=== PATIENT | female | born 1970 | race Caucasian/White ===

== ENCOUNTER 2021-09-27 15:48 | Emergency (ER) | payer OTHER, SELFPAY ==
--- NOTE | ~2021-09-27 | XR_ITS ---
XR chest 2V DATE: 09/27/2021 16:53 INDICATION: Cough for 6 months. History of Covid infection x3. TECHNIQUE: PA and lateral views COMPARISON: None FINDINGS: Normal heart size. No hilar or mediastinal enlargement. No pulmonary infiltrate or consolid ation, pleural effusion or pulmonary vascular congestion or pneumothorax. Status post cholecystectomy. IMPRESSION: No active cardiac pulmonary disease Status post cholecystectomy Reviewed, dictated and finalized at location A. 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
--- NOTE | 2021-09-27 16:15 | ED.URI ---
HPI - URI/Sore Throat General Chief Complaint: Upper Respiratory Infection Stated Complaint: sore throat, ear pain,chest pain Time Seen by Provider: 09/27/21 16:20 Source: patient, RN notes reviewed and old records reviewed Mode of arrival: ambulatory Limitations: no limitations History of Present Illness HPI Narrative: 51 year old female presents to express care with complaints of continued shortness of breath, headache, left earache, congestion, cough with yellow drainage which has increased in the past 2 days. Patient reports that she had COVID diagnosed on August 01 and she has been to the doctor 3 times and has been on antibiotics and steroids and she does not feel she is getting any better. Patient reports that she is using her nebulizer every 4-6 hours. MD elicited complaint: cough, nasal congestion and other (congestion, shortness of breath) Pertinent past history: asthma Onset (ago): week(s) (felt bad for 3 weeks with increase symptoms last 2 days) Description of mucous: yellow Able to tolerate fluids by mouth: Yes Exacerbating factors: exertion Treatments prior to arrival: cold medicine and other (inhalers, nebs and mucinex) Related Data Home Medications Medication Instructions Recorded Confirmed albuterol sulfate 2 puff INHALATION Q4H PRN 09/27/21 09/27/21 amlodipine 10 mg PO DAILY 09/27/21 09/27/21 atorvastatin 20 mg PO DAILY 09/27/21 09/27/21 buspirone 10 mg PO DAILY 09/27/21 09/27/21 chlorthalidone 25 mg PO DAILY 09/27/21 09/27/21 clonazepam 2 mg PO HS PRN 09/27/21 09/27/21 diclofenac sodium 75 mg PO BID PRN 09/27/21 09/27/21 fluticasone propion-salmeterol 1 inh INHALATION BID 09/27/21 09/27/21 [Brandonela Inhub] fluticasone propionate 2 spray INTRANASAL DAILY 09/27/21 09/27/21 lisinopril 2.5 mg PO DAILY 09/27/21 09/27/21 metformin 500 mg PO BID 09/27/21 09/27/21 montelukast 10 mg PO HS 09/27/21 09/27/21 omeprazole 40 mg PO DAILY 09/27/21 09/27/21 potassium chloride 20 meq PO DAILY 09/27/21 09/27/21 tizanidine 2 mg PO TID 09/27/21 09/27/21 Allergies Allergy/AdvReac Type Severity Reaction Status Date / Time Sulfa (Sulfonamide Allergy Unknown rash Verified 09/27/21 16:46 Antibiotics) Review of Systems Review of Systems: CONSTITUTIONAL: Low grade fever, chills, or sweats. EYES: Denies visual changes, redness, or discharge. ENT: rhinorrhea, congestion,no sore throat, positive left ear otalgia. CARDIOVASCULAR: Denies chest pain, palpitations, or edema. RESPIRATORY: Positive for cough or dyspnea. GASTROINTESTINAL: Denies abdominal pain, nausea, vomiting, or diarrhea. GENITOURINARY: Denies dysuria or hematuria. SKIN: Denies rash or itching. MUSCULOSKELETAL: Denies back pain, joint pain, positive for myalgia. NEUROLOGIC: Positive for headache, numbness, or weakness. PSYCHIATRIC: Positive for anxiety or depression. All systems reviewed & are unremarkable except as noted in HPI and below PMFSH Past Medical History Medical History (Updated 09/27/21 @ 19:11 by Felicia Florian NP) Anxiety Asthma Diabetes GERD (gastroesophageal reflux disease) Hypertension Seasonal allergies Surgical History Surgical History (Updated 09/27/21 @ 19:11 by Felicia Florian NP) H/O arthroscopy of right knee H/O: hysterectomy History of repair of right rotator cuff Hx of arthroscopy of left knee Hx of cholecystectomy S/P bilateral foot surgery Social History Social History (Updated 09/27/21 @ 17:02 by Felicia Florian NP) Smoking status: Never smoker Living arrangements: with family Gender identity (if verbalized by the patient): Female Comments At time of signature, agree with nursing past medical, surgical, social and family history. There is no relevant family history pertinent to the presenting complaint Exam Narrative: GENERAL: Well-appearing, well-nourished, and in no acute distress.anxious HEAD: Normocephalic, atraumatic. EYES: PERRLA and EOMI. ENT: Nares clear, clear to light yellow rhinorr
[2021-09-27 16:17] VITALS: BP 140/84; PULSE 87; RESP 20; TEMP 37; O2SAT 96
== END 2021-09-27 17:23 | disposition home or self-care (01) ==
PROVIDERS: Emergency Provider Registered Nurse
DX: J45.41 Moderate persistent asthma with (acute) exacerbation (principal); E11.9 Type 2 diabetes mellitus without complications; K21.9 Gastro-esophageal reflux disease without esophagitis; I10 Essential (primary) hypertension; F41.9 Anxiety disorder, unspecified
CPT/HCPCS: 71046; 99213; G0463

== ENCOUNTER 2024-06-09 10:33 | Emergency (ER) | payer OTHER, MEDICAID, SELFPAY ==
[2024-06-09 10:49] VITALS: BP 165/95; PULSE 95; RESP 18; TEMP 36.6; O2SAT 98
[2024-06-09] MEDS: SODIUM CHLORIDE 0.9% IV 1,000 ML 999 ML IV CONT (12:41)
--- NOTE | 2024-06-09 12:41 | ED_ITS ---
HPI - General Adult General Chief complaint: Unspecified Stated complaint: muscle spasms to whole body Time Seen by Provider: 06/09/24 12:28 History of Present Illness HPI narrative: 54-year-old female presents to the emergency department for evaluation for abdominal cramping. Patient suspects that she is having electrolyte abnormalities. Patient does have prior history of low potassium low magnesium and patient does take p.o. supplements. Patient states she has been donating plasma with increased frequency over the last month. She states she has been donating weekly. Patient states that she was fine for his 1st 3 donations but after 4th admission she began having some cramping. Related Data Home Medications Medication Instructions Recorded Confirmed albuterol sulfate 90 mcg/actuation 2 puff inhalation Q4H PRN 09/27/21 03/17/24 aerosol inhaler Shortness Of Breath Or Wheezing amlodipine 10 mg tablet 10 mg PO DAILY 09/27/21 03/17/24 atorvastatin 20 mg tablet 20 mg PO DAILY 09/27/21 03/17/24 chlorthalidone 25 mg tablet 25 mg PO DAILY 09/27/21 03/17/24 clonazepam 2 mg tablet 2 mg PO HS PRN Sleep 09/27/21 03/17/24 fluticasone 250 mcg-salmeterol 50 1 inh inhalation BID 09/27/21 03/17/24 mcg/dose blistr powdr for inhalation (Wixela Inhub) fluticasone propionate 50 2 spray intranasal DAILY 09/27/21 03/17/24 mcg/actuation nasal spray,suspension lisinopril 2.5 mg tablet 2.5 mg PO DAILY 09/27/21 03/17/24 montelukast 10 mg tablet 10 mg PO HS 09/27/21 03/17/24 potassium chloride 20 mEq 20 meq PO DAILY 09/27/21 03/17/24 tablet,extended release(part/cryst) sertraline 25 mg tablet 25 mg PO DAILY 03/06/23 03/17/24 celecoxib 100 mg capsule mg PO 03/17/24 03/17/24 cetirizine 10 mg tablet mg PO 03/17/24 03/17/24 cyclobenzaprine 10 mg tablet mg PO 03/17/24 03/17/24 gabapentin 300 mg capsule mg PO 03/17/24 03/17/24 hydroxyzine HCl 25 mg tablet mg PO 03/17/24 03/17/24 losartan 100 mg tablet mg PO 03/17/24 03/17/24 metoclopramide HCl 10 mg tablet mg PO 03/17/24 03/17/24 ondansetron 4 mg disintegrating mg PO 03/17/24 03/17/24 tablet pantoprazole 40 mg tablet,delayed mg PO 03/17/24 03/17/24 release tramadol 50 mg tablet mg PO 03/17/24 03/17/24 Allergies Allergy/AdvReac Type Severity Reaction Status Date / Time Sulfa (Sulfonamide Allergy Unknown rash Verified 06/09/24 13:59 Antibiotics) Review of Systems Review of Systems: All systems reviewed & are unremarkable except as noted in HPI and below PMFSH Past Medical History Medical History Anxiety Asthma COVID long-term covid seeing specialist Diabetes Encounter for screening examination for sexually transmitted disease GERD (gastroesophageal reflux disease) 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) Hypertension Migraines Screening mammogram, encounter for Seasonal allergies Surgical History Surgical History H/O arthroscopy of right knee (~1987) H/O tubal ligation (~1999) H/O: hysterectomy (08/05/15) Robotic assisted Hysterectomy, BSO - uterine fibroids, failed endometrial ablation, ovarian cyst - benign History of hysteroscopy (06/18/14) NOVASURE ABLATION, HSCOPE, D&C - benign History of orthopedic surgery (04/26/15) Torn meniscus repair, right knee History of orthopedic surgery (02/14/18) tumor removed from right foot History of repair of right rotator cuff (~2007) Hx of arthroscopy of left knee Hx of cholecystectomy (~2001) Hx of ovarian cystectomy (~2001) S/P bilateral foot surgery (11/27/99) Family History Family History Mother Diabetes mellitus Acute myocardial infarction Hypertension Grandparent Diabetes mellitus maternal grandfather Acute myocardial infarction maternal grandfather Hypertension maternal grandfather Social History Social History Smoking status: Never smoker Alcohol intake: never Substance use: never Substance use type: does not use Lack of Transportation: No Lack of Food: Sometimes True Current Housing: Decline to Answer Concerned About Future Housing: Decline to Answer Difficulty Paying Gas/Electric Bills: No Difficulty Paying for Meds: YES Currently Unemployed: No Education: Associate Degree Difficulty w/ Childcare or Family Care: YES Living arrangements: with family Additional living arrangements comments: / lives with father 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 EYES: PERRLA/EOMI, conjunctivae clear. NOSE: Normal no drainage EARS:TMS clear with good light reflex. THROAT: Pharynx clear, no exudate. NECK: Supple. No adenopathy, no masses. RESPIRATORY: Airway patent, respirations nonlabored. Clear to auscultation bilaterally, no rales, rhonchi, wheezing. CARDIOVASCULAR: Regular rate and rhythm without murmurs rubs or gallops. ABDOMINAL: Soft, nontender, nondistended, normal bowel sounds MUSCULOSKELETAL: Moves all extremities. Strength/ROM intact, No edema, No calf tenderness. NEURO: Alert. Cranial nerves II through XII intact. Good gait. Good coordination SKIN: Warm, dry. Normal Color Course Vital Signs Vital signs: Vital Signs Temperature 97.8 F 06/09/24 10:49 Pulse Rate 95 06/09/24 10:49 Respiratory Rate 18 06/09/24 10:49 Blood Pressure 165/95 H 06/09/24 10:49 Pulse Oximetry 98 06/09/24 10:49 Oxygen Delivery Room Air 06/09/24 10:49 Temperature 97.8 F 06/09/24 10:49 Pulse Rate 87 06/09/24 14:01 Respiratory Rate 20 06/09/24 14:01 Blood Pressure 155/76 H 06/09/24 14:01 Pulse Oximetry 99 06/09/24 14:01 Oxygen Delivery Room Air 06/09/24 10:49 Medical Decision Making [facility] Narrative Medical decision making narrative: 54-year-old female presents to the emergency department for evaluation for abdominal cramping. Patient is afebrile with no leukocytosis and a stable hemoglobin of 15.1. Patient has a normal INR no acute abnormalities on her CMP including normal sodium potassium chloride a calcium and magnesium. Differential Diagnosis Differential Diagnosis: Hyponatremia, hypokalemia, hypomagnesemia Vital Signs Vital Signs: Vital Signs Temperature 97.8 F 06/09/24 10:49 Pulse Rate 95 06/09/24 10:49 Respiratory Rate 18 06/09/24 10:49 Blood Pressure 165/95 H 06/09/24 10:49 Pulse Oximetry 98 06/09/24 10:49 Oxygen Delivery Room Air 06/09/24 10:49 Temperature 97.8 F 06/09/24 10:49 Pulse Rate 87 06/09/24 14:01 Respiratory Rate 20 06/09/24 14:01 Blood Pressure 155/76 H 06/09/24 14:01 Pulse Oximetry 99 06/09/24 14:01 Oxygen Delivery Room Air 06/09/24 10:49 Lab Data Lab results reviewed: Yes I reviewed the patient's lab results. 06/09/24 12:47 06/09/24 12:47 Labs: Lab Results 06/09/24 Range/Units 12:47 WBC 7.1 (4.5-10.0) K/mm3 RBC 5.01 (4.2-5.4) M/mm3 Hgb 15.1 H (12.0-15.0) g/dL Hct 46.0 (37.0-47.0) % MCV 91.8 (80-100) fl MCH 30.1 (26-34) pg MCHC 32.8 (32-36) g/dl RDW 14.3 (11.5-14.5) % Plt Count 325 (150-375) k/mm3 MPV 9.4 (7.4-10.4) fl Immature Gran % (Auto) 0.3 (0-0.5) % Neut % (Auto) 57.8 (45.5-73.1) % Lymph % (Auto) 30.3 (18.3-44.2) % [place] % (Auto) 7.6 (2.6-8.5) % Eos % (Auto) 3.2 (0-4.4) % Baso % (Auto) 0.8 (0.2-1.2) % Lymph # (Auto) 2.16 (0.9-3.2) K/mm3 [place] # (Auto) 0.5 (0.1-0.6) K/mm3 Eos # (Auto) 0.2 (0-0.3) K/mm3 Baso # (Auto) 0.1 (0.0-0.1) K/mm3 Abs Immat Gran (auto) 0.02 (0.00-0.031) K/mm3 Absolute Neuts (auto) 4.1 (1.3-6.7) K/mm3 Absolute Nucleated RBC 0.000 (0.0-0.012) K/mm3 Nucleated RBC % 0.0 (0.0-0.2) % PT 11.8 (11.1-14.7) Seconds INR 0.8 APTT 25.4 (22.3-36.8) Seconds Sodium 139 (137-145) mmol/L Potassium 3.9 (3.4-5.0) mmol/L Chloride 103 (98-107) mmol/L Carbon Dioxide 30 (22-30) mmol/L Anion Gap 6 (4-12) mmol/L BUN 11 (7-17) mg/dL Creatinine 0.90 (0.7-1.0) mg/dL Estim Creat Clear Calc 73 ml/min Estimated GFR > 60 (59 - ) Glucose 104 (65-110) mg/dL Lactic Acid 0.8 (0.7-2.0) mmol/L Calcium 9.5 (8.4-10.2) mg/dL Magnesium 2.3 (1.6-2.3) mg/dL Total Bilirubin 0.7 (0.2-1.3) mg/dL AST 26 (14-36) U/L ALT 35 (6-35) U/L Alkaline Phosphatase 99 (38-126) U/L Total Protein 8.0 (6.3-8.2) g/dL Albumin 4.4 (3.5-5.1) g/dL Lipase 83 (23-300) U/L TSH (Reflex) 2.880 (0.465-4.68) uIU/mL Discharge Plan Discharge Clinical Impression: Abdominal cramping Patient Disposition: Home, Self-Care Condition: Stable Instructions: Antibiotic Form, Abdominal Pain (ED) Additional Instructions: Have close follow-up with your primary care physician. If you have any worsening symptoms then please call or return to the emergency department. Prescriptions: No Action atorvastatin 20 mg tablet 20 mg PO DAILY amlodipine 10 mg tablet 10 mg PO DAILY fluticasone propion-salmeterol [Wixela Inhub] 250-50 mcg/dose blister with device 1 inh INHALATION BID fluticasone propionate 50 mcg/actuation spray,suspension 2 spray INTRANASAL DAILY montelukast 10 mg tablet 10 mg PO HS lisinopril 2.5 mg tablet 2.5 mg PO DAILY albuterol sulfate 90 mcg/actuation HFA aerosol inhaler 2 puff INHALATION Q4H PRN (Reason: Shortness Of Breath Or Wheezing) potassium chloride 20 mEq tablet,ER particles/crystals 20 meq PO DAILY chlorthalidone 25 mg tablet 25 mg PO DAILY clonazepam 2 mg tablet 2 mg PO HS PRN (Reason: Sleep) ondansetron 4 mg tablet,disintegrating PO losartan 100 mg tablet PO hydroxyzine HCl 25 mg tablet PO metoclopramide HCl 10 mg tablet PO pantoprazole 40 mg tablet,delayed release (DR/EC) PO cyclobenzaprine 10 mg tablet PO cetirizine 10 mg tablet PO gabapentin 300 mg capsule PO tramadol 50 mg tablet PO celecoxib 100 mg capsule PO sertraline 25 mg tablet 25 mg PO DAILY fluconazole 150 mg tablet 150 mg PO Q72H Qty: 2 0RF Follow-up/Referrals: PHYSICIAN NOT ON STAFF,NONSTAFF [Non-Staff] - Stand Alone Forms: Work/School Release IP
[2024-06-09] MEDS: HYDROmorphone HCL INJ (*CRX) 1 MG/ML SYR 0.5 MG IV PUSH (12:51)
[2024-06-09 12:52] LABS: Basophils Absolute Auto 0.1 K/mm3 (0.0-0.1); Basophils Percent Auto 0.8 % (0.2-1.2); Eosinophils Absolute Auto 0.2 K/mm3 (0-0.3); Eosinophils Percent Auto 3.2 % (0-4.4); Hemoglobin 15.1 g/dL (12.0-15.0); Immature Granulocyte Absolute 0.02 K/mm3 (0.00-0.031); Immature Granulocyte Percent A 0.3 % (0-0.5); Lymphocytes Absolute Auto 2.16 K/mm3 (0.9-3.2); Lymphocytes Percent Auto 30.3 % (18.3-44.2); Mean Corpuscular HGB Conc 32.8 g/dl (32-36); Mean Corpuscular Hemoglobin 30.1 pg (26-34); Mean Corpuscular Volume 91.8 fl (80-100); Mean Platelet Volume 9.4 fl (7.4-10.4); Monocytes Absolute Auto 0.5 K/mm3 (0.1-0.6); Monocytes Percent Auto 7.6 % (2.6-8.5); Neutrophils Absolute Auto 4.1 K/mm3 (1.3-6.7); Neutrophils Percent Auto 57.8 % (45.5-73.1); Platelet Count Result 325 k/mm3 (150-375); Red Blood Count 5.01 M/mm3 (4.2-5.4); Red Cell Distribution Width 14.3 % (11.5-14.5); White Blood Count 7.1 K/mm3 (4.5-10.0)
[2024-06-09 13:00] VITALS: BP 150/76; PULSE 83; O2SAT 99
[2024-06-09 13:05] LABS: Lactic Acid Reflex 0.8 mmol/L (0.7-2.0)
[2024-06-09 13:06] LABS: Alanine Aminotransferase 35 U/L (6-35); Albumin Level 4.4 g/dL (3.5-5.1); Alkaline Phosphatase 99 U/L (38-126); Anion Gap 6 mmol/L (4-12); Aspartate Amino Transferase 26 U/L (14-36); Bilirubin,Total 0.7 mg/dL (0.2-1.3); Blood Urea Nitrogen 11 mg/dL (7-17); Calcium 9.5 mg/dL (8.4-10.2); Carbon Dioxide 30 mmol/L (22-30); Chloride 103 mmol/L (98-107); Estimated CRCL calculation 73 ml/min; Estimated Glomerular Filt Rate > 60; Glucose 104 mg/dL (65-110); Lipase 83 U/L (23-300); Magnesium 2.3 mg/dL (1.6-2.3); Potassium 3.9 mmol/L (3.4-5.0); Sodium 139 mmol/L (137-145)
[2024-06-09 13:12] LABS: INR 0.8; Prothrombin Time 11.8 Seconds (11.1-14.7)
[2024-06-09 13:14] LABS: Partial Thromboplastin Time 25.4 Seconds (22.3-36.8)
[2024-06-09 14:01] VITALS: BP 155/76; PULSE 87; RESP 20; O2SAT 99
== END 2024-06-09 14:03 | disposition home or self-care (01) ==
PROVIDERS: Emergency Provider Emergency Medicine
DX: R10.9 Unspecified abdominal pain (principal); F41.9 Anxiety disorder, unspecified; J45.909 Unspecified asthma, uncomplicated; I10 Essential (primary) hypertension; E11.9 Type 2 diabetes mellitus without complications
CPT/HCPCS: 36415; 80053; 83605; 83690; 83735; 84443; 85025; 85610; 85730; 96361; 96374; 99284; J1171; J7030

== ENCOUNTER 2024-11-14 23:58 | Emergency (ER) | payer OTHER, MEDICAID, SELFPAY ==
--- NOTE | ~2024-11-14 | XR_ITS ---
EXAMINATION: XR knee LT 3V DATE: 11/15/2024 00:57 INDICATION: Left knee injury post fall TECHNIQUE: AP, oblique and lateral views of the left knee were obtained COMPARISON: None. FINDINGS: Left total knee arthroplasty without patellar resurfacing which appears well seated in near-anatomic alignment. No periprosthetic lucency to suggest loosening or infection. No fracture. Small round luce nt screw versus drill tracts in the distal femur and proximal tibia. Soft tissues are unremarkable wi th no joint effusion. IMPRESSION: 1. Expected appearance of a left total knee arthroplasty. No acute osseous abnormality. Reviewed, dictated and finalized at location A. IMPRESSION: 1. Expected appearance of a left total knee arthroplasty. No acute osseous abno rmality.
--- OUTSIDE RECORDS SUMMARY | 2024-11-15 | XMS_ITS | Encounter Summary ---
Author Organization [facility] Healthcare Address [address] [place] [id number] Care Team Providers Care Twisting Frame Operator Name Role Phone Ar Talbot MD Unavailable [phone] Tavo Juan MD Unavailable [phone] Sherrie Martell CASE MAKING MACHINE OPERATOR Primary Care Provider Josseline Pitts CASE MAKING MACHINE OPERATOR Unavailable [phone] Shaquille Campos MD Unavailable Nakul Gutierrez Unavailable [phone] Don Sinha CASE MAKING MACHINE OPERATOR Unavailable [phone] Saurav Varma MD Unavailable [phone] Encounter Details Date Type Department Care Team (Late st Contact Info) Description 10/15/2024 Results Follow-Up [facility] Medical Group Gastroenterology at [address] [place] [address] Billy Nolan MD [address] [place] [address] [address] [place] [address] Social History Tobacco Use Types Packs/Day Years Used Date Smoking Tobacco: Never Smokeless Tobacco: Never Alcohol Use Standard Drinks/Week Comments No 0 (1 standard drink = 0.6 oz pur e alcohol) AUDIT-C Answer Date Recorded Q1: How often do you have a drink containing alcohol? Never 10/15/2024 Q2: How many drinks containi ng alcohol do you have on a typical day when you are drinking? Patient does not drink Q3: How often do you have si x or more drinks on one occasion? Never 10/15/2024 Overall Financial Resource Strain (CARDIA) Answe r Date Recorded How hard is it for you to pa y for the very basics like food, housing, medical care, and heating? Somewhat hard 10/20/2021 PHQ-2 Answer Date Recorded PHQ-2 Total Score (If total score is 3 or more points, staff should administer the PHQ-9) 1 10/08/2024 Hunger Vital Sign Answer Date Recorded Within the past 12 months, y ou worried that your food would run out before you got the money to buy more. Sometimes true Within the past 12 months, t he food you bought just didn't last and you didn't have money to get more. Sometimes true PRAPARE - Transportation Answer Date Re corded In the past 12 months, has l ack of transportation kept you from medical appointments or from getting medications? No 09/28 In the past 12 months, has l ack of transportation kept you from meetings, work, or from getting things needed for daily living? No 10/20/2021 Housing Stability Vital Sign Answer Zane e Recorded In the last 12 months, was t here a time when you were not able to pay the mortgage or rent on time? No 10/20/2021 Number of Places Lived in the Last Year Not on f ile 10/20/2021 In the last 12 months, was t here a time when you did not have a steady place to sleep or slept in a fpc (including now)? No 10/20/2021 Personal Safety Answer Date Recorded Have you ever been in or are you currently in a harmful physical or emotional relationship or is someone making you feel afraid or unsafe? 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 Gender Identity Not on file Sexual Orientation Not on file documented as of this encounter Functional Status documented as of this encounter Plan of Treatment Not on file documented as of this encounter Visit Diagnoses Not on filedocumented in this encounter Care Teams Twisting Frame Operator Relationship Specialty Start Date End Date Sherrie Martell NP [address] [place] [address] PCP - General Family Medicine 12/08/22 [place] [id number] [facility] [address] [place] [id number] Consulting Physician Pulmonary Disease 10/25/21 [place] [id number] [facility] [address] [place] [address] Consulting Physician Psychiatry 10/25/21 Josseline Pitts, DILIP [address] [place] [address] Nurse Practitioner Endocrinology Diabetes & Metabolism 03/20/24 Shaquille Campos MD [address] [place] [address] Consulting Physician Pulmonary Disease 03/20/24 Nakul Gutierrez PA [address] [place] [address] Physician Space Physicist Orthopedic Surgery 06/18/24 Don Sinha NP [address] [place] [address] Nurse Practitioner Gastroenterology 06/18/24 Saurav Varma MD [address] [facility] [address] [place] [address] Referring Physician Neurology 06/18/24 documented as of this encounter
--- OUTSIDE RECORDS SUMMARY | 2024-11-15 | XMS_ITS | Encounter Summary ---
Author Organization [facility] Healthcare Address [address] [place] [address] Care Team Providers Care Creative Recruiter Name Role Phone Ar Talbot MD Unavailable [phone] Tavo Juan MD Unavailable [phone] Sherrie Martell PARKING CONTROL OFFICER Primary Care Provider [phone] Josseline Pitts PARKING CONTROL OFFICER Unavailable [phone] Shaquille Campos MD Unavailable Nakul Gutierrez Unavailable [phone] Don Sinha PARKING CONTROL OFFICER Unavailable [phone] Saurav Varma MD Unavailable [phone] Janeth Valdovinos MA Unavailable Encounter Details Date Type Department Care Team (Late st Contact Info) Description 08/25/[address] [facility] Primary Care at [address] [place] [address] Татьяна Larkin, TAM Social History Tobacco Use Types Packs/Day Years Used Date Smoking Tobacco: Never Smokeless Tobacco: Never Alcohol Use Standard Drinks/Week Comments No 0 (1 standard drink = 0.6 oz pur e alcohol) AUDIT-C Answer Date Recorded Q1: How often do you have a drink containing alcohol? Never 08/27/2024 Q2: How many drinks containi ng alcohol do you have on a typical day when you are drinking? Patient does not drink Q3: How often do you have si x or more drinks on one occasion? Never 08/27/2024 Overall Financial Resource Strain (CARDIA) Answe r Date Recorded How hard is it for you to pa y for the very basics like food, housing, medical care, and heating? Somewhat hard 10/20/2021 PHQ-2 Answer Date Recorded PHQ-2 Total Score (If total score is 3 or more points, staff should administer the PHQ-9) 1 08/06/2024 Hunger Vital Sign Answer Date Recorded Within [...] place to sleep or slept in a [place] [facility] [place] (including now)? No 10/20/2021 Personal Safety Answer Date Recorded Have you ever been in or are you currently in a harmful physical or emotional relationship or is someone making you feel afraid or unsafe? Denies 07/07/2024 Comments No Sex and Gender Information Value Date Recorded Sex Assigned at Not on file Legal Sex Female 12:37 AM WAREHOUSE HELPER Gender Identity Not on file Sexual Orientation Not on file documented as of this encounter Functional Status * Audit-C Score Answer Date of Assessment Author 0 08/27/2024 8:55 AM Nancy Santiago MA * Question Answer Date of Assessment Author Q1: How often do you have a drink containing alcohol? Never 08/27/2024 8:55 AM Carmen Santiago MA Q2: How many drinks containing alcohol do you have on a typical day when you are drinking? Patient does not drink 08/27/2024 8:55 AM Nancy Santiago MA Q3: How often do you have six or more drinks on one occasion? Never 08/27/2024 8:55 AM Carmen Santiago MA documented as of this encounter Miscellaneous Notes * Telephone Encounter - Chas Rodrigues MA - 08/25/2024 3:43 PM CST Pt is aware. 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 Phone number verified. Protocols used: No Contact or Duplicate Contact [id number] 2 attempts made by vacuum cleaner operator to reach pt, No contact, Left msg to call back with any needs. Routed to office to notify vacuum cleaner operator unable to reach pt . Please see notes from CS: Stated that it was nothing alarming. Patient was requesting a CT Scan or something in addition to the two x-rays that had been previously ordered. But the symptom of the pain has changed to the symptoms that are liste HOUSE HELPER * Telephone Encounter - Parul Martin RN - 08/25/2024 9:28 AM CST Regarding: Numbing, tingling, pain shooting on the right side fingers and elbow ----- Message from Abimbola Loredo sent at 08/25/2024 9:27 AM WAREHOUSE HELPER ----- Symptom Based Call Chief Complaint(s): Numbing, tingling, pain shooting on the right side fingers and elbow Duration: Off and on for two weeks What type of symptom(s) is the patient experiencing? Red Flag. Is the patient concerned they are experiencing a medical emergency requiring an ambulance? No Additional Comments: Patient stated that she will be in court within the 05-13 and unable to answer. Stated that it was nothing alarming. Patient was requesting a CT Scan or something in addition to the two x-rays that had been previously ordered. But the symptom of the pain has changed to the symptoms that are listed above. Does message need to be routed? Yes-Action Needed HOUSE HELPER documented in this encounter Plan of Treatment Not on file documented as of this encounter Visit Diagnoses Not on filedocumented in this encounter Care Teams Creative Recruiter Relationship Specialty Start Date End Date Sherrie Martell NP [address] [facility] [address] [place] [address] PCP - General Family Medicine 12/08/22 [place] [id number] [address] Consulting Physician Pulmonary Disease 10/25/21 [place] [id number] [facility] [address] [place] [address] Consulting Physician Psychiatry 10/25/21 Josseline Pitts NP [address] [place] [address] [address] [place] [address] Nurse Practitioner Endocrinology Diabetes & Metabolism 03/20/24 Shaquille Campos MD [address] [place] [address] [address] [place] [address] Consulting Physician Pulmonary Disease 03/20/24 Nakul Gutierrez PA [address] [place] [address] [address] [place] [address] Physician Photographic Laboratory Supervisor Orthopedic Surgery 06/18/24 Don Sinha NP [address] [place] [address] [address] [place] [address] Nurse Practitioner Gastroenterology 06/18/24 Saurav Varma MD [address] [facility] [address] [place] [address] Referring Physician Neurology 06/18/24 Janeth Valdovinos MA [address] [facility] [address] [place] [address] [employer] 09/08/24 09/08/24 documented as of this encounter
--- OUTSIDE RECORDS SUMMARY | 2024-11-15 | XMS_ITS | Referral Summary ---
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 Name Role Phone Ar Talbot MD Unavailable [phone] Tavo Juan MD Unavailable [phone] Sherrie Martell NP Primary Care Provider [phone] Josseline Pitts NP Unavailable [phone] Shaquille Campos MD Unavailable Nakul Gutierrez Unavailable [phone] Don Sinha CUSTOMER COUNTER ASSOCIATE Unavailable [phone] Saurav Varma MD Unavailable [phone] Encounters Date Type Department Care Team Description 11/13/19 25 2:45 PM CDT Office Visit [facility] Orthopedic and Sports Medicine [facility] [place] [address] Nakul Gutierrez PA Aftercare following left knee joint replacement surgery (Primary Dx) 11/11/19 25 Nurse Triage [facility] Primary Care at [place] [address] [facility] [address] [place] [address] Sherrie Martell NP 11/08/19 25 Orders Only [facility] Orthopedics and Sports Medicine [address] [facility] [address] [place] [address] Nakul Gutierrez PA 11/04/19 25 Telephone [facility] Primary Care at [address] [place] [address] Sherrie Martell NP Paperwork 10/30/19 25 Telephone [facility] Orthopedic and Sports Medicine [address] [place] [address] Nakul Gutierrez PA 10/30/19 25 Telephone [facility] Orthopedics and Sports Medicine [address] [place] [address] [address] [place] [address] Frantz Alejandra MD 10/30/19 25 Telephone [facility] Orthopedic and Sports Medicine [address] [place] [phone] Frantz Alejandra MD 10/28/19 25 Telephone [facility] Primary Care at [address] [place] [address] Sherrie Martell NP Medical Question/Miscellaneous 10/28/19 25 Orders Only [facility] Orthopedics and Sports Medicine [address] [place] [address] [address] [place] [address] Shilpa Madera PA 10/28/19 25 Telephone [facility] Orthopedics and Sports Medicine [address] [place] [address] [address] [place] [address] Frantz Alejandra MD 10/26/19 25 Orders Only [facility] Orthopedics and Sports Medicine [address] [place] [address] [address] [place] [address] Shilpa Madera PA 10/24/19 25 10:08 AM CDT - 10/26/19 25 10:23 AM CDT Hospital Encounter [facility] Surgery Care 1 [place] [address] Frantz Alejandra MD S/P total knee arthroplasty, left (Primary Dx); Post-traumatic osteoarthritis of left knee Discharge Disposition: Discharge to home, home health skilled care 10/24/19 1:00 PM CDT - 10/24/19 3:30 PM CDT Surgery [facility] Operating Room 1 [place] [address] Frantz Alejandra MD Left robotic total knee arthroplasty 10/24/19 12:37 PM CDT Anesthesia Event [facility] Operating Room 1 [place] [address] Candie Reddy MD Reynolds, Mayur Jiménez MD 10/22/19 Telephone [facility] Primary Care at [address] [place] [address] Sherrie Martell NP 10/18/19 3:40 PM CDT Lab [address] [address] Pre-op testing 10/18/19 3:39 PM CDT - 10/18/19 11:59 PM CDT Hospital Encounter [facility] Imaging Center 1 [place] [address] Pre-op testing Discharge Disposition: Discharge to home or self care 10/18/19 3:39 PM CDT - 10/18/19 11:59 PM CDT Hospital Encounter [facility] Cardiology 1 [place] [address] Pre-op testing Discharge Disposition: Discharge to home or self care 10/18/19 Telephone [facility] Primary Care at [address] [place] [address] Sherrie Martell NP 10/16/19 Results Follow-Up [facility] Gastroenterology at [address] [place] [address] Billy Nolan MD 10/16/19 Orders Only [facility] Orthopedic and Sports Medicine [address] [place] [phone] Nakul Gutierrez PA 10/15/19 Orders Only [facility] Orthopedics and Sports Medicine [address] [place] [address] [address] [place] [address] Frantz Alejandra MD S/P total knee arthroplasty, left (Primary Dx) 10/14/19 25 Orders Only [facility] Orthopedics and Sports Medicine [address] [place] [address] [address] [place] [address] Frantz Alejandra MD S/P total knee arthroplasty, left (Primary Dx) 10/11/19 25 Orders Only [facility] Orthopedics and Sports Medicine [address] [place] [address] [address] [place] [address] Frantz Alejandra MD Post-traumatic osteoarthritis of left knee (Primary Dx) 10/10/19 2:28 PM CDT Anesthesia Event [address] [address] Lito Gold MD 10/10/19 2:00 PM CDT - 10/10/19 2:30 PM CDT Surgery [address] [address] Billy Nolan MD ESOPHAGOGASTRODUODENOSCOPY BIOPSY 10/10/19 12:00 PM CDT - 10/10/19 3:37 PM CDT Hospital Encounter [address] [address] Billy Nolan MD Dysphagia, unspecified type; Gastroesophageal reflux disease without esophagitis Discharge Disposition: Discharge to home or self care 10/09/19 Telephone [facility] Primary Care at [address] [address] Sherrie Martell NP 10/09/19 8:30 AM CDT Office Visit [facility] Primary Care at [address] [place] [address] Sherrie Martell NP Preoperative clearance (Primary Dx); Hypertension associated with type 2 diabetes mellitus (HCC); Hyperlipidemia due to type 2 diabetes mellitus (HCC); Type 2 diabetes mellitus without complication, without long-term current use of insulin (HCC); Vitamin D deficiency; Generalized anxiety disorder; Post-traumatic osteoarthritis of left knee; Open nondisplaced fracture of distal phalanx of right great toe with routine healing, subsequent encounter; Class 3 severe obesity due to excess calories with serious comorbidity and body mass index (BMI) of 40.0 to 44.9 in adult ([facility]) 10/07/19 Results Follow-Up [facility] Primary Care at [address] [address] Sherrie Martell NP 10/03/19 9:15 AM [facility] Lab [address] Annual physical exam; Hypertension associated with type 2 diabetes mellitus (HCC); Type 2 diabetes mellitus without complication, without long-term current use of insulin (HCC); Hyperlipidemia due to type 2 diabetes mellitus ([facility]); Class 3 severe obesity due to excess calories with serious comorbidity and body mass index (BMI) of 40.0 to 44.9 in adult ([facility]); Screening for thyroid disorder 10/02/19 Orders Only [facility] Primary Care at [address] [place] [address] Sherrie Martell NP Gastroesophageal reflux disease without esophagitis 10/01/19 Telephone [facility] Primary Care at [address] [address] Sherrie Martell NP 09/30/19 Telephone [facility] Gastroenterology at [address] [place] [address] Jodi Gomez EGD Reschedule 09/30/19 Orders Only [facility] Primary Care at [address] [address] Sherrie Martell NP Gastroesophageal reflux disease without esophagitis 09/30/19 Telephone [facility] Primary Care at [address] [address] Sherrie Martell NP Medications Prior Authorization (Multiple medication PA's ); Medical Question/Miscellaneous 09/30/19 Telephone [facility] Primary Care at [address] [address] Sherrie Martell NP Prior Auth (Pantoprazole 40 mg) 09/23/19 25 Telephone [facility] Orthopedics and Sports Medicine [address] [facility] [address] [place] [address] Frantz Alejandra MD 09/09/19 25 [facility] [address] [address] Janeth Valdovinos [place] 09/08/19 25 [facility] [address] [address] Janeth Valdovinos [place] 09/08/19 25 2:30 PM CAR RUNNER Office Visit [facility] Primary Care at [address] [address] Sherrie Martell NP Annual physical exam (Primary Dx); Open nondisplaced fracture of distal phalanx of right great toe with routine healing, subsequent encounter; Fall, subsequent encounter; Hypertension associated with type 2 diabetes mellitus ([facility]); Type 2 diabetes mellitus without complication, without long-term current use of insulin ([facility]); Hyperlipidemia due to type 2 diabetes mellitus ([facility]); Screening for thyroid disorder; Class 3 severe obesity due to excess calories with serious comorbidity and body mass index (BMI) of 40.0 to 44.9 in adult ([facility]) 09/05/19 25 1:05 PM CAR RUNNER - 09/05/19 25 4:42 PM CAR [facility]NER Emergency [facility] Emergency Department 1 [place] [address] Fall, initial encounter (Primary Dx); Open nondisplaced fracture of distal phalanx of right great toe, initial encounter Discharge Disposition: Discharge to home or self care 09/05/19 25 Nurse Triage [facility] Primary Care at [address] [place] [address] Sherrie Martell NP 09/01/19 25 Telephone [facility] Primary Care at [address] [place] [address] Sherrie Martell NP 08/29/19 25 Orders Only [facility] Primary Care at [address] [place] [address] Sherrie Martell NP Type 2 diabetes mellitus without complication, without long-term current use of insulin (HCC) (Primary Dx); Class 3 severe obesity due to excess calories with serious comorbidity and body mass index (BMI) of 40.0 to 44.9 in adult (HCC); Yeast infection 08/29/19 12:30 PM CAR RUNNER - 08/29/19 11:59 PM CAR RUNNER Hospital Encounter [facility] Imaging and Radiology [id number] [place], [place] [id number] Screening mammogram for breast cancer Discharge Disposition: Discharge to home or self care 08/28/19 Telephone [facility] Primary Care at [address] [place] [address] Sherrie Martell NP Med Refill 08/28/19 Telephone [facility] Primary Care at [address] [place] [address] Sherrie Martell NP Symptom Based Call 08/27/19 Telephone [facility] Orthopedics and Sports Medicine [address] [facility] [address] [place] [address] Dalila Traylor [place] 08/27/19 9:00 AM CAR RUNNER Office Visit [facility] Orthopedic and Sports Medicine [address] [place] [phone] Nakul Gutierrez PA Post-traumatic osteoarthritis of left knee (Primary Dx); Instability of left knee joint; Right elbow pain 08/25/19 Nurse Triage [facility] Primary Care at [address] [place] [address] Татьяна Larkin, TAM 08/25/19 Orders Only [facility] Primary Care at [address] [place] [address] Sherrie Martlel NP Dysuria (Primary Dx) 08/22/19 Telephone [facility] Primary Care at [address] [place] [address] Sherrie Martell NP Test Results 01/23/20 25 12:05 PM CAR RUNNER Lab [facility] 1 [place] [address] Dysuria 08/21/19 25 12:03 PM CAR RUNNER - 08/21/19 25 11:59 PM CAR RUNNER Hospital Encounter [facility] Imaging Center 1 [place] [address] Fall, initial encounter; Right elbow pain Discharge Disposition: Discharge to home or self care 08/19/19 25 Orders Only [facility] Orthopedics and Sports Medicine [address] [facility] [address] [place] [address] Nakul Guteirrez PA from Last 3 Months Allergies Active Allergy Reactions Criticality Noted Date Comments Adhesive Tape-Silicones Rash Medium 03/06/2018 Bleach (Sodium Hypochlorite) Rash,Shortness of breath High Reaction: sob, rash, Metformin Diarrhea Low 11/17/2021 Has irritable bowel syndrome Semaglutide Diarrhea Low 08/21/2023 Povidone-Iodine Other (See comments) Low Irritated wound and swelling with last surgeries Metoclopramide Other (See comments) Low 07/07/2024 Made my face and neck jerk Soap Rash Medium Sulfa (Sulfonamide Antibiotics) Rash Medium 11/18/2013 Sulfanilamide Rash Medium Medications polyethylene glycol (MIRALAX) 17 gram packet Take 1 packet (17 g total) by mouth daily as needed (Constipation). 03/07/20 18 Active ipratropium-albut Jasiel (DUO-NEB) 0.5-2.5 mg/3 mL nebulizer solution Take 3 mL by nebulization every 6 (six) hours As needed for wheezing 90 mL 1 05/22/20 22 Active Advair Diskus 250-50 mcg/dose diskus inhaler INHALE 1 DOSE BY MOUTH TWICE DAILY RINSE MOUTH WITH WATER AFTER USING. DO NOT SWALLOW 60 each 3 02/10/20 23 Active fluticasone propionate (FLONASE) 50 mcg/actuation nasal spray Administer 2 sprays into each nostril daily 1 each 11 05/04/20 23 Active cetirizine (ZyrTEC) 10 mg tabletIndications :Seasonal Allergic Rhinitis Take 1 tablet (10 mg total) by mouth daily 90 tablet 3 05/04/20 23 Active montelukast (SINGULAIR) 10 mg tablet Take 1 tablet by mouth nightly 90 tablet 3 11/09/19 24 Active losartan (COZAAR) 100 mg tablet Take 1 tablet by mouth once daily 90 tablet 3 11/09/19 24 Active celecoxib (CeleBREX) 100 mg capsule Take 1 capsule (100 mg total) by mouth 2 (two) times a day 12/28/19 24 Active atorvastatin (LIPITOR) 40 mg tablet Take 0.5 tablets (20 mg total) by mouth daily 90 tablet 3 12/31/19 24 Active gabapentin (NEURONTIN) 300 mg capsule Take 1 capsule (300 mg total) by mouth 2 (two) times a day 02/26/20 24 Active sertraline (ZOLOFT) 100 mg tabletIndications :Generalized anxiety disorder,Moderate episode of recurrent major depressive disorder (HCC) Take 1 tablet (100 mg total) by mouth daily 90 tablet 3 03/14/20 24 Active amLODIPine (NORVASC) 10 mg tablet Take 1 tablet (10 mg total) by mouth daily 90 tablet 3 05/21/20 24 Active hydrOXYzine (ATARAX) 25 mg tabletIndications :Generalized anxiety disorder Take 1 tablet by mouth twice daily as needed for anxiety 180 tablet 3 07/09/20 24 Active albuterol HFA (PROVENTIL HFA,VENTOLIN HFA,PROAIR HFA) 90 mcg/actuation inhalerIndication s:Acute cough Inhale 2 puffs every 6 (six) hours as needed for wheezing for up to 7 days 1 each 08/01/19 25 Active famotidine (PEPCID) 40 mg tablet Take 1 tablet (40 mg total) by mouth nightly 07/15/20 24 Active tiZANidine (ZANAFLEX) 2 mg tablet Take 1 tablet (2 mg total) by mouth every 6 (six) hours as needed for muscle spasms 60 tablet 1 08/19/19 25 Active tirzepatide (Mounjaro) 5 mg/0.5 mL pen injector injectionIndicati ons:Type 2 diabetes mellitus without complication, without long-term current use of insulin ([facility]),Class 3 severe obesity due to excess calories with serious comorbidity and body mass index (BMI) of 40.0 to 44.9 in adult ([facility]) Inject 0.5 mL (5 mg total) under the skin every 7 days 6 mL 1 08/29/19 25 Active al & mag hydroxide with simethicone-diphe nhydramine-lidoca ine (MAGIC MOUTHWASH) suspension 1-1-1 Swish and swallow 20 mL every 4 (four) hours as needed (for nausea/vomiting) 100 mL 10/02/19 25 Active clonazePAM (KlonoPIN) 2 mg tabletIndications :Generalized anxiety disorder TAKE 1/2 TAB BY MOUTH ONCE DAILY IN THE MORNING AND 1 TAB ONCE DAILY AT BEDTIME NEEDED 45 tablet 10/09/[address] (PROTONIX) 40 mg EC tabletIndications :Gastroesophageal reflux disease without esophagitis Take 1 tablet (40 mg total) by mouth daily 90 tablet 3 10/10/19 25 026 Active ascorbic acid (vitamin C) 1,000 mg tablet Take 1 tablet (1,000 mg total) by mouth daily Active zinc gluconate 50 mg tablet Take 1 tablet (50 mg total) by mouth daily Active potassium chloride ER 20 mEq CR tablet Take 1 tablet (20 mEq total) by mouth every other day Active lidocaine (LIDODERM) 5 % Place 1 patch on the skin daily Remove & discard patch within 12 hours or as directed by MD. Active hydroCHLOROthiazi de (HYDRODIURIL) 25 mg tablet Take 1 tablet (25 mg total) by mouth 2 (two) times a day Active aspirin 81 mg enteric coated tabletIndications :prevention of thrombosis Take 1 tablet (81 mg total) by mouth 2 (two) times a day for 28 days 56 tablet 10/26/19 25 025 Active cholecalciferol (VITAMIN D-3) 2000 unit capsule Take 1 capsule (2,000 Units total) by mouth daily 30 capsule 10/26/19 25 025 Active ferrous sulfate 325 mg (65 mg of elemental iron) tabletIndications :Iron Deficiency Anemia Take 1 tablet (325 mg total) by mouth daily with breakfast 30 tablet 10/26/19 25 025 Active ondansetron (ZOFRAN) 4 mg tabletIndications :Prevention of Post-Operative Nausea and Vomiting Take 1 tablet (4 mg total) by mouth every 6 (six) hours as needed for nausea or vomiting 30 tablet 1 10/26/19 25 Active senna-docusate (PERICOLACE) 8.6-50 mg 1-2 times daily as needed for constipation 60 tablet 1 10/26/19 25 Active naloxone (NARCAN) 4 mg/actuation spray,non-aerosol Administer 1 spray into affected nostril(s) as needed for opioid reversal or respiratory depression Call 911. Administer a single spray in one nostril. Repeat every 3 minutes as needed if no or minimal response. 1 each 10/26/19 25 Active oxyCODONE-acetami nophen (PERCOCET) 5-325 mg per tabletIndications :Pain Take 1-2 tablets by mouth every 6 (six) hours as needed for pain 40 tablet 11/08/19 25 Active ergocalciferol (VITAMIN D) 50,000 unit capsuleIndication s:Vitamin D deficiency Take 1 capsule (50,000 Units total) by mouth once a week For 12 weeks, afterwards switch to OTC daily 5000 international units D3 daily 12 capsule 05/05/20 24 025 Discontin ued(Thera py completed ) acetaminophen ER (TYLENOL) 650 mg 8 hr tabletIndications :Degeneration of intervertebral disc of lumbar region with discogenic back pain and lower extremity pain,Right elbow pain Take 1 tablet (650 mg total) by mouth every 8 (eight) hours as needed for pain 30 tablet 1 06/25/20 24 025 Discontin ued(Stop Taking at Discharge ) HYDROcodone-aceta minophen (NORCO) 5-325 mg per tabletIndications :Pain Take 1 tablet by mouth every 6 (six) hours as needed for pain 10 tablet 09/05/19 25 025 Discontin ued(Stop Taking at Discharge ) ondansetron ODT (ZOFRAN-ODT) 4 mg disintegrating tabletIndications :Gastroesophageal reflux disease without esophagitis Take 1-2 tablets by mouth every 8 hours as needed for nausea/vomiting 60 tablet 2 10/02/19 25 025 Discontin ued(Stop Taking at Discharge ) mupirocin (BACTROBAN) 2 % ointment Apply to each nostril 2 (two) times a day Apply to both nostrils in the morning the day before surgery as well as the evening before surgery and apply again the morning of surgery. Three applications 22 g 10/16/19 25 025 Discontin ued(Stop Taking at Discharge ) oxyCODONE-acetami nophen (PERCOCET) 5-325 mg per tabletIndications :Pain Take 1-2 tablets by mouth every 4 (four) hours as needed for pain 60 tablet 10/26/19 25 025 Discontin ued(Reord er) oxyCODONE-acetami nophen (PERCOCET) 5-325 mg per tabletIndications :Pain Take 1-2 tablets by mouth every 4 (four) hours as needed for pain 60 tablet 10/26/19 25 025 Discontin ued(Reord er) cephalexin (KEFLEX) 500 mg capsuleIndication s:Skin/Soft Tissue Infection Take 1 capsule (500 mg total) by mouth 2 (two) times a day for 7 days 14 capsule 10/28/19 25 025 Active Problems Problem Noted Date Diagnosed Date S/P total knee replacement, left 10/24/2024 S/P total knee arthroplasty, left 10/23/2024 Preoperative clearance 10/15/2024 Assessment & Plan (10/15/2024 12:05 PM CDT): Left total knee arthroplasty tentatively scheduled with Dr. Alejandra on 10/23/2024. Patient's BMI needs to be below 40 in order for the surgery to proceed per ortho. Patient reports previous surgeries with anesthesia and reports one time she had vomiting and a harder time waking up and did have to be admitted. Pt has never been told she has a small or difficult airway to intubate. Surgical clearance pending lab work, chest x-ray, and EKG. Revised cardiac risk index for preoperative risk score: 3.9% Serum creatinine: 1.02 mg/dL 10/02/24 0915 Estimated creatinine clearance: 51.7 mL/min -Advised patient to let us know if she would like her weight rechecked in our office -Recommend stopping the Celebrex 1 week prior to surgery Vitamin D deficiency 10/15/2024 Assessment & Plan (10/15/2024 12:08 PM CDT): -chronic, unknown, no data to review at this time to make an evaluation -Discussed/ordered labs -continue on vitamin-D 63266 units weekly Post-traumatic osteoarthritis of left knee 10/10 Assessment & Plan (10/15/2024 12:06 PM CDT): -Chronic, not at goal Left total knee arthroplasty tentatively scheduled with Dr. Alejandra on 10/23/2024. Patient's BMI needs to be below 40 in order for the surgery to proceed per ortho. Patient reports previous surgeries with anesthesia and reports one time she had vomiting and a harder time waking up and did have to be admitted. Pt has never been told she has a small or difficult airway to intubate. Surgical clearance pending lab work, chest x-ray, and EKG. Revised cardiac risk index for preoperative risk score: 3.9% Serum creatinine: 1.02 mg/dL 10/02/24 0915 Estimated creatinine clearance: 51.7 mL/min -Advised patient to let us know if she would like her weight rechecked in our office -Recommend stopping the Celebrex 1 week prior to surgery Open nondisplaced fracture o f distal phalanx of right great toe 09/15/2024 Assessment & Plan (10/15/2024 12:06 PM CDT): -acute, improving -Related to fall -Patient reports 7 falls while waiting to have a left knee replacement -Patient's BMI needs to be at or below 40 in ordered to have left knee surgery -Start back on Mounjaro 2.5 mg weekly for 4 weeks, then increase to Mounjaro 5 mg weekly for maintenance dose -continue follow up with ortho and Podiatry Assessment & Plan (09/15/2024 12:23 PM CAR RUNNER): -acute, not at goal- recent fall -Patient reports 7 falls while waiting to have a left knee replacement -Patient's BMI needs to be at or below 40 in ordered to have right knee surgery -Patient did not tolerate Mounjaro 7.5 mg weekly. Patient has been off his medication for at least 4 weeks -Start back on Mounjaro 2.5 mg weekly for 4 weeks, then increase to Mounjaro 5 mg weekly for maintenance dose -recommend using a walker rather than a cane -continue follow up with ortho and Podiatry -Follow up in 1 month or sooner as needed Right elbow pain 07/02/2024 Assessment & Plan (07/02/2024 8:49 AM CAR RUNNER): -Acute, not at goal -Start on acetaminophen ER 650 mg every 8 hours as needed for pain -Continue celecoxib 100 mg twice daily -Right elbow x-ray ordered today -Follow up in 1 month or sooner as needed Fall 07/02/2024 Assessment & Plan (09/15/2024 12:23 PM CAR RUNNER): -not at goal- recent fall with right great toe fracture -Patient reports 7 falls while waiting to have a left knee replacement -Patient's BMI needs to be at or below 40 in ordered to have right knee surgery -Patient did not tolerate Mounjaro 7.5 mg weekly. Patient has been off his medication for at least 4 weeks -Start back on Mounjaro 2.5 mg weekly for 4 weeks, then increase to Mounjaro 5 mg weekly for maintenance dose -recommend using a walker rather than a cane -continue follow up with ortho -Follow up in 1 month or sooner as needed Assessment & Plan (07/02/2024 8:50 AM CAR RUNNER): -Patient reports 4 falls in the last month related to her right knee osteoarthritis -Patient's BMI needs to be at or below 40 in ordered to have right knee surgery -Increase to Mounjaro 7.5 mg weekly to assist in weight loss -Follow up in 1 month or sooner as needed Primary osteoarthritis of right knee 07/02/2024 Assessment & Plan (07/02/2024 8:50 AM CAR RUNNER): -chronic, not at/near goal -Patient reports 4 falls in the last month related to her right knee osteoarthritis -Patient's BMI needs to be at or below 40 in ordered to have right knee surgery -Increase to Mounjaro 7.5 mg weekly to assist in weight loss -Follow up in 1 month or sooner as needed Hip sprain, right, initial encounter 05/15/2024 Dysphagia 04/23/2024 NSAID long-term use 04/22/2024 Lumbar degenerative disc disease 01/02/2024 Assessment & Plan (01/02/2024 9:59 AM CDT): -chronic, not at/near goal -patient unable to complete MRI since physical therapy was not attempted -physical therapy has been ordered. Advised patient to call and schedule an appointment -continue on gabapentin 100 mg 2 capsules twice daily, Celebrex 100 mg twice daily, cyclobenzaprine 10 mg twice daily as needed -start on lidocaine 5% patches daily as needed -continue follow up with Dr. Tom pain management DDD (degenerative disc disease), thoracic 2023 Assessment & Plan (01/02/2024 9:59 AM CDT): -chronic, not at/near goal -patient unable to complete MRI since physical therapy was not attempted -physical therapy has been ordered. Advised patient to call and schedule an appointment -continue on gabapentin 100 mg 2 capsules twice daily, Celebrex 100 mg twice daily, cyclobenzaprine 10 mg twice daily as needed -start on lidocaine 5% patches daily as needed -continue follow up with Dr. Tom pain management Pain in both feet 01/02/2024 Assessment & Plan (01/02/2024 9:58 AM CDT): -chronic, not at/near goal -Discussed/ordered labs -continue on gabapentin 100 mg 2 tablets twice daily -continue seeing Dr. 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 KUB 05/2023 stool burden EGD 07/2022 with reflux changes without intestinal metaplasia Colonoscopy 07/2022 normal with small hemorrhoids Plan Suspect functional dyspepsia, sphincter of oddi syndrome, gastroparesis, or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 Three teaspoons equals 1 tablespoon. Palm = 3 oz. of meat Choose lean poultry, fish, shellfish and beef. One palm size portion equals 3 oz. for an adult and 1 -2 oz. for a child under 5. 1 tennis ball or a fist= 1/2 cup of fruit and vegetables Healthy diets include a variety of colorful fruits and vegetables every day. The secret to serving size is in your hand. Snacking can add up. Because hand sizes vary, compare your fist size to an actual measuring cup. Assessment & Plan (08/21/2023 5:14 PM CAR RUNNER): This is a chronic condition which continues 14 lb weight gain since last office visit She wasOn Ozempic but did not tolerate it due to diarrhea Encouraged healthy eating and exercise We will have a 3 month trial on lifestyle modification prior to starting any new medications Assessment & Plan (03/06/2023 7:18 AM CDT): HPI: Condition is not at/near goal goal BMI <30 A&P: Healthy, high-protein, lower carbohydrate, lower fat lifestyle and exercise for 150min/week recommended Recommend tracking everything you put in your mouth on an delfin like [employer]Minor Hand Measurements: A fist or cupped hand = 1 cup 1 cup = 1 -2 servings of fruit juice 1 oz. of cold cereal 2 oz. of cooked cereal, rice or pasta 8 oz. of milk or yogurt A thumb = 1 oz. of cheese Consuming low-fat cheese helps you meet the required servings from the milk, yogurt and cheese group. 1 oz. of low-fat cheese counts as 8 oz. of milk or yogurt. Handful = 1-2 oz. of snack food Thumb tip = 1 teaspoon Keep high-fat foods, such as peanut butter and mayonnaise, at a minimum. One teaspoon is equal to the end of your thumb, from the knuckle up. Three teaspoons equals 1 tablespoon. Palm = 3 oz. of meat Choose lean poultry, fish, shellfish and beef. One palm size portion equals 3 oz. for an adult and 1 -2 oz. for a child under 5. 1 tennis ball or a fist= 1/2 cup of fruit and vegetables Healthy diets include a variety of colorful fruits and vegetables every day. The secret to serving size is in your hand. Snacking can add up. Because hand sizes vary, compare your fist size to an actual measuring cup. Assessment & Plan (01/19/2023 9:52 AM CDT): HPI: Condition is not at/near goal goal BMI <30 A&P: Healthy, high-protein, lower carbohydrate, lower fat lifestyle and exercise for 150min/week recommended Recommend tracking everything you put in your mouth on an delfin like [employer] Hand Measurements: A fist or cupped hand = 1 cup 1 cup = 1 -2 servings of fruit juice 1 oz. of cold cereal 2 oz. of cooked cereal, rice or pasta 8 oz. of milk or yogurt A thumb = 1 oz. of cheese Consuming low-fat cheese helps you meet the required servings from the milk, yogurt and cheese group. 1 oz. of low-fat cheese counts as 8 oz. of milk or yogurt. Handful = 1-2 oz. of snack food Thumb tip = 1 teaspoon Keep high-fat foods, such as peanut butter and mayonnaise, at a minimum. One teaspoon is equal to the end of your thumb, from the knuckle up. Three teaspoons equals 1 tablespoon. Palm = 3 oz. of meat Choose lean poultry, fish, shellfish and beef. One palm size portion equals 3 oz. for an adult and 1 -2 oz. for a child under 5. 1 tennis ball or a fist= 1/2 cup of fruit and vegetables Healthy diets include a variety of colorful fruits and vegetables every day. The secret to serving size is in your hand. Snacking can add up. Because hand sizes vary, compare your fist size to an actual measuring cup. Assessment & Plan (12/08/2022 7:21 AM CDT): HPI: Condition is not at/near goal goal BMI <30 A&P: Healthy, high-protein, lower carbohydrate, lower fat lifestyle and exercise for 150min/week recommended Assessment & Plan (11/16/2022 5:22 PM CDT): BMI Follow-up includes: education provided. Assessment & Plan (07/09/2022 6:22 PM CAR RUNNER): BMI Follow-up includes: exercise counseling. Assessment & Plan (05/22/2022 1:36 PM CDT): BMI Follow-up includes: exercise counseling. Assessment & Plan (03/02/2022 4:45 PM CDT): HPI: Condition is not at/near goal goal BMI <30 A&P: Healthy, high-protein, lower carbohydrate, lower fat lifestyle and exercise for 150min/week recommended Recommend tracking everything you put in your mouth on an delfin like [employer] Lower carb substitutions: [employer] carries a zero net carb bread If you are looking for whole potatoes, like to use in soup or new potato shape/flavor, radishes are a great replacement If you are looking for mashed potatoes, riced cauliflower in the frozen bag section are a great replacement For pasta, try using zucchini noodles, lay them out on a cookie sheet and pat dry with a tea towel to try to remove as much moisture as possible. Heat your pasta sauce on the stove and put the noodles in for 30-45 seconds. If you leave them in much longer they will become mushy [place] and/or coconut flour instead of regular flour For pizza dough, try fathead pizza dough recipe online. To get a crispy crust, bake on one side for 8-12 min, then flip over and bake on the other side for 8-12 min, then put toppings on and bake until the cheese on top of pizza melts chaffles recipe online For ice cream, try the brand Enlightened To replace coffee creamer and make it low carb, use heavy creamer with sugar free [place] sweetener For chips, try Whisps or pork rinds For yogurt, try Two Good burkinan yogurt Use Pinterest for recipe ideas. Type in low carb... Hand Measurements: A fist or cupped hand = 1 cup 1 cup = 1 -2 servings of fruit juice 1 oz. of cold cereal 2 oz. of cooked cereal, rice or pasta 8 oz. of milk or yogurt A thumb = 1 oz. of cheese Consuming low-fat cheese helps you meet the required servings from the milk, yogurt and cheese group. 1 oz. of low-fat cheese counts as 8 oz. of milk or yogurt. Handful = 1-2 oz. of snack food Thumb tip = 1 teaspoon Keep high-fat foods, such as peanut butter and mayonnaise, at a minimum. One teaspoon is equal to the end of your thumb, from the knuckle up. Three teaspoons equals 1 tablespoon. Palm = 3 oz. of meat Choose lean poultry, fish, shellfish and beef. One palm size portion equals 3 oz. for an adult and 1 -2 oz. for a child under 5. 1 tennis ball or a fist= 1/2 cup of fruit and vegetables Healthy diets include a variety of colorful fruits and vegetables every day. The secret to serving size is in your hand. Snacking can add up. Remember, 1 handful equals 1 oz. of nuts and small candies. For chips and pretzels, 2 handfuls equals 1 oz. Because hand sizes vary, compare your fist size to an actual measuring cup. Assessment & Plan (11/30/2021 1:29 PM CDT): HPI: Condition is not at/near goal goal BMI <30 A&P: Healthy, high-protein, lower carbohydrate, lower fat lifestyle and exercise for 150min/week recommended Substitutions: Recommend tracking everything you put in your mouth on an delfin like [employer]or or [employer] carries a zero net carb bread If you are looking for whole potatoes, like to use in soup or new potato shape/flavor, radishes are a great replacement If you are looking for mashed potatoes, riced cauliflower in the frozen bag section are a great replacement For pasta, try using zucchini noodles, lay them out on a cookie sheet and pat dry with a tea towel to try to remove as much moisture as possible. Heat your pasta sauce on the stove and put the noodles in for 30-45 seconds. If you leave them in much longer they will become mushy [place] and/or coconut flour instead of regular flour For pizza dough, try fathead pizza dough recipe online. To get a crispy crust, bake on one side for 8-12 min, then flip over and bake on the other side for 8-12 min, then put toppings on and bake until the cheese on top of pizza melts chaffles recipe online For ice cream, try the brand Enlightened To replace coffee creamer and make it low carb, use heavy creamer with sugar free Torani sweetener For chips, try Whisps or pork rinds For yogurt, try Two Good burkinan yogurt Use Pinterest for recipe ideas. Type in low carb... Assessment & Plan (10/31/2021 12:34 PM CDT): HPI: Condition is not at/near goal goal BMI <30 On steroids A&P: Healthy, high-protein, lower carbohydrate, lower fat lifestyle and exercise for 150min/week recommended Substitutions: Recommend tracking everything you put in your mouth on an delfin like [employer] or [employer] carries a zero net carb bread If you are looking for whole potatoes, like to use in soup or new potato shape/flavor, radishes are a great replacement If you are looking for mashed potatoes, riced cauliflower in the frozen bag section are a great replacement For pasta, try using zucchini noodles, lay them out on a cookie sheet and pat dry with a tea towel to try to remove as much moisture as possible. Heat your pasta sauce on the stove and put the noodles in for 30-45 seconds. If you leave them in much longer they will become mushy [place] and/or coconut flour instead of regular flour For pizza dough, try fathead pizza dough recipe online. To get a crispy crust, bake on one side for 8-12 min, then flip over and bake on the other side for 8-12 min, then put toppings on and bake until the cheese on top of pizza melts chaffles recipe online For ice cream, try the brand Enlightened To replace coffee creamer and make it low carb, use heavy creamer with sugar free Torani sweetener For chips, try Whisps or pork rinds For yogurt, try Two Good burkinan yogurt Use Pinterest for recipe ideas. Type in low carb... Assessment & Plan (05/27/2021 12:57 PM CDT): HPI: Condition is not at/near goal goal BMI <30 A&P: Healthy, high-protein, lower carbohydrate, lower fat lifestyle and exercise for 150min/week recommended Substitutions: Recommend tracking everything you put in your mouth on an delfin like [employer]Minor or [employer] carries a zero net carb bread If you are looking for whole potatoes, like to use in soup or new potato shape/flavor, radishes are a great replacement If you are looking for mashed potatoes, riced cauliflower in the frozen bag section are a great replacement For pasta, try using zucchini noodles, lay them out on a cookie sheet and pat dry with a tea towel to try to remove as much moisture as possible. Heat your pasta sauce on the stove and put the noodles in for 30-45 seconds. If you leave them in much longer they will become mushy [place] and/or coconut flour instead of regular flour For pizza dough, try fathead pizza dough recipe online. To get a crispy crust, bake on one side for 8-12 min, then flip over and bake on the other side for 8-12 min, then put toppings on and bake until the cheese on top of pizza melts chaffles recipe online For ice cream, try the brand Enlightened To replace coffee creamer and make it low carb, use heavy creamer with sugar free Torani sweetener For chips, try Whisps or pork rinds For yogurt, try Two Good burkinan yogurt Use [employer] for recipe ideas. Type in low carb... Assessment & Plan (12/08/2020 3:39 PM CDT): BMI Follow-up includes: exercise counseling. Primary insomnia 05/05/2019 Assessment & Plan (05/27/2021 2:40 PM CDT): HPI: Condition is stable A&P: Discussed/ordered labs, encouraged healthy, low carbohydrate lifestyle and at least 150min/week of exercise, continue on trazodone 50mg 1-2 tablets-uses these twice monthly and flexeril 10mg-uses nightly due to back and leg pain Upper respiratory tract infection 01/01/2019 Assessment & Plan (08/08/2024 11:11 AM CAR RUNNER): -Acute, not at goal -Rapid strep negative in office today. Swab sent for culture. -Start on guaifenesin-codeine 100-10 mg/5 mL 5-10 mL 3 times daily as needed for cough. [place] Advised to avoid taking her clonazepam while taking this cough syrup. Patient acknowledges understanding. -Follow up if not improving Hyperlipidemia due to type 2 diabetes mellitus 1 09/03/2017 Assessment & Plan (10/15/2024 12:06 PM CDT): -chronic, stable -Discussed/ordered labs -continue on atorvastatin 40 mg nightly Assessment & Plan (09/15/2024 12:22 PM CAR RUNNER): -chronic, stable -Discussed/ordered labs -continue on atorvastatin 40 mg nightly Assessment & Plan (08/12/2024 2:09 PM CAR RUNNER): This is a chronic condition which is elevated, not at goal . Goal is LDL less than 70 Continue atorvastatin Encouraged to eat healthy, include fresh fruits and vegetables daily and avoid eating fried foods more than once per week. Assessment & Plan (03/14/2024 2:40 PM CDT): -chronic, stable -Discussed/ordered labs -continue on atorvastatin 40 mg nightly Assessment & Plan (02/29/2024 12:44 PM CDT): This is a chronic condition which is close to goal . Goal is LDL less than 70 Continue atorvastatin Encouraged to eat healthy, include fresh fruits and vegetables daily and avoid eating fried foods more than once per week. Encouraged to take medications as prescribed. Assessment & Plan (01/02/2024 9:55 AM CDT): -chronic, stable -Discussed/ordered labs -continue on atorvastatin 40 mg nightly Assessment & Plan (11/21/2023 5:04 PM CDT): This is a chronic condition which is close to goal . Goal is LDL less than 70 Continue atorvastatin Encouraged to eat healthy, include fresh fruits and vegetables daily and avoid eating fried foods more than once per week. Encouraged to take medications as prescribed. Assessment & Plan (09/12/2023 8:57 AM CAR RUNNER): -chronic, stable -Discussed/ordered labs -continue on atorvastatin 40 mg nightly Assessment & Plan (08/21/2023 5:13 PM CAR RUNNER): This is a chronic condition which is not at goal of LDL less than 70 Continue atorvastatin Encouraged to eat healthy, include fresh fruits and vegetables daily and avoid eating fried foods more than once per week. Encouraged to take medications as prescribed. Assessment & Plan (01/25/2023 3:03 PM CDT): This is a chronic condition which is not at goal of LDL less than 70 Continue atorvastatin Encouraged to eat healthy, include fresh fruits and vegetables daily and avoid eating fried foods more than once per week. Encouraged to take medications as prescribed. Assessment & Plan (11/17/2022 2:54 PM CDT): This is a chronic condition which is not at goal of LDL less than 70 Continue atorvastatin Encouraged to eat healthy, include fresh fruits and vegetables daily and avoid eating fried foods more than once per week. Encouraged to take medications as prescribed. Assessment & Plan (11/10/2022 10:45 AM CDT): Lipid abnormalities are stable, reviewed previous lipid levels in [facility]. Pharmacotherapy as ordered. Order for lipid panel was given today to be obtained. Pt voiced understanding of lab drawn and continuation of current medication regimen. Assessment & Plan (07/09/2022 6:20 PM CAR RUNNER): Lipid abnormalities are stable, reviewed previous lipid levels in [facility]. Pharmacotherapy as ordered. Order for lipid panel was given today to be obtained. Pt voiced understanding of lab drawn and continuation of current medication regimen. Assessment & Plan (02/28/2022 7:25 PM CDT): This is a chronic condition which is not at goal. Goal is less than 70. Personally reviewed lipid panel. ldl- 134. On atorvastatin. Encouraged to eat healthy, include fresh fruits and vegetables daily and avoid eating fried foods more than once per week. Encouraged to take medications as prescribed. Assessment & Plan (11/17/2021 3:59 PM CDT): This is a chronic condition which is not at goal. Goal is less than 70. Personally reviewed lipid panel. ldl- 134. On atorvastatin. Encouraged to eat healthy, include fresh fruits and vegetables daily and avoid eating fried foods more than once per week. Encouraged to take medications as prescribed. Assessment & Plan (10/27/2021 4:25 PM CDT): This is a chronic condition which is not at goal. Goal is less than 70. Personally reviewed lipid panel. ldl- 134. On atorvastatin. Encouraged to eat healthy, include fresh fruits and vegetables daily and avoid eating fried foods more than once per week. Encouraged to take medications as prescribed. Assessment & Plan (05/27/2021 12:58 PM CDT): HPI: Condition is stable A&P: Discussed/ordered labs, encouraged healthy, low carbohydrate lifestyle and at least 150min/week of exercise, continue on Atorvastatin 10 mg daily Assessment & Plan (11/11/2020 2:36 PM CDT): Lipid abnormalities are stable, reviewed previous lipid levels in [facility]. Pharmacotherapy as ordered. Order for lipid panel was given today to be obtained. Pt voiced understanding of lab drawn and continuation of current medication regimen. Assessment & Plan (05/13/2020 2:09 PM CDT): Lipid abnormalities are stable, reviewed previous lipid levels in [facility]. Pharmacotherapy as ordered. Order for lipid panel was given today to be obtained. Pt voiced understanding of lab drawn and continuation of current medication regimen. Assessment & Plan (02/18/2019 7:41 PM CDT): Due for repeat labs. Continue atorvastatin 10 mg daily Assessment & Plan (07/03/2018 10:21 AM CAR RUNNER): Lipid abnormalities are improving with treatment. Pharmacotherapy as ordered. Lipids will be reassessed in 6 months. Hypokalemia 02/27/2018 Assessment & Plan (01/02/2024 9:55 AM CDT): -chronic, unknown, no data to review at this time to make an evaluation -Discussed/ordered labs -continue on potassium chloride ER 20 mEq daily Vertigo 10/01/2014 Overview (11/02/2016): Vertigo Assessment & Plan (01/02/2024 9:53 AM CDT): -chronic, stable -Discussed/ordered labs -continue on meclizine 12.5 mg three times daily as needed Assessment & Plan (12/14/2022 2:51 PM CDT): Chronic vertigo-worsening Encouraged to follow up with bologna maker for updated hearing screening and to discuss the [employer]ver exercises Plan to consult PT to evaluate and treat TMD (right) pain with shoulder tension Ordered meclizine 12.5 mg tic prn for vertigo-patient educated on medication and side effects-advised to not drive or operate heavy machinery until she knows how she will react to medication Migraine without aura and wi thout status migrainosus, not intractable 05/01/2014 Assessment & Plan (05/04/2023 11:41 AM CDT): Chronic problem-stable, not at goal-these could be likely related to stress or tension headaches versus migraine headaches due to patient having a lot of her plate-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 She is to have Imitrex to use. Plan: Will readd imitrex 50mg prn start of headache. May use with ibuprofen Assessment & Plan (05/27/2021 2:57 PM CDT): HPI: Condition is stable A&P: Discussed/ordered labs, encouraged healthy, low carbohydrate lifestyle and at least 150min/week of exercise, continue on no medications at this time Discussed avoiding all caffeine: no soda, tea, coffee, chocolate; no wine; no sharp cheeses; no processed meats like hot dogs or bologna; no MSG as found in hebrew food; no more than 1/2 banana a day; no artificial sweeteners; fresh bread (less than 24 hours old) Avoid using tylenol, ibuprofen or aleve more than twice a week or else you can cause medication overuse/rebound headaches. You may be causing the headaches with the medications you are taking to get rid of them. Be sure to push lots of water as dehydration is a big cause of headaches. 60-80 ounces of water daily Gastroesophageal reflux disease 05/01/2014 Assessment & Plan (03/14/2024 2:40 PM CDT): -chronic, stable -continue follow up with GI Continue on current meds pantoprazole DR 40 mg daily, encouraged healthy diet and exercise Avoid trigger foods including: carbonated beverages, caffeine, spicy, fried foods, tomatoes, cucumbers, mint, and acidic fruits/juices like orange/lemon/grapefruit. Avoid eating/drinking anything for at least 2 hours before bed. Sleep with bed propped. 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 with pt, would like to remain on medication at this time Assessment & Plan (09/14/2023 4:09 PM CAR RUNNER): Takes daily pantoprazole 40 mg with good control of reflux and heartburn EGD 07/2022 with reflux changes without intestinal metaplasia Plan Continue pantoprazole 40 mg daily, take 30 minutes before breakfast Continue antireflux lifestyle modifications Assessment & Plan (09/12/2023 8:55 AM CAR RUNNER): -chronic, stable -continue follow up with GI Continue on current meds pantoprazole DR 40 mg daily, encouraged healthy diet and exercise Avoid trigger foods including: carbonated beverages, caffeine, spicy, fried foods, tomatoes, cucumbers, mint, and acidic fruits/juices like orange/lemon/grapefruit. Avoid eating/drinking anything for at least 2 hours before bed. Sleep with bed propped. Discussed increased risk of cdif , bone loss and vit B12 deficiency with jail use of PPI with pt, would like to remain on medication at this time Assessment & Plan (03/06/2023 3:17 PM CDT): HPI: Condition is stable Continue on current meds pantoprazole DR 40 mg daily and Zofran 4 mg every 8 hours as needed encouraged healthy diet and exercise Avoid trigger foods including: carbonated beverages, caffeine, spicy, fried foods, tomatoes, cucumbers, mint, and acidic fruits/juices like orange/lemon/grapefruit. Avoid eating/drinking anything for at least 2 hours before bed. Sleep with bed propped. Discussed increased risk of cdif , bone loss and vit B12 deficiency with jail use of PPI with pt, would like to remain on medication at this time Assessment & Plan (01/22/2023 12:01 PM CDT): HPI: Condition is not at/near goal -Patient has prescriptions for both omeprazole and pantoprazole- patient states she has been taking the omeprazole. May trial changing to pantoprazole 40 mg daily for better coverage. Continue on Zofran 4 mg every 8 hours as needed -encouraged healthy diet and exercise Avoid trigger foods including: carbonated beverages, caffeine, spicy, fried foods, tomatoes, cucumbers, mint, and acidic fruits/juices like orange/lemon/grapefruit. Avoid eating/drinking anything for at least 2 hours before bed. Sleep with bed propped. 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 Avoid eating/drinking anything for at least 2 hours before bed. Sleep with bed propped. Discussed increased risk of cdif and vit B12 deficiency with jail use of PPI with pt, would like to remain on medication at this time Assessment & Plan (05/13/2020 1:52 PM CDT): Zantac was discontinued. Is buying pepto bismo otc. Will start pepcid 20mg daily. Discussed diet and discontinuing all soda/ caffeine Assessment & Plan (10/30/2018 6:02 PM CDT): GERD Recommend Weight loss for patients with GERD who are overweight. Elevate of the head of the bed in individuals with nocturnal symptoms like cough, hoarseness, throat clearing. This can be achieved either by putting six- to eight-inch blocks under the legs at the head of the bed or a Styrofoam wedge under the mattress. We also suggest a corollary to this recommendation: refraining from assuming a supine position after meals and avoidance of meals two to three hours before bedtime. Dietary modification. Suggest selective elimination of dietary triggers like fatty foods, caffeine, chocolate, spicy foods, food with high fat content, carbonated beverages, and peppermint. Avoid tight-fitting garments to prevent increasing intragastric pressure. Promotion of salivation through oral lozenges/chewing gum to neutralize refluxed acid and increases the rate of esophageal acid clearance. Avoidance of tobacco and alcohol as both reduce lower esophageal sphincter pressure and smoking also diminishes salivation. Try Abdominal breathing exercise to strengthen the ant-reflux barrier of the lower esophageal sphincter. Red flags symptoms include difficulty swallowing, bleeding, anemia, weight loss, and recurrent vomiting. If you have any of these, go to ER Generalized anxiety disorder 05/01/2014 Assessment & Plan (10/15/2024 12:06 PM CDT): -chronic, stable -continue on sertraline 100 mg daily -continue on clonazepam 2 mg 1/2 tablet in the morning and 1 tablet at bedtime as needed and hydroxyzine 25 mg twice daily as needed for anxiety Patient reiterated no suicidal thoughts at this time; take medication as directed; contact 911 and go to the ER if becomes suicidal; discussed side effects of medication with patient; encouraged healthy diet and exericise; encouraged patient to see a counselor Assessment & Plan (03/14/2024 2:40 PM CDT): -chronic, stable -continue on sertraline 100 mg daily -continue on clonazepam 2 mg 1/2 tablet in the morning and 1 tablet at bedtime as needed and hydroxyzine 25 mg twice daily as needed for anxiety Patient reiterated no suicidal thoughts at this time; take medication as directed; contact 911 and go to the ER if becomes suicidal; discussed side effects of medication with patient; encouraged healthy diet and exericise; encouraged patient to see a counselor Assessment & Plan (01/02/2024 9:55 AM CDT): -chronic, stable -continue on sertraline 100 mg daily -continue on clonazepam 2 mg 1/2 tablet in the morning and 1 tablet at bedtime as needed Patient reiterated no suicidal thoughts at this time; take medication as directed; contact 911 and go to the ER if becomes suicidal; discussed side effects of medication with patient; encouraged healthy diet and exericise; encouraged patient to see a counselor Assessment & Plan (09/12/2023 8:57 AM CAR RUNNER): -chronic, stable -continue on sertraline 100 mg daily -continue on clonazepam 2 mg 1/2 tablet in the morning and 1 tablet at bedtime as needed Patient reiterated no suicidal thoughts at this time; take medication as directed; contact 911 and go to the ER if becomes suicidal; discussed side effects of medication with patient; encouraged healthy diet and exericise; encouraged patient to see a counselor Assessment & Plan (05/04/2023 11:25 AM CDT): Chronic problem-improving Continue sertraline 100 mg daily, continue on clonazepam p.m. 2 mg-take half tablet (1 mg) in the a.m. and 1 tablet at bedtime as needed Refills sent for sertraline 100 mg this visit Patient reiterated no suicidal thoughts at this time; take medication as directed; contact 911 and go to the ER if becomes suicidal; discussed side effects of medication with patient; encouraged healthy diet and exericise; encouraged patient to see a counselor Assessment & Plan (03/06/2023 3:17 PM CDT): Patient reiterated no suicidal thoughts at this time; take medication as directed; contact 911 and go to the ER if becomes suicidal; discussed side effects of medication with patient; encouraged healthy diet and exericise; encouraged patient to see a counselor -chronic, not at/near goal -increase to sertraline 100 mg daily -continue on clonazepam 2 mg 1/2 tablet in the morning and 1 tablet at bedtime as needed -follow up in 6 weeks Assessment & Plan (01/22/2023 12:03 PM CDT): Patient reiterated no suicidal thoughts at this time; take medication as directed; contact 911 and go to the ER if becomes suicidal; discussed side effects of medication with patient; encouraged healthy diet and exericise; encouraged patient to see a counselor -chronic, not at/near goal -increase to sertraline 50 mg daily. -continue on clonazepam 2 mg 1/2 tablet in morning and 1 tablet at bedtime as needed for anxiety -Follow up in 6 weeks Assessment & Plan (12/08/2022 2:57 PM CDT): Patient reiterated no suicidal thoughts at this time; take medication as directed; contact 911 and go to the ER if becomes suicidal; discussed side effects of medication with patient; encouraged healthy diet and exericise; encouraged patient to see a counselor HPI: Condition is not at/near goal A&P: Discussed/ordered labs, encouraged healthy, low carbohydrate lifestyle and at least 150min/week of exercise, start on sertraline 25 mg daily. Follow up in 6 weeks. Assessment & Plan (11/30/2021 12:59 PM CDT): HPI: Condition is not at/near goal still working on getting into see psych A&P: She stopped the hydroxyzine three times a day-just using it if she has a rash and trazodone as it was causing her to have too much sleepiness. She is taking zanaflex once daily it also makes her very drowsy. She does not think she is taking propranolol She is taking lexapro 20mg daily, clonazepam 2mg 1/2 tablet am and 1 tablet pm as needed only-pt has used it 3 times in the last week-this is a rescue only med. Recommend using hydroxyzine 10mg twice daily every day if it does not cause drowsiness. This is decreasing from 25mg. I want your lexapro and hydroxyzine as your daily meds. Assessment & Plan (10/31/2021 1:15 PM CDT): HPI: Condition is not at/near goal A&P: Discussed/ordered labs, encouraged healthy, low carbohydrate lifestyle and at least 150min/week of exercise, currently on escitalopram 20 mg daily, trazodone 50 mg-1/2 tablet nightly as needed for sleep, she is still taking clonazepam 2 mg twice daily- we had given a weaning structure at last office visit. With more breathing problems she is having more anxiety. while in hospital she was discontinued from the buspirone as she did not feel like it was helpful at all. They also changed her hydroxyzine to 10 mg q.i.d. for anxiety as the 25 mg made her too tired and she needs to take care of her 2 grandchildren while her daughter is in residential. She has to schedule follow-up with jose for psychiatric care / counseling. . We will have pt increase the trazodone to 50mg nightly, add propranolol 10mg three times daily as needed for anxiety, use clonazepam 2mg at bedtime and decrease am dose to 1mg with plan of weaning back off of the clonazepam. Pt has only been taking the hydroxyzine 10mg three times daily since being home from hospital.-continue this dose. Continue on the escitalopram 20mg daily Call to set up appointment with psychiatry Assessment & Plan (05/27/2021 4:56 PM CDT): Patient reiterated no suicidal thoughts at this time; take medication as directed; contact 911 and go to the ER if becomes suicidal; discussed side effects of medication with patient; encouraged healthy diet and exericise; encouraged patient to see a counselor HPI: Condition is worsening pt cares for her grandkids-both parents are incarcerated. Pt has lost half of her income. Pt states she is under pressure all the time. Grandson is 11yo and has autism and is sometimes violent with her. A&P: Discussed/ordered labs, encouraged healthy, low carbohydrate lifestyle and at least 150min/week of exercise, continue on escitalopram 20 mg daily, Trazodone 50 mg nightly as needed-pt uses this twice a month pt has been on clonazepam 2 mg at bedtime x 10 years. Discussed with pt that this is not a medication that is safe for you to take every day. We will wean you safely off of the medication. To discontinue the medication: Week 1 and 2: Take, Take, Hold, Take, Take, Hold, Take Week 3 and 4: Take, Hold, Take, Hold, Take, Hold, Take Week 5 and 6: Hold, Hold, Take, Hold, Hold, Take, Hold Week 7: hold meds all together And then only use it as needed only for panic attacks. We will instead give you buspirone 10mg to take twice daily every day. This med and the escitalopram will be your controller medications. As a reminder, if you are needing to be rescued all the time, your controller meds are not working. Let me know. Let's get you feeling better and have you on safer medications. Need to see counselor. Assessment & Plan (11/11/2020 2:34 PM CDT): Stable at this time. Will continue her on Lexapro 20 mg once daily, clonazepam at bedtime. She is no longer taking the trazodone but keeps it on hand as needed. Assessment & Plan (05/13/2020 2:05 PM CDT): Stable on current medication. Continue Lexapro as ordered. Taking trazodone at bedtime as needed for sleep. May follow up in 6 months Assessment & Plan (11/12/2019 3:14 PM CDT): Stable. Will renew clonazepam. Assessment & Plan (05/08/2019 5:44 PM CDT): Add trazodone at bedtime to help with sleep/ depression. Assessment & Plan (05/21/2018 10:40 AM CDT): Doing well with current medication. Refilled medication Assessment & Plan (04/04/2018 8:34 PM CDT): Psychological condition is improving with treatment. Continue current treatment regimen. Psychological condition will be reassessed in 3 months. Assessment & Plan (12/31/2017 11:42 AM CDT): Psychological condition is worsening. Medication changes per orders. Psychological condition will be reassessed in 3 months I started her on lexapro 20mg. Discussed starting dose, titrating dose and time frame for expected improvement. I asked her to return in 4-6 weeks. I am not sure if she will be able to get in prior to foot surgery, so if not, we can extend it out to 3 months. I asked her to call me if she has problems with medication. Assessment & Plan (08/20/2017 9:53 AM CAR RUNNER): Discussed options including increasing prozac vs. trial another medication. Anxiety has been increasing on prozac and she's having more depression. Will decrease prozac over a week and then d/c and start paxil as ordered. F/u 1 month for recheck. Asthma 05/01/2014 Assessment & Plan (03/14/2024 2:43 PM CDT): -chronic, stable -Discussed/ordered labs -continue on Advair inhaler 1 puff twice daily and albuterol inhaler as needed Assessment & Plan (09/12/2023 8:54 AM CAR RUNNER): -chronic, stable -Discussed/ordered labs -continue on Advair inhaler 1 puff twice daily and albuterol inhaler as needed Assessment & Plan (05/04/2023 11:23 AM CDT): Chronic problem-currently well controlled with current regimen Continue Advair Diskus 250-50 mcg-1 puff inhaled twice daily, continue albuterol 90 mcg-2 puffs inhaled every 4 hours p.r.n., continue duo nebs 0.52.5 mg per 3 mL nebulizer solution-inhaled 3mL via nebulizer every 6 hours p.r.n., continue montelukast 10 mg tablet nightly-encouraged to rinse mouth and spit after each use of inhalers Follow-up with pulmonology as scheduled Continue to monitor Assessment & Plan (05/22/2022 1:31 PM CDT): Pt has advair discus. Advised she needs to take twice daily and continue albuterol prn. Renewed duoneb if needed. Lung sounds clear today. Has PFT scheduled. Encouraged to reschedule f/u with pulmonology Assessment & Plan (08/12/2021 3:27 PM CAR RUNNER): Continue breath treatments Prednisone 40 mg for 5 days Drink fluids rest Assessment & Plan (05/27/2021 4:50 PM CDT): HPI: Condition is not at/near goal A&P: Discussed/ordered labs, encouraged healthy, low carbohydrate lifestyle and at least 150min/week of exercise, continue on DuoNeb as needed, Advair 250/50 1 puff twice daily, Singulair 10 mg nightly- patient declines suicidal thoughts albuterol as needed Please consider the albuterol as a rescue only medication. If needing the albuterol more than 2xwk, please contact office. Discussed with pt that it appears her allergies are causing her asthma to flare. See allergic rhinitis treatment plan. If not improving, please contact office. Assessment & Plan (11/11/2020 2:35 PM CDT): She is taking Advair p.r.n.. Patient states that for while she was having to pick and choose which prescription she was picking up due to insurance. Now that is now longer a problem. I encouraged her to restart taking the Advair twice daily has I believe this will help her underlying asthma and allergies which are probably contributing to her chronic illnesses. Continue DuoNeb p.r.n.. Albuterol inhaler p.r.n.. Follow- up in 3-4 months if not sooner Assessment & Plan (05/13/2020 2:06 PM CDT): Stable. She is not take the Advair on a regular basis. She only takes it when she gets sick. Not having to use the albuterol on any kind of regular basis. Assessment & Plan (07/04/2018 4:12 PM CAR RUNNER): Asthma is improving with treatment. The patient is experiencing no daytime asthma symptoms. She is experiencing no nighttime asthma symptoms. Personalized, written asthma management plan given. Asthma information handout given. Discussed monitoring symptoms and use of quick-relief medications and contacting us early in the course of exacerbations. Does well with advair. Uses albuterol nebulizer prn. Has used old nebulizer for many years. Will order patient new nebulizer. Assessment & Plan (12/31/2017 11:46 AM CDT): Asthma is improving with treatment. The patient is experiencing monthly daytime asthma symptoms. She is experiencing no nighttime asthma symptoms. Discussed monitoring symptoms and use of quick-relief medications and contacting us early in the course of exacerbations. Hypertension associated with type 2 diabetes janice litus 12/13/2013 Assessment & Plan (10/15/2024 12:06 PM CDT): -chronic, stable -Discussed/ordered labs -continue on amlodipine 10 mg daily and losartan 100 mg daily -recommend healthy, low-salt diet Assessment & Plan (09/15/2024 12:22 PM CAR RUNNER): -chronic, stable -Discussed/ordered labs -continue on amlodipine 10 mg daily and losartan 100 mg daily -recommend healthy, low-salt diet Assessment & Plan (08/12/2024 2:08 PM CAR RUNNER): This is a chronic condition which is at goal. Goal is less than 140/90 Continue amlodipine, losartan Encouraged to monitor weight and B/P at home. Assessment & Plan (06/18/2024 3:17 PM CAR RUNNER): Blood Pressure Management BP Readings from Last 3 Encounters: 06/18/24 132/84 05/15/24 (!) 173/98 05/05/24 (!) 160/110 Chronic condition Status - is adequately controlled. Current medications are: Amlodipine 10 mg daily and Chlorthalidone 25 mg daily Patient is compliant with medications. Patient denies any side effects or adverse side effects from the medication/s. Follow a low salt diet Monitor blood pressure regularly at home Continue current management unless change made above The 10-year ASCVD risk score (Amalia MANN, et al., 2019) is: 4.5% Values used to calculate the score: Age: 54 years Sex: Female Is Non- : No Diabetic: Yes Tobacco smoker: No Systolic Blood Pressure: 132 mmHg Is BP treated: Yes HDL Cholesterol: 50 mg/dL Total Cholesterol: 154 mg/dL Lab Results Component Value Date LDLCALC 84 09/21/2023 Lab Results Component Value Date GLUCOSE 144 05/13/2024 CALCIUM 9.0 05/13/2024 SODIUM 138 05/13/2024 POTASSIUM 4.3 05/13/2024 CO2 26 05/13/2024 CHLORIDE 101 05/13/2024 BUNSER 16 05/13/2024 CREATININE 1.01 05/13/2024 Assessment & Plan (03/14/2024 2:40 PM CDT): -chronic, stable -Discussed/ordered labs -continue on amlodipine 10 mg daily and losartan 100 mg daily -recommend healthy, low-salt diet Assessment & Plan (02/29/2024 12:43 PM CDT): This is a chronic condition which is not at goal upon arrival. At goal after rest. Goal is less than 140/90 Personally reviewed labs. Continue amlodipine, chlorathalidone, losartan Encouraged to monitor weight and B/P at home. Encouraged to void caffeine and excessive alcohol consumption as this will elevate B/P Encouraged to take medications as prescribed. Assessment & Plan (01/02/2024 9:55 AM CDT): -chronic, stable -Discussed/ordered labs -continue on amlodipine 10 mg daily and losartan 100 mg daily -recommend healthy, low-salt diet Assessment & Plan (11/21/2023 5:04 PM CDT): This is a chronic condition which is at goal. Goal is less than 140/90 Personally reviewed labs. Continue amlodipine, losartan Encouraged to monitor weight and B/P at home Encouraged to take medications as prescribed. Assessment & Plan (09/12/2023 8:57 AM CAR RUNNER): -chronic, stable -Discussed/ordered labs -continue on amlodipine 10 mg daily and losartan 100 mg daily -recommend healthy, low-salt diet Assessment & Plan (05/04/2023 11:27 AM CDT): Chronic problem-at goal of less than 140/90-well controlled with current regimen Continue amlodipine 10 mg tablet daily, continue losartan 100 mg tablet daily, continue chlorthalidone 25 mg tablet daily BP this visit 122/82 Recommend DASH diet, heart-healthy lifestyle, exercise. Discussed the risks of hypertension. Assessment & Plan (01/25/2023 3:08 PM CDT): This is a chronic condition which is at goal of less than 140/90 Personally reviewed labs. Continue amlodipine, chlorthalidone, losartan Encouraged to monitor weight and B/P at home Encouraged to take medications as prescribed. Assessment & Plan (11/10/2022 10:38 AM CDT): Stable/ Improved. Blood pressure is adequately controlled on current medication. We will not make any medication changes today. Will have her follow-up in 6 months for continued monitoring and management Assessment & Plan (05/22/2022 1:35 PM CDT): Blood pressure well controlled today. Reviewed medication list with her. She may proceed with plasma donation. Form signed for patient. Assessment & Plan (04/05/2022 12:26 PM CDT): This is a chronic condition which is at goal Goal is <140/90 Personally reviewed labs. Continue on losartan, chlorthalidone. Avoid caffeine, caffeine will raise blood pressure and excessive alcohol consumption. Monitor your weight and B/P. Encouraged to take medications as prescribed. Assessment & Plan (03/02/2022 4:45 PM CDT): Pt has been off of bp meds for about a month HPI: Condition is not at/near goal A&P: Discussed/ordered labs, encouraged healthy, low carbohydrate lifestyle and at least 150min/week of exercise, start back on losartan 100mg daily, chlorthalidone 25mg daily Pt wants to try on less meds so we will trial staying off of amlodipine at this time and f/u in 1 mo for bp visit. Assessment & Plan (02/28/2022 7:26 PM CDT): This is a chronic condition which is not at goal Goal is <140/90 Personally reviewed labs. Continue on losartan Avoid caffeine, caffeine will raise blood pressure and excessive alcohol consumption. Monitor your weight and B/P. Encouraged to take medications as prescribed. Assessment & Plan (05/27/2021 12:59 PM CDT): HPI: Condition is stable A&P: Discussed/ordered labs, encouraged healthy, low carbohydrate lifestyle and at least 150min/week of exercise, continue on Aspirin 81 mg daily, amlodipine 10 mg daily, atorvastatin 10 mg daily, chlorthalidone 25 mg daily, potassium chloride 20 mEq daily Assessment & Plan (02/13/2021 6:51 PM CDT): Blood pressure well controlled today. Will recheck her potassium level in 1 week. She is going to restart her potassium. She will take a potassium twice a day for 1 week and then drop it back down to daily. I discussed if she continues the potassium number tasks him level is normal then we can continue the chlorthalidone but otherwise we need to rediscuss changing the chlorthalidone Assessment & Plan (11/11/2020 2:36 PM CDT): Stable/ Improved. Blood pressure is adequately controlled on current medication. We will not make any medication changes today. Will have her follow-up in 6 months for continued monitoring and management Assessment & Plan (05/13/2020 2:06 PM CDT): Blood pressure is adequately controlled on current medication. We will not make any medication changes today. Will have her follow-up in 6 months for continued monitoring and management Labs as ordered Assessment & Plan (02/18/2019 7:37 PM CDT): Blood pressure currently controlled. Will continue current medication, amlodipine Assessment & Plan (10/30/2018 6:03 PM CDT): Hypertension is unchanged. Continue current treatment regimen. Blood pressure will be reassessed in 3 months. Continue amlodipine 10 mg daily Start chlorthalidone 25 mg daily Assessment & Plan (12/31/2017 11:40 AM CDT): Hypertension is improving with treatment. Continue current medications. Blood pressure will be reassessed 6 months. Assessment & Plan (08/20/2017 8:13 AM CAR RUNNER): Not on any antihypertensives. Will continue to monitor blood pressure for changes. Type 2 diabetes mellitus wit hout complication, without long-term current use of insulin Assessment & Plan (10/15/2024 12:07 PM CDT): -chronic, stable - A1c is still, however weight is not at goal -Patient did not tolerate Mounjaro 7.5 mg weekly. -Start back on Mounjaro 2.5 mg weekly for 4 weeks, then increase to Mounjaro 5 mg weekly for maintenance dose Assessment & Plan (09/15/2024 12:22 PM CAR RUNNER): -chronic, stable - A1c is still, however weight is not at goal -Patient did not tolerate Mounjaro 7.5 mg weekly. Patient has been off his medication for at least 4 weeks -Start back on Mounjaro 2.5 mg weekly for 4 weeks, then increase to Mounjaro 5 mg weekly for maintenance dose -Follow up in 1 month or sooner as needed Assessment & Plan (08/12/2024 2:08 PM CAR RUNNER): This is a chronic condition which is at goal . Goal is less than 7%. Personally reviewed most recent A1c - Lab Results Component Value Date HGBA1C 6.2 08/12/2024 Personally reviewed POC blood sugar- at goal of 80-180 Lab Results Component Value Date POCGLU 104 08/12/2024 Medication- continue mounjaro 2.5 mg weekly. Does not tolerate mounjaro at higher doses than 5 mg Monitor blood sugar daily Encouraged annual eye exam. last dilated eye exam was [facility] Monofilament foot exam completed. Protective senses -intact Continue - Gabapentin eGFR- 56 Kidney function-abnormal Urine microalbumin/creatinine ratio - elevated. Goal is <30 Continue amlodipine, losartan Assessment & Plan (08/08/2024 11:07 AM CAR RUNNER): -chronic, stable - A1c is still, however weight is not at goal -Patient did not tolerate Mounjaro 7.5 mg weekly. Patient has been off his medication for at least 4 weeks -Start back on Mounjaro 2.5 mg weekly for 4 weeks, then increase to Mounjaro 5 mg weekly for maintenance dose -Follow up in 1 month or sooner as needed Assessment & Plan (07/02/2024 8:46 AM CAR RUNNER): -chronic, stable - A1c is still, however weight is not at goal -Care discussed with Josseline Pitts NP endocrinology. I will be taking over prescribing the Mounjaro for now to maximize weight loss -Increase to Mounjaro 7.5 mg weekly -Follow up in 1 month or sooner as needed Assessment & Plan (02/29/2024 12:42 PM CDT): This is a chronic condition which is at goal . Goal is less than 7%. Personally reviewed most recent A1c - Lab Results Component Value Date HGBA1C 6.9 02/28/2024 Personally reviewed POC blood sugar- at goal of 80-180 Lab Results Component Value Date POCGLU 177 02/28/2024 Medication- start mounjaro 2.5mg weekly Monitor blood sugar daily Encouraged annual eye exam. Monofilament foot exam completed. Protective senses intact. Treated with Gabapentin Personally reviewed CMP eGFR- 81 Kidney function-normal Urine microalbumin/creatinine ratio - at goal. Goal is <30. Continue amlodpine, chlorathalidone, losartan. Assessment & Plan (01/02/2024 9:56 AM CDT): -chronic, stable -Discussed/ordered labs -continue on aspirin 81 mg daily, atorvastatin 40 mg daily, losartan 100 mg daily -continue seeing Josseline Pitts endocrinology Lab Results Component Value Date HGBA1C 7.0 11/21/2023 Assessment & Plan (11/21/2023 5:03 PM CDT): This is a chronic condition which is at goal . Goal is less than 7%. Personally reviewed most recent A1c - Lab Results Component Value Date HGBA1C 7.0 11/21/2023 Personally reviewed POC blood sugar- at goal of 80-180 Lab Results Component Value Date POCGLU 147 11/21/2023 Medication- none. Discussed trying Januvia. She stated that she did not want to take anymore medications at this time. Discussed bariatric surgery as she thinks she would like to proceed with this option. I gave her a list of the bariatric surgery centers in the [facility] for her to call and review their plans. She also would like to check with her insurance 1st. Monitor blood sugar 3 times weekly. Encouraged annual eye exam. Monofilament foot exam completed. Protective senses intact Started Gabapentin 100 mg twice daily. Cautioned that this medication will cause drowsiness Personally reviewed CMP eGFR- 81 Kidney function-normal Urine microalbumin/creatinine ratio - normal. Goal is <30 Continue amlodipine, losartan Assessment & Plan (09/12/2023 8:58 AM CAR RUNNER): -chronic, stable -Discussed/ordered labs -continue on aspirin 81 mg daily, atorvastatin 40 mg daily, losartan 100 mg daily -continue seeing Josseline Pitts endocrinology Lab Results Component Value Date HGBA1C 6.9 08/21/2023 Assessment & Plan (08/21/2023 5:12 PM CAR RUNNER): This is a chronic condition which is at goal of less than 7%. Personally reviewed most recent A1c - Lab Results Component Value Date HGBA1C 6.9 08/21/2023 Personally reviewed POC blood sugar- at goal 80-180 Lab Results Component Value Date POCGLU 148 08/21/2023 Medication- stop ozempic 0.5mg weekly due to persistant diarrhea. No diabetes medications at this time. Will try lifestyle changes for the next 3 months. Monitor blood sugar daily Encouraged annual eye exam. Personally reviewed CMP eGFR- 76 Kidney function- abnormal Urine microalbumin/creatinine ratio - at goal <30 treated with amlodipine, losartan B/P today- at goal of <140/90. continue amlodipine, losartan Personally reviewed lipid panel. Not at Goal of less than 70. Continue atorvastatin Assessment & Plan (05/15/2023 2:56 PM CDT): Improved with in office A1c of 6.5%. she will f/u with endocrinology a scheduled. Assessment & Plan (01/25/2023 3:10 PM CDT): This is a chronic condition which is at goal of less than 7%. Personally reviewed most recent A1c - Lab Results Component Value Date HGBA1C 7.0 (H) 11/10/2022 Personally reviewed POC blood sugar- not at goal 80-180 Lab Results Component Value Date POCGLU 207 01/25/2023 Medication- Continue ozempic 0.5mg weekly Monitor blood sugar daily Encouraged annual eye exam. Monofilament foot exam completed. protective senses intact Sees Dr. Etienne for podiatry. Personally reviewed CMP eGFR- 85 Kidney function- normal Urine microalbumin/creatinine ratio - at goal <30 treated with amlodipine, chlorthalidone, losartan B/P today- at goal of <140/90. continue amlodipine, chlorthalidone, losartan Personally reviewed lipid panel. Not at Goal of less than 70. Continue atorvastatin Assessment & Plan (11/17/2022 2:54 PM CDT): This is a chronic condition which is worsening, at goal of less than 7%. Personally reviewed most recent A1c - Lab Results Component Value Date HGBA1C 7.0 (H) 11/10/2022 Personally reviewed POC blood sugar- not at goal 80-180 Lab Results Component Value Date POCGLU 125 11/17/2022 Medication- start Ozempic 0.25 mg weekly, on week 5 increase to 0.5 mg weekly. Call office for any nausea vomiting or abdominal pain Monitor blood sugar daily. Encouraged annual eye exam. last dilated eye exam was [facility] Monofilament foot exam completed. protective senses intact Urine microalbumin/creatinine ratio - at goal <30 treated with losartan, amlodipine and chlorthalidone Personally reviewed CMP eGFR- 85 Kidney function- normal B/P today- not at goal of <140/90. continue losartan, amlodipine and chlorthalidone Personally reviewed lipid panel. Not at Goal of less than 70. Continue atorvastatin Assessment & Plan (04/05/2022 12:27 PM CDT): This is a chronic condition which is at goal. Personally reviewed last A1c-5.9% At goal less than 7% Personally reviewed blood sugar 132, at goal 80-180 Medication- none stop Metformin.- diarrhea, stopped trulicity-nausea. New glucometer ordered to check blood sugar 2x daily and record. Call blood sugars in 1 week. Encouraged annual eye exam. Monofilament foot exam completed, protective senses intact. Urine microalbumin/creatinine ratio - 30-300mg abnormal currently on losartan. Not at goal <30 Personally reviewed labs: GFR- 79 Kidney function- normal B/P today- 122/80 Continue losartan. At goal blood pressure is <140/90 Personally reviewed LDL - 134, currently on atorvastatin. Goal of less than 70 No history of macrovascular disease - CVA, [place]. Assessment & Plan (02/28/2022 7:25 PM CDT): This is a chronic condition which is at goal. Personally reviewed A1c today-5.9% goal less than 7% Personally reviewed blood sugar 141, at goal 80-180 Medication- stop Metformin.- diarrhea, stopped trulicity-nausea. Check blood sugar daily and record. Encouraged annual eye exam. Monofilament foot exam completed, protective senses intact. Urine microalbumin/creatinine ratio - 30-300mg abnormal currently on losartan. Not at goal <30 Personally reviewed labs: BUN- 10, creatinine-0.88 GFR- 79 Kidney function- normal B/P today- 154/88 after 5 minutes of rest. Continue losartan. At goal blood pressure is <140/90 and as close to 120/80 as possible. Personally reviewed LDL - 134, currently on atorvastatin. Goal of less than 70 No history of macrovascular disease - CVA, [place]. Assessment & Plan (11/17/2021 3:58 PM CDT): This is a chronic condition which is stable, controlled, uncontrolled with hyperglycemia, improving, but not at goal. Steroid induced hyperglycemia.- will monitor. Personally reviewed A1c today-8.4% goal less than 7% Personally reviewed blood sugar 139 goal 80-180 Medication- stop Metformin. Start trulicity 0.75 mg weekly for 4 weeks. Call for condition report on week 3. Educated to watch for nausea, vomiting and abd pain. Check blood sugar daily and record. Monitor blood sugar 2-3 times a day. Returned demonstrated how to use glucometer Encouraged annual eye exam. Monofilament foot exam completed, protective senses intact. Urine microalbumin/creatinine ratio - 30-300mg abnormal currently on losartan. Not at goal <30 Personally reviewed labs: BUN- 10, creatinine-0.88 GFR- 79 Kidney function- normal B/P today- 102/78, currently on losartan. At goal blood pressure is <140/90 and as close to 120/80 as possible. Personally reviewed LDL - 134, currently on atorvastatin. Goal of less than 70 No history of macrovascular disease - CVA, [place]. Assessment & Plan (10/31/2021 9:52 AM CDT): HPI: Condition is not at/near goal A&P: Discussed/ordered labs, encouraged healthy, low carbohydrate lifestyle and at least 150min/week of exercise, continueSeeing Josseline Pitts NP Endocrinology Assessment & Plan (10/27/2021 4:27 PM CDT): This is a chronic condition which is stable, controlled, uncontrolled with hyperglycemia, improving, but not at goal. Steroid induced hyperglycemia.- will monitor. Personally reviewed A1c today-8.4% goal less than 7% Personally reviewed blood sugar 139 goal 80-180 Medication- Continue Metformin 500mg twice daily, Check blood sugar 2-3 times per day and record. Take lyumjev 2 units if blood sugars>200 3 units if blood sugar >250 4 units if blood sugar >300 5 units if blood sugar >350 While taking prednisone taper. Monitor blood sugar 2-3 times a day. Returned demonstrated how to use glucometer Encouraged annual eye exam. Monofilament foot exam completed, protective senses intact. Urine microalbumin/creatinine ratio - 30-300mg abnormal currently on losartan. Not at goal <30 Personally reviewed labs: BUN- 10, creatinine-0.88 GFR- 79 Kidney function- normal B/P today- 136/80, currently on losartan. At goal blood pressure is <140/90 and as close to 120/80 as possible. Personally reviewed LDL - 134, currently on atorvastatin. Goal of less than 70 No history of macrovascular disease - CVA, [place]. Assessment & Plan (05/27/2021 3:14 PM CDT): Condition is stable Discussed labs/ordered labs Personally reviewed A1c 6.5% was 7.0% goal A1c 6.9% or less, as close to <6.5% Encouraged annual diabetic eye exam, Due now, eye exam form given Urine for microalbumin done Today 05/27/2021, goal less than 30 BP today 115/79 , goal blood pressure is< 140/90 and is close to 120/80 is possible Personally reviewed lipid panel done 01/19/2021, patient on statin therapy- atorvastatin 10 mg daily Patient on ELENITA inhibitor or ARB - need to start on lisinopril 2.5mg daily Monofilament foot exam done Today 05/27/2021 Immunizations Recommended Tdap, influenza, Shingrix vaccination series- with your insurance you will have to obtain these at the local pharmacy start taking baby aspirin daily Smoking status: non smoker Continue on current medications- atorvastatin 10 mg daily, we will change to metformin XR 500mg 2 tablets once daily, Start on daily baby aspirin 81 mg, start on lisinopril 2.5 mg daily for kidney protection. 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 This will help maintain the good bacteria that is in your gut. Lab Results Component Value Date HGBA1C 7.0 (H) 01/19/2021 HGBA1C 6.4 (H) 05/13/2020 HGBA1C 6.2 (H) 02/19/2019 Lab Results Component Value Date MICROALBUR <12.0 07/03/2018 LDLCALC 85 01/19/2021 CREATININE 0.93 01/19/2021 Blood pressure management BP Readings from Last 3 Encounters: 05/17/21 136/80 02/07/21 119/76 11/11/20 139/87 Weight management Wt Readings from Last 3 Encounters: 05/17/21 106.1 kg (233 lb 12.8 oz) 02/18/21 104.3 kg (230 lb) 02/07/21 101.2 kg (223 lb) Discussed eating a healthy low carb diet, include fresh fruits and vegetables daily. Encouraged to try moving at least a total of 30 minutes/day. Just move more. Instructed to wash, dry, lotion and check feet daily. Instructed to notify office if blood sugars are less than 80 or greater than 250 for 3 days Assessment & Plan (02/13/2021 6:56 PM CDT): Patient admits that she has not been taking the metformin because she has not been feeling well. She is not taking it on a regular basis. She will start taking metformin twice daily. Work on diet and exercise. Will recheck hemoglobin A1c in 3 months. Assessment & Plan (11/11/2020 2:36 PM CDT): Diabetes has been stable. Due for repeat hemoglobin A1c. Orders given for lab work. Continue metformin 500 mg b.i.d.. Encouraged exercise. Courage weight loss. Assessment & Plan (05/13/2020 2:08 PM CDT): Last hemoglobin A1c was 6.2% over a year ago. Will recheck labs today. Currently on metformin 500 mg twice daily. Assessment & Plan (02/18/2019 7:40 PM CDT): She has not checked blood sugars. She is unsure how to use the needles. We did try to use samples to show her how to use a lancet. She may also bring her glucometer in for demonstration. Last A1c was in June and was 6.2%. Orders for repeat labs today. Assessment & Plan (04/04/2018 8:33 PM CDT): Diabetes is improving with treatment. Continue current treatment regimen. Dietary recommendations for ADA diet. Diabetes will be reassessed in 3 months. Resolved Problems Problem Noted Date Diagnosed Date Resolved Date Need for influenza vaccination 05/04/2023 09/07/2023 Assessment & Plan (05/04/2023 10:45 AM CDT): Ordered and administered this visit Acute right flank pain 05/04/202309/07 Assessment & Plan (05/04/2023 11:31 AM CDT): Acute problem-this is a new problem this visit-onset. patient states sometimes it is radiates to the right groin region Patient states she is already seen her OBGYN and ovarian cyst has been ruled out and she was told to bring it to the attention of the primary. Ordered x-ray of kidneys ureters and bladder Encourage- encouraged to stay hydrated- drink plenty of water OTC Tylenol as directed for discomfort Continue to monitor Laryngeal spasm 2023 09/12/2023 Assessment & Plan (2023 8:55 AM CDT): Start Pepcid 40 mg at bedtime Acute otitis externa of right ear 12/14/2022 01/22/2023 Assessment & Plan (12/14/2022 2:58 PM CDT): Acute right ear pain-worsening Ordered ciprofloxacin gtt's- 0.3%- instill 2 drops right ear bid x 10 days Consulted ENT- for chronic left otitis, snoring, and TMD Follow up 1 week with pcp Snoring 12/14/2022 09/12/2023 Assessment & Plan (12/14/2022 3:27 PM CDT): Acute, not controlled We discussed how her snoring could be related to shoulder tension, teeth grinding and TMD. Patient informed a sleep study could be obtained and evaluate if that could help alleviate some of her issues. Ordered home sleep study Sleep related teeth grinding 12/14/2022 09/12/2023 Assessment & Plan (12/14/2022 3:01 PM CDT): Encouraged to follow up with dentist for evaluation and treatment of grinding- may benefit from mouthpiece to help prevent damage to teeth Acute left otitis media 12/14/202212/29 Assessment & Plan (12/14/2022 3:05 PM CDT): Chronic, no improvement since last visit and current abx cefdinir Was seen in office 12/08/22 and states her ear is no better at this time, still has a lot of pain Continue current cefdinir 300 mg bid as directed Preventative health care 07/09/202203/2024 Assessment & Plan (07/09/2022 6:22 PM CAR RUNNER): -Recommended: Healthy diet. Avoiding junk food/fast food. -30 minutes of exercise most days of the week. Increase to 45 minutes for weight loss. Immunizations: Up-to-date increase physical activity, continue present plan, call if any problems Follow-up in 6 months. Belching 03/22/2022 11/10/2022 Overview (07/10/2022): Added automatically from request for surgery [id number] Flatulence 03/22/2022 11/10/2022 Overview (07/10/2022): Added automatically from request for surgery [id number] Periumbilical pain 03/22/2022 Overview (07/10/2022): Added automatically from request for surgery [id number] Nausea without vomiting 03/22/202210/28 Overview (07/10/2022): Added automatically from request for surgery [id number] Belching 03/21/2022 04/08/2022 Flatulence 03/21/2022 04/08/2022 Periumbilical pain 03/21/2022 Nausea without vomiting 03/21/202203/30 Chronic nausea 11/30/2021 05/22/2022 Assessment & Plan (11/30/2021 1:03 PM CDT): She has to take ondansetron twice daily. Unsure if meds are causing nausea or something else. Refer to GI Exacerbation of asthma, unsp ecified asthma severity, unspecified whether persistent 10/20/2021 09/07/2023 Assessment & Plan (03/02/2022 4:43 PM CDT): HPI: Condition is improving, but not at goal A&P: Discussed/ordered labs, encouraged healthy, low carbohydrate lifestyle and at least 150min/week of exercise, continue on Singulair 10 mg nightly, albuterol as needed, Advair/wyxela twice daily, duoneb as needed Keep appointment with pulmonology next week with Dr. Campos Assessment & Plan (11/30/2021 12:54 PM CDT): Condition is not at goal. fi she is not doing anything, she is ok, but if she gets up her oxygen drops. When she goes to the doctors oxygen drops to 90-93% Pt has not seen pulmonology yet She went to see Dr. Talbot at [facility] but in [place] they dont take her insurance. We will also reach out to pulmonology here on campus Dr. Beth horowitz can see pt 01/03/2022. Pt missed appointment with cardiology today as she thought appointment was at [facility] office, but it was at [facility]. Pt has reschedule appointment next with with cardiology. Pt completed steroids. She is still taking the singulair 10mg nightly-denies suicidal thoughts. She is currently on daily inhaler-she will call our office with the name. She has been using the duo-neb twice daily unless she is having a bad day then using it 4 times a day. She is having bad days at least 3 days a week. She is using albuterol as needed. She needs it when she is walking from one building to another at doctors offices. She is using it about once a week. She is still having nausea and dizziness. She has stopped taking mobic as it made her feel more nauseated and it was not helping pain in her back and abd from coughing. Assessment & Plan (10/31/2021 1:17 PM CDT): HPI: Condition is not at/near goal A&P: pt has 2 days of steroid taper left. She is taking singulair 10mg nightly-denies suicidal thoughts. She is using the daily inhaler 1 puff twice daily-rinse mouth after use to avoid thrush. She is currently using the duoneb every 4 hours Pt nebulizer machine broke and needs a new one. Pt having pain in chest and stomach and side from coughing-we will have pt stop using the diclofenac as anti-inflammatory. Instead we will give meloxicam 15mg once daily Pt has appointment with Dr. Talbot pulmonology in November 2021, she is calling every other day checking on cancellation. We will have pt see if she can get in sooner with Dr. Roy (pulmonology) in [place], [place] Exacerbation of asthma 10/19/202110/31 Long COVID 08/12/2021 09/12/2023 Assessment & Plan (04/08/2022 2:21 PM CDT): She is transferring care back to me as her PCP is leaving this practice. Note written to return to work on Sunday. 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 Assessment & Plan (11/30/2021 1:00 PM CDT): Condition is not at goal. fi she is not doing anything, she is ok, but if she gets up her oxygen drops. When she goes to the doctors oxygen drops to 90-93% Pt has not seen pulmonology yet She went to see Dr. Talbot at [facility] but in [place] they dont take her insurance. We will also reach out to pulmonology here on campus Dr. Beth horowitz can see pt 01/03/2022. Pt missed appointment with cardiology today as she thought appointment was at [facility] office, but it was at [facility]. Pt has reschedule appointment next with with cardiology. Pt completed steroids. She is still taking the singulair 10mg nightly-denies suicidal thoughts. She is currently on daily inhaler-she will call our office with the name. She has been using the duo-neb twice daily unless she is having a bad day then using it 4 times a day. She is having bad days at least 3 days a week. She is using albuterol as needed. She needs it when she is walking from one building to another at doctors offices. She is using it about once a week. She is still having nausea and dizziness. She has stopped taking mobic as it made her feel more nauseated and it was not helping pain in her back and abd from coughing. Assessment & Plan (10/31/2021 1:17 PM CDT): Pt has appointment with Dr. Talbot pulmonology in November 2021, she is calling every other day checking on cancellation. We will have pt see if she can get in sooner with Dr. Roy (pulmonology) in [place], [place] Assessment & Plan (08/12/2021 3:28 PM CAR RUNNER): Continue breath treatments Prednisone 40 mg for 5 days Drink fluids rest Promethazine DM for cough. If no improvement follow up with your provider for xray. Right wrist pain 05/27/2021 05/22/2022 Assessment & Plan (05/27/2021 3:08 PM CDT): HPI: Condition is not at/near goal A&P: Discussed/ordered labs, encouraged healthy, low carbohydrate lifestyle and at least 150min/week of exercise, wear brace except at bedtime. Use ice as much as possible to help with inflammation. May use the diclofenac as needed only. Wrist exercises given Right hip pain 11/11/2020 05/27/2021 Assessment & Plan (11/11/2020 2:37 PM CDT): Will refer to ortho for the right hip pain. However patient has multiple complaints of arthralgias including back pain and other joint pain. 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 I think this is a pustular psoriasis. I had given her steroid cream in the past that had helped. Will renew. Bronchitis 08/04/2019 04/06/2020 Assessment & Plan (11/18/2019 2:22 PM CDT): Patient has a history of bronchitis. Will treat her for presumed bronchitis although I did review symptoms of COVID -19 with her since she is also running a fever. His symptoms worsen or continue I asked her to call us back for further instructions. She is quarantined in her house with her children regardless. Will treat her with azithromycin and steroid burst. I asked her to call us with any further questions or concerns Assessment & Plan (08/04/2019 3:02 PM CAR RUNNER): Will treat with augmentin, cheritussin, prednisone. Continue nebulizer treatments. Call if no improvement/ worsening of symptoms. Other chest pain 02/18/2019 03/14/2024 Assessment & Plan (03/11/2024 9:38 AM CDT): Given her issues of reflux disease this may have simply been an episode that woke her up from sleep 2 weeks ago. However given her morbid obesity she clearly could also be having some kind of demand ischemia event. We have stressed that she calls her warranty clerk today so that they can work thisUp. She is in understanding Assessment & Plan (02/18/2019 7:43 PM CDT): EKG shows normal sinus rhythm. Patient has a history of early cardiac in their mid 50s in her family. I told her that a normal EKG cannot show the entire picture of chest pain. Or rule out cardiac origin. We would encourage her to go to the ER for full workup. Her vitals to seems stable at this time. However if she should wake up or have further symptoms like she did last night with vomiting or diaphoresis or increased chest pain then she should report to the emergency room for evaluation. Patient voiced understanding. Will also refer to Cardiology Laryngopharyngeal reflux (LPR) 12/12/2018 05/13/2020 Assessment & Plan (12/15/2018 10:30 AM CDT): Restart Nasal saline, continue Flonase daily Continue Singulair and Zyrtec Increase Zantac (ranitidine) to 300 mg daily at bedtime Continue to work with Nara for Benign Positional Vertigo Referred otalgia of left ear 12/12/2018 05/13/2020 Assessment & Plan (12/15/2018 10:30 AM CDT): TMJ discussed and Handout provided Chronic otitis media of left ear with effusion 11/21/2018 05/05/2019 Assessment & Plan (12/15/2018 10:30 AM CDT): Resolved today Restart Nasal saline, continue Flonase daily Continue Singulair and Zyrtec Increase Zantac (ranitidine) to 300 mg daily at bedtime Continue to work with Nara for Benign Positional Vertigo Assessment & Plan (11/22/2018 4:41 PM CDT): Continue zyrtec and Singulair Nasal saline followed Flonase 2 sprays into each nostril while looking down over the sink, do not sniff in or blow nose after use twice daily Follow up in 3-4 weeks Cefdinir daily with a meal Meclizine as needed Chronic tension-type headache, intractable 10/25/2018 05/13/2020 Assessment & Plan (10/30/2018 6:02 PM CDT): Headaches are unchanged. Continue current treatment regimen. Try flexeril Will treat for potential sinus infection NSAIDs are mainstays of acute tension type Headaches. These are medications like Motrin, Ibuprofen, Aleve, Naproxen.and even Acetaminophen (tylenol). Being in a cool dark room may help your headache. If you experience nausea with your headache, you can take nausea medication if prescribed Stick with clear liquid until nausea subsides If you have been prescribed any medications, take as directed PREVENTION is very important-Avoid triggers, reduce stress. Get plenty of sleep, exercise and eat healthy. You can also try Relaxation, deep breathing and Imagery. If you experience a headache that is out of your normal, or have vision loss, dizziness- go to ER Skin tag, acquired 10/25/2018 9 Obesity, morbid, BMI 40.0-49.9 10/25/2018 02/17/2019 Assessment & Plan (10/25/2018 3:29 PM CDT): Obesity is worsening. Discussed the patient's BMI. The BMI is above average; BMI management plan is completed. General weight loss/lifestyle modification strategies discussed (elicit support from others; identify saboteurs; non-food rewards, etc). Diet= low-carb Limit white bread, rice, pasta, potatoes, juice, energy drinks, coffee creamers with sugar, sugar sodas, candy, cake, cookies, ice cream. Be more careful with starchy vegetables like corn, carrots, and fruits. Stay away from processed foods, fast foods, fried foods. The cornerstone of this diet is lean grilled meats, green salads or cooked greens, fat-free milk, cottage cheese, nuts like ckwsywl-nteadmh-absuwex, protein bars with 10-15 g of protein and 20-30 g of carbohydrate. Choose whole grain breads and pastas, brown rice, sweet potatoes, read onions--these whole grains absorb more slowly thus blood sugar does not surge so high so quickly. Avoid drinking juice, eat a piece of fruit instead. Acute non-recurrent sinusitis 10/03/2018 01/14/2019 Assessment & Plan (01/01/2019 1:36 PM CDT): Rapid flu was negative. Order for cxr, cbc to r/o pneumonia. Treat for bacterial infection, adding azithromycin and continuing/ tapering off prednisone as ordered. Off work until Sunday. Call for worsening/ continuing symptoms. Assessment & Plan (10/30/2018 6:01 PM CDT): Complete antibiotics and other meds as prescribed Take OTC decongestants for congestion- Sudafed/Mucinex Motrin/Tylenol for pain/fever If you have high blood pressure or any kidney disease use Tylenol only. Take an Antihistamines like Zyrtec or Claritin or Katy daily at bedtime for the next 2-3 weeks. Can take Benadryl at bedtime for the next 3-4 days for immediate relief of runny nose and may help with sinus headache. Try saline nasal spray irrigations 2-4 times a day or try using Columba pot as directed daily then use your Flonase or other corticosteroid nasal spray every day to decrease the swelling and inflammation in your nasal cavities. Drink plenty of water & get plenty of rest A humidifier may also help with congestion Follow up with your PCP in 3-5 days if you are not getting better Assessment & Plan (10/03/2018 10:30 AM CAR RUNNER): Due to length of cough and hx of asthma, will start azithromycin. This may have started as viral. Recommended, rest, fluids, continue albuterol inhaler. Call for worsening symptoms or no improvement. Social discord 07/03/2018 05/15/2023 Assessment & Plan (05/27/2021 5:01 PM CDT): Pt currently unemployed, no income. Has someone that is paying her water bill this month. She has custody of 2 grandchildren. She is worried about how her bills will get paid in the next few months. She was given the number for hospital financial assistance. Assessment & Plan (07/03/2018 10:38 AM CAR RUNNER): Currently unemployed. No income. Has custody of grandson. Has social support from patient's father. Will refer to [facility] for resources. Has IDPA. Will need 4 prescription override as well. Has been picking and choosing which prescriptions to get each month. Contusion of right wrist 04/03/2018 Assessment & Plan (04/03/2018 10:25 AM CDT): Will obtain x-ray right wrist and forearm. Recommended wrist brace for support. Cellulitis and abscess of toe of right foot 02/27/2018 04/04/2018 Accelerated hypertension 02/27/201811/2017 SIRS (systemic inflammatory response syndrome) 02/27/2018 05/13/2020 Lipid screening 08/15/2017 02/17/2019 Assessment & Plan (08/15/2017 3:51 PM CAR RUNNER): Labs as ordered Pain of right thumb 06/29/2017 08/20/19 18 Assessment & Plan (06/29/2017 12:00 PM CAR RUNNER): I recommend we proceed with x-ray imaging. Patient is in agreement. Further direction pending these results. She was given tramadol p.r.n. pain as she notes she had a few left over from prior surgery and this has been effective. Viral URI with cough 06/29/2017 018 Assessment & Plan (06/29/2017 12:11 PM CAR RUNNER): Rapid influenza negative for influenza a and negative for influenza B. Humidification, fluids, and rest were recommended. Patient may take Tylenol or ibuprofen as needed for fever, chills, and body aches. We discussed symptoms of, duration of, and treatment of viral illness. Symptom should run their course within 5-7 days. Patient has been encouraged to contact the office for follow-up with any change in, worsening, or non improvement in her condition. Needs flu shot 06/29/2017 08/15/2017 Assessment & Plan (06/29/2017 12:16 PM CAR RUNNER): After obtaining patient's consent annual influenza vaccine was provided in office today. Hand dermatitis 06/12/2017 04/03/2018 Assessment & Plan (06/12/2017 2:54 PM CAR RUNNER): Refill provided on topical Lotrisone and Bactroban. She will continue as previously recommended by Dermatology. With any change in, worsening, or non improvement in condition patient was encouraged to return to slot technician for follow-up. Pain of hand 06/14/2016 04/03/2018 Chronic pain of left knee 03/01/2015 Assessment & Plan (05/15/2023 3:04 PM CDT): DC ibuprofen. Start meloxicam 15 mg once daily. I gave her a small amount of tramadol for acute pain. Refer to orthopedics. I would recommend physical therapy however patient has difficulty finding time for this due to childcare Assessment & Plan (01/22/2023 12:07 PM CDT): -start on prednisone 20 mg 2 tablets daily for 5 days. Advised patient to take in the morning as this can cause irritability, hunger, and insomnia. -increase to Flexeril 10 mg 2 times daily as needed -urine drug screen ordered today -advised patient that pain medicine is not needed at this time unless there is no improvement -may order x-rays if pain does not improve -follow up if not improving Assessment & Plan (11/10/2022 11:18 AM CDT): Will obtain x-ray of left knee. If continues having pain - will refer to orthopedics. Panic attack 05/01/2014 05/13/2020 Overview (11/02/2016): Panic attack Assessment & Plan (05/08/2019 5:42 PM CDT): Continue clonazepam 1mg bid prn Assessment & Plan (08/20/2017 9:51 AM CAR RUNNER): Continue clonazepam twice daily. Allergic rhinitis 05/01/2014 05/27/2021 Overview (11/02/2016): Allergic rhinitis Assessment & Plan (05/27/2021 12:59 PM CDT): HPI: Condition is stable A&P: Discussed environmental controls No smoking around patient, no animals in bedroom, keep windows closed, no hanging clothes on the line Take zyrtec/claritin/katy in the am Saline rinse in the am Saline rinse about 15 min before bed Flonase 2 sprays each nostril, aim away from cartilage, spray once-baby sniff, switch to the other nostril and repeat. Wait a min or two and then do the second spray in each nostril, followed by a baby sniff If working or playing outside, may need to do saline rinses when coming in and change clothes right away Recommend staying on the above treatment from the beginning of September to Come off of meds if possible during the summer Then restart on meds mid to late February until Thanksgi Come off of meds if possible during the winter Assessment & Plan (11/22/2018 4:41 PM CDT): Continue zyrtec and Singulair Nasal saline followed Flonase 2 sprays into each nostril while looking down over the sink, do not sniff in or blow nose after use twice daily Follow up in 3-4 weeks Cefdinir daily with a meal Meclizine as needed 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 Overview (11/02/2016): DISACCHARIDASE DEF/MALAB Sepsis due to methicillin rain sceptible Staphylococcus aureus 02/17/2019 Immunizations Immunization Administration Dates Next Due Influenza, Quadrivalent, Spl it, Intramuscular 08/06/2015,04/29/2015 Influenza, Quadrivalent, Spl it, Preservative Free, Intradermal 07/17/2016 Influenza, Quadrivalent, Spl it, Preservative Free, Intramuscular 05/04/2023,05/22/2022,11/04/2021,07/03,06/29/2017 Influenza, Trivalent, Preser vative Free, Intramuscular 06/18/2024 Influenza, Trivalent, Recomb inant, Egg Free, Preservative Free, Antibiotic Free, IM (FLUBLOK) 06/12/2014,06/12/2014 Influenza, Unspecified 05/05/2024(Deferr ed: Patient Refused),04/29/2020,04/29/2019 Pfizer SARS-CoV-2 Monovalent Vaccination (12+ Yrs) PURPLE 01/07/2021,01/07/2021,12/17/2020,12/17 Pneumococcal Conjugate Pcv20 11/04/2021 Pneumococcal Polysaccharide PPV23 08/06/2015,07/2010,07/30/2010 TD Preservative Free 05/19/2016,07/30/2010 Tdap 11/04/2021 ZOSTER Recombinant 01/09/2022,11/04/2021 Social History Tobacco Use Types Packs/Day Years Used Date Smoking Tobacco: Never Smokeless Tobacco: Never Tobacco Cessation:Counseling Given: Not Answered Alcohol Use Standard Drinks/Week Comments No 0 (1 standard drink = 0.6 oz pur e alcohol) AUDIT-C Answer Date Recorded Q1: How often do you have a drink containing alcohol? Never 10/23/2024 Q2: How many drinks containi ng alcohol do you have on a typical day when you are drinking? Patient does not drink Q3: How often do you have si x or more drinks on one occasion? Never 10/23/2024 Overall Financial Resource Strain (CARDIA) Answe r [...] place to sleep or slept in a assisted (including now)? No 10/20/2021 Personal Safety Answer Date Recorded Have you ever been in or are you currently in a harmful physical or emotional relationship or is someone making you feel afraid or unsafe? Denies 10/23/2024 Comments No Sex and Gender Information Value Date Recorded Sex Assigned at Not on file Legal Sex Female 12:37 AM CAR RUNNER Gender Identity Not on file Sexual Orientation Not on file Last Filed Vital Signs Vital Sign Reading Time Taken Comments Blood Pressure 132/83 11/12/2024 2:57 PM CDT Pulse 82 11/12/2024 2:57 PM CDT Temperature 37.3 C (99.1 F) 10/25/2024 8:23 AM CDT Respiratory Rate 20 10/25/2024 8:23 AM CDT Oxygen Saturation 92% 10/25/2024 9:14 AM CDT Inhaled Oxygen Concentration - - Weight 106.1 kg (234 lb) 11/12/2024 2:57 PM CDT Height 160 cm (5' 3 ) 11/12/2024 2:57 PM CDT Body Mass Index 41.45 11/12/2024 2:57 PM CDT Plan of Treatment Not on file Medical Devices Implanted Type Area Backup Engineer Device Identifier Shelf Expiration Date Model / Serial / Lot [employer] Attune Cruciate Retain Cementless Knee Left 5 Component Femoral [id number] - [id number] Implanted:Qty: 1 on 10/23/2024 by Frantz Alejandra MD at [facility] Left: Knee [employer] [id number] 04/28/2034 [id number] / / [id number] [employer] Insert Tibial Knee Fixed Lm Posterior Stabilized Attune 5mm Size 5 Polyethylene [id number] - [id number] Implanted:Qty: 1 on 10/23/2024 by Frantz Alejandra MD at [facility] Left: Knee [employer] [id number] 04/28/2032 [id number] / / [id number] [employer] Attune Fb Tib Base Sz 5 Por [id number] - [id number] Implanted:Qty: 1 on 10/23/2024 by Frantz Alejandra MD at [facility] Left: Knee [employer] [id number] 08/29/2032 [id number] / / [id number] Procedures Procedure Name Priority Date/Time Associated Diagnosis Comments POCT GLUCOSE DEVICE Routine 10/25/2024 8:28 AM CDT POCT GLUCOSE DEVICE Routine 10/25/2024 2:11 AM CDT POCT GLUCOSE DEVICE Routine 10/24/2024 7:58 PM CDT POCT GLUCOSE DEVICE Routine 10/24/2024 4:31 PM CDT POCT GLUCOSE DEVICE Routine 10/24/2024 11:01 AM CDT POCT GLUCOSE DEVICE Routine 10/24/2024 7:59 AM CDT POCT GLUCOSE DEVICE Routine 10/24/2024 2:35 AM CDT POCT GLUCOSE DEVICE Routine 10/23/2024 8:27 PM CDT POCT GLUCOSE DEVICE Routine 10/23/2024 4:28 PM CDT XR KNEE LEFT 1 OR 2 VIEWS IP Routine 2024 3:21 PM CDT POCT GLUCOSE DEVICE Routine 10/23/2024 3:15 PM CDT ANESTHESIA SPINAL BLOCK Routine 10/24/19 1:32 PM CDT ARTHROPLASTY TOTAL KNEE 10/24/19 12:13 PM CDT Post-traumatic osteoarthritis of left knee Special Needs Depuy Attune , Velys, NMES, CPM, cooling unit, 1 liter beta rinse and aquamantys (same day) SURGICAL PATHOLOGY Routine 10/23/2024 11:12 AM CDT Post-traumatic osteoarthritis of left knee APTT STAT 10/23/2024 11:05 AM CDT PROTIME-INR STAT 10/23/2024 11:05 AM CDT POTASSIUM, WHOLE BLOOD STAT 11:05 AM CDT POCT GLUCOSE DEVICE Routine 10/23/2024 10:58 AM CDT XR CHEST PA LATERAL 2 VIEWS Schedule TETO, Read TETO (Appt Today, Awaiting Results) 10/17/2024 4:13 PM CDT Pre-op testing ECG 12-LEAD Routine 10/17/2024 3:57 PM CDT Pre-op testing EGFR Routine 10/17/2024 3:47 PM CDT Pre-op testing URINALYSIS, MICROSCOPIC ONLY Routine 3:47 PM CDT Pre-op testing DIFFERENTIAL AUTO Routine 10/17/2024 3:47 PM CDT Pre-op testing CBC WITH AUTO DIFFERENTIAL Routine 10/17 3:47 PM CDT Pre-op testing COMPREHENSIVE METABOLIC PANEL Routine 3:47 PM CDT Pre-op testing HEMOGLOBIN A1C Routine 10/17/2024 3:47 PM CDT Pre-op testing URINALYSIS AND REFLEX TO MICROSCOPIC AND CULTURE Routine 10/17/2024 3:47 PM CDT Pre-op testing ESOPHAGOGASTRODUODENOSCOPY BIOPSY 10/09/2024 2:26 PM CDT Dysphagia, unspecified type POCT GLUCOSE DEVICE Routine 10/09/2024 2:04 PM CDT EGD 10/09/2024 1:19 PM CDT SURGICAL PATHOLOGY STAT 10/09/2024 10:28 AM CDT Dysphagia, unspecified type EGFR Routine 10/02/2024 9:15 AM CAR RUNNER Annual physical exam Hypertension associated with type 2 diabetes mellitus (HCC) Type 2 diabetes mellitus without complication, without long-term current use of insulin (HCC) Hyperlipidemia due to type 2 diabetes mellitus (HCC) Class 3 severe obesity due to excess calories with serious comorbidity and body mass index (BMI) of 40.0 to 44.9 in adult ([facility]) Screening for thyroid disorder DIFFERENTIAL AUTO Routine 10/02/2024 9:15 AM CAR RUNNER Annual physical exam Hypertension associated with type 2 diabetes mellitus (HCC) Type 2 diabetes mellitus without complication, without long-term current use of insulin (HCC) Hyperlipidemia due to type 2 diabetes mellitus (HCC) Class 3 severe obesity due to excess calories with serious comorbidity and body mass index (BMI) of 40.0 to 44.9 in adult ([facility]) Screening for thyroid disorder CBC WITH AUTO DIFFERENTIAL Routine 10/02 9:15 AM CAR RUNNER Annual physical exam Hypertension associated with type 2 diabetes mellitus (HCC) Type 2 diabetes mellitus without complication, without long-term current use of insulin (HCC) Hyperlipidemia due to type 2 diabetes mellitus (HCC) Class 3 severe obesity due to excess calories with serious comorbidity and body mass index (BMI) of 40.0 to 44.9 in adult ([facility]) Screening for thyroid disorder COMPREHENSIVE METABOLIC PANEL Routine 9:15 AM CAR RUNNER Annual physical exam Hypertension associated with type 2 diabetes mellitus (HCC) Type 2 diabetes mellitus without complication, without long-term current use of insulin (HCC) Hyperlipidemia due to type 2 diabetes mellitus (HCC) Class 3 severe obesity due to excess calories with serious comorbidity and body mass index (BMI) of 40.0 to 44.9 in adult ([facility]) Screening for thyroid disorder THYROID FUNCTION CASCADE Routine 9:15 AM CAR RUNNER Annual physical exam Hypertension associated with type 2 diabetes mellitus (HCC) Type 2 diabetes mellitus without complication, without long-term current use of insulin (HCC) Hyperlipidemia due to type 2 diabetes mellitus (HCC) Class 3 severe obesity due to excess calories with serious comorbidity and body mass index (BMI) of 40.0 to 44.9 in adult ([facility]) Screening for thyroid disorder LIPID PANEL Routine 10/02/2024 9:15 AM CAR RUNNER Annual physical exam Hypertension associated with type 2 diabetes mellitus (HCC) Type 2 diabetes mellitus without complication, without long-term current use of insulin (HCC) Hyperlipidemia due to type 2 diabetes mellitus (HCC) Class 3 severe obesity due to excess calories with serious comorbidity and body mass index (BMI) of 40.0 to 44.9 in adult ([facility]) Screening for thyroid disorder XR SPINE LUMBAR ROUTINE ED 09/05/19 2:37 PM CAR RUNNER XR HAND RIGHT 3 OR MORE VIEWS ED 2:37 PM CAR RUNNER XR ELBOW RIGHT 2 OR MORE VIEWS ED 0 09/05/2024 2:37 PM CAR RUNNER XR HIP RIGHT W PELVIS 2 OR 3 VIEWS ED 09/05/2024 2:37 PM CAR RUNNER XR TOE GREAT RIGHT ED 09/05/2024 10:50 AM CAR RUNNER SCREENING MAMMOGRAM BILATERA L W BIJAN Schedule Routine, Read Routine (OP Routine) 08/29/2024 1:04 PM CAR RUNNER Screening mammogram for breast cancer XR ELBOW RIGHT 3 OR MORE VIEWS Schedule Routine, Read Routine (OP Routine) 08/21/2024 12:26 PM CAR RUNNER Fall, initial encounter Right elbow pain URINALYSIS, MICROSCOPIC ONLY Routine 12:10 PM CAR RUNNER Dysuria URINALYSIS AND REFLEX TO MICROSCOPIC AND CULTURE Routine 08/21/2024 12:10 PM CAR RUNNER Dysuria ALBUMIN CREATININE RATIO, URINE Routine 09/21/2023 9:44 AM CAR RUNNER Type 2 diabetes mellitus without complication, without long-term current use of insulin (HCC) HEPATITIS PANEL, ACUTE Routine 9:05 AM CDT COLONOSCOPY 08/16/2022 10:26 AM CAR RUNNER DIABETIC EYE EXAM Routine 11/03/2021 from Last 3 Months or Most Recently Relevant to Health Maintenance Results * POCT glucose (10/25/2024 8:28 AM CDT) Glucose, POC 92 70 - 199 mg/dL Blood 10/25/2024 8:28 AM CDT 10/25/2024 8:28 AM CDT us Frantz Alejandra MD LAB POCT ORDERABLES - DEVICE Final Result [facility] 1 [facility] Department [place] [address] * POCT glucose (10/25/2024 2:11 AM CDT) Glucose, POC 111 70 - 199 mg/dL Blood 10/25/2024 2:11 AM CDT 10/25/2024 2:11 AM CDT Frantz Alejandra MD LAB POCT ORDERABLES - DEVICE Final Result Performing Organization Address City/[facility]/ZIP Co de Phone Number DAVID JOHNS ([place]) 1 [facility] [place] [address] * POCT glucose (10/24/2024 7:58 PM CDT) Glucose, POC 155 70 - 199 mg/dL Blood 10/24/2024 7:58 PM CDT 10/24/2024 7:58 PM CDT Frantz Alejandra MD LAB POCT ORDERABLES - DEVICE Final Result Performing Organization Address [facility] Co de Phone Number DAVID JOHNS ([place]) 1 [facility] [place] [address] * POCT glucose (10/24/2024 4:31 PM CDT) Glucose, POC 127 70 - 199 mg/dL Blood 10/24/2024 4:31 PM CDT 10/24/2024 4:31 PM CDT Frantz Alejandra MD LAB POCT ORDERABLES - DEVICE Final Result Performing Organization Address [facility] Co de Phone Number DAVID J[facility]NS ([place]) 1 [facility] [place] [address] * POCT glucose (10/24/2024 11:01 AM CDT) Glucose, POC 134 70 - 199 mg/dL Blood 10/24/2024 11:0 1 AM CDT 10/24/2024 11:01 AM CDT Frantz Alejandra MD LAB POCT ORDERABLES - DEVICE Final Result DAV[facility] ([place]) 1 [facility] [place] [address] * POCT glucose (10/24/2024 7:59 AM CDT) Glucose, POC 164 70 - 199 mg/dL Blood 10/24/2024 7:59 AM CDT 10/24/2024 7:59 AM CDT us Frantz Alejandra MD LAB POCT ORDERABLES - DEVICE Final Result Performing Organization Address [facility] Co de Phone Number DAVID J[facility]NS ([place]) 1 [facility] [place] [address] * POCT glucose (10/24/2024 2:35 AM CDT) Glucose, POC 122 70 - 199 mg/dL Blood 10/24/2024 2:35 AM CDT 10/24/2024 2:35 AM CDT us Frantz Alejandra MD LAB POCT ORDERABLES - DEVICE Final Result Performing Organization Address City/[facility]/ZIP Co de Phone Number DAVID J[facility]NS ([place]) 1 [facility] [place] [address] * POCT glucose (10/23/2024 8:27 PM CDT) Glucose, POC 188 70 - 199 mg/dL Blood 10/23/2024 8:27 PM CDT 10/23/2024 8:27 PM CDT Frantz Alejandra MD LAB POCT ORDERABLES - DEVICE Final Result Performing Organization Address City/[facility]/ZIP Co de Phone Number DAVID JOHNS ([place]) 1 [facility] [place] [address] * POCT glucose (10/23/2024 4:28 PM CDT) Glucose, POC 109 70 - 199 mg/dL Blood 10/23/2024 4:28 PM CDT 10/23/2024 4:28 PM CDT us Frantz Alejandra MD LAB POCT ORDERABLES - DEVICE Final Result DAV[facility]NS ([place]) 1 [facility] Department [place] [address] * XR Knee Left 1 or 2 View (10/23/2024 3:21 PM CDT) Anatomical Region Laterality Modality Lower Extremities, Knee Left Computed Radiography 10/23/2024 6:09 PM CDT Narrative 10/23/2024 6:11 PM CDT EXAM DESCRIPTION: XR KNEE LEFT 1 OR 2 VIEWS REASON FOR STUDY: post op Post op left knee TECHNIQUE: 2 radiographic view(s) of the left knee . COMPARISON: 02/20/2024 FINDINGS: Left knee replacement is evident. The prosthetic components appear to be in good position and alignment. In the joint space is consistent with recent surgery. IMPRESSION: Left knee replacement THIS IS AN ELECTRONICALLY VERIFIED FINAL REPORT 10/23/2024 6:11 PM - Electronically signed by Jaquan Kelley M.D. KH: [email or web address] Report ID: [id number] Reading Location: [place] [address] Procedure Note Jaquan Kelley MD - 10/23/2024 EXAM DESCRIPTION: XR KNEE LEFT 1 OR 2 VIEWS REASON FOR STUDY: post op Post op left knee TECHNIQUE: 2 radiographic view(s) of the left knee . COMPARISON: 02/20/2024 FINDINGS: Left knee replacement is evident. The prosthetic components appear to bein good position and alignment. In the joint space is consistent with recent surgery. IMPRESSION: Left knee replacement THIS IS AN ELECTRONICALLY VERIFIED FINAL REPORT 10/23/2024 6:11 PM - Electronically signed by Jaquan Kelley M.D. KH: [email or web address] Report ID: [id number] Reading Location: [place] [address] Igor Mueller CUSTOMER COUNTER ASSOCIATE IMG XR PROCEDURES Final Result * POCT glucose (10/23/2024 3:15 PM CDT) Glucose, POC 100 70 - 199 mg/dL Blood 10/23/2024 3:15 PM CDT 10/23/2024 3:15 PM CDT Frantz Alejandra MD LAB POCT ORDERABLES - DEVICE Final Result Performing Organization Address City/State/[facility] Co de Phone Number DAVID [facility] [address] Department [place] [address] * Spinal Block (10/23/2024 1:32 PM CDT) Narrative Igor Lynn CRNA - 10/23/2024 1:32 PM CDT Igor Lynn CRNA 10/23/2024 1:36 PM Spinal Block Patient location: OR End time: 10/23/2024 12:53 PM Reason for block: primary anesthetic Staff: Placed by: Anesthesiologist: Candie Reddy MD OYSTER FLOATER:Igor Lynn CRNA Procedure prep: Preprocedure checklist: patient identified, procedure contraindications assessed, site marked, procedure consent, surgical consent, IV checked, risks, benefits and alternatives discussed, monitors and equipment checked and timeout performed Patient position: sitting Procedure performed while patient: sedate with meaningful contact Monitoring: oximetry and blood pressure Prep solution: chlorhexadine/alcohol PPE: provider hat/mask, sterile gloves and sterile drape Skin infiltrated with lidocaine 1%: yes Spinal: Approach: midline Location: L4-5 Spinal injection: CSF demonstrated, no aspiration of heme and no paresthesias noted Number of attempts: 3 Other sites attempted: L3-4 midline/L3-4 paramedian Spinal Needle: Needle type: Quincke Needle gauge: 22 G Needle length: 9 cm Assessment: Sensory deficit - left: full eval pending Sensory deficit - right: full eval pending Events: patient tolerated procedure well with no complications us Candie Reddy MD ANESTHESIA ORDERABLES Fi nal Result * Surgical pathology (10/23/2024 11:12 AM CDT) Tissue specimen (specimen) (Bone Fragment(s),) 10/23/2024 1:40 PM CDT Comment:Fixed in Formalin Narrative PATHOLOGY [facility] ([facility]) - 10/29/2024 11:48 AM CDT EPIC results best viewed via link to PDF [facility] Department of Pathology [address] [place] [address] Note to Patients: This report may contain a detailed description of human tissue sent by a health care provider to the laboratory for pathologic evaluation. The content of this report is essential for diagnosis and may provide important critical findings. This information may be unfamiliar to patients to review without a medical professional present. It is advised that the patient review this report in the presence of a health care provider who can answer questions and explain the details. Final Report Patient Name: MARLEE PICKARD Address: [address] [place] [address]- Gender: F : 1970 (Age: 54) Service: Surgery Location: [facility] Hospital #: [id number] Patient Type: [facility] Taken: 10/23/2024 Received: 10/24/2024 Accessioned: 10/24/2024 Reported: 10/29/2024 Physician(s):Dr. Frantz Alejandra M.D. Diagnosis: Bone and soft tissue, robotic left total knee arthroplasty: - Histologic changes consistent with degenerative joint disease. Shree Shea MD Report Electronically Reviewed and Signed Out By Shree Shea MD 10/29/2024 11:48:20 Specimen(s) Received: A: Bone and tissue left knee Microscopic Description: A decalcified section shows erosion and destruction of the articular cartilage. The marrow space appears fatty without significant hematopoietic marrow elements. Also seen are benign-appearing fragments of fibroadipose tissue. There is no evidence of malignancy. The histologic changes are consistent with the clinical impression of degenerative joint disease. Clinical History: Post-traumatic osteoarthritis of left knee. Left robotic total knee arthroplasty. Gross Description: The container is labeled MARLEE PICKARD and left knee . It is a 7 x 5 x 3 cm in aggregate of irregularly-shaped fragments of bone and an approximate 10 cc aggregate of soft tissue consisting of adipose tissue, portions of menisci and some synovium. Recognizable pieces of bone include the tibial plateau and portions of femoral condyles. Some of the bone fragments are covered by articular cartilage showing varying degrees of degenerative changes that include pitting and roughened granularity. Decalcified and represented in two cassettes. Ishan Parikh R.N., PRaeann./Brunilda Gray M.D. REPORT IMAGES AND SCANNED DOCUMENTS, IF INCLUDED, ONLY VIEWABLE IN PDF VERSION OF REPORT The performance characteristics of some immunohistochemical stains, fluorescence in-situ hybridization tests and immunophenotyping by flow cytometry cited in this report (if any) were determined by the Surgical Pathology Department at [facility] as part of an ongoing senior software quality analyst program and in compliance with federally mandated regulations drawn from the Clinical Laboratory Improvement Act of 1988 (CLIA '88). Some of these tests rely on the use of analyte specific reagents and are subject to specific labeling requirements by the US Food and Drug Administration. Such diagnostic tests may only be performed in a facility that is certified by the Department of Health and Human Services as a high complexity laboratory under CLIA '88. The FDA has determined that such clearance or approval is not necessary. This test is used for clinical purposes. It should not be regarded as investigational or for research. Nevertheless, federal rules concerning the medical use of analyte specific reagents require that the following disclaimer be attached to the report: This test was developed and its performance characteristics determined by the Surgical Pathology Department [facility]. It has not been cleared or approved by the U. S. Food and Drug Administration. Note for decalcified specimens: This assay has not been validated on decalcified tissues. Results should be interpreted with caution given the possibility of false negativity on decalcified specimens Frantz Alejandra MD LAB PATHOLOGY ORDERABLES Fin al Result [facility]OLOGY [facility] ([place]) [address] [place] [address] * (ABNORMAL) Potassium, whole blood (10/23/2024 11:05 AM CDT) Potassium, bld 3.2(L) 3.3 - 4.9 mmol/L Comment: Interpretive Data This method is not able to assess for hemolysis, which may falsely increase potassium concentrations. If further testing is needed to evaluate this result, consider in-laboratory plasma potassium. Current Interpretive Data was last revised on 2022. Blood 10/23/2024 11:0 5 AM CDT 10/23/2024 11:07 AM CDT us Mayur Bhat MD LAB BLOOD ORDERABLES F inal Result Performing Organization Address [facility]/ZIP Co de Phone Number DAVID [facility] ([place]) 1 [facility] [place] [address] * aPTT (10/23/2024 11:05 AM CDT) Pathologist [facility] aPTT 34 28 - 38 sec DAVID [facility] ([place]) Comment: Interpretive Data Heparin therapeutic range: 66.0 - 100.0 seconds. Range based on correlation with therapeutic heparin activity range of 0.3 - 0.7 Units/mL. Current interpretive data was last revised on 2023. Blood 10/23/2024 11:0 5 AM CDT 10/23/2024 11:07 AM CDT us Frantz Alejandra MD LAB BLOOD ORDERABLES Final R esult [facility] ([place]) 1 [facility] [place] [address] * Protime-INR (10/23/2024 11:05 AM CDT) PT 11.7 9.7 - 13.0 sec [facility] ([place]) INR 1.08 0.90 - 1.20 [facility] ([place]) Comment: Interpretive data Oral anticoagulant therapeutic ranges: Venous thromboembolism prophylaxis or treatment: 2.0-3.0 CARDIOLOGY Standard range: 2.0-3.0 High-intensity range: 2.5-3.5 Refer to indication-specific guidelines for appropriate target ranges for prosthetic heart valve replacement. Current interpretive data was last revised on 2019. Blood 10/23/2024 11:0 5 AM CDT 10/23/2024 11:07 AM CDT Frantz Alejandra MD LAB BLOOD ORDERABLES Final R esult [facility] ([place]) 1 [facility] [place] [address] * POCT glucose (10/23/2024 10:58 AM CDT) Glucose, POC 95 70 - 199 mg/dL Blood 10/23/2024 10:5 8 AM CDT 10/23/2024 10:58 AM CDT Frantz Alejandra MD LAB POCT ORDERABLES - DEVICE Final Result Performing Organization Address City/[facility] Co de Phone Number [facility] ([place]) 1 [facility] [place] [address] * XR Chest Pa Lateral 2 Views (10/17/2024 4:13 PM CDT) Anatomical Region Laterality Modality Body, Chest N/A Computed Radiogr aphy 10/17/2024 8:37 PM CDT Narrative 10/17/2024 8:37 PM CDT EXAM DESCRIPTION: XR CHEST PA LATERAL 2 VIEWS REASON FOR STUDY: pre op test Pre op right knee replacement x October 23 Hx of asthma Per pt, has jail Covid Non smoker No prior chest surgeries TECHNIQUE: Frontal and lateral radiographic views of the chest were acquired. COMPARISON: 07/07/2024 FINDINGS: LUNGS/PLEURA: There is no focal infiltrate or evidence of pneumothorax. No significant pleural effusion. HEART/MEDIASTINUM: The heart size is normal. Normal mediastinal and hilar contours. LINES/TUBES: None. BONES: No acute findings. OTHER: No other significant finding. IMPRESSION: No acute cardiopulmonary abnormality. THIS IS AN ELECTRONICALLY VERIFIED FINAL REPORT 10/17/2024 8:37 PM - Electronically signed by Ezequiel Nicholas M.D. RW: NATALIA Report ID: [id number] Reading Location: [id number] Procedure Note Ezequiel Nicholas MD - 10/17/2024 EXAM DESCRIPTION: XR CHEST PA LATERAL 2 VIEWS REASON FOR STUDY: pre op test Pre op right knee replacement x October 23 Hx of asthma Per pt, has [facility] Cov[facility] Non smoker No prior chest surgeries TECHNIQUE: Frontal and lateral radiographic views of the chest wereacquired. COMPARISON: 07/07/2024 FINDINGS: LUNGS/PLEURA: There is no focal infiltrate or evidence of pneumothorax.No significant pleural effusion. HEART/MEDIASTINUM: The heart size is normal. Normal mediastinal and hilar contours. LINES/TUBES: None. BONES: No acute findings. OTHER: No other significant finding. IMPRESSION: No acute cardiopulmonary abnormality. THIS IS AN ELECTRONICALLY VERIFIED FINAL REPORT 10/17/2024 8:37 PM - Electronically signed by Ezequiel Nicholas M.D. RW: NATALIA Report ID: [id number] Reading Location: [place] [address] us Frantz Alejandra MD IMG XR PROCEDURES Final Resu lt * ECG 12 lead (10/17/2024 3:57 PM CDT) 10/17/2024 4:00 PM CDT Narrative [facility] - 10/18/2024 7:46 AM CDT Vent Rate: 72 bpm RR Interval: 829 msec KS Interval: 181 msec QRS Duration: 85 msec QT Interval: 399 msec QTC Interval: 423 msec P-R-T [place]: 60 - 2 - 21 degrees IMPRESSION: SINUS RHYTHM LOW QRS VOLTAGE IN PRECORDIAL LEADS [QRS DEFLECTION < 1.0 mV IN CHEST LEADS] POSSIBLE ANTERIOR MYOCARDIAL INFARCTION , PROBABLY OLD [30 ms Q WAVE IN V3/V4, OR R < 0.2 mV IN V4] BORDERLINE ECG NO CHANGE FROM PREVIOUS TRACING NOTED Electronically Signed By: Robby Leyva MD Frantz Alejandra MD ECG ORDERABLES Final Result [facility] * eGFR (10/17/2024 3:47 PM CDT) eGFR 73 >=60 mL/min/1. 73 m2 Comment: Interpretive Data Reference Interval Normal >/= 90 mL/min/1.73m2 Mildly decreased* 60 - 89 mL/min/1.73m2 Mildly to moderately decreased 45 - 59 mL/min/1.73m2 Moderately to severely decreased 30 - 44 mL/min/1.73m2 Severely decreased 15 - 29 mL/min/1.73m2 Kidney Failure < 15 mL/min/1.73m2 *Relative to young adult level Estimated glomerular filtration rate is determined by the 2020 CKD-EPI equation recommended by the National Kidney Foundation (A Unifying Approach to GFR Estimation: Recommendations of the NKF-ASK Task Force on Reassessing the Inclusion of Race in Diagnosing Kidney Disease, JASN 2020). The CKD-EPI equation should not be used for patients with unstable renal function and has not been validated in children and those over 70. Current interpretive data was last reviewed 2021. Blood 10/17/2024 3:47 PM CDT 10/17/2024 4:14 PM CDT us Frantz Alejandra MD LAB BLOOD ORDERABLES Final R esult [facility] ([place]) 1 [facility] Department [place] [address] * Differential, auto (10/17/2024 3:47 PM CDT) Neutrophil abs 3.5 1.5 - 6.5 K/cumm Imm gran abs 0.0 0.0 - 0.1 K/cumm [facility] ([place]) Lymphocyte abs 3.0 0.8 - 3.3 K/cumm [facility] ([place]) Monocyte abs 0.7 0.2 - 0.8 K/cumm [facility] ([place]) Eosinophil abs 0.2 0.0 - 0.5 K/cumm [facility] ([place]) Basophil abs 0.1 0.0 - 0.1 K/cumm [facility] ([place]) Neutrophil pct 47.5 % [facility] ([place]) Comment: Interpretive Data Percent cell count reference ranges are not reported, since discordance with absolute values may lead to misinterpretation of CBC data. Current Interpretive Data was last revised on 2017. Imm gran pct 0.3 % [facility] ([place]) Comment: Interpretive Data Percent cell count reference ranges are not reported, since discordance with absolute values may lead to misinterpretation of CBC data. Current Interpretive Data was last revised on 2017. Lymphocyte pct 39.9 % [facility] ([place]) Comment: Interpretive Data Percent cell count reference ranges are not reported, since discordance with absolute values may lead to misinterpretation of CBC data. Current Interpretive Data was last revised on 2017. Monocyte pct 9.1 % [facility] ([place]) Comment: Interpretive Data Percent cell count reference ranges are not reported, since discordance with absolute values may lead to misinterpretation of CBC data. Current Interpretive Data was last revised on 2017. Eosinophil pct 2.5 % [facility] ([place]) Comment: Interpretive Data Percent cell count reference ranges are not reported, since discordance with absolute values may lead to misinterpretation of CBC data. Current Interpretive Data was last revised on 2017. Basophil pct 0.7 % [facility] ([place]) Comment: Interpretive Data Percent cell count reference ranges are not reported, since discordance with absolute values may lead to misinterpretation of CBC data. Current Interpretive Data was last revised on 2017. Blood 10/17/2024 3:47 PM CDT 10/17/2024 4:14 PM CDT us Frantz Alejandra MD LAB BLOOD ORDERABLES Final R esult Performing Organization Address [facility]/ZIP Co de Phone Number [facility] ([place]) 1 [facility] Department [place] [address] * (ABNORMAL) Urinalysis reflex to microscopic and culture Urine, clean voided (10/17/2024 3:47 PM CDT) Color, ur Yellow Yellow Clarity, ur Clear Clear [facility] ([place]) Specific gravity, ur 1.026 1.003 - 1.030 [facility] ([place]) pH, urine 6.0 [facility] ([place]) Comment: Interpretive Data U rine pH is affected by diet, medications, systemic acid-base disturbances, and renal tubular function. pH may affect urinary stone formation. For example, urine pH below 6.0 may help reduce the tendency for calcium phosphate stones and pH greater than 6.0 may reduce the tendency for uric acid stone formation. Source: [facility] Current Interpretive Data was last revised on 2017 Protein, ur ql Trace Negative [facility] ([place]) Glucose, ur ql Negative Negative [facility] ([place]) Ketones, ur 1+(A) Negative [facility] ([place]) Bilirubin, ur Negative Negative [facility] ([place]) Blood, ur Negative Negative [facility] ([place]) Urobilinogen, ur <2.0 <2.0 mg/dL [facility] ([place]) Nitrite, ur Negative Negative [facility] ([place]) Leukocyte esterase, ur 1+(A) Negative [facility] ([place]) UA reflex comment Reflex to microscopic UA will be performed. [facility] ([place]) Urine, clean voided 10/17/2024 3:47 PM CDT 10/17/2024 4:15 PM CDT us Frantz Alejandra MD LAB MICROBIOLOGY - GENERAL O RDERABLES Final Result Performing Organization Address City/[facility]/ZIP Co de Phone Number [facility] ([place]) 1 [facility] Department [place] [address] * CBC with auto differential (10/17/2024 3:47 PM CDT) WBC 7.5 3.8 - 9.9 K/cumm Hgb 14.3 11.9 - 15.5 g/dL [facility] ([place]) Hct 43.1 35.6 - 45.5 % [facility] ([place]) Plt 326 150 - 400 K/cumm [facility] ([place]) MPV 9.7 9.1 - 12.3 fL [facility] ([place]) RBC 4.80 3.90 - 5.20 M/cumm [facility] ([place]) MCV 89.8 81.3 - 96.4 fL [facility] ([place]) MCH 29.8 27.1 - 33.3 pg [facility] ([place]) MCHC 33.2 32.3 - 35.7 g/dL [facility] ([place]) RDW CV 13.5 11.1 - 14.9 % [facility] ([place]) RDW SD 44.5 35.7 - 48.1 fL [facility] ([place]) NRBC abs 0.00 0.00 - 0.01 K/cumm [facility] ([place]) Blood 10/17/2024 3:47 PM CDT 10/17/2024 4:14 PM CDT us Frantz Alejandra MD LAB BLOOD ORDERABLES Final R esult [facility] ([place]) 1 [facility] Department [place] [address] * (ABNORMAL) Urinalysis, microscopic only (10/17/2024 3:47 PM CDT) WBC, ur 0-5 0 - 5 /HPF RBC, ur 0-2 0 - 2 /HPF [facility] ([place]) Epithelial cells, squamous, ur 6-10(A) 0 - 5 /HPF [facility] ([place]) Mucous, ur Present(A) [facility] ([place]) Culture Reflex Comment Reflex conditions for urine culture (WBC >10) not met. [facility] ([place]) Urine, clean voided 10/17/2024 3:47 PM CDT 10/17/2024 4:15 PM CDT Frantz Alejandra MD LAB URINE ORDERABLES [facility] Performing Organization Address City/[facility] Co de Phone Number [facility] ([place]) 1 [place] [address] * Hemoglobin A1c (10/17/2024 3:47 PM CDT) Pathologist [facility] Hgb A1C 5.6 4.0 - 5.6 % Estimated Average Glucose 114 mg/dL [facility] ([place]) Comment: The ADA recommends reporting an estimated Average Glucose (eAG) with all Hemoglobin A1c results using the equation derived from a study of 507 normal and diabetic adults. Minority populations were underrepresented and children were not included. (Diabetes Care 31:2537-1915, 2008). The eAG is not equivalent to a fasting glucose. Blood 10/17/2024 3:47 PM CDT 10/17/2024 4:14 PM CDT Frantz Alejandra MD LAB BLOOD ORDERABLES Final R esult [facility] ([place]) 1 [place] [address] * Comprehensive metabolic panel (10/17/2024 3:47 PM CDT) Pathologist [facility] Sodium 139 135 - 145 mmol/L Potassium, pl 4.0 3.3 - 4.9 mmol/L [facility] ([place]) Chloride 102 97 - 110 mmol/L [facility] ([place]) CO2 27 22 - 32 mmol/L [facility] ([place]) Anion gap 10 2 - 15 mmol/L [facility] ([place]) BUN 13 6 - 25 mg/dL [facility] ([place]) Creatinine 0.93 0.60 - 1.10 mg/dL [facility] ([place]) Glucose 94 70 - 199 mg/dL [facility] ([place]) Comment: Interpretive Data Fasting glucose >/= 126 mg/dl is diagnostic for diabetes. Fasting is defined as no caloric intake for at least 8 hours. Fasting glucose between 100 mg/dl to 125 mg/dl is diagnostic of prediabetes. In a patient with classic symptoms of hyperglycemia or hyperglycemic crisis, a random glucose >/= 200 mg/dl is diagnostic for diabetes. In the absence of unequivocal hyperglycemia, results should be confirmed by repeat testing. The classification and Diagnosis of Diabetes Diabetes Care 2021; 46: S19-S40. Current interpretive data was last revised 2022. Calcium 9.8 8.5 - 10.3 mg/dL [facility] ([place]) Bilirubin, total 0.3 0.1 - 1.2 mg/dL [facility] ([place]) Protein, pl 7.6 6.5 - 8.5 g/dL [facility] ([place]) Albumin 4.1 3.5 - 5.0 g/dL [facility] ([place]) Alk phos 98 40 - 130 Units/L [facility] ([place]) ALT 24 7 - 45 Units/L [facility] ([place]) AST 23 10 - 45 Units/L [facility] ([place]) Blood 10/17/2024 3:47 PM CDT 10/17/2024 4:14 PM CDT us Frantz Alejandra MD LAB BLOOD ORDERABLES Final R esult [facility] ([place]) 1 [facility] [place] [address] * POCT glucose (10/09/2024 2:04 PM CDT) Glucose, POC 93 70 - 199 mg/dL Blood 10/09/2024 2:04 PM CDT 10/09/2024 2:04 PM CDT us Billy Nolan MD LAB POCT ORDERABLES - ONESIMO CE Final Result [facility] ([place]) 1 [facility] [place] [address] * EGD (10/09/2024 1:19 PM CDT) Anatomical Region Laterality Modality Other Narrative Procedure Note Billy Nolan MD - 10/09/2024 1:19 PM CDT [facility] Patient Name: Marlee Pickard Procedure Date: 10/09/2024 1:19 PM Date of : 1970 Admit Type: Outpatient Age: 54 Gender: Female Attending MD: Billy Nolan M.D. Room: [facility] ENDOSCOPY ROOM 1 Note Status: Finalized Patient Profile: This is a 54 year old female. Patient with long history of reflux esophagitis. She takes famotidineat night and Protonix in the morning as needed.Patient complains of chronic upper abdominal pain. Procedure: Upper GI endoscopy Indications: Upper abdominal pain, Follow-up of refluxesophagitis Referring MD: Sherrie Martell NP Providers: Billy Nolan M.D. Impression: - Normal examined duodenum. - Normal stomach. Biopsied. - Moderate reflux esophagitis with no bleeding. Biopsied. Recommendation: - Await pathology results. - Use Protonix (pantoprazole) 40 mg PO daily in the morning and may continue famotidine at night. Medicines: Monitored Anesthesia Care Complications: No immediate complications. Estimated Blood Loss: Estimated blood loss: none. Procedure: Pre-Anesthesia Assessment: - Prior to the procedure, a History and Physicalwas performed, and patient medications and allergieswere reviewed. The patient's tolerance of previous anesthesia was also reviewed. The risks andbenefits of the procedure and the sedation options and risks were discussed with the patient. All questions were answered, and informed consent was obtained. Prior Anticoagulants: The patient has taken noanticoagulant or antiplatelet agents. ASA Grade Assessment: Per anesthesia note and evaluation. After reviewing the risks and benefits, the patient was deemed in satisfactory condition to undergo the procedure. The benefits, risks, and alternatives to theprocedure and sedation were discussed and informed consentwas obtained. The scope was passed under direct vision. The Endoscope [id number] was introduced through the mouth, and advanced to the second partof duodenum. The upper GI endoscopy was accomplished without difficulty. The patient tolerated the procedure well. Findings: The examined duodenum was normal. Mucosa appeared normal. The entire examined stomach was normal. Biopsies were taken with acold forceps for histology to evaluate for H pylori. Retroflexion stomachin the gastric fundus and cardia were normal. The Z-line was irregular with short lips of erythema approximately 10mm in length. This is all suggestive of reflux esophagitis. Biopsy for histology was performed. No erosions and no ulceration noted. The esophagus body was normal Electronically signed by Billy Nolan M.D. Billy Nolan M.D. 10/09/2024 3:03:33 PM Number of Addenda: 0 Note Initiated On: 10/09/2024 1:19 PM Procedure Code(s): --- Professional --- 93191, Esophagogastroduodenoscopy, flexible, transoral; with biopsy, single or multiple Diagnosis Code(s): --- Professional --- K21.00, Gastro-esophageal reflux disease with esophagitis, without bleeding R10.10, Upper abdominal pain, unspecified CPT copyright 2020 [employer]. All rights reserved. The codes documented in this report are preliminary and upon television station manager reviewmay be revised to meet current compliance requirements. Recognized by the [employer] for promoting quality in endoscopy Billy Nolan MD ENDOSCOPY PROCEDURES Final Result * Surgical pathology (10/09/2024 10:28 AM CDT) Tissue specimen (specimen) (Gastric/Stomach biopsy) 10/09/2024 2:53 PM CDT Tissue specimen (specimen) (EG Junction, Biopsy) 10/09/2024 2:53 PM CDT Narrative PATHOLOGY [facility] ([place]) - 10/14/2024 3:25 PM CDT EPIC results best viewed via link to PDF [facility] Department of Pathology [address] [place] [address] Note to Patients: This report may contain a detailed description of human tissue sent by a health care provider to the laboratory for pathologic evaluation. The content of this report is essential for diagnosis and may provide important critical findings. This information may be unfamiliar to patients to review without a medical professional present. It is advised that the patient review this report in the presence of a health care provider who can answer questions and explain the details. Final Report Patient Name: MARLEE PICKARD Address: [address] [place] [address]- Gender: F : 1970 (Age: 54) Service: Gastro Location: [facility] Hospital #: [id number] Patient Type: [facility] Taken: 10/09/2024 Received: 10/10/2024 Accessioned: 10/10/2024 Reported: 10/14/2024 Physician(s):Dr. Billy Nolan M.D. Diagnosis: A. Gastric, biopsy: - Minimal chronic inactive inflammation. - No evidence of intestinal metaplasia, dysplasia, or malignancy. - Negative Helicobacter immunostain. B. Gastroesophageal junction, biopsy: - Squamous mucosa with elongation of papillae, focal basal hyperplasia, and increased intraepithelial eosinophils (see diagnosis comment). - Cardia-type mucosa with chronic inflammation. - No evidence of intestinal metaplasia, dysplasia, or malignancy. Diagnosis Comment: B. The aforementioned findings are not entirely specific as increased intraepithelial eosinophils (numbering up to seven per high-power field) may be seen in the setting of reflux esophagitis as well as eosinophilic esophagitis. Nevertheless, the relatively small quantity of eosinophils seen, in concert with the other histologic alterations, is more suggestive of minimal to mild reflux esophagitis. Clinical correlation is recommended. Shree Shea MD Report Electronically Reviewed and Signed Out By Shree Shea MD 10/14/2024 15:25:51 Specimen(s) Received: A: Gastric biopsies B: GE junction biopsies Microscopic Description: A. Microscopic examination shows gastric tissue with minimal chronic inactive inflammation consisting of lymphocytes and plasma cells. There is no evidence of intestinal metaplasia, dysplasia, or malignancy. No definitive Helicobacter organisms are identified on routine H&E staining. A Helicobacter immunostain is performed with appropriately reactive controls on block A1 and is negative. B. Microscopic examination shows squamous mucosa with elongation of papillae, focal basal hyperplasia, and increased intraepithelial eosinophils (numbering up to seven per high-power field). Cardia-type mucosa with chronic inflammation is also seen. There is no evidence of intestinal metaplasia, dysplasia, or malignancy. Clinical History: Dysphagia. EGD. Gross Description: The specimen is submitted in two formalin containers labeled MARLEE TIMMY . A. The first container is labeled gastric . It is one weinberg tissue fragment measuring 2 mm. All in A. B. The second container is labeled GE junction . It is 2 fragments of weinberg tissue measuring 2 mm. All in B. T.A. Luis Parikh., P.A./Gita Fink M.D. REPORT IMAGES AND SCANNED DOCUMENTS, IF INCLUDED, ONLY VIEWABLE IN PDF VERSION OF REPORT The performance characteristics of some immunohistochemical stains, fluorescence in-situ hybridization tests and immunophenotyping by flow cytometry cited in this report (if any) were determined by the Surgical Pathology Department at [facility] as part of an ongoing senior software quality analyst program and in compliance with federally mandated regulations drawn from the Clinical Laboratory Improvement Act of 1988 (CLIA '88). Some of these tests rely on the use of analyte specific reagents and are subject to specific labeling requirements by the US Food and Drug Administration. Such diagnostic tests may only be performed in a facility that is certified by the Department of Health and Human Services as a high complexity laboratory under CLIA '88. The FDA has determined that such clearance or approval is not necessary. This test is used for clinical purposes. It should not be regarded as investigational or for research. Nevertheless, federal rules concerning the medical use of analyte specific reagents require that the following disclaimer be attached to the report: This test was developed and its performance characteristics determined by the Surgical Pathology Department [facility]. It has not been cleared or approved by the U. S. Food and Drug Administration. Note for decalcified specimens: This assay has not been validated on decalcified tissues. Results should be interpreted with caution given the possibility of false negativity on decalcified specimens Billy Nolan MD LAB PATHOLOGY ORDERABLES F inal Result PATHOLOGY [address] [address] * eGFR (10/02/2024 9:15 AM CAR RUNNER) eGFR 65 >=60 mL/min/1. 73 m2 Comment: Interpretive Data Reference Interval Normal >/= 90 mL/min/1.73m2 Mildly decreased* 60 - 89 mL/min/1.73m2 Mildly to moderately decreased 45 - 59 mL/min/1.73m2 Moderately to severely decreased 30 - 44 mL/min/1.73m2 Severely decreased 15 - 29 mL/min/1.73m2 Kidney Failure < 15 mL/min/1.73m2 *Relative to young adult level Estimated glomerular filtration rate is determined by the 2020 CKD-EPI equation recommended by the National Kidney Foundation (A Unifying Approach to GFR Estimation: Recommendations of the NKF-ASK Task Force on Reassessing the Inclusion of Race in Diagnosing Kidney Disease, JASN 202). The CKD-EPI equation should not be used for patients with unstable renal function and has not been validated in children and those over 70. Current interpretive data was last reviewed 2021. Blood 10/02/2024 9:15 AM CAR RUNNER 10/02/2024 10:38 AM CAR RUNNER us Sherrie Martell NP LAB BLOOD ORDERABLES Final R esult DAVID JOHNS ([place]) 1 [facility] Department of Laboratories [place], [place] [id number] * Differential, auto (10/02/2024 9:15 AM CAR RUNNER) Neutrophil abs 2.9 1.5 - 6.5 K/cumm Imm gran abs 0.0 0.0 - 0.1 K/cumm [facility] ([place]) Lymphocyte abs 2.5 0.8 - 3.3 K/cumm [facility] ([place]) Monocyte abs 0.6 0.2 - 0.8 K/cumm [facility] ([place]) Eosinophil abs 0.2 0.0 - 0.5 K/cumm [facility] ([place]) Basophil abs 0.1 0.0 - 0.1 K/cumm [facility] ([place]) Neutrophil pct 46.3 % [facility] ([place]) Comment: Interpretive Data Percent cell count reference ranges are not reported, since discordance with absolute values may lead to misinterpretation of CBC data. Current Interpretive Data was last revised on 2017. Imm gran pct 0.2 % [facility] ([place]) Comment: Interpretive Data Percent cell count reference ranges are not reported, since discordance with absolute values may lead to misinterpretation of CBC data. Current Interpretive Data was last revised on 2017. Lymphocyte pct 39.4 % [facility] ([place]) Comment: Interpretive Data Percent cell count reference ranges are not reported, since discordance with absolute values may lead to misinterpretation of CBC data. Current Interpretive Data was last revised on 2017. Monocyte pct 9.6 % [facility] ([place]) Comment: Interpretive Data Percent cell count reference ranges are not reported, since discordance with absolute values may lead to misinterpretation of CBC data. Current Interpretive Data was last revised on 2017. Eosinophil pct 3.4 % [facility] ([place]) Comment: Interpretive Data Percent cell count reference ranges are not reported, since discordance with absolute values may lead to misinterpretation of CBC data. Current Interpretive Data was last revised on 2017. Basophil pct 1.1 % [facility] ([place]) Comment: Interpretive Data Percent cell count reference ranges are not reported, since discordance with absolute values may lead to misinterpretation of CBC data. Current Interpretive Data was last revised on 2017. Blood 10/02/2024 9:15 AM CAR RUNNER 10/02/2024 10:38 AM CAR RUNNER [facility] CUSTOMER COUNTER ASSOCIATE LAB BLOOD ORDERABLES Final R esult DAVID JOHNS ([place]ACQUELINE) 1 [facility] [place] [address] * Thyroid Function [place] (10/02/2024 9:15 AM CAR RUNNER) TSH 1.98 0.30 - 4.20 mcIUnit/mL Blood 10/02/2024 9:15 AM CAR RUNNER 10/02/2024 10:38 AM CAR RUNNER [facility] LAB BLOOD ORDERABLES Final R [facility] Performing Organization Address City/[facility] Co de Phone Number DAVID JOHNS (JACQUELINE) 1 [facility] [place] [address] * CBC with auto differential (10/02/2024 9:15 AM CAR RUNNER) WBC 6.3 3.8 - 9.9 K/cumm Hgb 13.9 11.9 - 15.5 g/dL [facility] ([place]) Hct 42.4 35.6 - 45.5 % [facility] ([place]) Plt 299 150 - 400 K/cumm [facility] ([place]) MPV 10.3 9.1 - 12.3 fL [facility] ([place]) RBC 4.69 3.90 - 5.20 M/cumm [facility] ([place]) MCV 90.4 81.3 - 96.4 fL [facility] ([place]) MCH 29.6 27.1 - 33.3 pg [facility] ([place]) MCHC 32.8 32.3 - 35.7 g/dL [facility] ([place]) RDW CV 13.3 11.1 - 14.9 % [facility] ([place]) RDW SD 43.9 35.7 - 48.1 fL DAVID JOHNS ([place]) NRBC abs 0.00 0.00 - 0.01 K/cumm DAVID JOHNS ([place]ACQUELINE) Blood 10/02/2024 9:15 AM CAR RUNNER 10/02/2024 10:38 AM CAR RUNNER Sherrie Martell NP LAB BLOOD ORDERABLES Final R esult DAVID JOHNS ([place]) 1 [facility] Department [place] [address] * Lipid panel (10/02/2024 9:15 AM CAR RUNNER) Cholesterol 184 30 - 199 mg/dL Comment: Interpretive Data Ages < or = 19 years Acceptable: <170 mg/dL Borderline high: 170-199 mg/dL High: >or= 200 mg/dL Ages > or = 20 years Desirable: <200 mg/dL Borderline high: 200-239 mg/dL High: >or= 240 mg/dL Literature References: 1. Expert Panel on Integrated Guidelines for Cardiovascular Health and Risk Reduction in Children and Adolescents. Pediatrics 2011;128:S213 2. NCEP Expert Panel. Circulation 2004;110:227 Current Interpretive Data was last revised on 2018. Triglycerides 77 <=149 mg/dL DAVID ANDREAS (JACQUELINE) Comment: Interpretive Data Ages < or = 9 years Acceptable: <75 mg/dL Borderline high: 75-99 mg/dL High: >or= 100 mg/dL Ages 10 to 20 years Acceptable: <90 mg/dL Borderline high: 90-129 mg/dL High: >or= 130 mg/dL Ages > or = 20 years Desirable: <150 mg/dL Borderline high: 150-199 mg/dL High: 200-499 mg/dL Very high: >or= 499 mg/dL Literature References: 1. Expert Panel on Integrated Guidelines for Cardiovascular Health and Risk Reduction in Children and Adolescents. Pediatrics 2011;128:S213 2. NCEP Expert Panel. Circulation 2004;110:227 Current Interpretive Data was last revised on 2018. HDL 46 >=40 mg/dL DAVID Luke (JACQUELINE) Comment: Interpretive Data Ages < or = 19 years Acceptable: >45 mg/dL Borderline low: 40-45 mg/dL Low: <40 mg/dL Ages > or = 20 years Desirable: >or= 60 mg/dL Low: <40 mg/dL Literature References: 1. Expert Panel on Integrated Guidelines for Cardiovascular Health and Risk Reduction in Children and Adolescents. Pediatrics 2011;128:S213 2. NCEP Expert Panel. Circulation 2004;110:227 Current Interpretive Data was last revised on 2018. LDL, calculated 124 <=129 mg/dL DAVID JOHNS (JACQUELINE) Comment: Interpretive Data Ages < or = 19 years Acceptable: <110 mg/dL Borderline high: 110-129 mg/dL High: >or= 130 mg/dL Ages > or = 20 years Optimal: <100 mg/dL Near optimal: 100-129 mg/dL Borderline high: 130-159 mg/dL High: >160 mg/dL Calculated using the Yoav LDL-C estimating equation. This equation was implemented on 2024. Prior to this date LDL-C was estimated using the Friedewald equation. Literature References: 1. Expert Panel on Integrated Guidelines for Cardiovascular Health and Risk Reduction in Children and Adolescents. Pediatrics 2011;128:S213 2. NCEP Expert Panel. Circulation 2004;110:227 3. Yoav Real al. SHELBY Cardiol. 2019November 27;5(5):540-548. doi: 10.1001/jamacardio.2020.0013 Current Interpretive Data was last revised on 2024. Non-HDL Cholesterol 138 mg/dL DAVID JOHNS (JACQUELINE) Comment: Interpretive Data Ages < or = 19 years Acceptable: <120 mg/dL Borderline high: 120-144 mg/dL High: >145 mg/dL Ages > or = 20 years When triglycerides are >200 mg/dL, Non-HDL cholesterol is a secondary target of therapy with treatment goals that are 30 mg/dL greater than the LDL cholesterol target. Literature References: 1. Expert Panel on Integrated Guidelines for Cardiovascular Health and Risk Reduction in Children and Adolescents. Pediatrics 2011;128:S213 2. NCEP Expert Panel. Circulation 2004;110:227 Current Interpretive Data was last revised on 2018. Chol/HDL ratio 4 [facility] ([place]) Blood 10/02/2024 9:15 AM CAR RUNNER 10/02/2024 10:38 AM CAR RUNNER us Sherrie Martell NP LAB BLOOD ORDERABLES Final R esult [facility] ([place]) 1 [facility] Department [place] [address] * Comprehensive metabolic panel (10/02/2024 9:15 AM CAR RUNNER) Sodium 140 135 - 145 mmol/L Potassium, pl 3.3 3.3 - 4.9 mmol/L [facility] ([place]) Chloride 103 97 - 110 mmol/L [facility] ([place]) CO2 25 22 - 32 mmol/L [facility] ([place]) Anion gap 12 2 - 15 mmol/L [facility] ([place]) BUN 12 6 - 25 mg/dL [facility] ([place]) Creatinine 1.02 0.60 - 1.10 mg/dL [facility] ([place]) Glucose 99 70 - 199 mg/dL [facility] (AJCQUELINE) Comment: Interpretive Data Fasting glucose >/= 126 mg/dl is diagnostic for diabetes. Fasting is defined as no caloric intake for at least 8 hours. Fasting glucose between 100 mg/dl to 125 mg/dl is diagnostic of prediabetes. In a patient with classic symptoms of hyperglycemia or hyperglycemic crisis, a random glucose >/= 200 mg/dl is diagnostic for diabetes. In the absence of unequivocal hyperglycemia, results should be confirmed by repeat testing. The classification and Diagnosis of Diabetes Diabetes Care 2021; 46: S19-S40. Current interpretive data was last revised 2022. Calcium 9.3 8.5 - 10.3 mg/dL [facility] ([place]) Bilirubin, total 0.5 0.1 - 1.2 mg/dL [facility] ([place]) Protein, pl 7.5 6.5 - 8.5 g/dL [facility] ([place]) Albumin 4.1 3.5 - 5.0 g/dL [facility] ([place]) Alk phos 105 40 - 130 Units/L [facility] ([place]) ALT 20 7 - 45 Units/L [facility] ([place]) AST 17 10 - 45 Units/L [facility] ([place]) Blood 10/02/2024 9:15 AM CAR RUNNER 10/02/2024 10:38 AM CAR RUNNER Sherrie Martell NP LAB BLOOD ORDERABLES Final R esult [facility] ([place]) 1 [facility] Department [place] [address] * XR Hip Right 2 or 3 Views W Pelvis (09/05/2024 2:37 PM CAR RUNNER) Anatomical Region Laterality Modality Lower Extremities, Hip, Pelvis Right C omputed Radiography 09/05/2024 3:04 PM CAR RUNNER Narrative 09/05/2024 3:06 PM CAR RUNNER EXAM DESCRIPTION: XR HIP RIGHT 2 OR 3 VIEWS W PELVIS REASON FOR STUDY: Right hip pain after fall last night. TECHNIQUE: AP pelvis and AP and frog-leg lateral views of the right hip COMPARISON: Right hip radiographs 05/15/2024 FINDINGS: BONES/JOINTS: No acute fracture or dislocation. The joint spaces are normal. SOFT TISSUES: Within normal limits. IMPRESSION: No acute radiographic abnormality. THIS IS AN ELECTRONICALLY VERIFIED FINAL REPORT 09/05/2024 3:06 PM - Electronically signed by Bro Han M.D. LB: SHILA Report ID: [id number] Reading Location: [id number] Procedure Note Bro Han MD - 09/05/2024 EXAM DESCRIPTION: XR HIP RIGHT 2 OR 3 VIEWS W PELVIS REASON FOR STUDY: Right hip pain after fall last night. TECHNIQUE: AP pelvis and AP and frog-leg lateral views of the right hip COMPARISON: Right hip radiographs 05/15/2024 FINDINGS: BONES/JOINTS: No acute fracture or dislocation. The joint spaces are normal. SOFT TISSUES: Within normal limits. IMPRESSION: No acute radiographic abnormality. THIS IS AN ELECTRONICALLY VERIFIED FINAL REPORT 09/05/2024 3:06 PM - Electronically signed by Bro Han M.D. LB: LB Report ID: [id number] Reading Location: [id number] Luis E Scott CUSTOMER COUNTER ASSOCIATE IMG XR PROCEDURES Final Res ult * XR Spine Lumbar 4 or More Views (09/05/2024 2:37 PM CAR RUNNER) Anatomical Region Laterality Modality L-spine N/A Computed Radiogr aphy 09/05/2024 2:55 PM CAR RUNNER Narrative 09/05/2024 3:00 PM CAR RUNNER EXAM DESCRIPTION: XR SPINE LUMBAR 4 OR MORE VIEWS REASON FOR STUDY: Low back pain after fall. TECHNIQUE: AP, lateral, right posterior oblique, left posterior oblique, L5-S1 radiographic view(s) of the lumbar spine COMPARISON: Lumbar spine radiographs 07/05/2023 FINDINGS: ALIGNMENT: Trace retrolisthesis of L2 on L3 and L3 on L4. VERTEBRAE: No fracture. Mild diffuse lumbar spondylosis. No definite spondylolysis on the oblique projections. DISCS: Mild loss of intervertebral disc space height at L5-S1 is unchanged. SOFT TISSUES: Surgical clips in the right upper abdomen. IMPRESSION: No acute radiographic abnormality of the lumbar spine. Mild lumbar spondylosis. Trace retrolisthesis of L2 on L3 and L3 on L4. THIS IS AN ELECTRONICALLY VERIFIED FINAL REPORT 09/05/2024 3:00 PM - Electronically signed by Bro Han M.D. LB: SHILA Report ID: [id number] Reading Location: [id number] Procedure Note Bro Han MD - 09/05/2024 EXAM DESCRIPTION: XR SPINE LUMBAR 4 OR MORE VIEWS REASON FOR STUDY: Low back pain after fall. TECHNIQUE: AP, lateral, right posterior oblique, left posterior oblique,L5-S1 radiographic view(s) of the lumbar spine COMPARISON: Lumbar spine radiographs 07/05/2023 FINDINGS: ALIGNMENT: Trace retrolisthesis of L2 on L3 and L3 on L4. VERTEBRAE: No fracture. Mild diffuse lumbar spondylosis. No definite spondylolysis on the oblique projections. DISCS: Mild loss of intervertebral disc space height at L5-S1 isunchanged. SOFT TISSUES: Surgical clips in the right upper abdomen. IMPRESSION: No acute radiographic abnormality of the lumbar spine. Mild lumbar spondylosis. Trace retrolisthesis of L2 on L3 and L3 on L4. THIS IS AN ELECTRONICALLY VERIFIED FINAL REPORT 09/05/2024 3:00 PM - Electronically signed by Bro Han M.D. LB: SHILA Report ID: [id number] Reading Location: [id number] Luis E Scott CUSTOMER COUNTER ASSOCIATE IMG XR PROCEDURES Final Res ult * XR Hand Right 3 or More Views (09/05/2024 2:37 PM CAR RUNNER) Anatomical Region Laterality Modality Upper Extremities, Hand Right Computed Radiography 09/05/2024 3:00 PM CAR RUNNER Narrative 09/05/2024 3:04 PM CAR RUNNER EXAM DESCRIPTION: XR HAND RIGHT 3 OR MORE VIEWS REASON FOR STUDY: Right hand pain after fall. TECHNIQUE: Three views of the right hand COMPARISON: Right hand radiographs 04/03/2018 FINDINGS: BONES/JOINTS: No acute fracture or dislocation. The joint spaces are normal. SOFT TISSUES: Within normal limits. IMPRESSION: No acute radiographic abnormality. THIS IS AN ELECTRONICALLY VERIFIED FINAL REPORT 09/05/2024 3:04 PM - Electronically signed by Bro Han M.D. LB: SHILA Report ID: [id number] Reading Location: [id number] Procedure Note Bro Han MD - 09/05/2024 EXAM DESCRIPTION: XR HAND RIGHT 3 OR MORE VIEWS REASON FOR STUDY: Right hand pain after fall. TECHNIQUE: Three views of the right hand COMPARISON: Right hand radiographs 04/03/2018 FINDINGS: BONES/JOINTS: No acute fracture or dislocation. The joint spaces are normal. SOFT TISSUES: Within normal limits. IMPRESSION: No acute radiographic abnormality. THIS IS AN ELECTRONICALLY VERIFIED FINAL REPORT 09/05/2024 3:04 PM - Electronically signed by Bro Han M.D. LB: LB Report ID: [id number] Reading Location: [id number] us Luis E Pradojeannette Scott CUSTOMER COUNTER ASSOCIATE IMG XR PROCEDURES Final Res ult * XR Elbow Right 2 Views (09/05/2024 2:37 PM CAR RUNNER) Anatomical Region Laterality Modality Upper Extremities, Elbow Right Compute d Radiography 09/05/2024 2:54 PM CAR RUNNER Narrative 09/05/2024 2:55 PM CAR RUNNER EXAM DESCRIPTION: XR ELBOW RIGHT 2 VIEWS REASON FOR STUDY: Right elbow pain after fall last night. TECHNIQUE: AP and lateral views of the right elbow COMPARISON: Right elbow radiographs 08/21/2024 FINDINGS: BONES/JOINTS: No acute fracture or dislocation. The joint spaces are normal. SOFT TISSUES: No large elbow joint effusion. IMPRESSION: No acute osseous abnormality. THIS IS AN ELECTRONICALLY VERIFIED FINAL REPORT 09/05/2024 2:55 PM - Electronically signed by Bro Han M.D. LB: LB Report ID: [id number] Reading Location: [id number] Procedure Note Bro Han MD - 09/05/2024 EXAM DESCRIPTION: XR ELBOW RIGHT 2 VIEWS REASON FOR STUDY: Right elbow pain after fall last night. TECHNIQUE: AP and lateral views of the right elbow COMPARISON: Right elbow radiographs 08/21/2024 FINDINGS: BONES/JOINTS: No acute fracture or dislocation. The joint spaces are normal. SOFT TISSUES: No large elbow joint effusion. IMPRESSION: No acute osseous abnormality. THIS IS AN ELECTRONICALLY VERIFIED FINAL REPORT 09/05/2024 2:55 PM - Electronically signed by Bro Han M.D. LB: SHILA Report ID: [id number] Reading Location: [id number] us Luis E Scott CUSTOMER COUNTER ASSOCIATE IMG XR PROCEDURES Final Res ult * XR Toe Great Right (09/05/2024 10:50 AM CAR RUNNER) Anatomical Region Laterality Modality Lower Extremities, Foot, Toes Right Co mputed Radiography 09/05/2024 11:2 3 AM CAR RUNNER Narrative 09/05/2024 11:27 AM CAR RUNNER EXAM DESCRIPTION: XR TOE GREAT RIGHT MINIMUM 2 VIEWS REASON FOR STUDY: wound concern of laceration to R great toe after tripping and falling last night she states needing updated tetanus. Hx of 4 surgeries to left foot. TECHNIQUE: There are 3 radiographic view(s) of the right great toe . COMPARISON: Prior exam 06/18/2024 of the right foot. FINDINGS: Normal mineralization. There is an ossification along the medial proximal aspect of the distal phalanx of the great toe favoring a small avulsion fracture. This is seen dorsally on the lateral view. This is new from the relatively recent exam of 06/18/2024. Anchoring screw is seen of the base of the 5th metatarsal. Mild soft tissue swelling about the distal aspect of the great toe. IMPRESSION: There is an avulsion fracture of the dorsal medial aspect of the base of the distal phalanx of the great toe. Mild soft tissue swelling distal aspect of the great toe. THIS IS AN ELECTRONICALLY VERIFIED FINAL REPORT 09/05/2024 11:27 AM - Electronically signed by Ar Mclain M.D. MJ: PIEDAD Report ID: [id number] Reading Location: [id number] Procedure Note Ar Mclain MD - 09/05/2024 EXAM DESCRIPTION: XR TOE GREAT RIGHT MINIMUM 2 VIEWS REASON FOR STUDY: wound concern of laceration to R great toe after tripping and falling last nightshe states needing updated tetanus. Hx of 4 surgeries to left foot. TECHNIQUE: There are 3 radiographic view(s) of the right great toe . COMPARISON: Prior exam 06/18/2024 of the right foot. FINDINGS: Normal mineralization. There is an ossification along the medial proximal aspect of the distal phalanx of the great toe favoring a small avulsion fracture. This is seen dorsally on the lateral view. This is new fromthe relatively recent exam of 06/18/2024. Anchoring screw is seen of the base of the 5th metatarsal. Mild soft tissue swelling about the distal aspect of the great toe. IMPRESSION: There is an avulsion fracture of the dorsal medial aspect of the base ofthe distal phalanx of the great toe. Mild soft tissue swelling distal aspect of the great toe. THIS IS AN ELECTRONICALLY VERIFIED FINAL REPORT 09/05/2024 11:27 AM - Electronically signed by Ar Mclain M.D. MJ: PIEDAD Report ID: [id number] Reading Location: [place] [id number] us Frederic Parsons MD IMG XR PROCEDURES F inal Result * Screening Mammogram Bilateral W Bijan (08/29/2024 1:04 PM CAR RUNNER) Anatomical Region Laterality Modality Breast Bilateral Mammography 08/29/2024 5:10 PM CAR RUNNER Impressions 08/29/2024 5:10 PM CAR RUNNER No evidence of malignancy in either breast. FINAL ASSESSMENT: BI-RADS Category 1: Negative. RECOMMENDATION: Recommend return for annual screening mammogram in 12 months. Electronically signed by: Michelle Quigley M.D. Narrative 08/29/2024 5:10 PM CAR RUNNER EXAMINATION: BILATERAL SCREENING MAMMOGRAM COMPARISON: Multiple prior mammograms dating back to 07/01/2015, most recent from 07/20/2023. TECHNIQUE: Full-field 2D and digital breast tomosynthesis (DBT) images were obtained. CAD was utilized. BREAST PARENCHYMAL COMPOSITION: The breasts are almost entirely fatty. FINDINGS: There is no suspicious mass, calcification, or distortion in either breast. Sherrie Martell DILIP IMG MAMMO PROCEDURES Final R esult * XR Elbow Right 3 or More Views (08/21/2024 12:26 PM CAR RUNNER) Anatomical Region Laterality Modality Upper Extremities, Elbow Right Compute d Radiography 08/22/2024 5:25 AM CAR RUNNER Narrative 08/22/2024 5:26 AM CAR RUNNER EXAM DESCRIPTION: XR ELBOW RIGHT 3 OR MORE VIEWS REASON FOR STUDY: pain, fall Off and on numbness/tingling to right hand States most of pain in elbow is with straightening Fall 3 months ago TECHNIQUE: Four radiographic views of the right elbow . COMPARISON: Plain films of the right elbow of June 23, 2024. FINDINGS: BONES: There is no cortical discontinuity or trabecular irregularity to suggest fracture. The bones are in normal alignment. SOFT TISSUES: The soft tissues are unremarkable. IMPRESSION: No acute osseous abnormality. THIS IS AN ELECTRONICALLY VERIFIED FINAL REPORT 08/22/2024 5:26 AM - Electronically signed by Sonia Clemente M.D. SN: SN Report ID: [id number] Reading Location: [id number] Procedure Note Sonia Clemente MD - 08/22/2024 EXAM DESCRIPTION: XR ELBOW RIGHT 3 OR MORE VIEWS REASON FOR STUDY: pain, fall Off and on numbness/tingling to right hand States most of pain in elbowis with straightening Fall 3 months ago TECHNIQUE: Four radiographic views of the right elbow . COMPARISON: Plain films of the right elbow of June 23, 2024. FINDINGS: BONES: There is no cortical discontinuity or trabecular irregularity to suggest fracture. The bones are in normal alignment. SOFT TISSUES: The soft tissues are unremarkable. IMPRESSION: No acute osseous abnormality. THIS IS AN ELECTRONICALLY VERIFIED FINAL REPORT 08/22/2024 5:26 AM - Electronically signed by Sonia Clemente M.D. SN: SN Report ID: [id number] Reading Location: [id number] us Sherrie Martell NP IMG XR PROCEDURES Final Resu lt * (ABNORMAL) Urinalysis reflex to microscopic and culture Urine (08/21/2024 12:10 PM CAR RUNNER) Color, ur Yellow Yellow Clarity, ur Turbid(A) Clear [facility] ([place]) Specific gravity, ur 1.025 1.003 - 1.030 [facility] ([place]) pH, urine 5.5 [facility] ([place]) Comment: Interpretive Data U rine pH is affected by diet, medications, systemic acid-base disturbances, and renal tubular function. pH may affect urinary stone formation. For example, urine pH below 6.0 may help reduce the tendency for calcium phosphate stones and pH greater than 6.0 may reduce the tendency for uric acid stone formation. Source: [facility] Current Interpretive Data was last revised on 2017 Protein, ur ql Trace Negative [facility] ([place]) Glucose, ur ql Negative Negative [facility] ([place]) Ketones, ur Negative Negative [facility] ([place]) Bilirubin, ur Negative Negative [facility] ([place]) Blood, ur Trace(A) Negative [facility] ([place]) Urobilinogen, ur <2.0 <2.0 mg/dL [facility] ([place]) Nitrite, ur Negative Negative [facility] ([place]) Leukocyte esterase, ur 3+(A) Negative [facility] ([place]) UA reflex comment Reflex to microscopic UA will be performed. [facility] ([place]) Urine 08/21/2024 12:1 0 PM CAR RUNNER 08/21/2024 1:39 PM CAR RUNNER us Sherrie Martell NP LAB MICROBIOLOGY - GENERAL O RDERABLES Final Result [facility] ([place]) 1 [facility] Department [place] [address] * (ABNORMAL) Urinalysis, microscopic only (08/21/2024 12:10 PM CAR RUNNER) WBC, ur 0-5 0 - 5 /HPF RBC, ur 0-2 0 - 2 /HPF [facility] ([place]) Epithelial cells, squamous, ur 6-10(A) 0 - 5 /HPF [facility] ([place]) Bacteria, ur 1+(A) [facility] ([place]) Mucous, ur Present(A) [facility] ([place]) Culture Reflex Comment Reflex conditions for urine culture (WBC >10) not met. [facility] ([place]) Urine 08/21/2024 12:1 0 PM CAR RUNNER 08/21/2024 1:39 PM CAR RUNNER us Sherrie Martell CUSTOMER COUNTER ASSOCIATE LAB URINE ORDERABLES Final R esult Performing Organization Address [facility]/ZIP Co de Phone Number [facility] ([place]) 1 [facility] [place] [address] * Albumin Creatinine Ratio, Urine (09/21/2023 9:44 AM CAR RUNNER) Albumin Ur <12.0 mg/L [facility] ([place]) Comment: Interpretive Data No reference range established. Current interpretive data was last revised 2018. Testing performed by: [address] [address] Creatinine Ur 139.1 mg/dL [facility] ([place]) Comment: Interpretive Data No reference range established. Current interpretive data was last revised 2018. Testing performed by: [facility], [address] [place] [address]., [id number] Albumin Creatinine Ratio, Ur <9 1 - 29 mg/g [facility] ([place]) Comment:Testing performed by : [address] [address] Urine 09/21/2023 9:44 AM CAR RUNNER 09/21/2023 3:32 PM CAR RUNNER us Josseline Pitts CUSTOMER COUNTER ASSOCIATE LAB URINE ORDERABLES Final Resu lt Performing Organization Address City/[facility]/ZIP Co de Phone Number [facility] ([place]) 1 [facility] [place] [address] * Hepatitis panel, acute Blood (2023 9:05 AM CDT) Hep A IgM Nonreactive Nonreactive Comment: Interpretive Data: If Hep A IgM Ab is reported as Equivocal, a new sample should be drawn in two weeks for testing. Current interpretive data was last revised on 19. Testing performed by: [address] [address] Hep B core IgM Nonreactive Nonreactive C [facility] ([place]) Comment: Interpretive Data If HepB Core IgM Ab is reported as Equivocal, a new sample should be drawn in two weeks for testing. Current interpretive data was last revised on 19. Testing performed by: [address] [address] Hep C Ab Nonreactive Nonreactive [facility] ([place]) Comment: Interpretive Data Nonreactive: Antibodies to HCV not detected. Does NOT exclude the possibility of recent exposure to HCV. Equivocal: Equivocal for HCV antibodies. Supplemental molecular testing will be automatically performed to determine infection status in accordance with current CDC screening recommendations. Reactive: Positive for HCV antibodies. This may represent current or past HCV infection. Supplemental molecular testing will be automatically performed to determine current infection status in accordance with current CDC screening recommendations. Interpretive data was last revised on 2019. Testing performed by: [address] [address] HepBsAg Nonreactive Nonreactive [facility] ([place]) Comment:Testing performed by : [address] [address] Blood 2023 9:05 AM CDT 2023 3:11 PM CDT Narrative [facility] ([place]) - 2023 3:55 PM CDT fax results to 2023 08:18:31 CDT us Mark Trujillo MD LAB MICROBIOLOGY - GENERAL ORDERABLES Final Result [facility] ([place] Department [place] [address] * COLONOSCOPY (08/16/2022 10:26 AM CAR RUNNER) Anatomical Region Laterality Modality Other Narrative Procedure Note Billy Nolan MD - 08/16/2022 10:26 AM CST [facility] Patient Name: Marlee Pickard Procedure Date: 08/16/2022 10:26 AM Date of : 1970 Admit Type: Outpatient Age: 52 Gender: Female Attending MD: Billy Nolan M.D. Room: [facility] ENDOSCOPY ROOM 1 Note Status: Finalized Patient Profile: This is a 52 year old female. No family history of colon cancer. The patient has long history of painin the right side of the abdomen. Previous cholecystectomy. Chronic irregular bowel movements.No worrisome signs. Colonoscopy for screening and evaluation Procedure: Colonoscopy Indications: Screening for colorectal malignant neoplasm, Last colonoscopy: March 2014 Referring MD: Hans Liu M.D. Providers: Billy Nolan M.D. Impression: - The entire examined colon is normal. - Small internal hemorrhoids. - No specimens collected. Recommendation: - Repeat colonoscopy in 10 years for screening purposes. - No pathology noted to explain the patient'ssymptoms of pain. Consider functional or neuropathic pain management Medicines: Monitored Anesthesia Care Complications: No immediate complications. Estimated Blood Loss: Estimated blood loss: none. Procedure: Pre-Anesthesia Assessment: - Prior to the procedure, a History and Physicalwas performed, and patient medications and allergieswere reviewed. The patient's tolerance of previous anesthesia was also reviewed. The risks andbenefits of the procedure and the sedation options and risks were discussed with the patient. All questions were answered, and informed consent was obtained. Prior Anticoagulants: The patient has taken noanticoagulant or antiplatelet agents. ASA Grade Assessment: III -A patient with severe systemic disease. Afterreviewing the risks and benefits, the patient was deemed in satisfactory condition to undergo the procedure. - Prior to the procedure, a History and Physicalwas performed, and patient medications and allergieswere reviewed. The patient's tolerance of previous anesthesia was also reviewed. The risks andbenefits of the procedure and the sedation options and risks were discussed with the patient. All questions were answered, and informed consent was obtained. Prior Anticoagulants: The patient has taken noanticoagulant or antiplatelet agents. ASA Grade Assessment: III -A patient with severe systemic disease. Afterreviewing the risks and benefits, the patient was deemed in satisfactory condition to undergo the procedure. The benefits, risks and alternatives of theprocedure and sedation were discussed and informed consentwas obtained. All questions were answered. Please referto the signed informed consent document in the medical record. The bowel preparation used was Miralax via split dose instruction. The bowel preparation usedwas bisacodyl tablets via split dose instruction. The scope was passed under direct vision. The Pediatric Colonoscope PCF-H190L [id number] was introducedthrough the anus and advanced to the the cecum, identifiedby appendiceal orifice and ileocecal valve. Thequality of the bowel preparation was good. Bowel prep was administered using a split dose. Findings: The perianal and digital rectal examinations were normal. The cecum appeared normal. The terminal ileum appeared normal per The colon (entire examined portion) appeared normal. No polyps and no mass lesions noted. No inflammatory changes noted. Internal hemorrhoids were found during retroflexion. The hemorrhoids were small. Electronically signed by Billy Nolan M.D. Billy Nolan M.D. 08/16/2022 11:49:22 AM Number of Addenda: 0 Note Initiated On: 08/16/2022 10:26 AM Procedure Code(s): --- Professional --- 68313, Colonoscopy, flexible; diagnostic, including collection of specimen(s) by brushing or washing, when performed (separateprocedure) Diagnosis Code(s): --- Professional --- Z12.11, Encounter for screening for malignant neoplasm of colon K64.8, Other hemorrhoids CPT copyright 2020 [employer]. All rights reserved. The codes documented in this report are preliminary and upon television station manager reviewmay be revised to meet current compliance requirements. Recognized by the [employer] for promoting quality in endoscopy Billy Nolan MD ENDOSCOPY PROCEDURES Final Result * Diabetic Eye Exam (11/03/2021) Historical Provider HEALTH MAINTENANCE Final Result from Last 3 Months or Most Recently Relevant to Health Maintenance Insurance [facility] [place] [address] [place] [id number] [employer] IDPA [facility] WORKERS COMPENSATION [facility] IDMA [facility] [employer] [facility] Advance Directives For more information, please contact: [phone] * Full Code (Latest Code Status on File) Date Activated Date Inactivated Comments 10/23/2024 4:04 PM 10/25/2024 2:28 PM * Full Code Date Activated Date Inactivated Comments 10/09/2024 12:19 PM 10/09/2024 7:42 PM * Full Code Date Activated Date Inactivated Comments 10/09/2024 12:19 PM 10/09/2024 12:19 PM * Full Code Date Activated Date Inactivated Comments 08/16/2022 10:19 AM 08/16/2022 4:16 PM * Full Code Date Activated Date Inactivated Comments 08/16/2022 10:19 AM 08/16/2022 10:19 AM Care Teams 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 Relationship Specialty Start Date End Date Sherrie Martell NP [address] [facility] [address] [place] [id number] PCP - General Family Medicine 12/08/22 [place] [address] [address] [facility] [address] [place] [address] Consulting Physician Pulmonary Disease 10/25/21 [place] [address] [facility] [address] [place] [address] Consulting Physician Psychiatry 10/25/21 Josseline Pitts, CUSTOMER COUNTER ASSOCIATE [address] [facility] [address] [place] [address] Nurse Practitioner Endocrinology Diabetes & Metabolism 03/20/24 Shaquille Campos MD [address] [facility] [address] [place] [address] Consulting Physician Pulmonary Disease 03/20/24 Nakul Gutierrez PA [address] [facility] [address] [place] [address] Physician Firer [employer] Orthopedic Surgery 06/18/24 Dno Sinha NP [address] [facility] [address] [place] [address] Nurse Practitioner Gastroenterology 06/18/24 Saurav Varma MD 1 [facility] [address] [place] [address] Referring Physician Neurology 06/18/24
--- OUTSIDE RECORDS SUMMARY | 2024-11-15 | XMS_ITS | Clinical Summary ---
Author Organization [facility] Healthcare Address [address] [place] [id number] Care Team Providers Care Rn Clinical Documentation Name Role Phone Ar Talbot MD Unavailable Tavo Juan MD Unavailable [phone] Sherrie Martell MAGNETIC PROSPECTOR Primary Care Provider Josseline Pitts NP Unavailable [phone] Shaquille Campos MD Unavailable Nakul Gutierrez Unavailable [phone] Don Sinha MAGNETIC PROSPECTOR Unavailable [phone] Saurav Varma MD Unavailable [phone] Allergies Active Allergy Reactions Criticality Noted Date [...] complication, without long-term current use of insulin ([facility]),Class 3 severe obesity due to excess calories with serious comorbidity and body mass index (BMI) of 40.0 to 44.9 in adult ([facility]) Inject 0.5 mL (5 mg total) under [...] an evaluation -Discussed/ordered labs -continue on vitamin-D 14878 units weekly Post-traumatic osteoarthritis of left knee [...] Podiatry Assessment & Plan (09/15/2024 12:23 PM CONTAINERS SALES REPRESENTATIVE): -acute, not at goal- recent fall -Patient [...] 07/02/2024 Assessment & Plan (07/02/2024 8:49 AM CONTAINERS SALES REPRESENTATIVE): -Acute, not at goal -Start on acetaminophen ER 650 mg every 8 hours as needed for pain -Continue celecoxib 100 mg twice daily -Right elbow x-ray ordered today -Follow up in 1 month or sooner as needed Fall 07/02/2024 Assessment & Plan (09/15/2024 12:23 PM CONTAINERS SALES REPRESENTATIVE): -not at goal- recent fall with right [...] needed Assessment & Plan (07/02/2024 8:50 AM CONTAINERS SALES REPRESENTATIVE): -Patient reports 4 falls in the last month related to her right knee osteoarthritis -Patient's BMI needs to be at or below 40 in ordered to have right knee surgery -Increase to Mounjaro 7.5 mg weekly to assist in weight loss -Follow up in 1 month or sooner as needed Primary osteoarthritis of right knee 07/02/2024 Assessment & Plan (07/02/2024 8:50 AM CONTAINERS SALES REPRESENTATIVE): -chronic, not at/near goal -Patient reports 4 [...] 09/14/2023 Assessment & Plan (09/14/2023 4:22 PM CONTAINERS SALES REPRESENTATIVE): RUQ pain radiating to flank for the [...] GI Assessment & Plan (09/14/2023 4:17 PM CONTAINERS SALES REPRESENTATIVE): Could be from gastroparesis, patient is a [...] GI Assessment & Plan (09/14/2023 4:13 PM CONTAINERS SALES REPRESENTATIVE): Noted on CT Chest/A/P 06/2023 with haziness [...] Encouraged to go to her pharmacy and slat pickler her current Rx for cyclobenzaprine 5 mg tid prn and to start taking to help with TMD possibly related to shoulder tension and teeth grinding Irritable bowel syndrome wit h both constipation and diarrhea 03/21/2022 Assessment & Plan (01/02/2024 9:55 AM CDT): -chronic, stable -Discussed/ordered labs -continue on MiraLax daily as needed -continue follow up with GI Assessment & Plan (09/14/2023 4:11 PM CONTAINERS SALES REPRESENTATIVE): Currently having more constipation. Has been taking [...] from the beginning of September to end of November Come off of meds if possible during the summer Then restart on meds mid to late February until Thanksgiving Come off of meds if possible during the winter Assessment & Plan (2023 8:54 AM CDT): Nasal saline spray (Simply saline, [employer], [place], [place]) 2 second sprays or 2 squeezes into [...] no hanging clothes on the line Take zyrtec/claritin/akty in the am Saline rinse in the [...] staying on the above treatment from the september to Come off of meds if possible [...] on meds mid to late February until Come off of meds if possible during the winter Moderate episode of recurrent major depressive d isopriscillaer 05/27/2021 Assessment & Plan (03/14/2024 2:40 PM [...] counselor Assessment & Plan (09/12/2023 8:57 AM CONTAINERS SALES REPRESENTATIVE): -chronic, stable -continue on sertraline 100 mg [...] Please start taking probiotic 20-50billion CFU daily intermediate. This will help maintain the good bacteria [...] in your mouth on an delfin like [employer] -Patient did not tolerate Mounjaro 7.5 mg weekly. -Start back on Mounjaro 2.5 mg weekly for 4 weeks, then increase to Mounjaro 5 mg weekly for maintenance dose Assessment & Plan (09/15/2024 12:21 PM CONTAINERS SALES REPRESENTATIVE): -chronic, improving, but not at goal goal BMI less than or equal to 40 Healthy, high-protein, lower carbohydrate, lower fat lifestyle and exercise for 150min/week recommended Recommend tracking everything you put in your mouth on an delfin like [employer] -Patient did not tolerate Mounjaro 7.5 mg weekly. Patient has been off his medication for at least 4 weeks -Start back on Mounjaro 2.5 mg weekly for 4 weeks, then increase to Mounjaro 5 mg weekly for maintenance dose -Follow up in 1 month or sooner as needed Assessment & Plan (08/12/2024 2:10 PM CONTAINERS SALES REPRESENTATIVE): This is a chronic condition which continues [...] sessions. Assessment & Plan (08/08/2024 11:09 AM CONTAINERS SALES REPRESENTATIVE): -chronic, improving, but not at goal goal BMI less than or equal to 40 Healthy, high-protein, lower carbohydrate, lower fat lifestyle and exercise for 150min/week recommended Recommend tracking everything you put in your mouth on an delfin like [employer] -Patient did not tolerate Mounjaro 7.5 mg [...] for 30 grams with breakfast) -may try [employer] delfin to track food intake -Follow up in 1 month or sooner as needed Assessment & Plan (07/02/2024 8:46 AM CONTAINERS SALES REPRESENTATIVE): -chronic, not at/near goal goal BMI <30 Healthy, high-protein, lower carbohydrate, lower fat lifestyle and exercise for 150min/week recommended Recommend tracking everything you put in your mouth on an delfin like [employer] -Increase to Mounjaro 7.5 mg weekly -Follow [...] cup. Assessment & Plan (06/18/2024 3:16 PM CONTAINERS SALES REPRESENTATIVE): Wt Readings from Last 3 Encounters: 06/18/24 [...] in your mouth on an delfin like [employer] -patient will be starting [employer] soon with endocrinology -continue seeing Dr. Viera [...] in your mouth on an delfin like [employer] Hand Measurements: A fist or cupped hand [...] that there might be a program [facility] which she could complete quicker. She also wants to check with her insurance. Assessment & Plan (09/12/2023 8:54 AM CONTAINERS SALES REPRESENTATIVE): -chronic, not at/near goal goal BMI <30 Healthy, high-protein, lower carbohydrate, lower fat lifestyle and exercise for 150min/week recommended Recommend tracking everything you put in your mouth on an delfin like [employer] Hand Measurements: A fist or cupped hand [...] cup. Assessment & Plan (08/21/2023 5:14 PM CONTAINERS SALES REPRESENTATIVE): This is a chronic condition which continues [...] in your mouth on an delfin like [employer] Hand Measurements: A fist or cupped hand [...] in your mouth on an delfin like [employer] Hand Measurements: A fist or cupped hand [...] provided. Assessment & Plan (07/09/2022 6:22 PM CONTAINERS SALES REPRESENTATIVE): BMI Follow-up includes: exercise counseling. Assessment & Plan (05/22/2022 1:36 PM CDT): BMI Follow-up includes: exercise counseling. Assessment & Plan (03/02/2022 4:45 PM CDT): HPI: Condition is not at/near goal goal BMI <30 A&P: Healthy, high-protein, lower carbohydrate, lower fat lifestyle and exercise for 150min/week recommended Recommend tracking everything you put in your mouth on an delfin like [employer] Lower carb substitutions: [employer] carries a zero [...] in much longer they will become mushy [place] and/or coconut flour instead of regular flour [...] pork rinds For yogurt, try [employer] Good z[place]an yogurt Use [employer] for recipe ideas. Type in low carb... [...] in your mouth on an delfin like [employer] or Orth[employer] carries a zero net carb bread [...] in much longer they will become mushy [place] and/or coconut flour instead of regular flour [...] pork rinds For yogurt, try [employer] [place] yogurt Use Pinterest for recipe ideas. Type in low carb... Assessment & Plan (10/31/2021 12:34 PM CDT): HPI: Condition is not at/near goal goal BMI <30 On steroids A&P: Healthy, high-protein, lower carbohydrate, lower fat lifestyle and exercise for 150min/week recommended Substitutions: Recommend tracking everything you put in your mouth on an delfin like [employer] or Orth[employer] carries a zero net carb bread [...] in much longer they will become mushy [place] and/or coconut flour instead of regular flour [...] pork rinds For yogurt, try [employer] [place] yogurt Use Pinterest for recipe ideas. Type in low carb... Assessment & Plan (05/27/2021 12:57 PM CDT): HPI: Condition is not at/near goal goal BMI <30 A&P: Healthy, high-protein, lower carbohydrate, lower fat lifestyle and exercise for 150min/week recommended Substitutions: Recommend tracking everything you put in your mouth on an delfin like [employer] or [employer] carries a zero net carb bread If [...] in much longer they will become mushy [place] and/or coconut flour instead of regular flour [...] pork rinds For yogurt, try [employer] [place]an yogurt Use Pinterest for recipe ideas. Type [...] 01/01/2019 Assessment & Plan (08/08/2024 11:11 AM CONTAINERS SALES REPRESENTATIVE): -Acute, not at goal -Rapid strep negative [...] nightly Assessment & Plan (09/15/2024 12:22 PM CONTAINERS SALES REPRESENTATIVE): -chronic, stable -Discussed/ordered labs -continue on atorvastatin 40 mg nightly Assessment & Plan (08/12/2024 2:09 PM CONTAINERS SALES REPRESENTATIVE): This is a chronic condition which is [...] prescribed. Assessment & Plan (09/12/2023 8:57 AM CONTAINERS SALES REPRESENTATIVE): -chronic, stable -Discussed/ordered labs -continue on atorvastatin 40 mg nightly Assessment & Plan (08/21/2023 5:13 PM CONTAINERS SALES REPRESENTATIVE): This is a chronic condition which is [...] are stable, reviewed previous lipid levels in epic. Pharmacotherapy as ordered. Order for lipid panel was given today to be obtained. Pt voiced understanding of lab drawn and continuation of current medication regimen. Assessment & Plan (07/09/2022 6:20 PM CONTAINERS SALES REPRESENTATIVE): Lipid abnormalities are stable, reviewed previous lipid levels in [facility]. Pharmacotherapy as ordered. Order for lipid panel [...] are stable, reviewed previous lipid levels in [facility]. Pharmacotherapy as ordered. Order for lipid panel was given today to be obtained. Pt voiced understanding of lab drawn and continuation of current medication regimen. Assessment & Plan (05/13/2020 2:09 PM CDT): Lipid abnormalities are stable, reviewed previous lipid levels in [facility]. Pharmacotherapy as ordered. Order for lipid panel was given today to be obtained. Pt voiced understanding of lab drawn and continuation of current medication regimen. Assessment & Plan (02/18/2019 7:41 PM CDT): Due for repeat labs. Continue atorvastatin 10 mg daily Assessment & Plan (07/03/2018 10:21 AM CONTAINERS SALES REPRESENTATIVE): Lipid abnormalities are improving with treatment. Pharmacotherapy [...] Chronic vertigo-worsening Encouraged to follow up with seeing eye dog trainer for updated hearing screening and to discuss [...] or bologna; no MSG as found in [place] food; no more than 1/2 banana a [...] bone loss and vit B12 deficiency with intermediate use of PPI with pt, would like to remain on medication at this time Assessment & Plan (09/14/2023 4:09 PM CONTAINERS SALES REPRESENTATIVE): Takes daily pantoprazole 40 mg with good control of reflux and heartburn EGD 07/2022 with reflux changes without intestinal metaplasia Plan Continue pantoprazole 40 mg daily, take 30 minutes before breakfast Continue antireflux lifestyle modifications Assessment & Plan (09/12/2023 8:55 AM CONTAINERS SALES REPRESENTATIVE): -chronic, stable -continue follow up with GI [...] bone loss and vit B12 deficiency with ocean transportation intermediary use of PPI with pt, would like [...] bone loss and vit B12 deficiency with ocean transportation intermediary use of PPI with pt, would like [...] bone loss and vit B12 deficiency with ocean transportation intermediary use of PPI with pt, would like [...] of cdif and vit B12 deficiency with intermediate use of PPI with pt, would like [...] counselor Assessment & Plan (09/12/2023 8:57 AM CONTAINERS SALES REPRESENTATIVE): -chronic, stable -continue on sertraline 100 mg [...] 2 grandchildren while her daughter is in [place]. She has to schedule follow-up with jose [...] medication. Assessment & Plan (08/20/2017 9:53 AM CONTAINERS SALES REPRESENTATIVE): Discussed options including increasing prozac vs. trial [...] needed Assessment & Plan (09/12/2023 8:54 AM CONTAINERS SALES REPRESENTATIVE): -chronic, stable -Discussed/ordered labs -continue on Advair [...] pulmonology Assessment & Plan (08/12/2021 3:27 PM CONTAINERS SALES REPRESENTATIVE): Continue breath treatments Prednisone 40 mg for [...] basis. Assessment & Plan (07/04/2018 4:12 PM CONTAINERS SALES REPRESENTATIVE): Asthma is improving with treatment. The patient [...] diet Assessment & Plan (09/15/2024 12:22 PM CONTAINERS SALES REPRESENTATIVE): -chronic, stable -Discussed/ordered labs -continue on amlodipine 10 mg daily and losartan 100 mg daily -recommend healthy, low-salt diet Assessment & Plan (08/12/2024 2:08 PM CONTAINERS SALES REPRESENTATIVE): This is a chronic condition which is at goal. Goal is less than 140/90 Continue amlodipine, losartan Encouraged to monitor weight and B/P at home. Assessment & Plan (06/18/2024 3:17 PM CONTAINERS SALES REPRESENTATIVE): Blood Pressure Management BP Readings from Last [...] prescribed. Assessment & Plan (09/12/2023 8:57 AM CONTAINERS SALES REPRESENTATIVE): -chronic, stable -Discussed/ordered labs -continue on amlodipine [...] months. Assessment & Plan (08/20/2017 8:13 AM CONTAINERS SALES REPRESENTATIVE): Not on any antihypertensives. Will continue to [...] dose Assessment & Plan (09/15/2024 12:22 PM CONTAINERS SALES REPRESENTATIVE): -chronic, stable - A1c is still, however [...] needed Assessment & Plan (08/12/2024 2:08 PM CONTAINERS SALES REPRESENTATIVE): This is a chronic condition which is [...] losartan Assessment & Plan (08/08/2024 11:07 AM CONTAINERS SALES REPRESENTATIVE): -chronic, stable - A1c is still, however [...] needed Assessment & Plan (07/02/2024 8:46 AM CONTAINERS SALES REPRESENTATIVE): -chronic, stable - A1c is still, however [...] of the bariatric surgery centers in the [place] for her to call and review their [...] losartan Assessment & Plan (09/12/2023 8:58 AM CONTAINERS SALES REPRESENTATIVE): -chronic, stable -Discussed/ordered labs -continue on aspirin 81 mg daily, atorvastatin 40 mg daily, losartan 100 mg daily -continue seeing Josseline Pitts endocrinology Lab Results Component Value Date HGBA1C 6.9 08/21/2023 Assessment & Plan (08/21/2023 5:12 PM CONTAINERS SALES REPRESENTATIVE): This is a chronic condition which is [...] eye exam. last dilated eye exam was [facility] Monofilament foot exam completed. protective senses [...] No history of macrovascular disease - CVA, ID. Assessment & Plan (02/28/2022 7:25 PM CDT): [...] No history of macrovascular disease - CVA, ID. Assessment & Plan (11/17/2021 3:58 PM CDT): [...] No history of macrovascular disease - CVA, ID. Assessment & Plan (10/31/2021 9:52 AM CDT): [...] No history of macrovascular disease - CVA, ID. Assessment & Plan (05/27/2021 3:14 PM CDT): [...] Please start taking probiotic 20-50billion CFU daily ocean transportation intermediary. This will help maintain the good bacteria [...] damage to teeth Acute left otitis media 12/14/2022 06/2 12/2022 Assessment & Plan (12/14/2022 3:05 PM CDT): Chronic, no improvement since last visit and current abx cefdinir Was seen in office 12/08/22 and states her ear is no better at this time, still has a lot of pain Continue current cefdinir 300 mg bid as directed Preventative health care 07/09/202203/2024 Assessment & Plan (07/09/2022 6:22 PM CONTAINERS SALES REPRESENTATIVE): -Recommended: Healthy diet. Avoiding junk food/fast food. -30 minutes of exercise most days of the week. Increase to 45 minutes for weight loss. Immunizations: Up-to-date increase physical activity, continue present plan, call if any problems Follow-up in 6 months. Belching 03/22/2022 11/10/2022 Overview (07/10/2022): Added automatically from request for surgery [id number] Flatulence 03/22/2022 11/10/2022 Overview (07/10/2022): Added automatically from request for surgery [id number] Periumbilical pain 03/22/2022 Overview (07/10/2022): Added automatically from request for surgery [id number] Nausea without vomiting 03/22/2022 0410/2022 Overview (07/10/2022): Added automatically from request for surgery [id number] Belching 03/21/2022 04/08/2022 Flatulence 03/21/2022 04/08/2022 Periumbilical [...] She went to see Dr. Talbot at [facility] but in [place] they dont take her insurance. We will also reach out to pulmonology here on campus Dr. Beth horowitz can see pt 01/03/2022. Pt missed appointment with cardiology today as she thought appointment was at [facility] office, but it was at [facility]. Pt has reschedule appointment next with with [...] in sooner with Dr. Roy (pulmonology) in [place], [place] Exacerbation of asthma 10/19/202110/31 Long COVID 08/12/2021 09/12/2023 Assessment & Plan (04/08/2022 2:21 PM CDT): She is transferring care back to dc as her PCP is leaving this practice. [...] She went to see Dr. Talbot at [facility] but in [place] they dont take her insurance. We will also reach out to pulmonology here on campus Dr. Beth horowitz can see pt 01/03/2022. Pt missed appointment with cardiology today as she thought appointment was at [facility] office, but it was at [facility]. Pt has reschedule appointment next with with [...] in sooner with Dr. Roy (pulmonology) in [place], [place] Assessment & Plan (08/12/2021 3:28 PM CONTAINERS SALES REPRESENTATIVE): Continue breath treatments Prednisone 40 mg for [...] concerns Assessment & Plan (08/04/2019 3:02 PM CONTAINERS SALES REPRESENTATIVE): Will treat with augmentin, cheritussin, prednisone. Continue [...] We have stressed that she calls her hide dyer today so that they can work thisUp. [...] daily at bedtime Continue to work with [employer] for Benign Positional Vertigo Referred otalgia of [...] daily at bedtime Continue to work with [employer] for Benign Positional Vertigo Assessment & Plan [...] greens, fat-free milk, cottage cheese, nuts like [id number], protein bars with 10-15 g of protein [...] better Assessment & Plan (10/03/2018 10:30 AM CONTAINERS SALES REPRESENTATIVE): Due to length of cough and hx [...] assistance. Assessment & Plan (07/03/2018 10:38 AM CONTAINERS SALES REPRESENTATIVE): Currently unemployed. No income. Has custody of [...] 02/17/2019 Assessment & Plan (08/15/2017 3:51 PM CONTAINERS SALES REPRESENTATIVE): Labs as ordered Pain of right thumb 06/29/2017 08/20/19 18 Assessment & Plan (06/29/2017 12:00 PM CONTAINERS SALES REPRESENTATIVE): I recommend we proceed with x-ray imaging. Patient is in agreement. Further direction pending these results. She was given tramadol p.r.n. pain as she notes she had a few left over from prior surgery and this has been effective. Viral URI with cough 06/29/2017 018 Assessment & Plan (06/29/2017 12:11 PM CONTAINERS SALES REPRESENTATIVE): Rapid influenza negative for influenza a and [...] 08/15/2017 Assessment & Plan (06/29/2017 12:16 PM CONTAINERS SALES REPRESENTATIVE): After obtaining patient's consent annual influenza vaccine was provided in office today. Hand dermatitis 06/12/2017 04/03/2018 Assessment & Plan (06/12/2017 2:54 PM CONTAINERS SALES REPRESENTATIVE): Refill provided on topical Lotrisone and Bactroban. She will continue as previously recommended by Dermatology. 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 Pain of hand 06/14/2016 04/03/2018 [...] prn Assessment & Plan (08/20/2017 9:51 AM CONTAINERS SALES REPRESENTATIVE): Continue clonazepam twice daily. Allergic rhinitis 05/01/2014 [...] on meds mid to late February until Come off of meds if possible during [...] to methicillin rain sceptible Staphylococcus aureus 02/17/2019 Encounters Date Type Department Care Team Description 11/13/19 25 2:45 PM CDT Office Visit [facility] Orthopedic and Sports Medicine [address] [place] [phone] Nakul Gutierrez PA Aftercare following left knee joint replacement surgery (Primary Dx) 11/11/19 25 Nurse Triage [facility] Primary Care at [address] [place] [phone] Sherrie Martell NP 11/08/19 25 Orders Only [facility] Orthopedics [facility] Medicine [address] [place] [address] Nakul Gutierrez PA 11/04/19 25 Telephone [facility] Primary Care at [address] [place] [phone] Sherrie Martell NP Paperwork 10/30/19 25 Telephone [facility] [address] [place] [phone] Nakul Gutierrez PA 10/30/19 25 Telephone [facility]opedics and Sports Medicine [address] [place] [address] Frantz Alejandra MD 10/30/19 25 Telephone [facility] Medicine [address] [place] [address] Frantz Alejandra MD 10/28/19 25 Telephone [facility] Primary Care at [place] [address] [place] [address] Sherrie Martell NP Medical Question/Miscellaneous 10/28/19 25 Orders Only [facility] and Sports Medicine [address] [place] [address] [address] [place] [address] Shilpa Madera PA 10/28/19 25 Telephone [facility] [address] [place] [address] [address] [place] [address] Frantz Alejandra MD 10/26/19 25 Orders Only [facility] [address] [place] [address] [address] [place] [address] Shilpa Madera PA 10/24/19 25 1:00 PM CDT - 10/24/19 25 3:30 PM CDT Surgery [facility] Operating Room [address] [place] [address] Frantz Alejandra MD Left robotic total knee arthroplasty 10/24/19 25 12:37 PM CDT Anesthesia Event [facility] Operating Room [address] [place] [address] Candie Reddy MD Reynolds, Mayur Jiménez MD 10/24/19 25 10:08 AM CDT - 10/26/19 25 10:23 AM CDT Hospital Encounter [facility] Surgery [facility] [address] [place] [address] Frantz Alejandra MD S/P total knee arthroplasty, left (Primary Dx); Post-traumatic osteoarthritis of left knee Discharge Disposition: Discharge to home, home health skilled care 10/22/19 Telephone [facility] Primary Care at [address] [place] [address] Sherrie Martell NP 10/18/19 3:40 PM CDT Lab [address] [address] Pre-op testing 10/18/19 3:39 PM CDT - 10/18/19 11:59 PM CDT Hospital Encounter [facility] [address] [place] [address] Pre-op testing Discharge Disposition: Discharge to home or self care 10/18/19 3:39 PM CDT - 10/18/19 11:59 PM CDT Hospital Encounter [facility] Cardiology [address] [place] [address] Pre-op testing Discharge Disposition: Discharge to home or self care 10/18/19 Telephone [facility] Primary Care at [address] [place] [address] Sherrie Martell NP 10/16/19 Results [facility]Up [facility] [facility] at [address] [place] [address] Billy Nolan MD 10/16/19 25 Orders Only [facility] [address] [place] [phone] Nakul Gutierrez PA 10/15/19 25 Orders Only [facility] [address] [place] [address] [address] [place] [address] Frantz Alejandra MD S/P total knee arthroplasty, left (Primary Dx) 10/14/19 25 Orders Only [facility] [address] [place] [address] [address] [place] [address] Frantz Alejandra MD S/P total knee arthroplasty, left (Primary Dx) 10/11/19 25 Orders Only [facility] [address] [place] [address] [address] [place] [address] Frantz Alejandra MD Post-traumatic osteoarthritis of left knee (Primary Dx) 10/10/19 2:28 PM CDT Anesthesia Event [address] [address] Lito Gold MD 10/10/19 2:00 PM CDT - 10/10/19 2:30 PM CDT Surgery [address] [address] Billy Nolan MD ESOPHAGOGASTRODUODENOSCOPY BIOPSY 10/10/19 12:00 PM CDT - 10/10/19 3:37 PM CDT Hospital Encounter [address] [address] Billy Nolan MD Dysphagia, unspecified type; Gastroesophageal reflux disease without esophagitis Discharge Disposition: Discharge to home or self care 10/09/19 8:30 AM CDT Office Visit [facility] Primary Care at [address] [phone] Sherrie Martell NP Preoperative clearance (Primary Dx); Hypertension associated with type 2 diabetes mellitus ([facility]); Hyperlipidemia due to type 2 diabetes mellitus ([facility]); Type 2 diabetes mellitus without complication, without long-term current use of insulin ([facility]); Vitamin D deficiency; Generalized anxiety disorder; Post-traumatic osteoarthritis of left knee; Open nondisplaced fracture of distal phalanx of right great toe with routine healing, subsequent encounter; Class 3 severe obesity due to excess calories with serious comorbidity and body mass index (BMI) of 40.0 to 44.9 in adult (HCC) 10/09/19 Telephone [facility] Primary Care at [address] [phone] Sherrie Martell NP 10/07/19 Results Follow-Up [facility] Primary Care at [address] [place] [address] Sherrie Martell NP 10/03/19 9:15 AM CONTAINERS SALES REPRESENTATIVE Lab [facility] 4 [place], [place] Annual physical exam; Hypertension associated with type 2 diabetes mellitus (HCC); Type 2 diabetes mellitus without complication, without long-term current use of insulin (HCC); Hyperlipidemia due to type 2 diabetes mellitus (HCC); Class 3 severe obesity due to excess calories with serious comorbidity and body mass index (BMI) of 40.0 to 44.9 in adult (HCC); Screening for thyroid disorder 10/02/19 25 Orders Only [facility] Care at [address] [place] [address] Sherrie Martell NP Gastroesophageal reflux disease without esophagitis 10/01/19 25 Telephone [facility] Primary Care at [address] [place] [address] Sherrie Martell NP 09/30/19 25 Telephone [facility] Gastroenterology at [address] [place] [address] Jodi Gomez EGD Reschedule 09/30/19 25 Orders Only [facility] Primary Care at [address] [place] [address] Sherrie Martell NP Gastroesophageal reflux disease without esophagitis 09/30/19 25 Telephone [facility] Primary Care at [address] [address] Sherrie Martell NP Medications Prior Authorization (Multiple medication PA's ); Medical Question/Miscellaneous 09/30/19 25 Telephone [facility] Primary Care at [address] [place] [address] Sherrie Martell NP Prior Auth (Pantoprazole 40 mg) 09/23/19 25 Telephone [facility] [address] [place] [address] [address] [place] [address] Frantz Alejandra MD 09/09/19 25 [facility] [address] [address] Janeth Valdovinos MA 09/08/19 25 2:30 PM CONTAINERS SALES REPRESENTATIVE Office Visit [facility] Primary Care at [address] [address] Sherrie Martell NP Annual physical exam (Primary Dx); Open nondisplaced fracture of distal phalanx of right great toe with routine healing, subsequent encounter; Fall, subsequent encounter; Hypertension associated with type 2 diabetes mellitus (HCC); Type 2 diabetes mellitus without complication, without long-term current use of insulin (HCC); Hyperlipidemia due to type 2 diabetes mellitus (HCC); Screening for thyroid disorder; Class 3 severe obesity due to excess calories with serious comorbidity and body mass index (BMI) of 40.0 to 44.9 in adult (HCC) 09/08/19 25 [facility] Care Organization [address] [place] [address] Janeth Valdovinos MA 09/05/19 25 1:05 PM CONTAINERS SALES REPRESENTATIVE - 09/05/19 25 4:42 PM CONTAINERS SALES REPRESENTATIVE Emergency [facility] Emergency Department 1 [place] [address] Fall, initial encounter (Primary Dx); Open nondisplaced fracture of distal phalanx of right great toe, initial encounter Discharge Disposition: Discharge to home or self care 09/05/19 25 Nurse Triage [facility] Primary Care at [address] [phone] Sherrie Martell NP 09/01/19 25 Telephone [facility] Primary Care at [address] [address] Sherrie Martell NP 08/29/19 25 12:30 PM CONTAINERS SALES REPRESENTATIVE - 08/29/19 25 11:59 PM CONTAINERS SALES REPRESENTATIVE Hospital Encounter [facility] [address] [place] [address] Screening mammogram for breast cancer Discharge Disposition: Discharge to home or self care 08/29/19 25 Orders Only [facility] Primary Care at [address] [address] Sherrie Martell NP Type 2 diabetes mellitus without complication, without long-term current use of insulin (HCC) (Primary Dx); Class 3 severe obesity due to excess calories with serious comorbidity and body mass index (BMI) of 40.0 to 44.9 in adult (HCC); Yeast infection 08/28/19 Telephone [facility] Primary Care at [address] [place] [address] Sherrie Martell NP Med Refill 08/28/19 Telephone [facility] Primary Care at [address] [place] [address] Sherrie Martell NP Symptom Based Call 08/27/19 9:00 AM CONTAINERS SALES REPRESENTATIVE Office Visit [facility] [address] [place] [phone] Nakul Gutierrez PA Post-traumatic osteoarthritis of left knee (Primary Dx); Instability of left knee joint; Right elbow pain 08/27/19 Telephone [facility] [address] [place] [address] [address] [place] [address] Dalila Traylor MA 08/25/19 Nurse Triage [facility] at [address] [place] [phone] Татьяна Larkin, TAM 08/25/19 Orders Only [facility] Primary Care at [address] [phone] Sherrie Martell NP Dysuria (Primary Dx) 08/22/19 Telephone [facility] Primary Care at [address] [address] Sherrie Martell NP Test Results 08/21/19 12:05 PM CONTAINERS SALES REPRESENTATIVE Lab [address] [address] Dysuria 08/21/19 12:03 PM CONTAINERS SALES REPRESENTATIVE - 08/21/19 11:59 PM CONTAINERS SALES REPRESENTATIVE Hospital Encounter [facility] [address] [place] [address] Fall, initial encounter; Right elbow pain Discharge Disposition: Discharge to home or self care 08/19/19 25 Orders Only [facility] [address] [place] [address] [address] [place] [address] Nakul Gutierrez PA from Last 3 Months Immunizations Immunization Administration Dates Next Due Influenza, [...] Free 05/19/2016,07/30/2010 Tdap 11/04/2021 ZOSTER Recombinant 01/09/2022,11/04/2021 Surgical History Surgery Date Site/Laterality Comments KNEE ARTHROSCOPY 1987, 2015 Arthroscopy knee; right knee 2015, x3 TUBAL LIGATION Bilateral tubal ligation CHOLECYSTECTOMY Cholecystectomy OVARIAN CYST REMOVAL Right ovarian cyst removal ROTATOR CUFF REPAIR Right DILATION AND CURETTAGE OF UTERUS 07/30/2013 - 07/29/2014 and ablation HEEL SPUR SURGERY KNEE ARTHROSCOPY Left x 3 FOOT SURGERY Left x 3 and Right x 4 TOTAL ABDOMINAL HYSTERECTOMY 07/30/2015 - 07/29/2016 Hysterectomy, total COLONOSCOPY 03/30/2014 - 04/28/2014 COLONOSCOPY 08/16/2022 UPPER GASTROINTESTINAL ENDOSCOPY 10/09/2024 Medical History Medical History Date Comments Hypertension Hypertension Asthma Asthma History of foot fracture PONV (postoperative nausea and vomiting) Panic attacks Anxiety Arthritis Delayed emergence from general anesthesia Motion sickness Type 2 diabetes mellitus wit h complication, without long-term current use of insulin (HCC) Cough Anemia Back pain Shortness of breath Long COVID GERD (gastroesophageal reflux disease) Depression Family History Medical History Relation Name Comments Other Brother juvenile arthri tis; Other Father Alive and well; /Alive and well.; Breast cancer Father's Sister Asthma Mother Coronary artery disease Mother Mirza braden artery disease; AAW 05/01/2014 - ID age 57 Heart disease Mother Heart disease; Other Mother at age 56 from heart attack.; Diabetes type II Other 1 Family hist ory of Diabetes -Type II; Asthma Other 2 Family history of Asthma; Diabetes Other 3 Family history of Diabetes mellitus; Heart disease Other 4 Family history of Heart disease; Hypertension Other 5 Family history of Hypertension; Stroke Other 6 Family history of Stroke; Relation Name Status Comments Brother Father Alive Father's Sister Mother Other 1 Other 2 Other 3 Other 4 Other 5 Other 6 Social History Tobacco Use Types Packs/Day Years [...] place to sleep or slept in a residential (including now)? No 10/20/2021 Personal Safety Answer Date Recorded Have you ever been in or are you currently in a harmful physical or emotional relationship or is someone making you feel afraid or unsafe? Denies 10/23/2024 Comments No Sex and Gender Information Value Date Recorded Sex Assigned at Not on file Legal Sex Female 12:37 AM CONTAINERS SALES REPRESENTATIVE Gender Identity Not on file Sexual Orientation Not on file Obstetrics History Para Term AB IAB SAB Ectopic Multiple Livin g Live Births 3 1 1 Date Outcome GA Total Labor Labor/2nd/3rd Weight Sex Type Anes PTL Mely A1 A5 Name Clin Term Last Filed Vital Signs Vital Sign Reading [...] 11/12/2024 2:57 PM CDT Plan of Treatment Health Maintenance Due Date Last Done Comments Dilated Eye Exam 11/04/2023 11/03/2021, 11/03/2021 Covid-19 Vaccine (6 - 4-2 5 season) 2024 10/12/2021, 01/07/2021, 01/07/2021, Additional history exists Albumin Creatinine Ratio, Urine 09/21/2024 09/21/2023, 11/10/2022, 05/13/2020, Additional history exists Hemoglobin A1C 04/19/2025 10/17/2024, 07/30, 02/28/2024, Additional history exists Foot Exam 08/12/2025 08/12/2024, 08/0 07/2023, 11/21/2023, Additional history exists Breast Cancer Screening-Mammogram 08/29/2025 08/29/2024, 07/20/2023, 07/20/2023, Additional history exists Regular Well Visit/Exam 18-64 09/08/2025, 09/07/2023, 07/05/2022 Lipid Panel 10/02/2025 10/02/2024, 08/31, 11/10/2022, Additional history exists Depression Screening 10/08/2025 10/08/2024, 09/08/2024, 08/06/2024, Additional history exists eGFR 10/17/2025 10/17/2024, 030 12/2024, 07/07/2024, Additional history exists DTaP/Tdap/Td Vaccine (2 - Td or Tdap) 11/05/2031 11/04/2021, 05/19/2016, 07/30/2010 Colon Cancer Screening-Colonoscopy 08/16/2032 08/16/2022, 2014, 2014 Pneumococcal vaccine <65 Completed 022, 08/06/2015, 07/30/2010, Additional history exists Zoster Vaccine Completed 01/09/2022, 11/04/2021 Colon Cancer Screening-CT Colonography Discontinued 08/16/2022, 2014, 2014 Colon Cancer Screening-DNA Stool Discontinued 08/16/2022, 2014, 2014 Colon Cancer Screening-FIT Discontinued 08/16, 2014, 2014 Colon Cancer Screening-Sigmoidoscopy Discontinued 08/16/2022, 2014, 2014 Hepatitis C Screening Completed 2023 , 07/04/2021, 09/19/2018 Hepatitis B Screening Completed 12/31/2023 Influenza Vaccine Completed 06/18/2024, , 05/22/2022, Additional history exists Medical Devices Implanted Type Area Stamping Die Maker Device Identifier Shelf Expiration Date Model / Serial / Lot [employer] Attune Cruciate Retain Cementless Knee Left 5 Component Femoral [id number] - [id number] Implanted:Qty: 1 on 10/23/2024 by Frantz Alejandra MD at [facility] Left: Knee [employer] [id number] 04/28/2034 [id number] / / [id number] [employer] Insert Tibial Knee Fixed Lm Posterior Stabilized Attune 5mm Size 5 Polyethylene [id number] - [id number] Implanted:Qty: 1 on 10/23/2024 by Frantz Alejandra MD at [facility] Left: Knee [employer] [id number] 04/28/2032 [id number] / / [id number] [employer] Attune Fb Tib Base Sz 5 Por [id number] - [id number] Implanted:Qty: 1 on 10/23/2024 by Franzt Alejandra MD at [facility] Left: Knee [employer] [id number] 08/29/2032 [id number] / / [id number] Procedures Procedure Name Priority Date/Time Associated Diagnosis [...] unspecified type EGFR Routine 10/02/2024 9:15 AM CONTAINERS SALES REPRESENTATIVE Annual physical exam Hypertension associated with type 2 diabetes mellitus (HCC) Type 2 diabetes mellitus without complication, without long-term current use of insulin (HCC) Hyperlipidemia due to type 2 diabetes mellitus (HCC) Class 3 severe obesity due to excess calories with serious comorbidity and body mass index (BMI) of 40.0 to 44.9 in adult (HCC) Screening for thyroid disorder DIFFERENTIAL AUTO Routine 10/02/2024 9:15 AM CONTAINERS SALES REPRESENTATIVE Annual physical exam Hypertension associated with type 2 diabetes mellitus (HCC) Type 2 diabetes mellitus without complication, without long-term current use of insulin (HCC) Hyperlipidemia due to type 2 diabetes mellitus (HCC) Class 3 severe obesity due to excess calories with serious comorbidity and body mass index (BMI) of 40.0 to 44.9 in adult (HCC) Screening for thyroid disorder CBC WITH AUTO DIFFERENTIAL Routine 10/02 9:15 AM CONTAINERS SALES REPRESENTATIVE Annual physical exam Hypertension associated with type 2 diabetes mellitus (HCC) Type 2 diabetes mellitus without complication, without long-term current use of insulin (HCC) Hyperlipidemia due to type 2 diabetes mellitus (HCC) Class 3 severe obesity due to excess calories with serious comorbidity and body mass index (BMI) of 40.0 to 44.9 in adult ([facility]) Screening for thyroid disorder COMPREHENSIVE METABOLIC PANEL Routine 9:15 AM CONTAINERS SALES REPRESENTATIVE Annual physical exam Hypertension associated with type 2 diabetes mellitus (HCC) Type 2 diabetes mellitus without complication, without long-term current use of insulin (HCC) Hyperlipidemia due to type 2 diabetes mellitus (HCC) Class 3 severe obesity due to excess calories with serious comorbidity and body mass index (BMI) of 40.0 to 44.9 in adult ([facility]) Screening for thyroid disorder THYROID FUNCTION CASCADE Routine 9:15 AM CONTAINERS SALES REPRESENTATIVE Annual physical exam Hypertension associated with type 2 diabetes mellitus (HCC) Type 2 diabetes mellitus without complication, without long-term current use of insulin (HCC) Hyperlipidemia due to type 2 diabetes mellitus (HCC) Class 3 severe obesity due to excess calories with serious comorbidity and body mass index (BMI) of 40.0 to 44.9 in adult ([facility]) Screening for thyroid disorder LIPID PANEL Routine 10/02/2024 9:15 AM CONTAINERS SALES REPRESENTATIVE Annual physical exam Hypertension associated with type 2 diabetes mellitus (HCC) Type 2 diabetes mellitus without complication, without long-term current use of insulin (HCC) Hyperlipidemia due to type 2 diabetes mellitus (HCC) Class 3 severe obesity due to excess calories with serious comorbidity and body mass index (BMI) of 40.0 to 44.9 in adult ([facility]) Screening for thyroid disorder XR SPINE LUMBAR ROUTINE ED 09/05/19 25 2:37 PM CONTAINERS SALES REPRESENTATIVE XR HAND RIGHT 3 OR MORE VIEWS ED 2:37 PM CONTAINERS SALES REPRESENTATIVE XR ELBOW RIGHT 2 OR MORE VIEWS ED 0 09/05/2024 2:37 PM CONTAINERS SALES REPRESENTATIVE XR HIP RIGHT W PELVIS 2 OR 3 VIEWS ED 09/05/2024 2:37 PM CONTAINERS SALES REPRESENTATIVE XR TOE GREAT RIGHT ED 09/05/2024 10:50 AM CONTAINERS SALES REPRESENTATIVE SCREENING MAMMOGRAM BILATERA L W BIJAN Schedule Routine, Read Routine (OP Routine) 08/29/2024 1:04 PM CONTAINERS SALES REPRESENTATIVE Screening mammogram for breast cancer XR ELBOW RIGHT 3 OR MORE VIEWS Schedule Routine, Read Routine (OP Routine) 08/21/2024 12:26 PM CONTAINERS SALES REPRESENTATIVE Fall, initial encounter Right elbow pain URINALYSIS, MICROSCOPIC ONLY Routine 12:10 PM CONTAINERS SALES REPRESENTATIVE Dysuria URINALYSIS AND REFLEX TO MICROSCOPIC AND CULTURE Routine 08/21/2024 12:10 PM CONTAINERS SALES REPRESENTATIVE Dysuria ALBUMIN CREATININE RATIO, URINE Routine 09/21/2023 9:44 AM CONTAINERS SALES REPRESENTATIVE Type 2 diabetes mellitus without complication, without long-term current use of insulin (HCC) HEPATITIS PANEL, ACUTE Routine 9:05 AM CDT COLONOSCOPY 08/16/2022 10:26 AM CONTAINERS SALES REPRESENTATIVE DIABETIC EYE EXAM Routine 11/03/2021 from Last 3 Months or Most Recently Relevant to Health Maintenance Results * POCT glucose (10/25/2024 8:28 AM CDT) Glucose, POC 92 70 - 199 mg/dL Blood 10/25/2024 8:28 AM CDT 10/25/2024 8:28 AM CDT us Frantz Alejandra MD LAB POCT ORDERABLES - DEVICE Final Result [facility] Department [place] [address] * POCT glucose (10/25/2024 2:11 AM CDT) Glucose, POC 111 70 - 199 mg/dL Blood 10/25/2024 2:11 AM CDT 10/25/2024 2:11 AM CDT Frantz Alejandra MD LAB POCT ORDERABLES - DEVICE Final Result [facility] 1 [facility] [place] [address] * POCT glucose (10/24/2024 7:58 PM CDT) Glucose, POC 155 70 - 199 mg/dL Blood 10/24/2024 7:58 PM CDT 10/24/2024 7:58 PM CDT Frantz Alejandra MD LAB POCT ORDERABLES - DEVICE Final Result Performing Organization Address City/[facility] [address]/[facility] Co de Phone Number [facility] 1 [facility] [place] [address] * POCT glucose (10/24/2024 4:31 PM CDT) Glucose, POC 127 70 - 199 mg/dL Blood 10/24/2024 4:31 PM CDT 10/24/2024 4:31 PM CDT Frantz Alejandra MD LAB POCT ORDERABLES - DEVICE Final Result Performing Organization Address City/[facility] [address]/ZIP Co de Phone Number [facility] ([place] 1 [facility] [place] [address] * POCT glucose (10/24/2024 11:01 AM CDT) Glucose, POC 134 70 - 199 mg/dL Blood 10/24/2024 11:0 1 AM CDT 10/24/2024 11:01 AM CDT Frantz Alejandra MD LAB POCT ORDERABLES - DEVICE Final Result Performing Organization Address City/[facility] [address]/ZIP Co de Phone Number [facility] 1 [facility] [place] [address] * POCT glucose (10/24/2024 7:59 AM CDT) Glucose, POC 164 70 - 199 mg/dL Blood 10/24/2024 7:59 AM CDT 10/24/2024 7:59 AM CDT us Frantz Alejandra MD LAB POCT ORDERABLES - DEVICE Final Result Performing Organization Address [facility] de Phone Number [facility] 1 [facility] [place] [address] * POCT glucose (10/24/2024 2:35 AM CDT) Glucose, POC 122 70 - 199 mg/dL Blood 10/24/2024 2:35 AM CDT 10/24/2024 2:35 AM CDT Frantz Alejandra MD LAB POCT ORDERABLES - DEVICE Final Result Performing Organization Address City/[facility] [address]/[facility] Co de Phone Number [facility] 1 [facility] [place] [address] * POCT glucose (10/23/2024 8:27 PM CDT) Glucose, POC 188 70 - 199 mg/dL Blood 10/23/2024 8:27 PM CDT 10/23/2024 8:27 PM CDT Frantz Alejandra MD LAB POCT ORDERABLES - DEVICE Final Result Performing Organization Address City/[facility] [address]/ZIP Co de Phone Number [facility] 1 [facility] Department [place] [address] * POCT glucose (10/23/2024 4:28 PM CDT) Glucose, POC 109 70 - 199 mg/dL Blood 10/23/2024 4:28 PM CDT 10/23/2024 4:28 PM CDT us Frantz Alejandra MD LAB POCT ORDERABLES - DEVICE Final Result [facility] [place] [address] * XR Knee Left 1 or 2 [...] Jaquan Kelley M.D. KH: MUSHTAQ Report ID: [id number] Reading Location: [id number] Procedure Note Jaquan Kelley MD - 10/23/2024 [...] Jaquan Kelley M.D. KH: [facility] Report ID: [id number] Reading Location: [place] [address] Igor Mueller MAGNETIC PROSPECTOR IMG XR PROCEDURES Final Result * POCT glucose (10/23/2024 3:15 PM CDT) Glucose, POC 100 70 - 199 mg/dL Blood 10/23/2024 3:15 PM CDT 10/23/2024 3:15 PM CDT Frantz Alejandar MD LAB POCT ORDERABLES - DEVICE Final Result Performing Organization Address City/State/[facility] Co de Phone Number [facility] ([address] Department of Laboratories [place], [place] [id number] * Spinal Block (10/23/2024 1:32 PM CDT) Narrative Igor Lynn CRNA - 10/23/2024 1:32 PM CDT Igor Lynn CRNA 10/23/2024 1:36 PM Spinal Block Patient location: OR End time: 10/23/2024 12:53 PM Reason for block: primary anesthetic Staff: Placed by: Anesthesiologist: Candie Reddy MD MACHINING TECHNICIAN:Igor Lynn CRNA Procedure prep: Preprocedure checklist: patient [...] PM CDT Comment:Fixed in Formalin Narrative PATHOLOGY PENDING SALE TO [facility] ([facility]) - 10/29/2024 11:48 AM CDT EPIC results best viewed via link to PDF [facility] Department of Pathology [address] [place] [address] Note to Patients: This report may contain [...] Final Report Patient Name: MARLEE PICKARD Address: [address] [place] [address]- Gender: F : 1970 (Age: 54) Service: Surgery Location: [facility] Hospital #: [id number] Patient Type: [facility] Taken: 10/23/2024 Received: 10/24/2024 Accessioned: 10/24/2024 [...] represented in two cassettes. Ishan Parikh R.N., P.Callie./Brunilda Gray M.D. REPORT IMAGES AND SCANNED DOCUMENTS, IF INCLUDED, ONLY VIEWABLE IN PDF VERSION OF REPORT The performance characteristics of some immunohistochemical stains, fluorescence in-situ hybridization tests and immunophenotyping by flow cytometry cited in this report (if any) were determined by the Surgical Pathology Department at [facility] as part of an ongoing quality control expert program and in compliance with federally mandated [...] characteristics determined by the Surgical Pathology Department [facility]. It has not been cleared or approved by the U. S. Food and Drug Administration. Note for decalcified specimens: This assay has not been validated on decalcified tissues. Results should be interpreted with caution given the possibility of false negativity on decalcified specimens Frantz Alejandra MD LAB PATHOLOGY ORDERABLES Fin al Result [facility] ([facility]) [address] [place] [address] * (ABNORMAL) Potassium, whole blood (10/23/2024 11:05 [...] ORDERABLES F inal Result Performing Organization Address [facility] Co de Phone Number [facility] [place] [address] * aPTT (10/23/2024 11:05 AM CDT) aPTT 34 28 - 38 sec [facility] ([place]) Comment: Interpretive Data Heparin therapeutic range: 66.0 - 100.0 seconds. Range based on correlation with therapeutic heparin activity range of 0.3 - 0.7 Units/mL. Current interpretive data was last revised on 2023. Blood 10/23/2024 11:0 5 AM CDT 10/23/2024 11:07 AM CDT us Frantz Alejandra MD LAB BLOOD ORDERABLES Final R esult Performing Organization Address [facility] Co de Phone Number DAVID JOHNS ([place]) 1 [facility] [place] [address] * Protime-INR (10/23/2024 11:05 AM CDT) PT 11.7 9.7 - 13.0 sec DAVID PENDING SALE TO [facility] ([place]) INR 1.08 0.90 - 1.20 DAVID JOHNS ([place]) Comment: Interpretive data Oral anticoagulant therapeutic ranges: Venous thromboembolism prophylaxis or treatment: 2.0-3.0 CARDIOLOGY Standard range: 2.0-3.0 High-intensity range: 2.5-3.5 Refer to indication-specific guidelines for appropriate target ranges for prosthetic heart valve replacement. Current interpretive data was last revised on 2019. Blood 10/23/2024 11:0 5 AM CDT 10/23/2024 11:07 AM CDT Frantz Alejandra MD LAB BLOOD ORDERABLES Final R esult DAVID ANDREAS ([place]) 1 [facility] [place] [address] * POCT glucose (10/23/2024 10:58 AM CDT) Glucose, POC 95 70 - 199 mg/dL Blood 10/23/2024 10:5 8 AM CDT 10/23/2024 10:58 AM CDT Frantz Alejandra MD LAB POCT ORDERABLES - DEVICE Final Result Performing Organization Address City/[facility] [address]/[facility] Co de Phone Number DAVID JOHNS ([place]) 1 [facility] [place] [place] [address] * XR Chest Pa Lateral 2 Views (10/17/2024 4:13 PM CDT) Anatomical Region Laterality Modality Body, Chest N/A Computed Radiogr aphy 10/17/2024 8:37 PM CDT Narrative 10/17/2024 8:37 PM CDT EXAM DESCRIPTION: XR CHEST PA LATERAL 2 VIEWS REASON FOR STUDY: pre op test Pre op right knee replacement x October 23 Hx of asthma Per pt, has [employer] intermedi[employer] Covid Non smoker No prior chest surgeries [...] Ezequiel Nicholas M.D. RW: NATALIA Report ID: [id number] Reading Location: [id number] Procedure Note Ezequiel Nicholas MD - 10/17/2024 EXAM DESCRIPTION: XR CHEST PA LATERAL 2 VIEWS REASON FOR STUDY: pre op test Pre op right knee replacement x October 23 Hx of asthma Per pt, has shelter Covid Non smoker No prior chest surgeries [...] Ezequiel Nicholas M.D. RW: NATALIA Report ID: [id number] Reading Location: [id number] us Frantz Alejandra MD IMG XR PROCEDURES Final Resu lt * ECG 12 lead (10/17/2024 3:57 PM CDT) 10/17/2024 4:00 PM CDT [facility] - 10/18/2024 7:46 AM CDT Vent Rate: 72 bpm RR Interval: 829 msec VA Interval: 181 msec QRS Duration: 85 msec QT Interval: 399 msec QTC Interval: 423 msec P-R-T [place]: 60 - 2 - 21 degrees IMPRESSION: [...] Frantz Alejandra MD ECG ORDERABLES Final Result [facility] * eGFR (10/17/2024 3:47 PM CDT) eGFR [...] BLOOD ORDERABLES Final R esult DAVID JOHNS ([place]) 1 [facility] Department [place] [address] * Differential, auto (10/17/2024 3:47 PM CDT) [...] ORDERABLES Final R esult Performing Organization Address City/[facility] [address]/ZIP Co de Phone Number DAVID JOHNS ([place]) 1 [facility] [place] [address] * (ABNORMAL) Urinalysis reflex to microscopic and [...] tendency for uric acid stone formation. Source: [facility] Current Interpretive Data was last revised on 2017 Protein, ur ql Trace Negative [facility] ([place]) Glucose, ur ql Negative Negative [facility] ([place]) Ketones, ur 1+(A) Negative [facility] ([place]) Bilirubin, ur Negative Negative [facility] ([place]) Blood, ur Negative Negative [facility] ([place]) Urobilinogen, ur <2.0 <2.0 mg/dL [facility] ([place]) Nitrite, ur Negative Negative [facility] A ([place]) Leukocyte esterase, ur 1+(A) Negative [facility] ([place]) UA reflex comment Reflex to microscopic UA will be performed. [facility] ([place]) Urine, clean voided 10/17/2024 3:47 PM CDT 10/17/2024 4:15 PM CDT us Frantz Alejandra MD LAB MICROBIOLOGY - GENERAL O RDERABLES Final Result Performing Organization Address City/[facility] [address]/ZIP Co de Phone Number DAVID JOHNS ([place]) 1 [facility] [place] [place] [address] * CBC with auto differential (10/17/2024 3:47 PM CDT) WBC 7.5 3.8 - 9.9 K/cumm Hgb 14.3 11.9 - 15.5 g/dL [facility] ([place]) Hct 43.1 35.6 - 45.5 % [facility] ([place]) Plt 326 150 - 400 K/cumm [facility] ([place]) MPV 9.7 9.1 - 12.3 fL [facility] ([place]) RBC 4.80 3.90 - 5.20 M/cumm [facility] ([place]) MCV 89.8 81.3 - 96.4 fL [facility] ([place]) MCH 29.8 27.1 - 33.3 pg [facility] ([place]) MCHC 33.2 32.3 - 35.7 g/dL [facility] ([place]) RDW CV 13.5 11.1 - 14.9 % [facility] ([place]) RDW SD 44.5 35.7 - 48.1 fL [facility] ([place]) NRBC abs 0.00 0.00 - 0.01 K/cumm [facility] ([place]) Blood 10/17/2024 3:47 PM CDT 10/17/2024 4:14 PM CDT us Frantz Alejandra MD LAB BLOOD ORDERABLES Final R esult [facility] ([place]) 1 [facility] Department [place] [address] * (ABNORMAL) Urinalysis, microscopic only (10/17/2024 3:47 PM CDT) WBC, ur 0-5 0 - 5 /HPF RBC, ur 0-2 0 - 2 /HPF [facility] ([place]) Epithelial cells, squamous, ur 6-10(A) 0 - 5 /HPF [facility] ([place]) Mucous, ur Present(A) [facility] A ([place]) Culture Reflex Comment Reflex conditions for urine culture (WBC >10) not met. [facility] ([place]) Urine, clean voided 10/17/2024 3:47 PM CDT 10/17/2024 4:15 PM CDT Frantz Alejandra MD LAB URINE ORDERABLES Final R esult Performing Organization Address [facility] [address]/[facility] de Phone Number DAVID JOHNS ([place]) 1 [place] [address] * Hemoglobin A1c (10/17/2024 3:47 PM CDT) Hgb A1C 5.6 4.0 - 5.6 % Estimated Average Glucose 114 mg/dL [facility] ([place]) Comment: The ADA recommends reporting an estimated Average Glucose (eAG) with all Hemoglobin A1c results using the equation derived from a study of 507 normal and diabetic adults. Minority populations were underrepresented and children were not included. (Diabetes Care 31:0679-1739, 2008). The eAG is not equivalent to a fasting glucose. Blood 10/17/2024 3:47 PM CDT 10/17/2024 4:14 PM CDT Frantz Alejandra MD LAB BLOOD ORDERABLES Final R esult Performing Organization Address [facility] [address]/[facility] Co de Phone Number DAVID JOHNS ([place]) 1 [place] [address] * Comprehensive metabolic panel (10/17/2024 3:47 PM CDT) Pathologist [facility] Sodium 139 135 - 145 mmol/L Potassium, pl 4.0 3.3 - 4.9 mmol/L [facility] ([place]) Chloride 102 97 - 110 mmol/L [facility] ([place]) CO2 27 22 - 32 mmol/L [facility] ([place]) Anion gap 10 2 - 15 mmol/L [facility] ([place]) BUN 13 6 - 25 mg/dL [facility] ([place]) Creatinine 0.93 0.60 - 1.10 mg/dL [facility] ([place]) Glucose 94 70 - 199 mg/dL [facility] ([place]) Comment: Interpretive Data Fasting glucose >/= [...] ORDERABLES Final R esult Performing Organization Address City/[facility] [address]/ZIP Co de Phone Number DAVID JOHNS ([place]) 1 [facility] [place] [address] * POCT glucose (10/09/2024 2:04 PM CDT) Glucose, POC 93 70 - 199 mg/dL Blood 10/09/2024 2:04 PM CDT 10/09/2024 2:04 PM CDT us Billy Nolan MD LAB POCT ORDERABLES - ONESIMO CE Final Result Performing Organization Address City/[facility] [address]/ZIP Co de Phone Number DAVID JOHNS ([place]) [address] [place] [address] Department [place] [address] * EGD (10/09/2024 1:19 PM CDT) Anatomical Region Laterality Modality Other Narrative Procedure Note Billy Nolan MD - 10/09/2024 1:19 PM CDT [facility] Patient Name: Marlee Pickard Procedure Date: 10/09/2024 1:19 PM Date of : 1970 Admit Type: Outpatient Age: 54 Gender: Female Attending MD: Billy Nolan M.D. Room: PENDING SALE TO [facility] ENDOSCOPY ROOM 1 Note Status: Finalized Patient Profile: This is a 54 year old female. Patient with long history of reflux esophagitis. She takes famotidineat night and Protonix in the morning as needed.Patient complains of chronic upper abdominal pain. Procedure: Upper GI endoscopy Indications: Upper abdominal pain, Follow-up of refluxesophagitis Referring MD: Sherrie Matrell NP Providers: Billy Nolan M.D. Impression: - [...] passed under direct vision. The Endoscope [id number] was introduced through the mouth, and advanced [...] 1:19 PM Procedure Code(s): --- Professional --- 82408, Esophagogastroduodenoscopy, flexible, transoral; with biopsy, single or multiple Diagnosis Code(s): --- Professional --- K21.00, Gastro-esophageal reflux disease with esophagitis, without bleeding R10.10, Upper abdominal pain, unspecified CPT copyright 2020 [employer]. All rights reserved. The codes documented in this report are preliminary and upon federal judge reviewmay be revised to meet current compliance requirements. Recognized by the [employer] for promoting quality in endoscopy Billy Nolan MD ENDOSCOPY PROCEDURES Final Result * Surgical pathology (10/09/2024 10:28 AM CDT) Tissue specimen (specimen) (Gastric/Stomach biopsy) 10/09/2024 2:53 PM CDT Tissue specimen (specimen) (EG Junction, Biopsy) 10/09/2024 2:53 PM CDT Narrative PATHOLOGY PENDING SALE TO [facility] ([place]) - 10/14/2024 3:25 PM CDT EPIC results best viewed via link to PDF [facility] Department of Pathology [address] [place] [address] Note to Patients: This report may contain [...] Final Report Patient Name: MARLEE PICKARD Address: [address] [place] [address]- Gender: F : 1970 (Age: 54) Service: Gastro Location: [facility] Hospital #: [id number] Patient Type: [facility] Taken: 10/09/2024 Received: 10/10/2024 Accessioned: 10/10/2024 Reported: [...] submitted in two formalin containers labeled MARLEE NEERAJ . A. The first container is labeled gastric . It is one weinberg tissue fragment measuring 2 mm. All in A. B. The second container is labeled GE junction . It is 2 fragments of weinberg tissue measuring 2 mm. All in B. T.A. Altagracia Parikh.Nael., P.A./Gita Fink M.D. REPORT IMAGES AND SCANNED DOCUMENTS, IF INCLUDED, ONLY VIEWABLE IN PDF VERSION OF REPORT The performance characteristics of some immunohistochemical stains, fluorescence in-situ hybridization tests and immunophenotyping by flow cytometry cited in this report (if any) were determined by the Surgical Pathology Department at [facility] as part of an ongoing quality control expert program and in compliance with federally mandated [...] characteristics determined by the Surgical Pathology Department [facility]. It has not been cleared or approved by the U. S. Food and Drug Administration. Note for decalcified specimens: This assay has not been validated on decalcified tissues. Results should be interpreted with caution given the possibility of false negativity on decalcified specimens Billy Nolan MD LAB PATHOLOGY ORDERABLES F inal Result PATHOLOGY [facility] [address] [place] [address] * eGFR (10/02/2024 9:15 AM CONTAINERS SALES REPRESENTATIVE) eGFR 65 >=60 mL/min/1. 73 m2 Comment: [...] last reviewed 2021. Blood 10/02/2024 9:15 AM CONTAINERS SALES REPRESENTATIVE 10/02/2024 10:38 AM CONTAINERS SALES REPRESENTATIVE Sherrie Martell NP LAB BLOOD ORDERABLES Final R esult DAVID JOHNS ([place]) 1 [facility] Department [place] [address] * Differential, auto (10/02/2024 9:15 AM CONTAINERS SALES REPRESENTATIVE) Neutrophil abs 2.9 1.5 - 6.5 K/cumm Imm gran abs 0.0 0.0 - 0.1 K/cumm [facility] ([place]) Lymphocyte abs 2.5 0.8 - 3.3 K/cumm [facility] ([place]) Monocyte abs 0.6 0.2 - 0.8 K/cumm [facility] ([place]) Eosinophil abs 0.2 0.0 - 0.5 K/cumm [facility] ([place]) Basophil abs 0.1 0.0 - 0.1 K/cumm [facility] ([place]) Neutrophil pct 46.3 % [facility] ([place]) Comment: Interpretive Data Percent cell count reference ranges are not reported, since discordance with absolute values may lead to misinterpretation of CBC data. Current Interpretive Data was last revised on 2017. Imm gran pct 0.2 % [facility] ([place]) Comment: Interpretive Data [...] 2017. Monocyte pct 9.6 % [facility] ([place]) Comment: Interpretive Data [...] revised on 2017. Blood 10/02/2024 9:15 AM CONTAINERS SALES REPRESENTATIVE 10/02/2024 10:38 AM CONTAINERS SALES REPRESENTATIVE [facility] LAB BLOOD ORDERABLES Final R esult Performing Organization Address City/[facility] [address]/ZIP Co de Phone Number DAVID JOHNS ([place]) 1 [place] [address] * Thyroid Function [place] (10/02/2024 9:15 AM CONTAINERS SALES REPRESENTATIVE) Pathologist [facility] TSH 1.98 0.30 - 4.20 mcIUnit/mL Blood 10/02/2024 9:15 AM CONTAINERS SALES REPRESENTATIVE 10/02/2024 10:38 AM CONTAINERS SALES REPRESENTATIVE [facility] LAB BLOOD ORDERABLES Final R [facility] Performing Organization Address City/[facility] [address]/[facility] Co de Phone Number DAVID JOHNS ([place]) 1 [place] [address] * CBC with auto differential (10/02/2024 9:15 AM CONTAINERS SALES REPRESENTATIVE) WBC 6.3 3.8 - 9.9 K/cumm Hgb [...] SD 43.9 35.7 - 48.1 fL [facility] ([place]) NRBC abs 0.00 0.00 - 0.01 K/cumm DAVID JOHNS ([place]) Blood 10/02/2024 9:15 AM CONTAINERS SALES REPRESENTATIVE 10/02/2024 10:38 AM CONTAINERS SALES REPRESENTATIVE Sherrie Martell NP LAB BLOOD ORDERABLES Final R esult DAVID JOHNS ([place]) 1 [facility] Department [place] [address] * Lipid panel (10/02/2024 9:15 AM CONTAINERS SALES REPRESENTATIVE) Cholesterol 184 30 - 199 mg/dL Comment: [...] on 2018. Triglycerides 77 <=149 mg/dL [facility] ([place]) Comment: Interpretive Data Ages < or [...] on 2018. HDL 46 >=40 mg/dL DAVID DE) Comment: Interpretive Data Ages < or = [...] NCEP Expert Panel. Circulation 2004;110:227 3. Yoav Yanes et al. SHELBY Cardiol. 2019November 27;5(5):540-548. doi: 10.1001/jamacardio.2020.0013 [...] R [facility] ([place]) Blood 10/02/2024 9:15 AM CONTAINERS SALES REPRESENTATIVE 10/02/2024 10:38 AM CONTAINERS SALES REPRESENTATIVE Sherrie Martell NP LAB BLOOD ORDERABLES Final R esult [facility] ([place]) 1 [facility] Department [place] [address] * Comprehensive metabolic panel (10/02/2024 9:15 AM CONTAINERS SALES REPRESENTATIVE) Sodium 140 135 - 145 mmol/L Potassium, [...] 99 70 - 199 mg/dL [facility] ([place]) Comment: Interpretive Data Fasting glucose >/= [...] (J[place]QUELINE) AST 17 10 - 45 Units/L [facility] ([place]) Blood 10/02/2024 9:15 AM CONTAINERS SALES REPRESENTATIVE 10/02/2024 10:38 AM CONTAINERS SALES REPRESENTATIVE Sherrie Martell NP LAB BLOOD ORDERABLES Final R esult [facility] ([place]) 1 [facility] Department [place] [address] * XR Hip Right 2 or 3 Views W Pelvis (09/05/2024 2:37 PM CONTAINERS SALES REPRESENTATIVE) Anatomical Region Laterality Modality Lower Extremities, Hip, Pelvis Right C omputed Radiography 09/05/2024 3:04 PM CONTAINERS SALES REPRESENTATIVE Narrative 09/05/2024 3:06 PM CONTAINERS SALES REPRESENTATIVE EXAM DESCRIPTION: XR HIP RIGHT 2 OR [...] Bro Han M.D. LB: SHILA Report ID: [id number] Reading Location: [id number] Procedure Note Bro Han MD - 09/05/2024 [...] Bro Han M.D. LB: LB Report ID: [id number] Reading Location: [id number] us Luis E Choiglenfredrick MAGNETIC PROSPECTOR IMG XR PROCEDURES Final Res ult * XR Spine Lumbar 4 or More Views (09/05/2024 2:37 PM CONTAINERS SALES REPRESENTATIVE) Anatomical Region Laterality Modality L-spine N/A Computed Radiogr aphy 09/05/2024 2:55 PM CONTAINERS SALES REPRESENTATIVE Narrative 09/05/2024 3:00 PM CONTAINERS SALES REPRESENTATIVE EXAM DESCRIPTION: XR SPINE LUMBAR 4 OR [...] Bro Han M.D. LB: SHILA Report ID: [id number] Reading Location: [id number] Procedure Note Bro Han MD - 09/05/2024 [...] Bro Han M.D. LB: LB Report ID: [id number] Reading Location: [id number] Luis E Scott MAGNETIC PROSPECTOR IMG XR PROCEDURES Final Res ult * XR Hand Right 3 or More Views (09/05/2024 2:37 PM CONTAINERS SALES REPRESENTATIVE) Anatomical Region Laterality Modality Upper Extremities, Hand Right Computed Radiography 09/05/2024 3:00 PM CONTAINERS SALES REPRESENTATIVE Narrative 09/05/2024 3:04 PM CONTAINERS SALES REPRESENTATIVE EXAM DESCRIPTION: XR HAND RIGHT 3 OR [...] Bro Han M.D. LB: SHILA Report ID: [id number] Reading Location: [id number] Procedure Note Bro Han MD - 09/05/2024 [...] Bro Han M.D. LB: LB Report ID: [id number] Reading Location: [id number] us Luis E Scott MAGNETIC PROSPECTOR IMG XR PROCEDURES Final Res ult * XR Elbow Right 2 Views (09/05/2024 2:37 PM CONTAINERS SALES REPRESENTATIVE) Anatomical Region Laterality Modality Upper Extremities, Elbow Right Compute d Radiography 09/05/2024 2:54 PM CONTAINERS SALES REPRESENTATIVE Narrative 09/05/2024 2:55 PM CONTAINERS SALES REPRESENTATIVE EXAM DESCRIPTION: XR ELBOW RIGHT 2 VIEWS [...] Bro Han M.D. LB: LB Report ID: [id number] Reading Location: [id number] Procedure Note Bro Han MD - 09/05/2024 [...] Bro Han M.D. LB: SHILA Report ID: [id number] Reading Location: [id number] us Luis E Scott MAGNETIC PROSPECTOR IMG XR PROCEDURES Final Res ult * XR Toe Great Right (09/05/2024 10:50 AM CONTAINERS SALES REPRESENTATIVE) Anatomical Region Laterality Modality Lower Extremities, Foot, Toes Right Co mputed Radiography 09/05/2024 11:2 3 AM CONTAINERS SALES REPRESENTATIVE Narrative 09/05/2024 11:27 AM CONTAINERS SALES REPRESENTATIVE EXAM DESCRIPTION: XR TOE GREAT RIGHT MINIMUM [...] 11:27 AM - Electronically signed by Ar HERBERT: PIEDAD Report ID: [id number] Reading Location: [id number] Procedure Note Ar Mclain MD - 09/05/2024 [...] Ar Mclain M.D. MJ: PIEDAD Report ID: [id number] Reading Location: [id number] Frederic Parsons MD IMG XR PROCEDURES F inal Result * Screening Mammogram Bilateral W Bijan (08/29/2024 1:04 PM CONTAINERS SALES REPRESENTATIVE) Anatomical Region Laterality Modality Breast Bilateral Mammography 08/29/2024 5:10 PM CONTAINERS SALES REPRESENTATIVE Impressions 08/29/2024 5:10 PM CONTAINERS SALES REPRESENTATIVE No evidence of malignancy in either breast. FINAL ASSESSMENT: BI-RADS Category 1: Negative. RECOMMENDATION: Recommend return for annual screening mammogram in 12 months. Electronically signed by: Michelle Quigley M.D. Narrative 08/29/2024 5:10 PM CONTAINERS SALES REPRESENTATIVE EXAMINATION: BILATERAL SCREENING MAMMOGRAM COMPARISON: Multiple prior mammograms dating back to 07/01/2015, most recent from 07/20/2023. TECHNIQUE: Full-field 2D and digital breast tomosynthesis (DBT) images were obtained. CAD was utilized. BREAST PARENCHYMAL COMPOSITION: The breasts are almost entirely fatty. FINDINGS: There is no suspicious mass, calcification, or distortion in either breast. Sherrie Martell NP IMG MAMMO PROCEDURES Final R esult * XR Elbow Right 3 or More Views (08/21/2024 12:26 PM CONTAINERS SALES REPRESENTATIVE) Anatomical Region Laterality Modality Upper Extremities, Elbow Right Compute d Radiography 08/22/2024 5:25 AM CONTAINERS SALES REPRESENTATIVE Narrative 08/22/2024 5:26 AM CONTAINERS SALES REPRESENTATIVE EXAM DESCRIPTION: XR ELBOW RIGHT 3 OR [...] Sonia Clemente M.D. SN: SN Report ID: [id number] Reading Location: [id number] Procedure Note Sonia Clemente MD - 08/22/2024 [...] Sonia Clemente M.D. SN: SN Report ID: [id number] Reading Location: [id number] us Sherrie Martell NP IMG XR PROCEDURES Final Resu lt * (ABNORMAL) Urinalysis reflex to microscopic and culture Urine (08/21/2024 12:10 PM CONTAINERS SALES REPRESENTATIVE) Color, ur Yellow Yellow Clarity, ur Turbid(A) [...] tendency for uric acid stone formation. Source: [facility] [employer] Current Interpretive Data was last revised on [...] [facility] ([place]) Urine 08/21/2024 12:1 0 PM CONTAINERS SALES REPRESENTATIVE 08/21/2024 1:39 PM CONTAINERS SALES REPRESENTATIVE us Sherrie Martell NP LAB MICROBIOLOGY - GENERAL O RDERABLES Final Result [facility] ([place]) 1 [facility] Department [place] [address] * (ABNORMAL) Urinalysis, microscopic only (08/21/2024 12:10 PM CONTAINERS SALES REPRESENTATIVE) WBC, ur 0-5 0 - 5 /HPF RBC, ur 0-2 0 - 2 /HPF [facility] ([place]) Epithelial cells, squamous, ur 6-10(A) 0 - 5 /HPF [facility] ([facility]) Bacteria, ur 1+(A) [facility] ([place]) Mucous, ur Present(A) [facility] ([place]) Culture Reflex Comment Reflex conditions for urine culture (WBC >10) not met. [facility] ([place]) Urine 08/21/2024 12:1 0 PM CONTAINERS SALES REPRESENTATIVE 08/21/2024 1:39 PM CONTAINERS SALES REPRESENTATIVE us Sherrie Martell MAGNETIC PROSPECTOR LAB URINE ORDERABLES Final R esult Performing Organization Address City/[facility] [address]/ZIP Co de Phone Number [facility] ([place]) 1 [facility] [place] [address] * Albumin Creatinine Ratio, Urine (09/21/2023 9:44 AM CONTAINERS SALES REPRESENTATIVE) Albumin Ur <12.0 mg/L [facility] ([place]) Comment: Interpretive Data No reference range established. Current interpretive data was last revised 2018. Testing performed by: [facility], [address] [place] [address]., [id number] Creatinine Ur 139.1 mg/dL [facility] ([place]) Comment: Interpretive Data No reference range established. Current interpretive data was last revised 2018. Testing performed by: [facility], [address] [place] [address]., [address] Albumin Creatinine Ratio, Ur <9 1 - 29 mg/g [facility] ([place]) Comment:Testing performed by : [address] [address] Urine 09/21/2023 9:44 AM CONTAINERS SALES REPRESENTATIVE 09/21/2023 3:32 PM CONTAINERS SALES REPRESENTATIVE us Josseline Pitts MAGNETIC PROSPECTOR LAB URINE ORDERABLES Final Resu lt [facility] ([place]) 1 [facility] Department [place] [address] * Hepatitis panel, acute Blood (2023 9:05 AM CDT) Hep A IgM Nonreactive Nonreactive Comment: Interpretive Data: If Hep A IgM Ab is reported as Equivocal, a new sample should be drawn in two weeks for testing. Current interpretive data was last revised on 19. Testing performed by: [address] [address] Hep B core IgM Nonreactive Nonreactive Sharona JOHNS ([place]ACQUELINE) Comment: Interpretive Data If HepB Core IgM Ab is reported as Equivocal, a new sample should be drawn in two weeks for testing. Current interpretive data was last revised on 19. Testing performed by: [address] [address] Hep C Ab Nonreactive Nonreactive DAVID JOHNS [...] last revised on 2019. Testing performed by: [address] [address] HepBsAg Nonreactive Nonreactive DAVID JOHNS (JACQUELINE) Comment:Testing performed by : [address] [address] Blood 2023 9:05 AM CDT 2023 3:11 PM CDT Narrative DAVID JOHNS (JACQUELINE) - 2023 3:55 PM CDT fax results to 2023 08:18:31 CDT us Mark Trujillo MD LAB MICROBIOLOGY - GENERAL ORDERABLES Final Result DAVID PENDING SALE TO [facility] [place] [facility] Department [place] [address] * COLONOSCOPY (08/16/2022 10:26 AM CONTAINERS SALES REPRESENTATIVE) Anatomical Region Laterality Modality Other Narrative Procedure Note Billy Nolan MD - 08/16/2022 10:26 AM CST [facility] Patient Name: Marlee Pickard Procedure Date: 08/16/2022 10:26 AM Date of : 1970 Admit Type: Outpatient Age: 52 Gender: Female Attending MD: Billy Nolan M.D. Room: PENDING SALE TO [facility] ENDOSCOPY ROOM 1 Note Status: Finalized Patient [...] under direct vision. The Pediatric Colonoscope PCF-H190L [id number] was introducedthrough the anus and advanced to [...] 10:26 AM Procedure Code(s): --- Professional --- 17232, Colonoscopy, flexible; diagnostic, including collection of specimen(s) by brushing or washing, when performed (separateprocedure) Diagnosis Code(s): --- Professional --- Z12.11, Encounter for screening for malignant neoplasm of colon K64.8, Other hemorrhoids CPT copyright 2020 [employer]. All rights reserved. The codes documented in this report are preliminary and upon federal judge reviewmay be revised to meet current compliance requirements. Recognized by the [employer] for promoting quality in endoscopy Billy Nolan MD ENDOSCOPY PROCEDURES Final Result * Diabetic Eye Exam (11/03/2021) Historical Provider HEALTH MAINTENANCE Final Result from Last 3 Months or Most Recently Relevant to Health Maintenance Insurance [facility] HMO IDPA [facility] WORKERS COMPENSATION [facility] Advance Directives For more information, please contact: [phone] * Full Code (Latest Code Status on [...] 10:19 AM 08/16/2022 10:19 AM Care Teams Rn Clinical Documentation Relationship Specialty Start Date End Date Sherire Martell NP [address] [place] [address] DR VAZ [address] [place] [address] PCP - General Family Medicine 12/08/22 [place] [address] [address] [facility] [address] [place] [address] Consulting Physician Pulmonary Disease 10/25/21 [place] [address] [facility] [address] [place] [address] Consulting Physician Psychiatry 10/25/21 Josseline Pitts, MAGNETIC PROSPECTOR [address] [facility] [address] [place] [address] Nurse Practitioner Endocrinology Diabetes & Metabolism 03/20/24 Shaquille Campos MD [address] [facility] [address] [place] [address] Consulting Physician Pulmonary Disease 03/20/24 Nakul Gutierrez PA [address] [facility] [address] [place] [address] Physician Computer Hardware Engineer Orthopedic Surgery 06/18/24 Don Sinha, DILIP [address] [facility] [address] [place] [address] Nurse Practitioner Gastroenterology 06/18/24 Saurav Varma MD [address] [address] Referring Physician Neurology 06/18/24
--- OUTSIDE RECORDS SUMMARY | 2024-11-15 | XMS_ITS | Encounter Summary ---
Author Organization [facility] Healthcare Address [address] [place] [address] Care Team Providers Care Range Management Specialist Name Role Phone Ar Talbot MD Unavailable [phone] Tavo Juan MD Unavailable [phone] Sherrie Martell AUTO PARTS SALESPERSON Primary Care Provider Josseline Pitts NP Unavailable [phone] Shaquille Campos MD Unavailable Nakul Gutierrez Unavailable [phone] Don Sinha AUTO PARTS SALESPERSON Unavailable [phone] Saurav Varma MD Unavailable [phone] Reason for Visit * Reason Onset Date Comments Medical Question/Miscellaneous 10/27/2024 Encounter Details Date Type Department Care Team (Late st Contact Info) Description 10/27/2024 Telephone [facility] Medical Group Primary Care at [address] [place] [address] Sherrie Martell, DILIP [address] [place] [address] [address] [place] [address] Medical Question/Miscellaneous Social History Tobacco Use Types Packs/Day Years [...] place to sleep or slept in a chcf (including now)? No 10/20/2021 Personal Safety Answer Date Recorded Have you ever been in or are you currently in a harmful physical or emotional relationship or is someone making you feel afraid or unsafe? 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 Does message need to be routed? No * Telephone Encounter - Chas Rodrigues MA - 10/28/2024 10:25 AM CDT If she was given this after her total knee replacement then this message will need to be directed to her surgeon's office. * Telephone Encounter - Denis Pavon - 10/27/2024 4:24 PM CDT Medical Question/Miscellaneous Caller???s Concern: patient called and had medication questions from her recent total knee replacement. SUBSTANCE ABUSE PREVENTION COORDINATOR gave number and transferred to Dr. Alejandra's office. Nafisa stated while she was in the hospital, she was given insulin shots, and wanted to know why she was given insulin shots then, and if this will continue to be ongoing. Please reach out to patientto further discuss Does message need to be routed? Yes-Action Needed documented in this encounter Plan of Treatment Not on file documented as of this encounter Visit Diagnoses Not on filedocumented in this encounter Care Teams Range Management Specialist Relationship Specialty Start Date End Date Sherrie Martell NP [address] [place] [address] [address] [place] [address] PCP - General Family Medicine 12/08/22 [place] [address] [address] [facility] [address] [place] [address] Consulting Physician Pulmonary Disease 10/25/21 [place] [address] [facility] [address] [place] [address] Consulting Physician Psychiatry 10/25/21 Josseline Pitts, DILIP [address] [facility] [address] [place] [address] Nurse Practitioner Endocrinology Diabetes & Metabolism 03/20/24 Shaquille Campos MD [address] [place] [address] [address] [place] [address] Consulting Physician Pulmonary Disease 03/20/24 Nakul Gutierrez PA [address] [place] [address] [address] [place] [address] Physician Youth Development Specialist Orthopedic Surgery 06/18/24 Don Sinha NP [address] [facility] [address] [place] [address] Nurse Practitioner Gastroenterology 06/18/24 Saurav Varma MD 1 [facility] 3 [place] [address] Referring Physician Neurology 06/18/24 documented as of this encounter
--- OUTSIDE RECORDS SUMMARY | 2024-11-15 | XMS_ITS | Encounter Summary ---
Author Organization [facility] Healthcare Address [address] [place] [address] Care Team Providers Care Attorney Lawyer Name Role Phone Ar Talbot MD Unavailable [phone] Tavo Juan MD Unavailable [phone] Sherrie Martell FEED PROJECT ENGINEER Primary Care Provider Josseline Pitts NP Unavailable [phone] Shaquille Campos MD Unavailable Nkaul Gutierrez Unavailable [phone] Don Sinha FEED PROJECT ENGINEER Unavailable [phone] Saurav Varma MD Unavailable [phone] Encounter Details Date Type Department Care Team (Late st Contact Info) Description 10/06/2024 Results Follow-Up [facility] Medical Group Primary Care at [address] [place] [address] Sherrie Martell, DILIP [address] [place] [address] [address] [place] [address] Social History Tobacco Use Types Packs/Day Years Used Date Smoking Tobacco: Never Smokeless Tobacco: Never Alcohol Use Standard Drinks/Week Comments No 0 (1 standard drink = 0.6 oz pur e alcohol) AUDIT-C Answer Date Recorded Q1: How often do you have a drink containing alcohol? Never 10/08/2024 Q2: How many drinks containi ng alcohol do you have on a typical day when you are drinking? Patient does not drink Q3: How often do you have si x or more drinks on one occasion? Never 10/08/2024 Overall Financial Resource Strain (CARDIA) Answe r [...] place to sleep or slept in a correction (including now)? No 10/20/2021 Personal Safety Answer Date Recorded Have you ever been in or are you currently in a harmful physical or emotional relationship or is someone making you feel afraid or unsafe? Denies 10/09/2024 Comments No Sex and Gender Information Value Date Recorded Sex Assigned at Not on file Legal Sex Female 12:37 AM JANITOR HELPER Gender Identity Not on file Sexual Orientation Not on file documented as of this encounter Functional Status * Audit-C Score Answer Date of Assessment Author 0 10/08/2024 8:43 AM CDT Chas Rodrigues MA * Question Answer Date of Assessment Author Q1: How often do you have a drink containing alcohol? Never 10/08/2024 8:43 AM CDT Chas Rodrigues MA Q2: How many drinks containing alcohol do you have on a typical day when you are drinking? Patient does not drink 10/08/2024 8:43 AM CDT Chas Rodrigues MA Q3: How often do you have six or more drinks on one occasion? Never 10/08/2024 8:43 AM CDT Chas Rodrigues MA documented as of this encounter Miscellaneous Notes * Result Encounter Note - Sherrie Martell NP - 10/08/2024 9:35 AM CDT Discussed in office with the patient today. * Telephone Encounter - Chas Rodrigues MA - 10/07/2024 12:09 PM CDT Pt is aware asking if she can stop any of her medications? * Telephone Encounter - Shanta Lan - 10/07/2024 12:07 PM CDT Reason for Warm Transfer: Patient returning call from practice Practice Accepted the Warm Transfer? Yes Additional Comments If YES above, and no barriers. * Telephone Encounter - Chas Rodrigues MA - 10/06/2024 2:22 PM CDT lmom documented in this encounter Plan of Treatment Not on file documented as of this encounter Visit Diagnoses Not on filedocumented in this encounter Care Teams Attorney Lawyer Relationship Specialty Start Date End Date Sherrie Martell NP [address] [facility] [address] [place] [address] PCP - General Family Medicine 12/08/22 [place] [address] [facility] [address] [place] [address] Consulting Physician Pulmonary Disease 10/25/21 [place] [address] [facility] [address] [place] [address] Consulting Physician Psychiatry 10/25/21 Josseline Pitts, DILIP [address] [facility] [address] [place] [address] Nurse Practitioner Endocrinology Diabetes & Metabolism 03/20/24 Shaquille Campos MD [address] [facility] [address] [place] [address] Consulting Physician Pulmonary Disease 03/20/24 Nakul Gutierrez PA [address] [facility] [address] [place] [address] Physician Precipitator Orthopedic Surgery 06/18/24 Don Sinha NP [address] [facility] [address] [place] [address] Nurse Practitioner Gastroenterology 06/18/24 Saurav Varma MD 1 [facility] 3 [place] [address] Referring Physician Neurology 06/18/24 documented as of this encounter
--- OUTSIDE RECORDS SUMMARY | 2024-11-15 | XMS_ITS | Encounter Summary ---
Author Organization [facility] Healthcare Address [address] [place] [address] Care Team Providers Care Acid Maker Name Role Phone Ar Talbot MD Unavailable Tavo Juan MD Unavailable [phone] Sherrie Martell INTERFACE DEVELOPER Primary Care Provider Josseline Pitts NP Unavailable [phone] Shaquille Campos MD Unavailable Nakul Gutierrez Unavailable [phone] Don Sinha INTERFACE DEVELOPER Unavailable [phone] Saurav Varma MD Unavailable [phone] Reason for Visit * Reason Onset Date Comments Hypoglycemia 11/10/2024 Encounter Details Date Type Department Care Team (Late st Contact Info) Description 11/10/[address] [facility] Medical Group Primary Care at [address] [place] [address] Sherrie Martell NP [address] [place] [address] [address] [place] [address] Social History Tobacco Use Types [...] place to sleep or slept in a snf (including now)? No 10/20/2021 Personal Safety Answer Date Recorded Have you ever been in or are you currently in a harmful physical or emotional relationship or is someone making you feel afraid or unsafe? Denies 10/23/2024 Comments No Sex and Gender Information Value Date Recorded Sex Assigned at Not on file Legal Sex Female 12:37 AM TRACTOR MECHANIC HELPER Gender Identity Not on file Sexual Orientation Not on file documented as of this encounter Miscellaneous Notes * Telephone Encounter - Lennox Silver. - 11/11/2024 1:44 PM CDT Call Back Caller???s Concern: Patient returned missed call . Advised per chart notes. Patient stated understanding and had no questions Does message need to be routed? No * Telephone Encounter - Chas Rodrigues MA - 11/11/2024 7:38 AM CDT lmom * Telephone Encounter - Sonia Malhotra RN - 11/10/2024 2:31 PM CDT Nafisa Warner Chief Complaint(s): blood sugar before breakfast 76-90 with nausea and fatigue Duration: 10/23/24 Details: after eating, 117-120. Shaky and H/A. Grandchildren getting on nerves easier. Feeling different. Patient had total knee surgery 10/23 and hasn't started taking monjuaro again with the BS being so low. Was suppose to start Today. Nurse Triage Protocol Disposition: Discuss With PCP and Callback by Nurse Today. Nafisa Warner Requesting advice regarding BS being low and when to start monjuaro. Please advise Nafisa Warner with your recommendations. Home care reviewed. Advised Nafisa Warner to call back if symptoms worsen or with any other concerns/questions. Nafisa Warner verbalized understanding. Reason for Disposition Morning (before breakfast) blood glucose < 80 mg/dL (4.4 mmol/L) and more than once in past week Protocols used: Diabetes - Low Blood Iwjok-Fvirh-AW * Telephone Encounter - Sonia Malhotra RN - 11/10/2024 2:30 PM CDT Regarding: low blood sugar ----- Message from Ricky Cunningham sent at 11/10/2024 2:27 PM CDT ----- Symptom Based Call Chief Complaint(s): 76-90,nausea fatigue Duration: 10/23 What type of symptom(s) is the patient experiencing? Red Flag. Is the patient concerned they are experiencing a medical emergency requiring an ambulance? No Additional Comments: Patient had total knee surgery 10/23 and hasn't been able to take her monjuaro until she spoke with Sherrie Does message need to be routed? Yes-Action Needed documented in this encounter Plan of Treatment Not on file documented as of this encounter Visit Diagnoses Not on filedocumented in this encounter Care Teams Acid Maker Relationship Specialty Start Date End Date Sherrie Martell NP 2 [facility] [address] [place] [address] PCP - General Family Medicine 12/08/22 [place] [address] [address] Consulting Physician Pulmonary Disease 10/25/21 [place] [address] [facility] [address] [place] [address] Consulting Physician Psychiatry 10/25/21 Josseline Pitts NP [address] [place] [address] [address] [place] [address] Nurse Practitioner Endocrinology Diabetes & Metabolism 03/20/24 Shaquille Campos MD [address] [place] [address] [address] [place] [address] Consulting Physician Pulmonary Disease 03/20/24 Nakul Gutierrez PA [address] [place] [address] [address] [place] [address] Physician Insurance Account Assistant Orthopedic Surgery 06/18/24 Don Sinha NP 4 [facility] [address] [address] Nurse Practitioner Gastroenterology 06/18/24 Saurav Varma MD [address] [address] Referring Physician Neurology 06/18/24 documented as of this encounter
--- OUTSIDE RECORDS SUMMARY | 2024-11-15 00:01 | XMS_ITS | Encounter Summary ---
Author Organization [facility] Address [address] [place] [address] Phone Care Team Providers Care Custodian Blood Bank Name Role Phone Saurav Varma MD Unavailable [phone] Sherrie Martell APRN, GLOBAL ACCOUNT DIRECTOR Primary Care Provi merline Wero Encarnacion PAC Unavailable [phone] Reason for Referral * PT/OT/ST (Routine) - Pending Review Specialty Diagnoses / Procedures Referred By Contac t Referred To Contact Physical Therapy Diagnoses S/P total knee arthroplasty, left Frantz Alejandra MD [address] [place] [address], [address] [place] [address] Phone: tel: fax: [facility] [address] [facility], [address] [address] Phone: tel: fax: Referral ID Status Reason Start Date Expiration Date V isits Requested Visits Authorized [id number] Pending Review 10/14/2024 50 50 Scheduling Instructions Encounter Details Date Type Department Care Team (Late st Contact Info) Description 10/14/2024 Transcribe Orders [facility] [address] [place] [address] Frantz Alejandra MD 4 [facility] , [address] [place] [address] S/P total knee arthroplasty, left (Primary Dx) Social History Tobacco Use Types Packs/Day Years Used Date Smoking Tobacco: Never Smokeless Tobacco: Never Alcohol Use Standard Drinks/Week Comments Never 0 (1 standard drink = 0.6 oz pur e alcohol) Comments No Sex and Gender Information Value Date Recorded Sex Assigned at Not on file Legal Sex Female 11:41 PM CDT Gender Identity Not on file Sexual Orientation Not on file documented as of this encounter Plan of Treatment Upcoming Encounters Date Type Department Care Team (Late st Contact Info) Description 11/17/2024 2:[address] [facility] [address] [facility], [facility] [address] [place] [address] Frantz Alejandra MD 4 [facility] , [address] [place] [address] Sofya Galdamez, PT [place] Discharge Disposition: Discharged to home or Selfcare Scheduled Referrals Name Type Priority Associated Diagnoses Orde r Schedule PHYSICAL THERAPY REFERRAL Outpatient Referral Routine S/P total knee arthroplasty, left Expected: 10/14/2024, Expires: 10/14/2025 documented as of this encounter Visit Diagnoses Diagnosis S/P total knee arthroplasty, left- Primary documented in this encounter Care Teams Custodian Blood Bank Relationship Specialty Start Date End Date Sherrie Martell, NIGHT BAKER, GLOBAL ACCOUNT DIRECTOR 2 [facility] [address] [place] [address] PCP - General Advanced Practice Nurse 06/02/24 Saurav Varma MD [address] [place] [address] Consulting Physician Neurology 12/26/23 Wero Encarnacion PAC [address] [place] [address] Physician Operations Team Leader Physician Operations Team Leader 07/31/24 documented as of this encounter
--- OUTSIDE RECORDS SUMMARY | 2024-11-15 00:01 | XMS_ITS | Continuity of Care Document ---
Author Organization [facility] Address [address] [place] [address] [place] [address] Phone Care Team Providers Care Director Check Name Role Phone Deven Cain MD Unavailable Unavailable Allergies, Adverse Reactions, Alerts Substance Reaction Status Criticality Sulfa (Sulfonamide Antibiotics) Active No Information Medications Medication Instructions Dosage Effective Dates (start - stop) Status Comments Norvasc 5 mg tablet take 1 tablet (5MG) by oral route every day 5 MG - Active Klonopin 1 mg tablet take 1 tablet (1MG) by oral route 2 times every day 1 MG - Active avoid driving or operate machines Paxil 20 mg tablet take 1 tablet (20MG) by oral route every day 20 MG - Active Protonix 40 mg tablet,delayed release take 1 tablet (40MG) by oral route every day 40 MG - Active permethrin 5 % topical cream apply by topical route (thoroughly massage into skin from head to soles of feet) once leave on for 8-14 hr, then remove by thorough washing 0.00 - Active ProAir HFA 90 mcg/actuation Aerosol Inhaler inhale 2 puff by inhalation route every 4 - 6 hours as needed - Active Advair Diskus 250 mcg-50 mcg/dose for Inhalation inhale 1 puff by inhalation route 2 times every day in the morning and evening approximately 12 hours apart 1.00 puff - Active Singulair 10 mg tablet take 1 tablet (10MG) by oral route every day in the evening 10 MG - Active Procedures Procedure Date OFFICE/OUTPATIENT VISIT, EST OFFICE/OUTPATIENT VISIT, EST OFFICE/OUTPATIENT VISIT, EST OFFICE/OUTPATIENT VISIT, [facility] Advance Directives Directive Yes / No Effective Date File Name No Information Encounters Encounter Description Practice Location Reason(s) For Visit Diagnoses Date Provider Providers Copied on Encounter OFFICE/OUTPA TIENT VISIT, [facility], [address], [place], [place], [id number], [place] tel:[phone] [facility] HTN (chief complaint) abdominal pain (chief complaint) anxiety (chief complaint) Dietary surveillance and counselingHypertens ion, UnspecifiedAbdomina l PainGeneralized anxiety disorderGERD 4 Ant Carvalho. [address], [place], [place], [address] , [place]. tel:[phone] Referring Provider: Deven Cain, [address], [place], [place], [id number]. tel:[phone] [facility], [address], [place], [place], [id number], [place] tel:[phone] [facility] No Information 4 Ant Carvalho. [address], [place], [place], [address] , [place]. tel:[phone] OFFICE/OUTPA TIENT VISIT, [facility], [address], [place], [place], [address], [place] tel:[phone] [facility] anxiety (chief complaint) hand pain (chief complaint) HTN (chief complaint) GERD (chief complaint) Dietary surveillance and counselingHypertens ion, UnspecifiedGenerali zed anxiety disorderPain in joint involving handGERD 4 Ant Carvalho. [address], [place], [place], [address] , [place]. tel:[phone] Referring Provider: Deven Cain, [address], [place], [place], [address]. tel:[phone] OFFICE/OUTPA TIENT VISIT, [facility], [address], [place], [place], [address], [place] tel:[phone] [facility] cough (chief complaint) anxiety (chief complaint) borderline DM (chief complaint) Dietary surveillance and counselingBronchiti s, AcuteAsthmaGenerali zed anxiety disorderMetabolic Syndrome 4 Ant Carvalho. [address], [address], [place], [address] , . tel:[phone] Referring Provider: Deven Cain [address] [place], [address]. tel:[phone] OFFICE/OUTPA TIENT VISIT, [facility], [address] [place], [address], [place] [phone] [facility] sinus drainage (chief complaint) migrane headache (chief complaint) anxiety (chief complaint) pain (chief complaint) Dietary surveillance and counselingAsthmaHea dacheAcute upper respiratory infections of other multiple sitesPain in joint involving hand 4 Ant Carvalho. [address], [facility] [place], [address] , . tel:[phone] Family History Family Member Type Diagnosis Age At Onset Mother Problem (finding) Coronary artery disease 38 Sister Problem (finding) Alive and well Father Problem (finding) Unknown Disease Payers Payer name Insurance type Covered green party ID Authoriza tion(s) No Information Social History Type Description Quantity Date Captured Comments Alcohol Use Details No Caffeine Use Details Unknown Tobacco Use Status No Information Smoking Status Never smoker Sex Female Vital Signs Date / Time: Height Weight BMI Pulse Rate Blood Pressure Temperature Respiratory Rate Body Surface Area Head Circumference BMI percentile Pulse Ox Inhaled Ox 2:52 PM 62.00 in 202.50 lbs 37.0 3 kg/m eter (2) 73 /min 135/87 mm[Hg] 98.8 F 18 /min Chief Complaint And Reason For Visit From encounter dated '04/07/2014 14:15'. HTN (chief complaint) abdominal pain (chief complaint) anxiety (chief complaint) Plan Of Treatment Date Type Action Status Goal Mammogram. Due on 4 due Referral Ordered: Referral: Gastroentergy. ordered Referral Ordered: UPPER GI W/ KUB ordered Referral Ordered: MAMMOGRAM, SCREENING ordered History Of Present Illness Encounter Date Complaint History Of Prese nt Illness No Information Instructions Date Instruction Additional Infor brayan Decrease caloric intake Related to Dietary surveillance counseling Dietary counseling Related to Di etary surveillance counseling Decrease caloric intake Related to Dietary surveillance counseling Dietary counseling Related to Di etary surveillance counseling Decrease caloric intake Related to Dietary surveillance counseling Dietary counseling Related to Di etary surveillance counseling Dietary counseling Related to Di etary surveillance counseling Decrease caloric intake Related to Dietary surveillance counseling Assessments Type Assessment Date No Information Mental Status Date Cognitive Assessment Orientation - Lewis ed to time, place, person, situation.
--- OUTSIDE RECORDS SUMMARY | 2024-11-15 00:01 | XMS_ITS | Clinical Summary ---
Author Organization [facility] Address [address] [facility], [address] [address] Phone Care Team Providers Care Breeding Manager Name Role Phone Saurav Varma MD Unavailable [phone] Sherrie Martell APRN, PROBATION COUNSELOR Primary Care Provi merline Wero Encarnacion PAC Unavailable [phone] Allergies Active Allergy Reactions Criticality Noted Date Comments Sulfa Antibiotics Rash 12/28/2023 Medications atorvastatin (LIPITOR) 40 MG Tablet Take 40 mg by mouth daily. rx [id number] take 1/2 tab by mouth daily Active cetirizine (ZyrTEC) 10 MG Tablet Take 10 mg by mouth daily. Active clonazePAM (KlonoPIN) 2 MG Tablet Take 2 mg by mouth 2 times daily. Active fluticasone (FLONASE) 50 MCG/ACT Suspension 1 [place] by Nasal route daily. Use in each nostril as directed. Active losartan (COZAAR) 100 MG Tablet Take 100 mg by mouth daily. Active meclizine (ANTIVERT) 12.5 MG Tablet Take 12.5 mg by mouth every 8 hours as needed. Active montelukast (SINGULAIR) 10 MG Tablet Take 10 mg by mouth every evening. Active ondansetron (ZOFRAN-ODT) 4 MG TABLET DISPERSIBLE Take 4 mg by mouth every 8 hours as needed. Active celecoxib (CeleBREX) 100 MG Capsule Take 1 Capsule by mouth 2 times daily. 180 Capsule 3 12/28/19 24 Active cyclobenzaprin e (FLEXERIL) 10 MG Tablet Take 1 Tablet by mouth 3 times daily as needed for Muscle spasms. 70 Tablet 3 12/28/19 24 Active Additional Information Patient not taking.Reported on 08/19/2024 Metoclopramide HCl (REGLAN PO) Take by mouth. not taking Active AMLODIPINE BESYLATE PO Take 10 mg by mouth daily. rx [id number] Active HYDROXYZINE HCL PO Take 25 mg by mouth 2 times daily. rx [id number] Active ALBUTEROL IN take 2 Puffs by inhalation every 6 hours as needed for Other (wheezing). rx [id number] Active sertraline (ZOLOFT) 100 MG Tablet Take 100 mg by mouth daily. 03/14/20 24 Active chlorthalidone (HYGROTON) 25 MG Tablet Take 25 mg by mouth daily. Not taking 12/31/19 24 025 Active Mounjaro 2.5 MG/0.5ML Solution Pen-injector 2.5 mg by Subcutaneous route. 02/28/20 24 Active potassium chloride SA (KLORCON M) 20 MEQ Tablet Controlled Release Take 20 mEq by mouth daily. Active tiZANidine (ZANAFLEX) 4 MG TabletIndicati ons:Musculoske letal Pain [The details of the medication are not available because there are pending changes by a home health clinician.] 15 Tablet 06/15/20 24 Active Additional Information Patient taking differently:4 mg Oral EVERY 6 HOURS PRN, Muscle spasms, 2 mgrx [id number], Indications: Musculoskeletal Pain, Reported on 10/29/2024 gabapentin (NEURONTIN) 300 MG Capsule TAKE 1 CAPSULE BY MOUTH THREE TIMES DAILY 90 Capsule 07/04/20 24 Active traMADol (ULTRAM) 50 MG TabletIndicati ons:Chronic bilateral low back pain with bilateral sciatica Take 1 Tablet by mouth 2 times daily as needed for Moderate or more severe pain. 21 Tablet 07/11/20 24 Active Additional Information Patient not taking.Reported on 08/19/2024 oxyCODONE-acet aminophen (PERCOCET) 5-325 MG Tablet Take 2 Tablets by mouth every 4 hours as needed for Moderate or more severe pain. rx [id number] Active Vitamin D, Cholecalcifero l, 50 MCG (1999 UT) Capsule Take 1 Capsule by mouth daily. [id number] Active senna (SENOKOT) 8.6 MG Tablet Take 2 Tablets by mouth daily. [id number] Active famotidine (PEPCID) 40 MG Tablet Take 40 mg by mouth every evening. rx [id number] Active PANTOPRAZOLE SODIUM PO Take 40 mg by mouth daily. rx [id number] Active ferrous sulfate 325 (65 Fe) MG Tablet Take 325 mg by mouth daily. rx [id number] Active cephALEXin (KEFLEX) 500 MG CapsuleIndicat ions:preventio n post-op infection Take 500 mg by mouth 2 times daily. rx x 7 days Indications: prevention post-op infection 10/28/19 25 025 potassium chloride (Klor-Con) 20 MEQ Pack Take 20 mEq by mouth daily. rx [id number] 025 Discontinu ed(Med List Clean Up) Active Problems No known active problems Encounters Date Type Department Care Team Description 11/12/2024 10:30 AM CDT Home Care Visit [address] [address] Bria La, PT PT - OASIS DISCHARGE 11/11/2024 3:30 PM CDT Home Care Visit [address] [address] Parul Rowland OTA OT - DISCIPLINE DISCHARGE 11/11/2024 Home Care Visit [address] [address] Parul Rowland OTA CASE COMMUNICATION 11/10/2024 1:00 PM CDT Home Care Visit [address] [address] Maliha Matos PTA PT - HOME VISIT 11/07/2024 12:00 PM CDT Home Care Visit [address] [address] Maliha Matos PTA PT - HOME VISIT 11/06/2024 9:30 AM CDT Home Care Visit [address] [address] Parul Rowland OTA OT - HOME VISIT 11/05/2024 11:30 AM CDT Home Care Visit [address] [address] Maliha Matos, STEP DOWN SPECIALIST PT - HOME VISIT 11/04/2024 1:30 PM CDT Home Care Visit [address] [address] Reina Pugh OT OT - INITIAL EVALUATION 11/04/2024 Home Care Visit [address] [address] Bria La, PT CARE CONFERENCE 11/03/2024 12:00 PM CDT Home Care Visit [address] [address] Maliha Matos, STEP DOWN SPECIALIST PT - HOME VISIT 10/30/2024 11:00 AM CDT Home Care Visit [address] [address] Cori Tapia, AUTHORIZATION MANAGER AUTHORIZATION MANAGER - INITIAL EVALUATION 10/30/2024 Home Care Visit [address] [address] Bria La, PT TELEPHONE ENCOUNTER 10/29/2024 2:00 PM CDT Home Care Visit [address] [address] Bria La, PT PT - OASIS START OF CARE 10/29/2024 Home Care Visit [address] [address] Bria La, PT TELEPHONE ENCOUNTER 10/29/2024 Plan of Care Documentation [address] [address] 10/28/[address] [address] Reina Chang RN 10/27/[address] [address] Reina Chang cutter head sharpener vac issue 10/14/2024 Transcribe Orders [facility] [address] [place] [address] Frantz Alejandra MD S/P total knee arthroplasty, left (Primary Dx) 09/04/2024 Documentation Only [facility] [address] [place] [address] Rodrigue Agudelo, PT 08/26[facility] [address] [place] [address] Wero Encarnacion PAC 08/19/2024 11:30 AM TUB ATTENDANT Office Visit [facility] Orthopedic [facility] [address] [place] [address] Wero Encarnacion, PAC Right hip pain (Primary Dx); Low back pain, unspecified back pain laterality, unspecified chronicity, unspecified whether sciatica present Discharge Disposition: Discharged to home or Selfcare 08/19/2024 Travel 08/18/2024 [facility] [address] [place] [address] Wero Encarnacion PAC Need Order from Last 3 Months Family History Medical History Relation Name Comments Asthma Mother Heart Attack Mother Hypertension Mother Relation Name Status Comments Father Alive Mother Social History Tobacco Use Types Packs/Day Years Used Date Smoking Tobacco: Never Smokeless Tobacco: Never Tobacco Cessation:Counseling Given: Not Answered Alcohol Use Standard Drinks/Week Comments Never 0 (1 standard drink = 0.6 oz pur e alcohol) Comments No Sex and Gender Information Value Date Recorded Sex Assigned at Not on file Legal Sex Female 11:41 PM CDT Gender Identity Not on file Sexual Orientation Not on file Last Filed Vital Signs Vital Sign Reading Time Taken Comments Blood Pressure 144/82 11/12/2024 11:05 AM CDT Pulse 79 11/12/2024 11:05 AM CDT Temperature 36.7 C (98 F) 11/12/2024 11:05 AM CDT Respiratory Rate 18 11/12/2024 11:05 AM CDT Oxygen Saturation 96% 11/12/2024 11:05 AM CDT Inhaled Oxygen Concentration - - Weight 105.7 kg (233 lb) 10/29/2024 2:18 PM CDT Height 160 cm (5' 3 ) 10/29/2024 2:18 PM CDT Body Mass Index 41.27 10/29/2024 2:18 PM CDT Plan of Treatment Upcoming Encounters Date Type Department Care Team (Late st Contact Info) Description 11/17/2024 2:45 PM CDT Physical Therapy [facility] [address] [place] [address] Frantz Alejandra MD [address] [place] [address], [address] [place] [address] Sofya Galdamez, PT [place] Discharge Disposition: Discharged to home or Selfcare Health Maintenance Due Date Last Done Comments Hepatitis C Virus (HCV) Screening 1970 Hepatitis B Immunization (1 of 3 - 19+ 3-dose series) 1988 Cologuard 2019 Immunochemical Fecal Occult Blood 2019 SARS-COV-2 Immunization ( season) 2024 10/12/2021, 01/07/2021, 12/17/2020 Mammogram 08/29/2025 08/29/2024, 1208/2022, 06/21/2022, Additional history exists Colonoscopy 08/16/2032 08/16/2022 Colorectal Cancer Screening 08/16/2032 Respiratory Syncytial Virus (RSV) Immunization (Adult) (1 - 1-dose 75+ series) 2044 08/16/2022 DTaP/Tdap/Td Immunization Discontinued 2021, 05/19/2016, 07/30/2010 Pneumococcal Immunization (50+ years) Completed 11/04/2021, 08/06/2015, 07/30/2010 Pneumococcal Immunization Combined Discontinued 11/04/2021, 08/06/2015, 07/30/2010 TdaP Immunization Completed 11/04/2021 Zoster Immunization Completed 01/09/2022, Influenza Immunization Completed , 05/04/2023, 05/22/2022, Additional history exists Meningococcal Immunization (ACWY) Aged Out No longer eligible based on patient's age to complete this topic Rotavirus Immunization Aged Out No lo nger eligible based on patient's age to complete this topic Insurance MEDICAID [employer] Advance Directives * Full Code (Latest Code Status on File) Date Activated Date Inactivated Comments 11/10/2024 3:54 PM Care Teams Breeding Manager Relationship Specialty Start Date End Date Sherrie Martell, OXIDATION OPERATOR, PROBATION COUNSELOR [address] [facility] [place] [address] PCP - General Advanced Practice Nurse 06/02/24 Saurav Varma MD [address] [place] [id number] Consulting Physician Neurology 12/26/23 Wero Encarnacion PAC [address] [place] [address] Physician Support Merchandiser Physician Support Merchandiser 07/31/24
--- OUTSIDE RECORDS SUMMARY | 2024-11-15 00:01 | XMS_ITS | Encounter Summary ---
Author Organization [facility] Healthcare Address [address] [place] [address] Care Team Providers Care Feed Mill Supervisor Name Role Phone Ar Talbot MD Unavailable [phone] Tavo Juan MD Unavailable [phone] Sherrie Martell ELECTRONICS SUPERVISOR Primary Care Provider Josseline Pitts NP Unavailable [phone] Shaquille Campos MD Unavailable Nakul Gutierrez Unavailable Don Sinha ELECTRONICS SUPERVISOR Unavailable [phone] Saurav Varma MD Unavailable Janeth Valdovinos MA Unavailable Encounter Details Date Type Department Care Team (Late st Contact Info) Description 12/18/2023 Telephone [facility] Medical Group Orthopedics and Sports Medicine [address] [place] [address] [address] [place] [address] Chuyita Ventura PA [address] [place] [address] [address] [place] [address] Social History Tobacco Use Types Packs/Day Years Used Date Smoking Tobacco: Never Smokeless Tobacco: Never Alcohol Use Standard Drinks/Week Comments No 0 (1 standard drink = 0.6 oz pur e alcohol) AUDIT-C Answer Date Recorded Q1: How often do you have a drink containing alc ohol? 2-4 times a month 10/17/2023 Q2: How many drinks containi ng alcohol do you have on a typical day when you are drinking? 1 or 2 10/17/2023 Q3: How often do you have si x or more drinks on one occasion? Never 10/17/2023 Overall Financial Resource Strain (CARDIA) Answe r Date Recorded How hard is it for you to pa y for the very basics like food, housing, medical care, and heating? Somewhat hard 10/20/2021 PHQ-2 Answer Date Recorded PHQ-2 Total Score (If total score is 3 or more points, staff should administer the PHQ-9) 0 09/07/2023 Hunger Vital Sign Answer Date Recorded Within [...] place to sleep or slept in a senior care (including now)? No 10/20/2021 Personal Safety Answer Date Recorded Have you ever been in or are you currently in a harmful physical or emotional relationship or is someone making you feel afraid or unsafe? Denies 07/02/2023 Comments No Sex and Gender Information Value Date Recorded Sex Assigned at Not on file Legal Sex Female 12:37 AM DRUM SANDER Gender Identity Not on file Sexual Orientation Not on file documented as of this encounter Plan of Treatment Not on file documented as of this encounter Visit Diagnoses Not on filedocumented in this encounter Additional Health Concerns Infection Onset Date Last Indicated Resolved Time COVID: Suspected 03/14/2024 03/14/2024 03/15/2024 3:06 AM CDT COVID: Suspected 03/18/2024 03/18/2024 03/18/2024 2:48 PM CDT COVID: Suspected 07/07/2024 07/07/2024 07/07/2024 10:04 PM DRUM SANDER COVID: Suspected 08/01/2024 08/01/2024 08/01/2024 7:27 PM DRUM SANDER documented as of this encounter Care Teams Feed Mill Supervisor Relationship Specialty Start Date End Date Sherrie Martell NP [address] [facility] [address] [place] [address] PCP - General Family Medicine 12/08/22 [place] [id number] [address] Consulting Physician Pulmonary Disease 10/25/21 [place] [address] [facility] [address] [place] [address] Consulting Physician Psychiatry 10/25/21 Josseline Pitts NP [address] [place] [address] [address] [place] [address] Nurse Practitioner Endocrinology Diabetes & Metabolism 03/20/24 Shaquille Campos MD [address] [place] [address] [address] [place] [address] Consulting Physician Pulmonary Disease 03/20/24 Nakul Gutierrez PA [address] [place] [address] [address] [place] [address] Physician Analytical Research Chemist Orthopedic Surgery 06/18/24 Don Sinha NP [address] [facility] [address] [place] [address] Nurse Practitioner Gastroenterology 06/18/24 Saurav Varma MD [address] [facility] [address] [place] [address] Referring Physician Neurology 06/18/24 Janeth Valdovinos MA [address] [place] [address] [address] [place] [address] [employer]CO Care Printed Circuit Boards Solder Leveler 09/08/24 09/08/24 documented as of this encounter
[2024-11-15 00:09] VITALS: BP 136/67; PULSE 74; RESP 16; TEMP 36.5; O2SAT 100
--- NOTE | 2024-11-15 00:39 | PC.NURSE ---
Pt presents to ED due to fall, reports 8/10 L knee pain, 10/10 lower back pain (HX:chronic) and + HS.
--- NOTE | 2024-11-15 01:03 | PC.NURSE ---
Pt provided with ice pack.
--- OUTSIDE RECORDS SUMMARY | 2024-11-15 01:23 | XMS_ITS | Referral Summary ---
Author Organization [facility] Healthcare Address [address] [place] [id number] Care Team Providers Care Cable Installation Technician Name Role Phone Ar Talbot MD Unavailable [phone] Tavo Juan MD Unavailable [phone] Sherrie Martell NP Primary Care Provider Josseline Pitts NP Unavailable [phone] Shaquille Campos MD Unavailable Nakul Gutierrez Unavailable [phone] Don Sinha PHOTOGRAPHY TEACHER Unavailable [phone] Saurav Varma MD Unavailable [phone] Encounters Date Type Department Care Team Description 11/13/19 25 2:45 PM CDT Office Visit [facility] Medical Group Orthopedic and Sports Medicine [facility] [place] [address] Nakul Gutierrez PA Aftercare following left knee joint replacement surgery (Primary Dx) 11/11/19 25 Nurse Triage [facility] Primary Care at [place] [address] [facility] [address] [place] [address] Sherrie Martell NP 11/08/19 25 Orders Only [facility] Orthopedics and Sports Medicine [address] [facility] [address] [place] [address] Nakul Gutierrez PA 11/04/19 25 Telephone [facility] Primary Care at [address] [place] [address] Sherrie Martell NP Paperwork 10/30/19 25 Telephone [facility] Orthopedic and Sports Medicine [address] [place] [address] Nakul Gutierrez PA 10/30/19 25 Telephone [facility] Orthopedics and Sports Medicine [address] [place] [address] [address] [place] [address] Frantz lAejandra MD 10/30/19 25 Telephone [facility] Orthopedic and Sports Medicine [address] [place] [phone] Frantz Alejandra MD 10/28/19 25 Telephone [facility] Primary Care at [address] [place] [address] Sherrie Martell NP Medical Question/Miscellaneous 10/28/19 25 Orders Only [facility] Medical [facility] Orthopedics and Sports Medicine [address] [place] [address] [address] [place] [address] Shilpa Madera PA 10/28/19 25 Telephone [facility] Medical [facility] Orthopedics and Sports Medicine [address] [place] [address] [address] [place] [address] Frantz Alejandra MD 10/26/19 25 Orders Only [facility] Orthopedics and Sports Medicine [address] [place] [address] [address] [place] [address] Shilpa Madera PA 10/24/19 25 10:08 AM CDT - 10/26/19 25 10:23 AM CDT Hospital Encounter [facility] Surgery Care [address] [place] [address] Frantz Alejandra MD S/P total knee arthroplasty, left (Primary Dx); Post-traumatic osteoarthritis of left knee Discharge Disposition: Discharge to home, home health skilled care 10/24/19 1:00 PM CDT - 10/24/19 3:30 PM CDT Surgery [facility] Operating Room [address] [place] [address] Frantz Alejandra MD Left robotic total knee arthroplasty 10/24/19 12:37 PM CDT Anesthesia Event [facility] Operating Room [address] [place] [address] Candie Reddy MD Reynolds, Mayur Jiménez MD 10/22/19 Telephone [facility] Primary Care at [address] [place] [address] Sherrie Martell NP 10/18/19 3:40 PM CDT Lab [address] [address] Pre-op testing 10/18/19 3:39 PM CDT - 10/18/19 11:59 PM CDT Hospital Encounter [facility] Imaging Center [address] [place] [address] Pre-op testing Discharge Disposition: Discharge to home or self care 10/18/19 3:39 PM CDT - 10/18/19 11:59 PM CDT Hospital Encounter [facility] Cardiology 1 [place] [address] Pre-op testing Discharge Disposition: Discharge to home or self care 10/18/19 Telephone [facility] Primary Care at [address] [place] [address] Sherrie Martell NP 10/16/19 Results Follow-Up [facility] Gastroenterology at [address] [place] [address] Billy Nolan MD 10/16/19 Orders Only [facility] Medical [facility] Orthopedic and Sports Medicine [address] [place] [phone] Nakul Gutierrez PA 10/15/19 Orders Only [facility] Orthopedics and Sports Medicine [address] [place] [address] [address] [place] [address] Frantz Alejandra MD S/P total knee arthroplasty, left (Primary Dx) 10/14/19 25 Orders Only [facility] Orthopedics and Sports Medicine [address] [place] [address] [address] [place] [address] Frantz Alejandra MD S/P total knee arthroplasty, left (Primary Dx) 10/11/19 25 Orders Only [facility] Orthopedics and Sports Medicine [address] [place] [address] [address] [place] [address] Frantz Alejandra MD Post-traumatic osteoarthritis of left knee (Primary Dx) 10/10/19 2:28 PM CDT Anesthesia Event [address] [address] Lito Gold MD 10/10/19 2:00 PM CDT - 10/10/19 2:30 PM CDT Surgery [address] [address] Billy Nolan MD ESOPHAGOGASTRODUODENOSCOPY BIOPSY 10/10/19 12:00 PM CDT - 10/10/19 3:37 PM CDT Hospital Encounter [address] [address] Billy Nolan MD Dysphagia, unspecified type; Gastroesophageal reflux disease without esophagitis Discharge Disposition: Discharge to home or self care 10/09/19 Telephone [facility] Primary Care at [address] [address] Sherrie Martell NP 10/09/19 8:30 AM CDT Office Visit [facility] Primary Care at [address] [place] [address] Sherrie Martell NP Preoperative clearance (Primary Dx); [...] (BMI) of 40.0 to 44.9 in adult ([facility]) 10/07/19 Results Follow-Up [facility] Primary Care at [address] [address] Sherrie Martell NP 10/03/19 9:15 AM [facility] Lab [address] Annual physical exam; Hypertension associated with type 2 diabetes mellitus (HCC); Type 2 diabetes mellitus without complication, without long-term current use of insulin (HCC); Hyperlipidemia due to type 2 diabetes mellitus ([facility]); Class 3 severe obesity due to excess calories with serious comorbidity and body mass index (BMI) of 40.0 to 44.9 in adult ([facility]); Screening for thyroid disorder 10/02/19 Orders Only [facility] Medical Group Primary Care at [address] [place] [address] Sherrie Martell NP Gastroesophageal reflux disease without esophagitis 10/01/19 Telephone [facility] Primary Care at [address] [address] Sherrie Martell NP 09/30/19 Telephone [facility] Gastroenterology at [address] [place] [address] Jodi Gomez EGD Reschedule 09/30/19 Orders Only [facility] Primary Care at [address] [address] Sherrie Martell NP Gastroesophageal reflux disease without esophagitis 09/30/19 Telephone [facility] Primary Care at [address] [address] Sherrie Martell NP Medications Prior Authorization (Multiple medication PA's ); Medical Question/Miscellaneous 09/30/19 Telephone [facility] Primary Care at [address] [address] Sherrie Martell NP Prior Auth (Pantoprazole 40 mg) 09/23/19 25 Telephone [facility] Orthopedics and Sports Medicine [address] [facility] [address] [place] [address] Frantz Alejandra MD 09/09/19 25 [facility] [address] [address] Janeth Valdovinos MA 09/08/19 25 [facility] [address] [address] Janeth Valdvoinos MA 09/08/19 25 2:30 PM [facility] Office Visit [facility] Primary Care at [address] [address] Sherrie Martell NP Annual physical exam (Primary Dx); Open nondisplaced fracture of distal phalanx of right great toe with routine healing, subsequent encounter; Fall, subsequent encounter; Hypertension associated with type 2 diabetes mellitus ([facility]); Type 2 diabetes mellitus without complication, without long-term current use of insulin ([facility]); Hyperlipidemia due to type 2 diabetes mellitus ([facility]); Screening for thyroid disorder; Class 3 severe obesity due to excess calories with serious comorbidity and body mass index (BMI) of 40.0 to 44.9 in adult ([facility]) 09/05/19 25 1:05 PM [facility] - 09/05/19 25 4:42 PM [facility] Emergency [facility] Emergency Department [address] [place] [address] Fall, initial encounter (Primary Dx); Open nondisplaced fracture of distal phalanx of right great toe, initial encounter Discharge Disposition: Discharge to home or self care 09/05/19 25 Nurse Triage [facility] Primary Care at [address] [place] [address] Sherrie Martell NP 09/01/19 25 Telephone [facility] Primary Care at [address] [place] [address] Sherrie Martell NP 08/29/19 25 Orders Only [facility] Primary Care at [address] [place] [address] Sherrie Martell NP Type 2 diabetes mellitus without complication, without long-term current use of insulin (HCC) (Primary Dx); Class 3 severe obesity due to excess calories with serious comorbidity and body mass index (BMI) of 40.0 to 44.9 in adult (HCC); Yeast infection 08/29/19 12:30 PM [facility] - 08/29/19 11:59 PM [facility] Hospital Encounter [facility] Imaging and Radiology [id number] [place], [place] [id number] Screening mammogram for breast cancer Discharge Disposition: Discharge to home or self care 08/28/19 Telephone [facility] Group Primary Care at [address] [place] [address] Sherrie Martell NP Med Refill 08/28/19 Telephone [facility] Primary Care at [address] [place] [address] Sherrie Martell NP Symptom Based Call 08/27/19 Telephone [facility] Orthopedics and Sports Medicine [address] [facility] [address] [place] [address] Dalila Traylor SC 08/27/19 9:00 AM [facility] Office Visit [facility] Orthopedic and Sports Medicine [address] [place] [phone] Nakul Gutierrez PA Post-traumatic osteoarthritis of left knee (Primary Dx); Instability of left knee joint; Right elbow pain 08/25/19 Nurse Triage [facility] Medical Group Primary Care at [address] [place] [address] Татьяна Larkin, TAM 08/25/19 Orders Only [facility] Medical [facility] Primary Care at [address] [place] [address] Sherrie Martell NP Dysuria (Primary Dx) 08/22/19 Telephone [facility] Medical Group Primary Care at [address] [place] [address] Sherrie Martell NP Test Results 01/23/20 25 12:05 PM [facility] Lab [facility] [address] [place] [address] Dysuria 08/21/19 25 12:03 PM [facility] - 08/21/19 25 11:59 PM [facility] Hospital Encounter [facility] Imaging Center [address] [place] [address] Fall, initial encounter; Right elbow pain Discharge Disposition: Discharge to home or self care 08/19/19 25 Orders Only [facility] Group Orthopedics and Sports Medicine [address] [facility] [address] [place] [address] Nakul Gutierrez PA from Last 3 Months Allergies Active [...] complication, without long-term current use of insulin ([facility]),Class 3 severe obesity due to excess calories with serious comorbidity and body mass index (BMI) of 40.0 to 44.9 in adult ([facility]) Inject 0.5 mL (5 mg total) [...] an evaluation -Discussed/ordered labs -continue on vitamin-D 56769 units weekly Post-traumatic osteoarthritis of left knee [...] Podiatry Assessment & Plan (09/15/2024 12:23 PM [facility]): -acute, not at goal- recent fall -Patient [...] 07/02/2024 Assessment & Plan (07/02/2024 8:49 AM [facility]): -Acute, not at goal -Start on acetaminophen ER 650 mg every 8 hours as needed for pain -Continue celecoxib 100 mg twice daily -Right elbow x-ray ordered today -Follow up in 1 month or sooner as needed Fall 07/02/2024 Assessment & Plan (09/15/2024 12:23 PM [facility]): -not at goal- recent fall with right [...] needed Assessment & Plan (07/02/2024 8:50 AM [facility]): -Patient reports 4 falls in the last month related to her right knee osteoarthritis -Patient's BMI needs to be at or below 40 in ordered to have right knee surgery -Increase to Mounjaro 7.5 mg weekly to assist in weight loss -Follow up in 1 month or sooner as needed Primary osteoarthritis of right knee 07/02/2024 Assessment & Plan (07/02/2024 8:50 AM [facility]): -chronic, not at/near goal -Patient reports 4 [...] 09/14/2023 Assessment & Plan (09/14/2023 4:22 PM [facility]): RUQ pain radiating to flank for the [...] GI Assessment & Plan (09/14/2023 4:17 PM [facility]): Could be from gastroparesis, patient is a [...] GI Assessment & Plan (09/14/2023 4:13 PM [facility]): Noted on CT Chest/A/P 06/2023 with haziness [...] 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 Has been taking [...] Nasal saline spray (Simply saline, Little Remedies, [place], [place]) 2 second sprays or 2 squeezes into [...] counselor Assessment & Plan (09/12/2023 8:57 AM [facility]): -chronic, stable -continue on sertraline 100 mg [...] Please start taking probiotic 20-50billion CFU daily manager long term care. This will help maintain the good bacteria [...] in your mouth on an delfin like LocaMap -Patient did not tolerate Mounjaro 7.5 mg weekly. -Start back on Mounjaro 2.5 mg weekly for 4 weeks, then increase to Mounjaro 5 mg weekly for maintenance dose Assessment & Plan (09/15/2024 12:21 PM [facility]): -chronic, improving, but not at goal goal BMI less than or equal to 40 Healthy, high-protein, lower carbohydrate, lower fat lifestyle and exercise for 150min/week recommended Recommend tracking everything you put in your mouth on an delfin like LocaMap -Patient did not tolerate Mounjaro 7.5 mg weekly. Patient has been off his medication for at least 4 weeks -Start back on Mounjaro 2.5 mg weekly for 4 weeks, then increase to Mounjaro 5 mg weekly for maintenance dose -Follow up in 1 month or sooner as needed Assessment & Plan (08/12/2024 2:10 PM [facility]): This is a chronic condition which continues [...] sessions. Assessment & Plan (08/08/2024 11:09 AM [facility]): -chronic, improving, but not at goal goal BMI less than or equal to 40 Healthy, high-protein, lower carbohydrate, lower fat lifestyle and exercise for 150min/week recommended Recommend tracking everything you put in your mouth on an delfin like LocaMap -Patient did not tolerate Mounjaro 7.5 mg [...] for 30 grams with breakfast) -may try Hello Agent delfin to track food intake -Follow up in 1 month or sooner as needed Assessment & Plan (07/02/2024 8:46 AM [facility]): -chronic, not at/near goal goal BMI <30 Healthy, high-protein, lower carbohydrate, lower fat lifestyle and exercise for 150min/week recommended Recommend tracking everything you put in your mouth on an delfin like LocaMap -Increase to Mounjaro 7.5 mg weekly -Follow [...] cup. Assessment & Plan (06/18/2024 3:16 PM [facility]): Wt Readings from Last 3 Encounters: 06/18/24 [...] in your mouth on an delfin like LocaMap -patient will be starting Mounjaro soon with [...] in your mouth on an delfin like LocaMap Hand Measurements: A fist or cupped hand [...] that there might be a program in [facility] which she could complete quicker. She also wants to check with her insurance. Assessment & Plan (09/12/2023 8:54 AM [facility]): -chronic, not at/near goal goal BMI <30 Healthy, high-protein, lower carbohydrate, lower fat lifestyle and exercise for 150min/week recommended Recommend tracking everything you put in your mouth on an delfin like LocaMap Hand Measurements: A fist or cupped hand [...] cup. Assessment & Plan (08/21/2023 5:14 PM [facility]): This is a chronic condition which continues [...] in your mouth on an delfin like LocaMap Hand Measurements: A fist or cupped hand [...] in your mouth on an delfin like [employer] Hand Measurements: A fist or cupped hand [...] provided. Assessment & Plan (07/09/2022 6:22 PM [facility]): BMI Follow-up includes: exercise counseling. Assessment & Plan (05/22/2022 1:36 PM CDT): BMI Follow-up includes: exercise counseling. Assessment & Plan (03/02/2022 4:45 PM CDT): HPI: Condition is not at/near goal goal BMI <30 A&P: Healthy, high-protein, lower carbohydrate, lower fat lifestyle and exercise for 150min/week recommended Recommend tracking everything you put in your mouth on an delfin like [employer] Lower carb substitutions: Ald[employer] carries a zero [...] in much longer they will become mushy [place] and/or coconut flour instead of regular flour [...] pork rinds For yogurt, try Two Good libyan yogurt Use Pinterest for recipe ideas. Type [...] in your mouth on an delfin like LocaMap or [employer]Vib[employer]ix [employer]i carries a zero net carb bread [...] in much longer they will become mushy [place] and/or coconut flour instead of regular flour [...] pork rinds For yogurt, try Two Good libyan yogurt Use Pinterest for recipe ideas. Type in low carb... Assessment & Plan (10/31/2021 12:34 PM CDT): HPI: Condition is not at/near goal goal BMI <30 On steroids A&P: Healthy, high-protein, lower carbohydrate, lower fat lifestyle and exercise for 150min/week recommended Substitutions: Recommend tracking everything you put in your mouth on an delfin like LocaMap or [place] [employer] carries a zero net carb bread If [...] in much longer they will become mushy [place] and/or coconut flour instead of regular flour [...] pork rinds For yogurt, try Two Good libyan yogurt Use Pinterest for recipe ideas. Type in low carb... Assessment & Plan (05/27/2021 12:57 PM CDT): HPI: Condition is not at/near goal goal BMI <30 A&P: Healthy, high-protein, lower carbohydrate, lower fat lifestyle and exercise for 150min/week recommended Substitutions: Recommend tracking everything you put in your mouth on an delfin like LocaMap or [employer]i carries a zero net carb bread [...] in much longer they will become mushy [place] and/or coconut flour instead of regular flour [...] pork rinds For yogurt, try Two Good libyan yogurt Use [employer] for recipe ideas. Type in low carb... [...] 01/01/2019 Assessment & Plan (08/08/2024 11:11 AM [facility]): -Acute, not at goal -Rapid strep negative [...] nightly Assessment & Plan (09/15/2024 12:22 PM [facility]): -chronic, stable -Discussed/ordered labs -continue on atorvastatin 40 mg nightly Assessment & Plan (08/12/2024 2:09 PM [facility]): This is a chronic condition which is [...] prescribed. Assessment & Plan (09/12/2023 8:57 AM [facility]): -chronic, stable -Discussed/ordered labs -continue on atorvastatin 40 mg nightly Assessment & Plan (08/21/2023 5:13 PM [facility]): This is a chronic condition which is [...] are stable, reviewed previous lipid levels in [facility]. Pharmacotherapy as ordered. Order for lipid panel was given today to be obtained. Pt voiced understanding of lab drawn and continuation of current medication regimen. Assessment & Plan (07/09/2022 6:20 PM [facility]): Lipid abnormalities are stable, reviewed previous lipid levels in [facility]. Pharmacotherapy as ordered. Order for lipid panel [...] are stable, reviewed previous lipid levels in [facility]. Pharmacotherapy as ordered. Order for lipid panel was given today to be obtained. Pt voiced understanding of lab drawn and continuation of current medication regimen. Assessment & Plan (05/13/2020 2:09 PM CDT): Lipid abnormalities are stable, reviewed previous lipid levels in [facility]. Pharmacotherapy as ordered. Order for lipid panel was given today to be obtained. Pt voiced understanding of lab drawn and continuation of current medication regimen. Assessment & Plan (02/18/2019 7:41 PM CDT): Due for repeat labs. Continue atorvastatin 10 mg daily Assessment & Plan (07/03/2018 10:21 AM [facility]): Lipid abnormalities are improving with treatment. Pharmacotherapy [...] Chronic vertigo-worsening Encouraged to follow up with demi chef for updated hearing screening and to discuss [...] or bologna; no MSG as found in amharic food; no more than 1/2 banana a [...] bone loss and vit B12 deficiency with manager long term care use of PPI with pt, would like to remain on medication at this time Assessment & Plan (09/14/2023 4:09 PM [facility]): Takes daily pantoprazole 40 mg with good control of reflux and heartburn EGD 07/2022 with reflux changes without intestinal metaplasia Plan Continue pantoprazole 40 mg daily, take 30 minutes before breakfast Continue antireflux lifestyle modifications Assessment & Plan (09/12/2023 8:55 AM [facility]): -chronic, stable -continue follow up with GI [...] bone loss and vit B12 deficiency with penitentiary use of PPI with pt, would like [...] bone loss and vit B12 deficiency with penitentiary use of PPI with pt, would like [...] bone loss and vit B12 deficiency with manager long term care use of PPI with pt, would like [...] of cdif and vit B12 deficiency with penitentiary use of PPI with pt, would like [...] counselor Assessment & Plan (09/12/2023 8:57 AM [facility]): -chronic, stable -continue on sertraline 100 mg [...] 2 grandchildren while her daughter is in long-term. She has to schedule follow-up with jose [...] medication. Assessment & Plan (08/20/2017 9:53 AM [facility]): Discussed options including increasing prozac vs. trial [...] needed Assessment & Plan (09/12/2023 8:54 AM [facility]): -chronic, stable -Discussed/ordered labs -continue on Advair [...] pulmonology Assessment & Plan (08/12/2021 3:27 PM [facility]): Continue breath treatments Prednisone 40 mg for [...] basis. Assessment & Plan (07/04/2018 4:12 PM [facility]): Asthma is improving with treatment. The patient [...] diet Assessment & Plan (09/15/2024 12:22 PM [facility]): -chronic, stable -Discussed/ordered labs -continue on amlodipine 10 mg daily and losartan 100 mg daily -recommend healthy, low-salt diet Assessment & Plan (08/12/2024 2:08 PM [facility]): This is a chronic condition which is at goal. Goal is less than 140/90 Continue amlodipine, losartan Encouraged to monitor weight and B/P at home. Assessment & Plan (06/18/2024 3:17 PM [facility]): Blood Pressure Management BP Readings from Last [...] prescribed. Assessment & Plan (09/12/2023 8:57 AM [facility]): -chronic, stable -Discussed/ordered labs -continue on amlodipine [...] months. Assessment & Plan (08/20/2017 8:13 AM WEATHER FORCASTER): Not on any antihypertensives. Will continue to [...] dose Assessment & Plan (09/15/2024 12:22 PM WEATHER FORCASTER): -chronic, stable - A1c is still, however [...] needed Assessment & Plan (08/12/2024 2:08 PM WEATHER FORCASTER): This is a chronic condition which is [...] losartan Assessment & Plan (08/08/2024 11:07 AM WEATHER [facility]): -chronic, stable - A1c is still, however [...] needed Assessment & Plan (07/02/2024 8:46 AM WEATHER [facility]): -chronic, stable - A1c is still, however [...] of the bariatric surgery centers in the [facility] for her to call and review [...] losartan Assessment & Plan (09/12/2023 8:58 AM WEATHER [facility]): -chronic, stable -Discussed/ordered labs -continue on aspirin 81 mg daily, atorvastatin 40 mg daily, losartan 100 mg daily -continue seeing Josseline Pitts endocrinology Lab Results Component Value Date HGBA1C 6.9 08/21/2023 Assessment & Plan (08/21/2023 5:12 PM WEATHER FORCASTER): This is a chronic condition which is [...] eye exam. last dilated eye exam was [facility] Monofilament foot exam completed. protective senses [...] No history of macrovascular disease - [place] Assessment & Plan (02/28/2022 7:25 PM CDT): [...] No history of macrovascular disease - [place] Assessment & Plan (11/17/2021 3:58 PM CDT): [...] No history of macrovascular disease - [place] Assessment & Plan (10/31/2021 9:52 AM CDT): [...] No history of macrovascular disease - [place]. Assessment & Plan (05/27/2021 3:14 PM CDT): [...] Please start taking probiotic 20-50billion CFU daily manager long term care. This will help maintain the good bacteria [...] 07/09/202203/2024 Assessment & Plan (07/09/2022 6:22 PM WEATHER FORCASTER): -Recommended: Healthy diet. Avoiding junk food/fast food. -30 minutes of exercise most days of the week. Increase to 45 minutes for weight loss. Immunizations: Up-to-date increase physical activity, continue present plan, call if any problems Follow-up in 6 months. Belching 03/22/2022 11/10/2022 Overview (07/10/2022): Added automatically from request for surgery [id number] Flatulence 03/22/2022 11/10/2022 Overview (07/10/2022): Added automatically from request for surgery [id number] Periumbilical pain 03/22/2022 Overview (07/10/2022): Added automatically from request for surgery [id number] Nausea without vomiting 03/22/202210/28 Overview (07/10/2022): Added automatically from request for surgery [id number] Belching 03/21/2022 04/08/2022 Flatulence 03/21/2022 04/08/2022 Periumbilical [...] She went to see Dr. Talbot at [facility] but in [place] they dont take her insurance. We will also reach out to pulmonology here on campus Dr. Beth horowitz can see pt 01/03/2022. Pt missed appointment with cardiology today as she thought appointment [facility], but it was at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 [facility] ([place]QU[place]INE) Blood 10/02/2024 9:15 AM [facility] 10/02/2024 10:38 AM [facility] Sherrie Martell NP LAB BLOOD ORDERABLES Final R esult [facility]ID [facility] ([place]) 1 [facility] [place] [address] * XR Hip Right 2 or 3 Views W Pelvis (09/05/2024 2:37 PM [facility]) Anatomical Region Laterality Modality Lower Extremities, Hip, Pelvis Right C omputed Radiography 09/05/2024 3:04 PM [facility] Narrative 09/05/2024 3:06 PM [facility] EXAM DESCRIPTION: XR HIP RIGHT 2 OR [...] Bro Han M.D. LB: SHILA Report ID: [id number] Reading Location: [id number] Procedure Note Bro Han MD - 09/05/2024 [...] Bro Han M.D. LB: LB Report ID: [id number] Reading Location: [id number] Luis E Scott PHOTOGRAPHY TEACHER IMG XR PROCEDURES Final Res ult * XR Spine Lumbar 4 or More Views (09/05/2024 2:37 PM [facility]) Anatomical Region Laterality Modality L-spine N/A Computed Radiogr aphy 09/05/2024 2:55 PM [facility] Narrative 09/05/2024 3:00 PM [facility] EXAM DESCRIPTION: XR SPINE LUMBAR 4 OR [...] Bro Han M.D. LB: SHILA Report ID: [id number] Reading Location: [id number] Procedure Note Bro Han MD - 09/05/2024 [...] Bro Han M.D. LB: SHILA Report ID: [id number] Reading Location: [id number] Luis E Scott PHOTOGRAPHY TEACHER IMG XR PROCEDURES Final Res ult * XR Hand Right 3 or More Views (09/05/2024 2:37 PM [facility]) Anatomical Region Laterality Modality Upper Extremities, Hand Right Computed Radiography 09/05/2024 3:00 PM [facility] Narrative 09/05/2024 3:04 PM [facility] EXAM DESCRIPTION: XR HAND RIGHT 3 OR [...] Bro Han M.D. LB: SHILA Report ID: [id number] Reading Location: [id number] Procedure Note Bro Han MD - 09/05/2024 [...] Bro Han M.D. LB: LB Report ID: [id number] Reading Location: [id number] us Luis E Pradojeannette Scott PHOTOGRAPHY TEACHER IMG XR PROCEDURES Final Res ult * XR Elbow Right 2 Views (09/05/2024 2:37 PM [facility]) Anatomical Region Laterality Modality Upper Extremities, Elbow Right Compute d Radiography 09/05/2024 2:54 PM [facility] Narrative 09/05/2024 2:55 PM [facility] EXAM DESCRIPTION: XR ELBOW RIGHT 2 VIEWS [...] Bro Han M.D. LB: LB Report ID: [id number] Reading Location: [id number] Procedure Note Bro Han MD - 09/05/2024 [...] Bro Han M.D. LB: SHILA Report ID: [id number] Reading Location: [id number] us Luis E Scott PHOTOGRAPHY TEACHER IMG XR PROCEDURES Final Res ult * XR Toe Great Right (09/05/2024 10:50 AM [facility]) Anatomical Region Laterality Modality Lower Extremities, Foot, Toes Right Co mputed Radiography 09/05/2024 11:2 3 AM [facility] Narrative 09/05/2024 11:27 AM [facility] EXAM DESCRIPTION: XR TOE GREAT RIGHT MINIMUM [...] Ar Mclain M.D. MJ: PIEDAD Report ID: [id number] Reading Location: [id number] Procedure Note Ar Mclain MD - 09/05/2024 [...] Ar Mclain M.D. MJ: PIEDAD Report ID: [id number] Reading Location: [place] [address] us Frederic Parsons MD IMG XR PROCEDURES F inal Result * Screening Mammogram Bilateral W Bijan (08/29/2024 1:04 PM [facility]) Anatomical Region Laterality Modality Breast Bilateral Mammography 08/29/2024 5:10 PM [facility] Impressions 08/29/2024 5:10 PM [facility] No evidence of malignancy in either breast. FINAL ASSESSMENT: BI-RADS Category 1: Negative. RECOMMENDATION: Recommend return for annual screening mammogram in 12 months. Electronically signed by: Michelle Quigley M.D. Narrative 08/29/2024 5:10 PM [facility] EXAMINATION: BILATERAL SCREENING MAMMOGRAM COMPARISON: Multiple prior [...] 3 or More Views (08/21/2024 12:26 PM [facility]) Anatomical Region Laterality Modality Upper Extremities, Elbow Right Compute d Radiography 08/22/2024 5:25 AM [facility] Narrative 08/22/2024 5:26 AM [facility] EXAM DESCRIPTION: XR ELBOW RIGHT 3 OR [...] Sonia Clemente M.D. SN: SN Report ID: [id number] Reading Location: [id number] Procedure Note Sonia Clemente MD - 08/22/2024 [...] Sonia Clemente M.D. SN: SN Report ID: [id number] Reading Location: [id number] us Sherrie Martell NP IMG XR PROCEDURES Final Resu lt * (ABNORMAL) Urinalysis reflex to microscopic and culture Urine (08/21/2024 12:10 PM [facility]) Color, ur Yellow Yellow Clarity, ur Turbid(A) [...] tendency for uric acid stone formation. Source: [facility] [employer] Current Interpretive Data was last revised on [...] [facility] ([facility]) Urine 08/21/2024 12:1 0 PM [facility] 08/21/2024 1:39 PM [facility] us Sherrie Martell NP LAB MICROBIOLOGY - GENERAL O RDERABLES Final Result [facility] ([place]) 1 [facility] [place] [address] * (ABNORMAL) Urinalysis, microscopic only (08/21/2024 12:10 PM [facility]) WBC, ur 0-5 0 - 5 /HPF RBC, ur 0-2 0 - 2 /HPF [facility] (JACQUELINE) Epithelial cells, squamous, ur 6-10(A) 0 - 5 /HPF [facility] (JACQUELINE) Bacteria, ur 1+(A) [facility] (JACQUELINE) Mucous, ur Present(A) [facility] A (WARNER ROBINS) Culture Reflex Comment Reflex conditions for urine culture (WBC >10) not met. [facility] ([facility] ROBINS) Urine 08/21/2024 12:1 0 PM [facility] 08/21/2024 1:39 PM [facility] us Sherrie Martell PHOTOGRAPHY TEACHER LAB URINE ORDERABLES Final R esult Performing Organization Address [facility]/ZIP Co de Phone Number [facility] (WARNER ROBINS) 1 [facility] [employer] [address] * Albumin Creatinine Ratio, Urine (09/21/2023 9:44 AM [facility]) Albumin Ur <12.0 mg/L [facility] (JACQUELINE) Comment: Interpretive Data No reference range established. Current interpretive data was last revised 2018. Testing performed by: [address] [address] Creatinine Ur 139.1 mg/dL [facility] (JACQUELINE) Comment: Interpretive Data No reference range established. Current interpretive data was last revised 2018. Testing performed by: [facility], [address] [place] [address]., [address] Albumin Creatinine Ratio, Ur <9 1 - 29 mg/g [facility] (JACQUELINE) Comment:Testing performed by : [address] [address] Urine 09/21/2023 9:44 AM [facility] 09/21/2023 3:32 PM [facility] us Josseline Pitts PHOTOGRAPHY TEACHER LAB URINE ORDERABLES Final Resu lt Performing Organization Address City/[facility]/ZIP Co de Phone Number [facility] (WARNER ROBINS) 1 [facility] [employer] [place] [address] * Hepatitis panel, acute Blood (2023 9:05 AM CDT) Hep A IgM Nonreactive Nonreactive Comment: Interpretive Data: If Hep A IgM Ab is reported as Equivocal, a new sample should be drawn in two weeks for testing. Current interpretive data was last revised on 19. Testing performed by: [address] [address] Hep B core IgM Nonreactive Nonreactive C MANASA JOHNS (JACQUELINE) Comment: Interpretive Data If HepB Core IgM Ab is reported as Equivocal, a new sample should be drawn in two weeks for testing. Current interpretive data was last revised on 19. Testing performed by: [address] [address] Hep C Ab Nonreactive Nonreactive DAVID JOHNS [...] last revised on 2019. Testing performed by: [address] [address] HepBsAg Nonreactive Nonreactive DAVID JOHNS (JACQUELINE) Comment:Testing performed by : [address] [address] Blood 2023 9:05 AM CDT 2023 3:11 PM CDT Narrative DAVID JOHNS (JACQUELINE) - 2023 3:55 PM CDT fax results to 2023 08:18:31 CDT us Mark Trujillo MD LAB MICROBIOLOGY - GENERAL ORDERABLES Final Result DAVID JOHNS ([address] Department [place] [address] * COLONOSCOPY (08/16/2022 10:26 AM [facility]) Anatomical Region Laterality Modality Other Narrative Procedure Note Billy Nolan MD - 08/16/2022 10:26 AM CST [facility] Patient Name: Marlee Pickard Procedure Date: 08/16/2022 10:26 AM Date of : 1970 Admit Type: Outpatient Age: 52 Gender: Female Attending MD: Billy Nolan M.D. Room: [facility] 1 Note Status: Finalized [...] under direct vision. The Pediatric Colonoscope [id number]-[id number] was introducedthrough the anus and advanced to [...] 10:26 AM Procedure Code(s): --- Professional --- 87003, Colonoscopy, flexible; diagnostic, including collection of specimen(s) by brushing or washing, when performed (separateprocedure) Diagnosis Code(s): --- Professional --- Z12.11, Encounter for screening for malignant neoplasm of colon K64.8, Other hemorrhoids CPT copyright 2020 [employer]. All rights reserved. The codes documented in this report are preliminary and upon board certified arts therapist reviewmay be revised to meet current compliance requirements. Recognized by the [employer] for promoting quality in endoscopy Billy Nolan MD ENDOSCOPY PROCEDURES Final Result * Diabetic Eye Exam (11/03/2021) Historical Provider HEALTH MAINTENANCE Final Result from Last 3 Months or Most Recently Relevant to Health Maintenance Insurance [place] [address] [id number] [employer] HMO IDPA [facility] WORKERS COMPENSATION [facility] IDKY [facility] IDKY [facility] Advance Directives For more information, please contact: [phone] * Full Code (Latest Code Status on [...] 10:19 AM 08/16/2022 10:19 AM Care Teams Cable Installation Technician Relationship Specialty Start Date End Date Sherrie Martell NP [address] [facility] [address] [place] [address] PCP - General Family Medicine 12/08/22 [place] [address] [address] [facility] [address] [place] [address] Consulting Physician Pulmonary Disease 10/25/21 [place] [address] [facility] [address] [place] [address] Consulting Physician Psychiatry 10/25/21 Josseline Pitts, PHOTOGRAPHY TEACHER [address] [facility] [address] [place] [address] Nurse Practitioner Endocrinology Diabetes & Metabolism 03/20/24 Shaquille Campos MD [address] [facility] [address] [place] [address] Consulting Physician Pulmonary Disease 03/20/24 Nakul Gutierrez PA [address] [facility] [address] [place] [address] Physician Doughnut Fryer Orthopedic Surgery 06/18/24 Don Sinha NP [address] [facility] [address] [place] [address] Nurse Practitioner Gastroenterology 06/18/24 Saurav Varma MD 1 [facility] 3 [place] [address] Referring Physician Neurology 06/18/24
--- OUTSIDE RECORDS SUMMARY | 2024-11-15 01:23 | XMS_ITS | Encounter Summary ---
Author Organization [facility] Healthcare Address [address] [place] [address] Care Team Providers Care Broadcast Engineer Name Role Phone Ar Talbot MD Unavailable [phone] Tavo Juan MD Unavailable Sherrie Martell GRIDDLE COOK Primary Care Provider Josseline Pitts NP Unavailable [phone] Shaquille Campos MD Unavailable Nakul Gutierrez Unavailable Don Sinha GRIDDLE COOK Unavailable [phone] Saurav Varma MD Unavailable [phone] Janeth Valdovinos MA Unavailable Encounter Details Date Type Department Care Team (Late st Contact Info) Description 12/18/2023 Telephone [facility] Medical Group Orthopedics and Sports Medicine [address] [place] [address] [address] [place] [address] Chuyita Ventura PA [address] [place] [address] [address] [place] [address] Social History Tobacco Use Types [...] place to sleep or slept in a mcfp (including now)? No 10/20/2021 Personal Safety Answer Date Recorded Have you ever been in or are you currently in a harmful physical or emotional relationship or is someone making you feel afraid or unsafe? Denies 07/02/2023 Comments No Sex and Gender Information Value Date Recorded Sex Assigned at Not on file Legal Sex Female 12:37 AM HUMAN RESOURCES COMMUNICATIONS MANAGER Gender Identity Not on file Sexual Orientation [...] COVID: Suspected 07/07/2024 07/07/2024 07/07/2024 10:04 PM HUMAN RESOURCES COMMUNICATIONS MANAGER COVID: Suspected 08/01/2024 08/01/2024 08/01/2024 7:27 PM HUMAN RESOURCES COMMUNICATIONS MANAGER documented as of this encounter Care Teams Broadcast Engineer Relationship Specialty Start Date End Date Sherrie Martell NP [address] [facility] [address] [place] [address] PCP - General Family Medicine 12/08/22 [place] [address] [address] Consulting Physician Pulmonary Disease 10/25/21 [place] [address] [facility] [address] VA[address] [place] [address] Consulting Physician Psychiatry 10/25/21 Josseline Pitts NP [address] [place] [address] [address] [place] [address] Nurse Practitioner Endocrinology Diabetes & Metabolism 03/20/24 Shaquille Campos MD [address] [place] [address] [address] [place] [address] Consulting Physician Pulmonary Disease 03/20/24 Nakul Gutierrez PA [address] [place] [address] [address] [place] [address] Physician Slp Teacher Orthopedic Surgery 06/18/24 Don Sinha NP [address] [facility] [address] [place] [address] Nurse Practitioner Gastroenterology 06/18/24 Saurav Varma MD 1 [facility] 3 [place] [address] Referring Physician Neurology 06/18/24 Janeth Valdovinos MA [address] [place] [address] [address] [place] [address] [facility] Gastroenterology Physician 09/08/24 09/08/24 documented as of this encounter
--- OUTSIDE RECORDS SUMMARY | 2024-11-15 01:23 | XMS_ITS | Encounter Summary ---
Author Organization [facility] Healthcare Address [address] [place] [address] Care Team Providers Care Cook Vegetable Name Role Phone Ar Talbot MD Unavailable [phone] Tavo Juan MD Unavailable [phone] Sherrie Martell RESEARCH ENGINEER Primary Care Provider [phone] Josseline Pitts NP Unavailable [phone] Shaquille Campos MD Unavailable Nakul Gutierrez Unavailable [phone] Don Sinha RESEARCH ENGINEER Unavailable [phone] Saurav Varma MD Unavailable [phone] Encounter Details Date Type Department Care Team (Late st Contact Info) Description 10/06/2024 Results Follow-Up [facility] Medical Group Primary Care at [address] [place] [address] Sherrie Martell, DILIP [address] [place] [address] [address] [place] [address] Social History Tobacco Use Types [...] place to sleep or slept in a intermediate (including now)? No 10/20/2021 Personal Safety Answer Date Recorded Have you ever been in or are you currently in a harmful physical or emotional relationship or is someone making you feel afraid or unsafe? Denies 10/09/2024 Comments No Sex and Gender Information Value Date Recorded Sex Assigned at Not on file Legal Sex Female 12:37 AM TRIAGE SPECIALIST Gender Identity Not on file Sexual Orientation [...] on filedocumented in this encounter Care Teams Cook Vegetable Relationship Specialty Start Date End Date Sherrie Martell NP [address] [facility] [address] [place] [address] PCP - General Family Medicine 12/08/22 [place] [address] [facility] [address] [place] [address] Consulting Physician Pulmonary Disease 10/25/21 [place] [address] [facility] [address] [place] [address] Consulting Physician Psychiatry 10/25/21 Josseline Pitts, DILIP [address] [facility] [address] [place] [address] Nurse Practitioner Endocrinology Diabetes & Metabolism 03/20/24 Shaquille Campos MD [address] [facility] [address] [place] [address] Consulting Physician Pulmonary Disease 03/20/24 Nakul Gutierrez PA [address] [facility] [address] [place] [address] Physician Continuous Improvement Consultant Orthopedic Surgery 06/18/24 Don Sinha NP [address] [facility] [address] [place] [address] Nurse Practitioner Gastroenterology 06/18/24 Saurav Varma MD 1 [facility] 3 [place] [address] Referring Physician Neurology 06/18/24 documented as of this encounter
--- OUTSIDE RECORDS SUMMARY | 2024-11-15 01:23 | XMS_ITS | Clinical Summary ---
Author Organization [facility] Healthcare Address [address] [place] [address] Care Team Providers Care Acid Adjuster Name Role Phone Ar Tlabot MD Unavailable [phone] Tavo Juan MD Unavailable [phone] Sherrie Martell SPOILAGE WORKER Primary Care Provider Josseline Pitts NP Unavailable [phone] Shaquille Campos MD Unavailable Nakul Gutierrez Unavailable [phone] Don Sinha SPOILAGE WORKER Unavailable [phone] Saurav Varma MD Unavailable [phone] Allergies Active Allergy Reactions Criticality Noted Date [...] an evaluation -Discussed/ordered labs -continue on vitamin-D 89953 units weekly Post-traumatic osteoarthritis of left knee [...] Podiatry Assessment & Plan (09/15/2024 12:23 PM MARKETING TECHNOLOGY COORDINATOR): -acute, not at goal- recent fall -Patient [...] 07/02/2024 Assessment & Plan (07/02/2024 8:49 AM MARKETING TECHNOLOGY COORDINATOR): -Acute, not at goal -Start on acetaminophen ER 650 mg every 8 hours as needed for pain -Continue celecoxib 100 mg twice daily -Right elbow x-ray ordered today -Follow up in 1 month or sooner as needed Fall 07/02/2024 Assessment & Plan (09/15/2024 12:23 PM MARKETING TECHNOLOGY COORDINATOR): -not at goal- recent fall with right [...] needed Assessment & Plan (07/02/2024 8:50 AM MARKETING TECHNOLOGY COORDINATOR): -Patient reports 4 falls in the last month related to her right knee osteoarthritis -Patient's BMI needs to be at or below 40 in ordered to have right knee surgery -Increase to Mounjaro 7.5 mg weekly to assist in weight loss -Follow up in 1 month or sooner as needed Primary osteoarthritis of right knee 07/02/2024 Assessment & Plan (07/02/2024 8:50 AM MARKETING TECHNOLOGY COORDINATOR): -chronic, not at/near goal -Patient reports 4 [...] 09/14/2023 Assessment & Plan (09/14/2023 4:22 PM MARKETING TECHNOLOGY COORDINATOR): RUQ pain radiating to flank for the [...] GI Assessment & Plan (09/14/2023 4:17 PM MARKETING TECHNOLOGY COORDINATOR): Could be from gastroparesis, patient is a [...] GI Assessment & Plan (09/14/2023 4:13 PM MARKETING TECHNOLOGY COORDINATOR): Noted on CT Chest/A/P 06/2023 with haziness [...] Encouraged to go to her pharmacy and pickle maker her current Rx for cyclobenzaprine 5 mg tid prn and to start taking to help with TMD possibly related to shoulder tension and teeth grinding Irritable bowel syndrome wit h both constipation and diarrhea 03/21/2022 Assessment & Plan (01/02/2024 9:55 AM CDT): -chronic, stable -Discussed/ordered labs -continue on MiraLax daily as needed -continue follow up with GI Assessment & Plan (09/14/2023 4:11 PM MARKETING TECHNOLOGY COORDINATOR): Currently having more constipation. Has been taking [...] Nasal saline spray (Simply saline, [employer] Remedies, [place], [place]) 2 second sprays or 2 squeezes into [...] counselor Assessment & Plan (09/12/2023 8:57 AM MARKETING TECHNOLOGY COORDINATOR): -chronic, stable -continue on sertraline 100 mg [...] Please start taking probiotic 20-50billion CFU daily correction. This will help maintain the good bacteria [...] in your mouth on an delfin like myLINGO -Patient did not tolerate Mounjaro 7.5 mg weekly. -Start back on Mounjaro 2.5 mg weekly for 4 weeks, then increase to Mounjaro 5 mg weekly for maintenance dose Assessment & Plan (09/15/2024 12:21 PM MARKETING TECHNOLOGY COORDINATOR): -chronic, improving, but not at goal goal BMI less than or equal to 40 Healthy, high-protein, lower carbohydrate, lower fat lifestyle and exercise for 150min/week recommended Recommend tracking everything you put in your mouth on an delfin like myLINGO -Patient did not tolerate Mounjaro 7.5 mg weekly. Patient has been off his medication for at least 4 weeks -Start back on Mounjaro 2.5 mg weekly for 4 weeks, then increase to Mounjaro 5 mg weekly for maintenance dose -Follow up in 1 month or sooner as needed Assessment & Plan (08/12/2024 2:10 PM MARKETING TECHNOLOGY COORDINATOR): This is a chronic condition which continues [...] sessions. Assessment & Plan (08/08/2024 11:09 AM MARKETING TECHNOLOGY COORDINATOR): -chronic, improving, but not at goal goal BMI less than or equal to 40 Healthy, high-protein, lower carbohydrate, lower fat lifestyle and exercise for 150min/week recommended Recommend tracking everything you put in your mouth on an delfin like myLINGO -Patient did not tolerate Mounjaro 7.5 mg [...] for 30 grams with breakfast) -may try Sumomi delfin to track food intake -Follow up in 1 month or sooner as needed Assessment & Plan (07/02/2024 8:46 AM MARKETING TECHNOLOGY COORDINATOR): -chronic, not at/near goal goal BMI <30 Healthy, high-protein, lower carbohydrate, lower fat lifestyle and exercise for 150min/week recommended Recommend tracking everything you put in your mouth on an delfin like myLINGO -Increase to Mounjaro 7.5 mg weekly -Follow [...] cup. Assessment & Plan (06/18/2024 3:16 PM MARKETING TECHNOLOGY COORDINATOR): Wt Readings from Last 3 Encounters: 06/18/24 [...] in your mouth on an delfin like myLINGO -patient will be starting [employer] soon with [...] in your mouth on an delfin like myLINGO Hand Measurements: A fist or cupped hand [...] that there might be a program in [facility] which she could complete quicker. She also wants to check with her insurance. Assessment & Plan (09/12/2023 8:54 AM MARKETING TECHNOLOGY COORDINATOR): -chronic, not at/near goal goal BMI <30 Healthy, high-protein, lower carbohydrate, lower fat lifestyle and exercise for 150min/week recommended Recommend tracking everything you put in your mouth on an delfin like myLINGO Hand Measurements: A fist or cupped hand [...] cup. Assessment & Plan (08/21/2023 5:14 PM MARKETING TECHNOLOGY COORDINATOR): This is a chronic condition which continues [...] in your mouth on an delfin like myLINGO Hand Measurements: A fist or cupped hand [...] in your mouth on an delfin like myLINGO Hand Measurements: A fist or cupped hand [...] provided. Assessment & Plan (07/09/2022 6:22 PM MARKETING TECHNOLOGY COORDINATOR): BMI Follow-up includes: exercise counseling. Assessment & Plan (05/22/2022 1:36 PM CDT): BMI Follow-up includes: exercise counseling. Assessment & Plan (03/02/2022 4:45 PM CDT): HPI: Condition is not at/near goal goal BMI <30 A&P: Healthy, high-protein, lower carbohydrate, lower fat lifestyle and exercise for 150min/week recommended Recommend tracking everything you put in your mouth on an delfin like myLINGO Lower carb substitutions: [employer] carries a zero [...] in much longer they will become mushy [place] and/or coconut flour instead of regular flour [...] pork rinds For yogurt, try Two Good dominican yogurt Use [employer] for recipe ideas. Type [...] in your mouth on an delfin like myLINGO or [employer] carries a zero net carb bread [...] in much longer they will become mushy [place] and/or coconut flour instead of regular flour [...] pork rinds For yogurt, try Two Good dominican yogurt Use Pinterest for recipe ideas. Type in low carb... Assessment & Plan (10/31/2021 12:34 PM CDT): HPI: Condition is not at/near goal goal BMI <30 On steroids A&P: Healthy, high-protein, lower carbohydrate, lower fat lifestyle and exercise for 150min/week recommended Substitutions: Recommend tracking everything you put in your mouth on an delfin like myLINGO or [employer] carries a zero net carb bread [...] in much longer they will become mushy [place] and/or coconut flour instead of regular flour [...] pork rinds For yogurt, try Two Good dominican yogurt Use Pinterest for recipe ideas. Type in low carb... Assessment & Plan (05/27/2021 12:57 PM CDT): HPI: Condition is not at/near goal goal BMI <30 A&P: Healthy, high-protein, lower carbohydrate, lower fat lifestyle and exercise for 150min/week recommended Substitutions: Recommend tracking everything you put in your mouth on an delfin like myLINGO or [employer] carries a zero net carb bread If [...] in much longer they will become mushy [place] and/or coconut flour instead of regular flour [...] pork rinds For yogurt, try Two Good dominican yogurt Use Pinterest for recipe ideas. Type [...] 01/01/2019 Assessment & Plan (08/08/2024 11:11 AM MARKETING TECHNOLOGY COORDINATOR): -Acute, not at goal -Rapid strep negative [...] nightly Assessment & Plan (09/15/2024 12:22 PM MARKETING TECHNOLOGY COORDINATOR): -chronic, stable -Discussed/ordered labs -continue on atorvastatin 40 mg nightly Assessment & Plan (08/12/2024 2:09 PM MARKETING TECHNOLOGY COORDINATOR): This is a chronic condition which is [...] prescribed. Assessment & Plan (09/12/2023 8:57 AM MARKETING TECHNOLOGY COORDINATOR): -chronic, stable -Discussed/ordered labs -continue on atorvastatin 40 mg nightly Assessment & Plan (08/21/2023 5:13 PM MARKETING TECHNOLOGY COORDINATOR): This is a chronic condition which is [...] regimen. Assessment & Plan (07/09/2022 6:20 PM MARKETING TECHNOLOGY COORDINATOR): Lipid abnormalities are stable, reviewed previous lipid levels in [facility]. Pharmacotherapy as ordered. Order for lipid [...] are stable, reviewed previous lipid levels in [facility]. Pharmacotherapy as ordered. Order for lipid panel was given today to be obtained. Pt voiced understanding of lab drawn and continuation of current medication regimen. Assessment & Plan (05/13/2020 2:09 PM CDT): Lipid abnormalities are stable, reviewed previous lipid levels in [facility]. Pharmacotherapy as ordered. Order for lipid panel was given today to be obtained. Pt voiced understanding of lab drawn and continuation of current medication regimen. Assessment & Plan (02/18/2019 7:41 PM CDT): Due for repeat labs. Continue atorvastatin 10 mg daily Assessment & Plan (07/03/2018 10:21 AM MARKETING TECHNOLOGY COORDINATOR): Lipid abnormalities are improving with treatment. Pharmacotherapy [...] Chronic vertigo-worsening Encouraged to follow up with pharmacy grad intern for updated hearing screening and to discuss [...] or bologna; no MSG as found in [place] citizen food; no more than 1/2 banana a [...] bone loss and vit B12 deficiency with correction use of PPI with pt, would like to remain on medication at this time Assessment & Plan (09/14/2023 4:09 PM MARKETING TECHNOLOGY COORDINATOR): Takes daily pantoprazole 40 mg with good control of reflux and heartburn EGD 07/2022 with reflux changes without intestinal metaplasia Plan Continue pantoprazole 40 mg daily, take 30 minutes before breakfast Continue antireflux lifestyle modifications Assessment & Plan (09/12/2023 8:55 AM MARKETING TECHNOLOGY COORDINATOR): -chronic, stable -continue follow up with GI [...] bone loss and vit B12 deficiency with long term care administrator use of PPI with pt, would like [...] bone loss and vit B12 deficiency with long term care administrator use of PPI with pt, would like [...] bone loss and vit B12 deficiency with long term care administrator use of PPI with pt, would like [...] of cdif and vit B12 deficiency with correction use of PPI with pt, would like [...] counselor Assessment & Plan (09/12/2023 8:57 AM MARKETING TECHNOLOGY COORDINATOR): -chronic, stable -continue on sertraline 100 mg [...] 2 grandchildren while her daughter is in senior living. She has to schedule follow-up with jose [...] medication. Assessment & Plan (08/20/2017 9:53 AM MARKETING TECHNOLOGY COORDINATOR): Discussed options including increasing prozac vs. trial [...] needed Assessment & Plan (09/12/2023 8:54 AM MARKETING TECHNOLOGY COORDINATOR): -chronic, stable -Discussed/ordered labs -continue on Advair [...] pulmonology Assessment & Plan (08/12/2021 3:27 PM MARKETING TECHNOLOGY COORDINATOR): Continue breath treatments Prednisone 40 mg for [...] basis. Assessment & Plan (07/04/2018 4:12 PM MARKETING TECHNOLOGY COORDINATOR): Asthma is improving with treatment. The patient [...] diet Assessment & Plan (09/15/2024 12:22 PM MARKETING TECHNOLOGY COORDINATOR): -chronic, stable -Discussed/ordered labs -continue on amlodipine 10 mg daily and losartan 100 mg daily -recommend healthy, low-salt diet Assessment & Plan (08/12/2024 2:08 PM MARKETING TECHNOLOGY COORDINATOR): This is a chronic condition which is at goal. Goal is less than 140/90 Continue amlodipine, losartan Encouraged to monitor weight and B/P at home. Assessment & Plan (06/18/2024 3:17 PM MARKETING TECHNOLOGY COORDINATOR): Blood Pressure Management BP Readings from Last [...] prescribed. Assessment & Plan (09/12/2023 8:57 AM MARKETING TECHNOLOGY COORDINATOR): -chronic, stable -Discussed/ordered labs -continue on amlodipine [...] months. Assessment & Plan (08/20/2017 8:13 AM MARKETING TECHNOLOGY COORDINATOR): Not on any antihypertensives. Will continue to [...] dose Assessment & Plan (09/15/2024 12:22 PM MARKETING TECHNOLOGY COORDINATOR): -chronic, stable - A1c is still, however [...] needed Assessment & Plan (08/12/2024 2:08 PM MARKETING TECHNOLOGY COORDINATOR): This is a chronic condition which is [...] losartan Assessment & Plan (08/08/2024 11:07 AM MARKETING TECHNOLOGY COORDINATOR): -chronic, stable - A1c is still, however [...] needed Assessment & Plan (07/02/2024 8:46 AM MARKETING TECHNOLOGY COORDINATOR): -chronic, stable - A1c is still, however [...] of the bariatric surgery centers in the [place] area for her to call and review [...] losartan Assessment & Plan (09/12/2023 8:58 AM MARKETING TECHNOLOGY COORDINATOR): -chronic, stable -Discussed/ordered labs -continue on aspirin 81 mg daily, atorvastatin 40 mg daily, losartan 100 mg daily -continue seeing Josseline Pitts endocrinology Lab Results Component Value Date HGBA1C 6.9 08/21/2023 Assessment & Plan (08/21/2023 5:12 PM MARKETING TECHNOLOGY COORDINATOR): This is a chronic condition which is [...] eye exam. last dilated eye exam was [facility] Monofilament foot exam completed. protective senses [...] No history of macrovascular disease - [place], [place]. Assessment & Plan (02/28/2022 7:25 PM CDT): [...] No history of macrovascular disease - [place], [place]. Assessment & Plan (11/17/2021 3:58 PM CDT): [...] No history of macrovascular disease - [place], [place]. Assessment & Plan (10/31/2021 9:52 AM CDT): [...] No history of macrovascular disease - [place], [place]. Assessment & Plan (05/27/2021 3:14 PM CDT): [...] Please start taking probiotic 20-50billion CFU daily long term care administrator. This will help maintain the good bacteria [...] 07/09/202203/2024 Assessment & Plan (07/09/2022 6:22 PM MARKETING TECHNOLOGY COORDINATOR): -Recommended: Healthy diet. Avoiding junk food/fast food. -30 minutes of exercise most days of the week. Increase to 45 minutes for weight loss. Immunizations: Up-to-date increase physical activity, continue present plan, call if any problems Follow-up in 6 months. Belching 03/22/2022 11/10/2022 Overview (07/10/2022): Added automatically from request for surgery [id number] Flatulence 03/22/2022 11/10/2022 Overview (07/10/2022): Added automatically from request for surgery [id number] Periumbilical pain 03/22/2022 Overview (07/10/2022): Added automatically from request for surgery [id number] Nausea without vomiting 03/22/2022 0410/2022 Overview (07/10/2022): Added automatically from request for surgery [id number] Belching 03/21/2022 04/08/2022 Flatulence 03/21/2022 04/08/2022 Periumbilical [...] She went to see Dr. Talbot at [facility] but in [place] they dont take her insurance. We will also reach out to pulmonology here on campus Dr. Beth horowitz can see pt 01/03/2022. Pt missed appointment with cardiology today as she thought appointment was at [facility] office, but it was at [facility]. Pt has reschedule appointment next with with [...] in sooner with Dr. Roy (pulmonology) in [place] Exacerbation of asthma 10/19/202110/31 Long COVID 08/12/2021 09/12/2023 Assessment & Plan (04/08/2022 2:21 PM CDT): She is transferring care back to de as her PCP is leaving this practice. [...] She went to see Dr. Talbot at [facility] but in [place] they dont take her insurance. We will also reach out to pulmonology here on campus Dr. Beth horowitz can see pt 01/03/2022. Pt missed appointment with cardiology today as she thought appointment was at [facility] office, but it was at [facility]. Pt has reschedule appointment next with with [...] in sooner with Dr. Roy (pulmonology) in [place], [place] Assessment & Plan (08/12/2021 3:28 PM MARKETING TECHNOLOGY COORDINATOR): Continue breath treatments Prednisone 40 mg for [...] concerns Assessment & Plan (08/04/2019 3:02 PM MARKETING TECHNOLOGY COORDINATOR): Will treat with augmentin, cheritussin, prednisone. Continue [...] We have stressed that she calls her optometrist today so that they can work thisUp. [...] daily at bedtime Continue to work with [employer] for Benign Positional Vertigo Referred otalgia of [...] daily at bedtime Continue to work with [employer] for Benign Positional Vertigo Assessment & Plan [...] greens, fat-free milk, cottage cheese, nuts like diiohxi-gaowmka-wojvibr, protein bars with 10-15 g of protein [...] better Assessment & Plan (10/03/2018 10:30 AM MARKETING TECHNOLOGY COORDINATOR): Due to length of cough and hx [...] assistance. Assessment & Plan (07/03/2018 10:38 AM MARKETING TECHNOLOGY COORDINATOR): Currently unemployed. No income. Has custody of [...] 02/17/2019 Assessment & Plan (08/15/2017 3:51 PM MARKETING TECHNOLOGY COORDINATOR): Labs as ordered Pain of right thumb 06/29/2017 08/20/19 18 Assessment & Plan (06/29/2017 12:00 PM MARKETING TECHNOLOGY COORDINATOR): I recommend we proceed with x-ray imaging. Patient is in agreement. Further direction pending these results. She was given tramadol p.r.n. pain as she notes she had a few left over from prior surgery and this has been effective. Viral URI with cough 06/29/2017 018 Assessment & Plan (06/29/2017 12:11 PM MARKETING TECHNOLOGY COORDINATOR): Rapid influenza negative for influenza a and [...] 08/15/2017 Assessment & Plan (06/29/2017 12:16 PM MARKETING TECHNOLOGY COORDINATOR): After obtaining patient's consent annual influenza vaccine was provided in office today. Hand dermatitis 06/12/2017 04/03/2018 Assessment & Plan (06/12/2017 2:54 PM MARKETING TECHNOLOGY COORDINATOR): Refill provided on topical Lotrisone and Bactroban. She will continue as previously recommended by Dermatology. With any change in, worsening, or non improvement in condition patient was encouraged to return to pet care assistant for follow-up. Pain of hand 06/14/2016 04/03/2018 [...] prn Assessment & Plan (08/20/2017 9:51 AM MARKETING TECHNOLOGY COORDINATOR): Continue clonazepam twice daily. Allergic rhinitis 05/01/2014 [...] 11/13/19 25 2:45 PM CDT Office Visit [facility] Orthopedic and Sports Medicine [address] [place] [phone] Nakul Gutierrez PA Aftercare following left knee joint replacement surgery (Primary Dx) 11/11/19 25 Nurse Triage [facility] Primary Care at [address] [place] [address] Sherrie Martell NP 11/08/19 25 Orders Only [facility] Orthopedics and Sports Medicine [address] [facility] [address] [place] [address] Nakul Gutierrez PA 11/04/19 25 Telephone [facility] Primary Care at [address] [place] [phone] Sherrie Martell NP Paperwork 10/30/19 25 Telephone [facility] [address] [place] [phone] Nakul Gutierrez PA 10/30/19 25 Telephone [facility] Medical [facility] Orthopedics and Sports Medicine [address] [facility] [address] [place] [address] Frantz Alejandra MD 10/30/19 25 Telephone [facility] Orthopedic and Sports Medicine [address] [place] [address] Frantz Alejandra MD 10/28/19 25 Telephone [facility] Primary Care at [place] [address] [facility] [address] [place] [phone] Sherrie Martell NP Medical Question/Miscellaneous 10/28/19 25 Orders Only [facility] Medical [facility] Orthopedics and Sports Medicine [address] [place] [address] [address] [place] [address] Shilpa Madera PA 10/28/19 25 Telephone [facility]oped[facility] and [facility] Medicine [address] [place] [address] [address] [place] [address] Frantz Alejandra MD 10/26/19 25 Orders Only [facility] and [facility] Medicine [address] [place] [address] [address] [place] [address] Shilpa Madera PA 10/24/19 25 1:00 PM CDT - 10/24/19 25 3:30 PM CDT Surgery [facility] [address] [place] [address] Frantz Alejandra MD Left robotic total knee arthroplasty 10/24/19 25 12:37 PM CDT Anesthesia Event [facility] [address] [place] [address] Candie Reddy MD Reynolds, Mayur Jiménez MD 10/24/19 25 10:08 AM CDT - 10/26/19 25 10:23 AM CDT Hospital Encounter [facility] [address] [place] [address] Frantz Alejandra MD S/P total knee arthroplasty, left (Primary Dx); Post-traumatic osteoarthritis of left knee Discharge Disposition: Discharge to home, home health skilled care 10/22/19 Telephone [facility] Primary Care at [address] [place] [address] Sherrie Martell NP 10/18/19 3:40 PM CDT Lab [address] [address] Pre-op testing 10/18/19 3:39 PM CDT - 10/18/19 11:59 PM CDT Hospital Encounter [facility] [address] [place] [address] Pre-op testing Discharge Disposition: Discharge to home or self care 10/18/19 3:39 PM CDT - 10/18/19 11:59 PM CDT Hospital Encounter [facility] [address] [place] [address] Pre-op testing Discharge Disposition: Discharge to home or self care 10/18/19 Telephone [facility] Primary Care at [address] [place] [address] Sherrie Martell NP 10/16/19 Results Follow-Up [facility] Gastroenterology at [address] [place] [address] Billy Nolan MD 10/16/19 25 Orders Only [facility]opedic [facility] Sports Medicine [address] [place] [phone] Nakul Gutierrez PA 10/15/19 25 Orders Only [facility] Orthopedics [facility] Sports Medicine [address] [place] [address] [address] [place] [address] Frantz Alejandra MD S/P total knee arthroplasty, left (Primary Dx) 10/14/19 25 Orders Only [facility]ics [facility] Medicine [address] [place] [address] [address] [place] [address] Frantz Alejandra MD S/P total knee arthroplasty, left (Primary Dx) 10/11/19 25 Orders Only [facility]ics [facility] Medicine [address] [place] [address] [address] [place] [address] Frantz Alejandra MD Post-traumatic osteoarthritis of left knee (Primary Dx) 10/10/19 2:28 PM CDT Anesthesia Event [address] [address] Lito Gold MD 10/10/19 2:00 PM CDT - 10/10/19 2:30 PM CDT Surgery [address] [address] Billy Nolan MD ESOPHAGOGASTRODUODENOSCOPY BIOPSY 10/10/19 12:00 PM CDT - 10/10/19 3:37 PM CDT Hospital Encounter [address] [address] Billy Nolan MD Dysphagia, unspecified type; Gastroesophageal reflux disease without esophagitis Discharge Disposition: Discharge to home or self care 10/09/19 8:30 AM CDT Office Visit [facility] Primary Care at [address] [phone] Sherrie Martell NP Preoperative clearance (Primary Dx); Hypertension associated with type 2 diabetes mellitus ([facility]); Hyperlipidemia due to type 2 diabetes mellitus ([facility]); Type 2 diabetes mellitus without complication, without long-term current use of insulin ([facility]); Vitamin D deficiency; Generalized anxiety disorder; Post-traumatic osteoarthritis of left knee; Open nondisplaced fracture of distal phalanx of right great toe with routine healing, subsequent encounter; Class 3 severe obesity due to excess calories with serious comorbidity and body mass index (BMI) of 40.0 to 44.9 in adult (HCC) 10/09/19 Telephone [facility] Primary Care at [address] [address] Sherrie Martell NP 10/07/19 Results Follow-Up [facility] Primary Care at [address] [place] [address] Sherrie Martell NP 10/03/19 9:15 AM MARKETING TECHNOLOGY COORDINATOR Lab [facility] [address] [place], [place] Annual physical exam; Hypertension associated with [...] for thyroid disorder 10/02/19 25 Orders Only [facility] Medical [facility] Primary Care at [address] [place] [address] Sherrie Martell NP Gastroesophageal reflux disease without esophagitis 10/01/19 25 Telephone [facility] Primary Care at [address] [place] [address] Sherrie Martell NP 09/30/19 25 Telephone [facility] Gastroenterology at [address] [place] [address] Jodi Gomez EGD Reschedule 09/30/19 25 Orders Only [facility] Primary Care at [address] [place] [address] Sherrie Martell NP Gastroesophageal reflux disease without esophagitis 09/30/19 25 Telephone [facility] Primary Care at [address] [phone] Sherrie Martell NP Medications Prior Authorization (Multiple medication PA's ); Medical Question/Miscellaneous 09/30/19 25 Telephone [facility] Primary Care at [address] [place] [address] Sherrie Martell NP Prior Auth (Pantoprazole 40 mg) 09/23/19 25 Telephone [facility] [address] [place] [address] [address] [place] [address] Frantz Alejandra MD 09/09/19 25 [facility] [address] [address] Janeth Valdovinos MA 09/08/19 25 2:30 PM MARKETING TECHNOLOGY COORDINATOR Office Visit [facility] Primary Care at [address] [address] Sherrie Martell NP Annual physical exam (Primary [...] adult (HCC) 09/08/19 25 [facility] Out[facility] Care Organization [address] [place] [address] Janeth Valdovinos MA 09/05/19 25 1:05 PM MARKETING TECHNOLOGY COORDINATOR - 09/05/19 25 4:42 PM MARKETING TECHNOLOGY COORDINATOR Emergency [facility] Emergency Department [address] [place] [address] Fall, initial encounter (Primary Dx); Open nondisplaced fracture of distal phalanx of right great toe, initial encounter Discharge Disposition: Discharge to home or self care 09/05/19 25 Nurse Triage [facility] Primary Care at [address] [address] Sherrie Martell NP 09/01/19 25 Telephone [facility] Primary Care at [address] [address] Sherrie Martell NP 08/29/19 25 12:30 PM MARKETING TECHNOLOGY COORDINATOR - 08/29/19 25 11:59 PM MARKETING TECHNOLOGY COORDINATOR Hospital Encounter [facility] Imaging and Radiology [address] [place] [address] Screening mammogram for breast cancer Discharge Disposition: Discharge to home or self care 08/29/19 25 Orders Only [facility] Primary Care at [address] [address] Sherrie Martell NP Type 2 diabetes mellitus without complication, without long-term current use of insulin (HCC) (Primary Dx); Class 3 severe obesity due to excess calories with serious comorbidity and body mass index (BMI) of 40.0 to 44.9 in adult (HCC); Yeast infection 08/28/19 Telephone [facility] Primary Care at [address] [place] [address] Sherrie Martell NP Med Refill 08/28/19 Telephone [facility] Primary Care at [address] [place] [address] Sherrie Martell NP Symptom Based Call 08/27/19 9:00 AM MARKETING TECHNOLOGY COORDINATOR Office Visit [facility] Medical [facility]opedic [facility] [address] [place] [phone] Nakul Gutierrez PA Post-traumatic osteoarthritis of left knee (Primary Dx); Instability of left knee joint; Right elbow pain 08/27/19 Telephone [facility] [address] [place] [address] [address] [place] [address] Dalila Traylor MA 08/25/19 Nurse Triage [facility] Medical [facility] Primary Care at [address] [place] [address] Татьяна Larkin, TAM 08/25/19 Orders Only [facility] Primary Care at [address] [phone] Sherrie Martell NP Dysuria (Primary Dx) 08/22/19 Telephone [facility] Primary Care at [address] [address] Sherrie Martell NP Test Results 08/21/19 12:05 PM MARKETING TECHNOLOGY COORDINATOR Lab [address] [address] Dysuria 08/21/19 12:03 PM MARKETING TECHNOLOGY COORDINATOR - 08/21/19 11:59 PM MARKETING TECHNOLOGY COORDINATOR Hospital Encounter [facility] [address] [place] [address] Fall, initial encounter; Right elbow pain Discharge Disposition: Discharge to home or self care 08/19/19 25 Orders Only [facility] Medical [facility] [address] [place] [address] [address] [place] [address] Nakul Gutierrez PA from Last [...] Mirza braden artery disease; AAW 05/01/2014 - [place] age 56 Heart disease Mother Heart disease; [...] on file Legal Sex Female 12:37 AM MARKETING TECHNOLOGY COORDINATOR Gender Identity Not on file Sexual Orientation [...] history exists Medical Devices Implanted Type Area Marketing Area Manager Device Identifier Shelf Expiration Date Model / Serial / Lot [employer] Attune Cruciate Retain Cementless Knee Left 5 Component Femoral [id number] - [id number] Implanted:Qty: 1 on 10/23/2024 by Frantz Alejandra MD at [facility] Left: Knee [employer] [id number] 04/28/2034 [id number] / / [id number] [employer] Insert Tibial Knee Fixed Lm Posterior Stabilized Attune 5mm Size 5 Polyethylene [id number] - [id number] Implanted:Qty: 1 on 10/23/2024 by Frantz Alejandra MD at [facility] Left: Knee [employer] [id number] 04/28/2032 [id number] / / [id number] [employer] Attune Fb Tib Base Sz 5 Por [id number] - [id number] Implanted:Qty: 1 on 10/23/2024 by Frantz Alejandra MD at [facility] Left: Knee [employer] [id number] 08/29/2032 [id number] / / [id number] Procedures Procedure Name Priority Date/Time Associated Diagnosis [...] unspecified type EGFR Routine 10/02/2024 9:15 AM MARKETING TECHNOLOGY COORDINATOR Annual physical exam Hypertension associated with type [...] disorder DIFFERENTIAL AUTO Routine 10/02/2024 9:15 AM MARKETING TECHNOLOGY COORDINATOR Annual physical exam Hypertension associated with type [...] WITH AUTO DIFFERENTIAL Routine 10/02 9:15 AM MARKETING TECHNOLOGY COORDINATOR Annual physical exam Hypertension associated with type [...] disorder COMPREHENSIVE METABOLIC PANEL Routine 9:15 AM MARKETING TECHNOLOGY COORDINATOR Annual physical exam Hypertension associated with type [...] disorder THYROID FUNCTION CASCADE Routine 9:15 AM MARKETING TECHNOLOGY COORDINATOR Annual physical exam Hypertension associated with type [...] disorder LIPID PANEL Routine 10/02/2024 9:15 AM MARKETING TECHNOLOGY COORDINATOR Annual physical exam Hypertension associated with type [...] LUMBAR ROUTINE ED 09/05/19 25 2:37 PM MARKETING TECHNOLOGY COORDINATOR XR HAND RIGHT 3 OR MORE VIEWS ED 2:37 PM MARKETING TECHNOLOGY COORDINATOR XR ELBOW RIGHT 2 OR MORE VIEWS ED 0 09/05/2024 2:37 PM MARKETING TECHNOLOGY COORDINATOR XR HIP RIGHT W PELVIS 2 OR 3 VIEWS ED 09/05/2024 2:37 PM MARKETING TECHNOLOGY COORDINATOR XR TOE GREAT RIGHT ED 09/05/2024 10:50 AM MARKETING TECHNOLOGY COORDINATOR SCREENING MAMMOGRAM BILATERA L W BIJAN Schedule Routine, Read Routine (OP Routine) 08/29/2024 1:04 PM MARKETING TECHNOLOGY COORDINATOR Screening mammogram for breast cancer XR ELBOW RIGHT 3 OR MORE VIEWS Schedule Routine, Read Routine (OP Routine) 08/21/2024 12:26 PM MARKETING TECHNOLOGY COORDINATOR Fall, initial encounter Right elbow pain URINALYSIS, MICROSCOPIC ONLY Routine 12:10 PM MARKETING TECHNOLOGY COORDINATOR Dysuria URINALYSIS AND REFLEX TO MICROSCOPIC AND CULTURE Routine 08/21/2024 12:10 PM MARKETING TECHNOLOGY COORDINATOR Dysuria ALBUMIN CREATININE RATIO, URINE Routine 09/21/2023 9:44 AM MARKETING TECHNOLOGY COORDINATOR Type 2 diabetes mellitus without complication, without long-term current use of insulin (HCC) HEPATITIS PANEL, ACUTE Routine 9:05 AM CDT COLONOSCOPY 08/16/2022 10:26 AM MARKETING TECHNOLOGY COORDINATOR DIABETIC EYE EXAM Routine 11/03/2021 from Last 3 Months or Most Recently Relevant to Health Maintenance Results * POCT glucose (10/25/2024 8:28 AM CDT) Glucose, POC 92 70 - 199 mg/dL Blood 10/25/2024 8:28 AM CDT 10/25/2024 8:28 AM CDT us Frantz Alejandra MD LAB POCT ORDERABLES - DEVICE Final Result [facility] ([place]) 1 [facility] [place] [address] * POCT glucose (10/25/2024 2:11 AM CDT) Glucose, POC 111 70 - 199 mg/dL Blood 10/25/2024 2:11 AM CDT 10/25/2024 2:11 AM CDT Frantz Alejandra MD LAB POCT ORDERABLES - DEVICE Final Result [facility] ([place]) 1 [facility] [place] [address] * POCT glucose (10/24/2024 7:58 PM CDT) Glucose, POC 155 70 - 199 mg/dL Blood 10/24/2024 7:58 PM CDT 10/24/2024 7:58 PM CDT Frantz Alejandra MD LAB POCT ORDERABLES - DEVICE Final Result Performing Organization Address City/[facility] Co de Phone Number [facility] ([place]) 1 [facility] [place] [address] * POCT glucose (10/24/2024 4:31 PM CDT) Glucose, POC 127 70 - 199 mg/dL Blood 10/24/2024 4:31 PM CDT 10/24/2024 4:31 PM CDT Frantz Alejandra MD LAB POCT ORDERABLES - DEVICE Final Result Performing Organization Address City/[facility]/ZIP Co de Phone Number [facility] ([place]) 1 [facility] [place] [address] * POCT glucose (10/24/2024 11:01 AM CDT) Glucose, POC 134 70 - 199 mg/dL Blood 10/24/2024 11:0 1 AM CDT 10/24/2024 11:01 AM CDT Franzt Alejandra MD LAB POCT ORDERABLES - DEVICE Final Result Performing Organization Address City/[facility]/ZIP Co de Phone Number [facility] ([place]) 1 [facility] [place] [address] * POCT glucose (10/24/2024 7:59 AM CDT) Glucose, POC 164 70 - 199 mg/dL Blood 10/24/2024 7:59 AM CDT 10/24/2024 7:59 AM CDT us Frantz Alejandra MD LAB POCT ORDERABLES - DEVICE Final Result Performing Organization Address [facility] de Phone Number [facility] ([place]) 1 [facility] [place] [address] * POCT glucose (10/24/2024 2:35 AM CDT) Glucose, POC 122 70 - 199 mg/dL Blood 10/24/2024 2:35 AM CDT 10/24/2024 2:35 AM CDT Frantz Alejandra MD LAB POCT ORDERABLES - DEVICE Final Result Performing Organization Address City/[facility] Co de Phone Number [facility] ([place]) 1 [facility] [place] [address] * POCT glucose (10/23/2024 8:27 PM CDT) Glucose, POC 188 70 - 199 mg/dL Blood 10/23/2024 8:27 PM CDT 10/23/2024 8:27 PM CDT Frantz Alejandra MD LAB POCT ORDERABLES - DEVICE Final Result Performing Organization Address City/[facility]/ZIP Co de Phone Number [facility] ([place]) 1 [facility] Department [place] [address] * POCT glucose (10/23/2024 4:28 PM CDT) Glucose, POC 109 70 - 199 mg/dL Blood 10/23/2024 4:28 PM CDT 10/23/2024 4:28 PM CDT us Frantz Alejandra MD LAB POCT ORDERABLES - DEVICE Final Result [facility] ([place]) 1 [facility] [place] [address] * XR Knee Left 1 or 2 [...] Jaquan Kelley M.D. KH: MUSHTAQ Report ID: [id number] Reading Location: [id number] Procedure Note Jaquan Kelley MD - 10/23/2024 [...] Jaquan Kelley M.D. KH: MUSHTAQ Report ID: [id number] Reading Location: [place] [address] Igor Mueller SPOILAGE WORKER IMG XR PROCEDURES Final Result * POCT glucose (10/23/2024 3:15 PM CDT) Glucose, POC 100 70 - 199 mg/dL Blood 10/23/2024 3:15 PM CDT 10/23/2024 3:15 PM CDT Frantz Alejandra MD LAB POCT ORDERABLES - DEVICE Final Result Performing Organization Address City/State/[facility] Co de Phone Number [facility] ([address] Department of Laboratories [place], [place] [phone] * Spinal Block (10/23/2024 1:32 PM CDT) Narrative Igor Lynn CRNA - 10/23/2024 1:32 PM CDT Igor Lynn CRNA 10/23/2024 1:36 PM Spinal Block Patient location: OR End time: 10/23/2024 12:53 PM Reason for block: primary anesthetic Staff: Placed by: Anesthesiologist: Candie Reddy MD CATALYTIC CASE OPERATOR:Igor Lynn CRNA Procedure prep: Preprocedure checklist: patient [...] PM CDT Comment:Fixed in Formalin Narrative PATHOLOGY [facility] ([place]) - 10/29/2024 11:48 AM CDT EPIC results best viewed via link to PDF [facility] Department of Pathology [address] [place] [address] Note to Patients: This report may contain [...] Final Report Patient Name: MARLEE PICKARD Address: [address] [place] [address]- Gender: F : 1970 (Age: 54) Service: Surgery Location: [facility] Hospital #: [id number] Patient Type: [facility] Taken: 10/23/2024 Received: 10/24/2024 Accessioned: 10/24/2024 Reported: [...] determined by the Surgical Pathology Department at [facility] as part of an ongoing design quality engineer program and in compliance with federally mandated [...] characteristics determined by the Surgical Pathology Department [facility]. It has not been cleared or approved by the U. S. Food and Drug Administration. Note for decalcified specimens: This assay has not been validated on decalcified tissues. Results should be interpreted with caution given the possibility of false negativity on decalcified specimens Frantz Alejandra MD LAB PATHOLOGY ORDERABLES Fin al Result [facility] ([place]) 1 [place] [address] * (ABNORMAL) Potassium, whole blood (10/23/2024 11:05 [...] ORDERABLES F inal Result Performing Organization Address [facility] Co de Phone Number [facility] ([place]) 1 [facility] [place] [address] * aPTT (10/23/2024 11:05 AM CDT) aPTT 34 28 - 38 sec [facility] ([place]) Comment: Interpretive Data Heparin therapeutic range: 66.0 - 100.0 seconds. Range based on correlation with therapeutic heparin activity range of 0.3 - 0.7 Units/mL. Current interpretive data was last revised on 2023. Blood 10/23/2024 11:0 5 AM CDT 10/23/2024 11:07 AM CDT us Frantz Alejandra MD LAB BLOOD ORDERABLES Final R esult Performing Organization Address [facility] Co de Phone Number [facility] ([place]) 1 [facility] [place] [address] * Protime-INR (10/23/2024 11:05 AM CDT) PT 11.7 9.7 - 13.0 sec [facility] ([place]) INR 1.08 0.90 - 1.20 [facility] ([place]) Comment: Interpretive data Oral anticoagulant therapeutic ranges: Venous thromboembolism prophylaxis or treatment: 2.0-3.0 CARDIOLOGY Standard range: 2.0-3.0 High-intensity range: 2.5-3.5 Refer to indication-specific guidelines for appropriate target ranges for prosthetic heart valve replacement. Current interpretive data was last revised on 2019. Blood 10/23/2024 11:0 5 AM CDT 10/23/2024 11:07 AM CDT Frantz Alejandra MD LAB BLOOD ORDERABLES Final R esult [facility] ([place]) 1 [facility] [place] [place] [address] * POCT glucose (10/23/2024 10:58 AM CDT) Glucose, POC 95 70 - 199 mg/dL Blood 10/23/2024 10:5 8 AM CDT 10/23/2024 10:58 AM CDT Frantz Alejandra MD LAB POCT ORDERABLES - DEVICE Final Result Performing Organization Address City/[facility] Co de Phone Number [facility] ([place]) 1 [facility] [place] [place] [address] * XR Chest Pa Lateral 2 Views (10/17/2024 4:13 PM CDT) Anatomical Region Laterality Modality Body, Chest N/A Computed Radiogr aphy 10/17/2024 8:37 PM CDT Narrative 10/17/2024 8:37 PM CDT EXAM DESCRIPTION: XR CHEST PA LATERAL 2 VIEWS REASON FOR STUDY: pre op test Pre op right knee replacement x October 23 Hx of asthma 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 RW: NATALIA Report ID: [id number] Reading Location: [id number] Procedure Note Ezequiel Nicholas MD - 10/17/2024 EXAM DESCRIPTION: XR CHEST PA LATERAL 2 VIEWS REASON FOR STUDY: pre op test Pre op right knee replacement x October 23 Hx of asthma Per pt, has fdc Covid Non smoker No prior chest surgeries [...] Ezequiel Nicholas M.D. RW: NATALIA Report ID: [id number] Reading Location: [id number] us Frantz Alejandra MD IMG XR PROCEDURES Final Resu lt * ECG 12 lead (10/17/2024 3:57 PM CDT) 10/17/2024 4:00 PM CDT [facility] - 10/18/2024 7:46 AM CDT Vent Rate: 72 bpm RR Interval: 829 msec PA Interval: 181 msec QRS Duration: 85 msec QT Interval: 399 msec QTC Interval: 423 msec P-R-T [place]: 60 - 2 - 21 degrees IMPRESSION: [...] Frantz Alejandra MD ECG ORDERABLES Final Result [facility] * eGFR (10/17/2024 3:47 PM CDT) eGFR [...] BLOOD ORDERABLES Final R esult [facility] ([place]) 1 [facility] [place] [address] * Differential, auto (10/17/2024 3:47 PM CDT) [...] ORDERABLES Final R esult Performing Organization Address City/[facility]/ZIP Co de Phone Number [facility] ([place]) 1 [facility] [place] [address] * (ABNORMAL) Urinalysis reflex to microscopic and culture Urine, clean voided (10/17/2024 3:47 PM CDT) Color, ur Yellow Yellow Clarity, ur Clear Clear [facility] ([place]) Specific gravity, ur 1.026 1.003 - 1.030 [facility] ([place]) pH, urine 6.0 [facility] ([place]) Comment: Interpretive Data U rine pH is affected by diet, medications, systemic acid-base disturbances, and renal tubular function. pH may affect urinary stone formation. For example, urine pH below 6.0 may help reduce the tendency for calcium phosphate stones and pH greater than 6.0 may reduce the tendency for uric acid stone formation. Source: [facility] Current Interpretive Data was last revised on [...] O RDERABLES Final Result Performing Organization Address City/[facility]/ZIP Co de Phone Number [facility] ([place]) 1 [facility] [place] [address] * CBC with auto differential (10/17/2024 3:47 PM CDT) WBC 7.5 3.8 - 9.9 K/cumm Hgb 14.3 11.9 - 15.5 g/dL [facility] ([place]) Hct 43.1 35.6 - 45.5 % [facility] ([place]) Plt 326 150 - 400 K/cumm [facility] ([place]) MPV 9.7 9.1 - 12.3 fL [facility] ([place]) RBC 4.80 3.90 - 5.20 M/cumm [facility] ([place]) MCV 89.8 81.3 - 96.4 fL [facility] ([place]) MCH 29.8 27.1 - 33.3 pg [facility] ([place]) MCHC 33.2 32.3 - 35.7 g/dL [facility] ([place]) RDW CV 13.5 11.1 - 14.9 % [facility] ([place]) RDW SD 44.5 35.7 - 48.1 fL [facility] ([place]) NRBC abs 0.00 0.00 - 0.01 K/cumm [facility] ([place]) Blood 10/17/2024 3:47 PM CDT 10/17/2024 4:14 PM CDT us Frantz Alejandra MD LAB BLOOD ORDERABLES Final R esult [facility] ([place]) 1 [facility] [place] [address] * (ABNORMAL) Urinalysis, microscopic only (10/17/2024 3:47 PM CDT) WBC, ur 0-5 0 - 5 /HPF RBC, ur 0-2 0 - 2 /HPF [facility] ([place]) Epithelial cells, squamous, ur 6-10(A) 0 - 5 /HPF [facility] ([place]) Mucous, ur Present(A) [facility] ([place]) Culture Reflex Comment Reflex conditions for urine culture (WBC >10) not met. [facility] ([place]) Urine, clean voided 10/17/2024 3:47 PM CDT 10/17/2024 4:15 PM CDT Frantz Alejandra MD LAB URINE ORDERABLES Final R esult Performing Organization Address [facility] de Phone Number [facility] ([place]) 1 [place] [address] * Hemoglobin A1c (10/17/2024 3:47 PM CDT) Hgb A1C 5.6 4.0 - 5.6 % Estimated Average Glucose 114 mg/dL [facility] ([place]) Comment: The ADA recommends reporting an estimated Average Glucose (eAG) with all Hemoglobin A1c results using the equation derived from a study of 507 normal and diabetic adults. Minority populations were underrepresented and children were not included. (Diabetes Care 31:2885-8511, 2008). The eAG is not equivalent to a fasting glucose. Blood 10/17/2024 3:47 PM CDT 10/17/2024 4:14 PM CDT Frantz Alejandra MD LAB BLOOD ORDERABLES Final R esult Performing Organization Address [facility] Co de Phone Number [facility] ([place]) 1 [place] [address] * Comprehensive metabolic panel (10/17/2024 3:47 PM CDT) Pathologist [facility] Sodium 139 135 - 145 mmol/L Potassium, pl 4.0 3.3 - 4.9 mmol/L [facility] ([place]) Chloride 102 97 - 110 mmol/L [facility] ([place]) CO2 27 22 - 32 mmol/L [facility] ([place]) Anion gap 10 2 - 15 mmol/L [facility] ([place]) BUN 13 6 - 25 mg/dL [facility] ([place]) Creatinine 0.93 0.60 - 1.10 mg/dL [facility] ([place]) Glucose 94 70 - [...] ORDERABLES Final R esult Performing Organization Address City/[facility]/ZIP Co de Phone Number [facility] ([place]) 1 [facility] [place] [address] * POCT glucose (10/09/2024 2:04 PM CDT) Glucose, POC 93 70 - 199 mg/dL Blood 10/09/2024 2:04 PM CDT 10/09/2024 2:04 PM CDT us Billy Nolan MD LAB POCT ORDERABLES - ONESIMO CE Final Result Performing Organization Address City/[facility]/ZIP Co de Phone Number [facility] ([place]) [address] [place] [address] [place] [address] * EGD (10/09/2024 1:19 PM CDT) Anatomical Region Laterality Modality Other Narrative Procedure Note Billy Nolan MD - 10/09/2024 1:19 PM CDT [facility] Center Patient Name: Marlee Pickard Procedure Date: 10/09/2024 1:19 PM Date of : 1970 Admit Type: Outpatient Age: 54 Gender: Female Attending MD: Billy Nolan M.D. Room: [facility] ENDOSCOPY ROOM 1 Note Status: Finalized Patient [...] passed under direct vision. The Endoscope [id number] was introduced through the mouth, and advanced [...] 1:19 PM Procedure Code(s): --- Professional --- 60323, Esophagogastroduodenoscopy, flexible, transoral; with biopsy, single or multiple Diagnosis Code(s): --- Professional --- K21.00, Gastro-esophageal reflux disease with esophagitis, without bleeding R10.10, Upper abdominal pain, unspecified CPT copyright 2020 [employer]. All rights reserved. The codes documented in this report are preliminary and upon scientific manager reviewmay be revised to meet current compliance requirements. Recognized by the [employer] for promoting quality in endoscopy Billy Nolan MD ENDOSCOPY PROCEDURES Final Result * Surgical pathology (10/09/2024 10:28 AM CDT) Tissue specimen (specimen) (Gastric/Stomach biopsy) 10/09/2024 2:53 PM CDT Tissue specimen (specimen) (EG Junction, Biopsy) 10/09/2024 2:53 PM CDT Narrative PATHOLOGY [facility] ([place]) - 10/14/2024 3:25 PM CDT EPIC results best viewed via link to PDF [facility] Department of Pathology [address] [place] [address] Note to Patients: This report may contain [...] Final Report Patient Name: MARLEE PICKARD Address: [address] [place] [address]- Gender: F : 1970 (Age: 54) Service: Gastro Location: [facility] Hospital #: [id number] Patient Type: [facility] Taken: 10/09/2024 Received: 10/10/2024 Accessioned: 10/10/2024 Reported: [...] determined by the Surgical Pathology Department at [facility] as part of an ongoing design quality engineer program and in compliance with federally mandated [...] characteristics determined by the Surgical Pathology Department [facility]. It has not been cleared or approved by the U. S. Food and Drug Administration. Note for decalcified specimens: This assay has not been validated on decalcified tissues. Results should be interpreted with caution given the possibility of false negativity on decalcified specimens Billy Nolan MD LAB PATHOLOGY ORDERABLES F inal Result PATHOLOGY [facility] [address] [place] [address] * eGFR (10/02/2024 9:15 AM MARKETING TECHNOLOGY COORDINATOR) eGFR 65 >=60 mL/min/1. 73 m2 Comment: [...] last reviewed 2021. Blood 10/02/2024 9:15 AM MARKETING TECHNOLOGY COORDINATOR 10/02/2024 10:38 AM MARKETING TECHNOLOGY COORDINATOR Sherrie Martell NP LAB BLOOD ORDERABLES Final R esult DAVID JOHNS ([place]) 1 [facility] [place] [address] * Differential, auto (10/02/2024 9:15 AM MARKETING TECHNOLOGY COORDINATOR) Neutrophil abs 2.9 1.5 - 6.5 K/cumm Imm gran abs 0.0 0.0 - 0.1 K/cumm [facility] ([place]) Lymphocyte abs 2.5 0.8 - 3.3 K/cumm [facility] ([place]) Monocyte abs 0.6 0.2 - 0.8 K/cumm [facility] ([place]) Eosinophil abs 0.2 0.0 - 0.5 K/cumm [facility] ([place]) Basophil abs 0.1 0.0 - 0.1 K/cumm [...] revised on 2017. Blood 10/02/2024 9:15 AM MARKETING TECHNOLOGY COORDINATOR 10/02/2024 10:38 AM MARKETING TECHNOLOGY COORDINATOR [facility] LAB BLOOD ORDERABLES Final R esult Performing Organization Address City/[facility]/ZIP Co de Phone Number DAVID OJHNS ([place]) 1 [place] [address] * Thyroid Function Ware (10/02/2024 9:15 AM MARKETING TECHNOLOGY COORDINATOR) Pathologist [facility] TSH 1.98 0.30 - 4.20 mcIUnit/mL Blood 10/02/2024 9:15 AM MARKETING TECHNOLOGY COORDINATOR 10/02/2024 10:38 AM MARKETING TECHNOLOGY COORDINATOR [facility] LAB BLOOD ORDERABLES Final R [facility] Performing Organization Address City/[facility] Co de Phone Number DAVID JOHNS ([place]) 1 [place] [address] * CBC with auto differential (10/02/2024 9:15 AM MARKETING TECHNOLOGY COORDINATOR) WBC 6.3 3.8 - 9.9 K/cumm Hgb [...] DAVID JOHNS ([place]) Blood 10/02/2024 9:15 AM MARKETING TECHNOLOGY COORDINATOR 10/02/2024 10:38 AM MARKETING TECHNOLOGY COORDINATOR Sherrie Martell NP LAB BLOOD ORDERABLES Final R esult DAVID JOHNS ([place]) 1 [facility] [place] [address] * Lipid panel (10/02/2024 9:15 AM MARKETING TECHNOLOGY COORDINATOR) Cholesterol 184 30 - 199 mg/dL Comment: [...] R [facility] ([place]) Blood 10/02/2024 9:15 AM MARKETING TECHNOLOGY COORDINATOR 10/02/2024 10:38 AM MARKETING TECHNOLOGY COORDINATOR Sherrie Martell NP LAB BLOOD ORDERABLES Final R esult [facility] ([place]) 1 [facility] [place] [address] * Comprehensive metabolic panel (10/02/2024 9:15 AM MARKETING TECHNOLOGY COORDINATOR) Sodium 140 135 - 145 mmol/L Potassium, [...] [facility] ([place]) Blood 10/02/2024 9:15 AM MARKETING TECHNOLOGY COORDINATOR 10/02/2024 10:38 AM MARKETING TECHNOLOGY COORDINATOR Sherrie Martell NP LAB BLOOD ORDERABLES Final R esult [facility] ([place]) 1 [facility] [place] [address] * XR Hip Right 2 or 3 Views W Pelvis (09/05/2024 2:37 PM MARKETING TECHNOLOGY COORDINATOR) Anatomical Region Laterality Modality Lower Extremities, Hip, Pelvis Right C omputed Radiography 09/05/2024 3:04 PM MARKETING TECHNOLOGY COORDINATOR Narrative 09/05/2024 3:06 PM MARKETING TECHNOLOGY COORDINATOR EXAM DESCRIPTION: XR HIP RIGHT 2 OR [...] Bro Han M.D. LB: SHILA Report ID: [id number] Reading Location: [id number] Procedure Note Bro Han MD - 09/05/2024 [...] Bro Han M.D. LB: LB Report ID: [id number] Reading Location: [id number] us Luis E Choiglenfredrick SPOILAGE WORKER IMG XR PROCEDURES Final Res ult * XR Spine Lumbar 4 or More Views (09/05/2024 2:37 PM MARKETING TECHNOLOGY COORDINATOR) Anatomical Region Laterality Modality L-spine N/A Computed Radiogr aphy 09/05/2024 2:55 PM MARKETING TECHNOLOGY COORDINATOR Narrative 09/05/2024 3:00 PM MARKETING TECHNOLOGY COORDINATOR EXAM DESCRIPTION: XR SPINE LUMBAR 4 OR [...] Bro Han M.D. LB: SHILA Report ID: [id number] Reading Location: [id number] Procedure Note Bro Han MD - 09/05/2024 [...] Bro Han M.D. LB: LB Report ID: [id number] Reading Location: [id number] Luis E Scott SPOILAGE WORKER IMG XR PROCEDURES Final Res ult * XR Hand Right 3 or More Views (09/05/2024 2:37 PM MARKETING TECHNOLOGY COORDINATOR) Anatomical Region Laterality Modality Upper Extremities, Hand Right Computed Radiography 09/05/2024 3:00 PM MARKETING TECHNOLOGY COORDINATOR Narrative 09/05/2024 3:04 PM MARKETING TECHNOLOGY COORDINATOR EXAM DESCRIPTION: XR HAND RIGHT 3 OR [...] Bro Han M.D. LB: SHILA Report ID: [id number] Reading Location: [id number] Procedure Note Bro Han MD - 09/05/2024 [...] Bro Han M.D. LB: LB Report ID: [id number] Reading Location: [id number] us Luis E Scott SPOILAGE WORKER IMG XR PROCEDURES Final Res ult * XR Elbow Right 2 Views (09/05/2024 2:37 PM MARKETING TECHNOLOGY COORDINATOR) Anatomical Region Laterality Modality Upper Extremities, Elbow Right Compute d Radiography 09/05/2024 2:54 PM MARKETING TECHNOLOGY COORDINATOR Narrative 09/05/2024 2:55 PM MARKETING TECHNOLOGY COORDINATOR EXAM DESCRIPTION: XR ELBOW RIGHT 2 VIEWS [...] Bro Han M.D. LB: LB Report ID: [id number] Reading Location: [id number] Procedure Note Bro Han MD - 09/05/2024 [...] Bro Han M.D. LB: SHILA Report ID: [id number] Reading Location: [id number] us Luis E Scott SPOILAGE WORKER IMG XR PROCEDURES Final Res ult * XR Toe Great Right (09/05/2024 10:50 AM MARKETING TECHNOLOGY COORDINATOR) Anatomical Region Laterality Modality Lower Extremities, Foot, Toes Right Co mputed Radiography 09/05/2024 11:2 3 AM MARKETING TECHNOLOGY COORDINATOR Narrative 09/05/2024 11:27 AM MARKETING TECHNOLOGY COORDINATOR EXAM DESCRIPTION: XR TOE GREAT RIGHT MINIMUM [...] signed by Ar HERBERT: PIEDAD Report ID: [id number] Reading Location: [id number] Procedure Note Ar Mclain MD - 09/05/2024 [...] Ar Mclain M.D. MJ: PIEDAD Report ID: [id number] Reading Location: [id number] Frederic Parsons MD IMG XR PROCEDURES F inal Result * Screening Mammogram Bilateral W Bijan (08/29/2024 1:04 PM MARKETING TECHNOLOGY COORDINATOR) Anatomical Region Laterality Modality Breast Bilateral Mammography 08/29/2024 5:10 PM MARKETING TECHNOLOGY COORDINATOR Impressions 08/29/2024 5:10 PM MARKETING TECHNOLOGY COORDINATOR No evidence of malignancy in either breast. FINAL ASSESSMENT: BI-RADS Category 1: Negative. RECOMMENDATION: Recommend return for annual screening mammogram in 12 months. Electronically signed by: Michelle Quigley M.D. Narrative 08/29/2024 5:10 PM MARKETING TECHNOLOGY COORDINATOR EXAMINATION: BILATERAL SCREENING MAMMOGRAM COMPARISON: Multiple prior [...] 3 or More Views (08/21/2024 12:26 PM MARKETING TECHNOLOGY COORDINATOR) Anatomical Region Laterality Modality Upper Extremities, Elbow Right Compute d Radiography 08/22/2024 5:25 AM MARKETING TECHNOLOGY COORDINATOR Narrative 08/22/2024 5:26 AM MARKETING TECHNOLOGY COORDINATOR EXAM DESCRIPTION: XR ELBOW RIGHT 3 OR [...] Sonia Clemente M.D. SN: SN Report ID: [id number] Reading Location: [id number] Procedure Note Sonia Clemente MD - 08/22/2024 [...] Sonia Clemente M.D. SN: SN Report ID: [id number] Reading Location: [id number] us Sherrie Martell NP IMG XR PROCEDURES Final Resu lt * (ABNORMAL) Urinalysis reflex to microscopic and culture Urine (08/21/2024 12:10 PM MARKETING TECHNOLOGY COORDINATOR) Color, ur Yellow Yellow Clarity, ur Turbid(A) [...] tendency for uric acid stone formation. Source: [facility] Excellence4u Current Interpretive Data was last revised on [...] [facility] ([place]) Urine 08/21/2024 12:1 0 PM MARKETING TECHNOLOGY COORDINATOR 08/21/2024 1:39 PM MARKETING TECHNOLOGY COORDINATOR us Sherrie Martell NP LAB MICROBIOLOGY - GENERAL O RDERABLES Final Result [facility] ([place]) 1 [facility] Department [place] [address] * (ABNORMAL) Urinalysis, microscopic only (08/21/2024 12:10 PM MARKETING TECHNOLOGY COORDINATOR) WBC, ur 0-5 0 - 5 /HPF RBC, ur 0-2 0 - 2 /HPF [facility] ([place]) Epithelial cells, squamous, ur 6-10(A) 0 - 5 /HPF [facility] ([place]) Bacteria, ur 1+(A) [facility] ([place]) Mucous, ur Present(A) [facility]ER A ([place]) Culture Reflex Comment Reflex conditions for urine culture (WBC >10) not met. [facility] ([place]) Urine 08/21/2024 12:1 0 PM MARKETING TECHNOLOGY COORDINATOR 08/21/2024 1:39 PM MARKETING TECHNOLOGY COORDINATOR us Sherrie Martell SPOILAGE WORKER LAB URINE ORDERABLES Final R esult Performing Organization Address City/[facility]/ZIP Co de Phone Number [facility] ([place]) 1 [facility] [place] [address] * Albumin Creatinine Ratio, Urine (09/21/2023 9:44 AM MARKETING TECHNOLOGY COORDINATOR) Albumin Ur <12.0 mg/L [facility] ([place]) Comment: Interpretive Data No reference range established. Current interpretive data was last revised 2018. Testing performed by: [facility], [address] [place] [address]., [address] Creatinine Ur 139.1 mg/dL [facility] ([place]) Comment: Interpretive Data No reference range established. Current interpretive data was last revised 2018. Testing performed by: [facility], [address] [place] [address]., [address] Albumin Creatinine Ratio, Ur <9 1 - 29 mg/g [facility] ([place]) Comment:Testing performed by : [address] [address] Urine 09/21/2023 9:44 AM MARKETING TECHNOLOGY COORDINATOR 09/21/2023 3:32 PM MARKETING TECHNOLOGY COORDINATOR us Josseline Pitts SPOILAGE WORKER LAB URINE ORDERABLES Final Resu lt [facility] ([place]) 1 [facility] [place] [address] * Hepatitis panel, acute Blood (2023 9:05 AM CDT) Hep A IgM Nonreactive Nonreactive Comment: Interpretive Data: If Hep A IgM Ab is reported as Equivocal, a new sample should be drawn in two weeks for testing. Current interpretive data was last revised on 19. Testing performed by: [address] [address] Hep B core IgM Nonreactive Nonreactive Sharona JOHNS ([place]) Comment: Interpretive Data If HepB Core IgM Ab is reported as Equivocal, a new sample should be drawn in two weeks for testing. Current interpretive data was last revised on 19. Testing performed by: [address] [address] Hep C Ab Nonreactive Nonreactive DAVID JOHNS [...] last revised on 2019. Testing performed by: [address] [address] HepBsAg Nonreactive Nonreactive DAVID JOHNS ([place]) Comment:Testing performed by : [address] [address] Blood 2023 9:05 AM CDT 2023 3:11 PM CDT Narrative DAVID JOHNS ([place]) - 2023 3:55 PM CDT fax results to 2023 08:18:31 CDT us Mark Trujillo MD LAB MICROBIOLOGY - GENERAL ORDERABLES Final Result DAVID [facility] [place] 1 [facility] [place] [address] * COLONOSCOPY (08/16/2022 10:26 AM MARKETING TECHNOLOGY COORDINATOR) Anatomical Region Laterality Modality Other Narrative Procedure Note Billy Nolan MD - 08/16/2022 10:26 AM CST [facility] Patient Name: Marlee Pickard Procedure Date: 08/16/2022 10:26 AM Date of : 1970 Admit Type: Outpatient Age: 52 Gender: Female Attending MD: Billy Nolan M.D. Room: [facility] ENDOSCOPY ROOM 1 Note Status: Finalized Patient [...] under direct vision. The Pediatric Colonoscope PCF-H190L [id number] was introducedthrough the anus and advanced to [...] 10:26 AM Procedure Code(s): --- Professional --- 66249, Colonoscopy, flexible; diagnostic, including collection of specimen(s) by brushing or washing, when performed (separateprocedure) Diagnosis Code(s): --- Professional --- Z12.11, Encounter for screening for malignant neoplasm of colon K64.8, Other hemorrhoids CPT copyright 2020 [employer]. All rights reserved. The codes documented in this report are preliminary and upon scientific manager reviewmay be revised to meet current compliance requirements. Recognized by the [employer] for promoting quality in endoscopy Billy Nolan MD ENDOSCOPY PROCEDURES Final Result * Diabetic Eye Exam (11/03/2021) Historical Provider HEALTH MAINTENANCE Final Result from Last 3 Months or Most Recently Relevant to Health Maintenance Insurance [facility] [employer] HMO IDPA [facility] WORKERS COMPENSATION [facility] Advance Directives For more information, please contact: [phone] * Full Code (Latest Code Status on [...] 10:19 AM 08/16/2022 10:19 AM Care Teams Acid Adjuster Relationship Specialty Start Date End Date Sherrie Martell NP [address] [place] [address] DR VA[address] [place] [address] PCP - General Family Medicine 12/08/22 [place] [address] [address] [facility] [address] [place] [address] Consulting Physician Pulmonary Disease 10/25/21 [place] [address] [facility] [address] [place] [address] Consulting Physician Psychiatry 10/25/21 Josseline Pitts, SPOILAGE WORKER [address] [facility] [address] [place] [address] Nurse Practitioner Endocrinology Diabetes & Metabolism 03/20/24 Shaquille Campos MD [address] [facility] [address] [place] [address] Consulting Physician Pulmonary Disease 03/20/24 Nakul Gutierrez PA [address] [facility] [address] [place] [address] Physician Pipe Bowls Paint Trimmer Orthopedic Surgery 06/18/24 Don Sinha, DILIP [address] [facility] [address] [place] [address] Nurse Practitioner Gastroenterology 06/18/24 Saurav Varma MD [address] [address] Referring Physician Neurology 06/18/24
--- OUTSIDE RECORDS SUMMARY | 2024-11-15 01:23 | XMS_ITS | Encounter Summary ---
Author Organization [facility] Healthcare Address [address] [place] [address] Care Team Providers Care Six Horse Hitch Driver Name Role Phone Ar Talbot MD Unavailable Tavo Juan MD Unavailable [phone] Sherrie Martell BERRY PICKER MACHINE OPERATOR Primary Care Provider [phone] Josseline Pitts BERRY PICKER MACHINE OPERATOR Unavailable [phone] Shaquille Campos MD Unavailable Nakul Gutierrez Unavailable [phone] Don Sinha BERRY PICKER MACHINE OPERATOR Unavailable [phone] Saurav Varma MD Unavailable [phone] Encounter Details Date Type Department Care Team (Late st Contact Info) Description 10/15/2024 Results Follow-Up [facility] Medical Group Gastroenterology at [address] [place] [address] Billy Nolan MD [address] [place] [address] [address] [place] [address] Social History Tobacco Use Types [...] on file Legal Sex Female 12:37 AM SOIL SCIENCE TECHNICAL OFFICER Gender Identity Not on file Sexual Orientation Not on file documented as of this encounter Functional Status documented as of this encounter Plan of Treatment Not on file documented as of this encounter Visit Diagnoses Not on filedocumented in this encounter Care Teams Six Horse Hitch Driver Relationship Specialty Start Date End Date Sherrie Martell NP [address] [facility] [address] [place] [address] PCP - General Family Medicine 12/08/22 [place] [address] [facility] [address] [place] [address] Consulting Physician Pulmonary Disease 10/25/21 [place] [address] [facility] [address] [place] [address] Consulting Physician Psychiatry 10/25/21 Josseline Pitts, DILIP [address] [facility] [address] [place] [address] Nurse Practitioner Endocrinology Diabetes & Metabolism 03/20/24 Shaquille Campos MD [address] [facility] [address] [place] [address] Consulting Physician Pulmonary Disease 03/20/24 Nakul Gutierrez PA [address] [facility] [address] [place] [address] Physician Executive Talent Acquisition Consultant Orthopedic Surgery 06/18/24 Don Sinha NP [address] [facility] [address] [place] [address] Nurse Practitioner Gastroenterology 06/18/24 Saurav Varma MD 1 [facility] 3 [place] [address] Referring Physician Neurology 06/18/24 documented as of this encounter
--- OUTSIDE RECORDS SUMMARY | 2024-11-15 01:23 | XMS_ITS | Encounter Summary ---
Author Organization [facility] Healthcare Address [address] [place] [address] Care Team Providers Care Homicide Detective Name Role Phone Ar Talbot MD Unavailable [phone] Tavo Juan MD Unavailable [phone] Sherrie Martell DICE TABLE OPERATOR Primary Care Provider Josseline Pitts NP Unavailable [phone] Shaquille Campos MD Unavailable Nakul Gutierrez Unavailable [phone] Don Sinha DICE TABLE OPERATOR Unavailable [phone] Saurav Varma MD Unavailable [phone] Reason for Visit * Reason Onset Date Comments Hypoglycemia 11/10/2024 Encounter Details Date Type Department Care Team (Late st Contact Info) Description 11/10/2024 Nurse Triage [facility] Medical Group Primary Care at [address] [place] [address] Sherrie Martell NP [address] [place] [address] [address] [place] [address] Social History Tobacco Use Types [...] on file Legal Sex Female 12:37 AM CAFETERIA AIDE Gender Identity Not on file Sexual Orientation [...] week Protocols used: Diabetes - Low Blood [id number] * Telephone Encounter - Sonia Malhotra RN [...] on filedocumented in this encounter Care Teams Homicide Detective Relationship Specialty Start Date End Date Sherrie Martell NP [address] [facility] [address] [place] [address] PCP - General Family Medicine 12/08/22 [place] [address] [address] Consulting Physician Pulmonary Disease 10/25/21 [place] [address] [facility] [address] [place] [address] Consulting Physician Psychiatry 10/25/21 Josseline Pitts NP [address] [place] [address] [address] [place] [address] Nurse Practitioner Endocrinology Diabetes & Metabolism 03/20/24 Shaquille Campos MD [address] [place] [address] [address] [place] [address] Consulting Physician Pulmonary Disease 03/20/24 Nakul Gutierrez PA [address] [place] [address] [address] [place] [address] Physician Instructional Manager Orthopedic Surgery 06/18/24 Don Sinha NP [address] [facility] [address] [address] Nurse Practitioner Gastroenterology 06/18/24 Saurav Varma MD [address] [address] Referring Physician Neurology 06/18/24 documented as of this encounter
--- OUTSIDE RECORDS SUMMARY | 2024-11-15 01:23 | XMS_ITS | Encounter Summary ---
Author Organization [facility] Healthcare Address [address] [place] [address] Care Team Providers Care Solid Waste Facility Operator Name Role Phone Ar Talbot MD Unavailable [phone] Tavo Juan MD Unavailable [phone] Sherrie Martell CLIENT ACCOUNT SPECIALIST Primary Care Provider Josseline Pitts NP Unavailable [phone] Shaquille Campos MD Unavailable Nakul Gutierrez Unavailable [phone] Don Sinha CLIENT ACCOUNT SPECIALIST Unavailable [phone] Saurav Varma MD Unavailable [phone] Reason for Visit * Reason Onset Date Comments Medical Question/Miscellaneous 10/27/2024 Encounter Details Date Type Department Care Team (Late st Contact Info) Description 10/27/2024 Telephone [facility] Medical Group Primary Care at [address] [place] [address] Sherrie Martell, DILIP [address] [place] [address] [address] [place] [address] Medical Question/Miscellaneous Social History Tobacco [...] place to sleep or slept in a halfway (including now)? No 10/20/2021 Personal Safety Answer Date Recorded Have you ever been in or are you currently in a harmful physical or emotional relationship or is someone making you feel afraid or unsafe? Denies 10/23/2024 Comments No Sex and Gender Information Value Date Recorded Sex Assigned at Not on file Legal Sex Female 12:37 AM DUCK OPERATOR Gender Identity Not on file Sexual Orientation Not on file documented as of this encounter Miscellaneous Notes * Telephone Encounter - Denis Pavon - 10/28/2024 11:24 AM CDT Call Back Caller???s Concern: patient returning call from office - ENGINE HEAD REPAIRER relayed message regarding the need to reach [...] questions from her recent total knee replacement. ENGINE HEAD REPAIRER gave number and transferred to Dr. Alejandra's [...] on filedocumented in this encounter Care Teams Solid Waste Facility Operator Relationship Specialty Start Date End Date Sherrie Martell NP [address] [place] [address] [address] [place] [address] PCP - General Family Medicine 12/08/22 [place] [address] [address] [email or web address] [address] [place] [address] Consulting Physician Pulmonary Disease 10/25/21 [place] [address] [facility] [address] [place] [address] Consulting Physician Psychiatry 10/25/21 Josseline Pitts, DILIP 2 [facility] [address] [place] [address] Nurse Practitioner Endocrinology Diabetes & Metabolism 03/20/24 Shaquille Campos MD [address] [place] [address] [address] [place] [address] Consulting Physician Pulmonary Disease 03/20/24 Nakul Gutierrez PA [address] [place] [address] [address] [place] [address] Physician Track Sweeper Orthopedic Surgery 06/18/24 Don Sinha NP 4 [facility] [address] [place] [address] Nurse Practitioner Gastroenterology 06/18/24 Saurav Varma MD 1 [facility] 3 [place] [address] Referring Physician Neurology 06/18/24 documented as of this encounter
--- OUTSIDE RECORDS SUMMARY | 2024-11-15 01:23 | XMS_ITS | Encounter Summary ---
Author Organization [facility] Address [address] [place] [address] Care Team Providers Care Habilitative Interventionist Name Role Phone Ar Talbot MD Unavailable Tavo Juan MD Unavailable [phone] Sherrie Martell MUD LOGGER Primary Care Provider [phone] Josseline Pitts MUD LOGGER Unavailable [phone] Shaquille Campos MD Unavailable Nakul Gutierrez Unavailable [phone] Don Sinha MUD LOGGER Unavailable [phone] Saurav Varma MD Unavailable [phone] Janteh Valdovinos MA Unavailable Encounter Details Date Type Department Care Team (Late st Contact Info) Description 08/25/2024 Nurse Triage [facility] Primary Care at [address] [place] [address] Татьяна Larkin, TAM Social History [...] on file Legal Sex Female 12:37 AM SENIOR ACCOUNTS PAYABLE SPECIALIST Gender Identity Not on file Sexual [...] 08/25/2024 3:43 PM CST Pt is aware. OR ACCOUNTS PAYABLE SPECIALIST * Telephone Encounter - Татьяна Larkin RN - 08/25/2024 9:47 AM SENIOR ACCOUNTS PAYABLE SPECIALIST Reason for Disposition Second attempt to contact caller AND no contact made. Phone number verified. Protocols used: No Contact or Duplicate Contact [id number] 2 attempts made by spiral tube winder helper to reach pt, No contact, Left msg to call back with any needs. Routed to office to notify spiral tube winder helper unable to reach pt . Please see notes from CS: Stated that it was nothing alarming. Patient was requesting a CT Scan or something in addition to the two x-rays that had been previously ordered. But the symptom of the pain has changed to the symptoms that are liste OR ACCOUNTS PAYABLE SPECIALIST * Telephone Encounter - Parul Martin RN - 08/25/2024 9:28 AM CST Regarding: Numbing, tingling, pain shooting on the right side fingers and elbow ----- Message from Abimbola Loredo sent at 08/25/2024 9:27 AM SENIOR ACCOUNTS PAYABLE SPECIALIST ----- Symptom Based Call Chief Complaint(s): Numbing, [...] message need to be routed? Yes-Action Needed OR ACCOUNTS PAYABLE SPECIALIST documented in this encounter Plan of Treatment Not on file documented as of this encounter Visit Diagnoses Not on filedocumented in this encounter Care Teams Habilitative Interventionist Relationship Specialty Start Date End Date Sherrie Martell NP [address] [place] [address] PCP - General Family Medicine 12/08/22 [place] [id number] [address] Consulting Physician Pulmonary Disease 10/25/21 [place] [address] [facility] [address] [place] [address] Consulting Physician Psychiatry 10/25/21 Josseline Pitts NP [address] [place] [address] [address] [place] [address] Nurse Practitioner Endocrinology Diabetes & Metabolism 03/20/24 Shaquille Campos MD [address] [place] [address] [address] [place] [address] Consulting Physician Pulmonary Disease 03/20/24 Nakul Gutierrez PA [address] [place] [address] [address] [place] [address] Physician Cheese Pancake Roller Orthopedic Surgery 06/18/24 Don Sinha NP [address] [place] [address] [address] [place] [address] Nurse Practitioner Gastroenterology 06/18/24 Saurav Varma MD [address] [facility] 3 [place] [address] Referring Physician Neurology 06/18/24 Janeth Valdovinos MA [address] [facility] [address] [place] [address] ACO Care Safety Professional 09/08/24 09/08/24 documented as of this encounter
--- OUTSIDE RECORDS SUMMARY | 2024-11-15 01:24 | XMS_ITS | Clinical Summary ---
Author Organization [facility] Address [address] [facility], [address] [address] Phone Care Team Providers Care Voice Pathologist Name Role Phone Saurav Varma MD Unavailable [phone] Sherrie Martell APRN, DISBURSING AGENT Primary Care Provi merline Wero Encarnacion PAC Unavailable [phone] Allergies Active Allergy Reactions Criticality Noted Date Comments Sulfa Antibiotics Rash 12/28/2023 Medications atorvastatin (LIPITOR) 40 MG Tablet Take 40 mg by mouth daily. rx [id number] take 1/2 tab by mouth daily Active cetirizine (ZyrTEC) 10 MG Tablet Take 10 mg by mouth daily. Active clonazePAM (KlonoPIN) 2 MG Tablet Take 2 mg by mouth 2 times daily. Active fluticasone (FLONASE) 50 MCG/ACT Suspension 1 [place] by Nasal route daily. Use in each [...] Take 10 mg by mouth daily. rx [id number] Active HYDROXYZINE HCL PO Take 25 mg by mouth 2 times daily. rx [id number] Active ALBUTEROL IN take 2 Puffs by inhalation every 6 hours as needed for Other (wheezing). rx [id number] Active sertraline (ZOLOFT) 100 MG Tablet Take [...] 6 HOURS PRN, Muscle spasms, 2 mgrx [id number], Indications: Musculoskeletal Pain, Reported on 10/29/2024 gabapentin [...] for Moderate or more severe pain. rx [id number] Active Vitamin D, Cholecalcifero l, 50 MCG (1999 UT) Capsule Take 1 Capsule by mouth daily. [id number] Active senna (SENOKOT) 8.6 MG Tablet Take 2 Tablets by mouth daily. [id number] Active famotidine (PEPCID) 40 MG Tablet Take 40 mg by mouth every evening. rx [id number] Active PANTOPRAZOLE SODIUM PO Take 40 mg by mouth daily. rx [id number] Active ferrous sulfate 325 (65 Fe) MG Tablet Take 325 mg by mouth daily. rx [id number] Active cephALEXin (KEFLEX) 500 MG CapsuleIndicat ions:preventio n post-op infection Take 500 mg by mouth 2 times daily. rx x 7 days Indications: prevention post-op infection 10/28/19 25 025 potassium chloride (Klor-Con) 20 MEQ Pack Take 20 mEq by mouth daily. rx [id number] 025 Discontinu ed(Med List Clean Up) Active Problems No known active problems Encounters Date Type Department Care Team Description 11/12/2024 10:30 AM CDT Home Care Visit [address] [address] Bria La, PT PT - OASIS DISCHARGE 11/11/2024 3:30 PM CDT Home Care Visit [address] [address] Parul Rowland OTA OT - DISCIPLINE DISCHARGE 11/11/2024 Home Care Visit [address] [address] Parul Rowland OTA CASE COMMUNICATION 11/10/2024 1:00 PM CDT Home Care Visit [address] [address] Maliha Matos PTA PT - HOME VISIT 11/07/2024 12:00 PM CDT Home Care Visit [address] [address] Maliha Matos PTA PT - HOME VISIT 11/06/2024 9:30 AM CDT Home Care Visit [address] [address] Parul Rowland OTA OT - HOME VISIT 11/05/2024 11:30 AM CDT Home Care Visit [address] [address] Maliha Matos, SERVICE DESK LEAD PT - HOME VISIT 11/04/2024 1:30 PM CDT Home Care Visit [address] [address] Reina Pugh OT OT - INITIAL EVALUATION 11/04/2024 Home Care Visit [address] [address] Bria La, PT CARE CONFERENCE 11/03/2024 12:00 PM CDT Home Care Visit [address] [address] Maliha Matos, SERVICE DESK LEAD PT - HOME VISIT 10/30/2024 11:00 AM CDT Home Care Visit [address] [address] Cori Tapia, DOMESTIC TECHNICIAN DOMESTIC TECHNICIAN - INITIAL EVALUATION 10/30/2024 Home Care Visit [address] [address] Bria La, PT TELEPHONE ENCOUNTER 10/29/2024 2:00 PM CDT Home Care Visit [address] [address] Bria La, PT PT - OASIS START OF CARE 10/29/2024 Home Care Visit [address] [address] Bria La, PT TELEPHONE ENCOUNTER 10/29/2024 Plan of Care Documentation [address] [address] 10/28/[address] [address] Reina Chang RN 10/27/[address] [address] Reina Chang molding fitter vac issue 10/14/2024 Transcribe Orders [facility] [address] [place] [address] Frantz Aljeandra MD S/P total knee arthroplasty, left (Primary Dx) 09/04/2024 Documentation Only [facility] at [facility] [address] [place] [address] Rodrigue Agudelo, PT 08/26/2024 [facility] [address] [place] [address] Wero Encarnacion PAC 08/19/2024 11:30 AM CAFE ATTENDANT Office Visit [facility] [address] [place] [address] Wero Encarnacion, PAC Right hip pain (Primary Dx); Low back pain, unspecified back pain laterality, unspecified chronicity, unspecified whether sciatica present Discharge Disposition: Discharged to home or Selfcare 08/19/2024 Travel 08/18/2024 [facility] [address] [place] [address] Wero Encarnacion PAC Need Order from Last [...] 11/17/2024 2:45 PM CDT Physical Therapy [facility] at [facility] [address] [place] [address] Frantz Alejandra MD [address] [place] [address], [address] [place] [address] Sofya Galdamez, PT [place] Discharge Disposition: Discharged [...] patient's age to complete this topic Insurance * Guarantor: Nafisa Warner Account Type Relation to Patient Date of Phone Billing Address Personal/Family Self 1970 [facility] [address], [place] [address] MEDICAID [employer] Advance Directives * Full Code (Latest Code Status on File) Date Activated Date Inactivated Comments 11/10/2024 3:54 PM Care Teams Voice Pathologist Relationship Specialty Start Date End Date Sherrie Martell, JEWELRY MOLD MAKER, DISBURSING AGENT [address] [facility] [place] [address] PCP - General Advanced Practice Nurse 06/02/24 Saurav Varma MD [address] [place] [address] Consulting Physician Neurology 12/26/23 Wero Encarnacion PAC [address] [place] [address] Physician Sheet Layer Physician Sheet Layer 07/31/24
--- OUTSIDE RECORDS SUMMARY | 2024-11-15 01:24 | XMS_ITS | Encounter Summary ---
Author Organization [facility] Address [address] [place] [address] Phone Care Team Providers Care Dragger Out Name Role Phone Saurav Varma MD Unavailable [phone] Sherrie Martell APRN, INDEPENDENT VIDEO PRODUCER Primary Care Provi merline Wero Encarnacion PAC Unavailable [phone] Reason for Referral * PT/OT/ST (Routine) - Pending Review Specialty Diagnoses / Procedures Referred By Contac t Referred To Contact Physical Therapy Diagnoses S/P total knee arthroplasty, left Frantz Alejandra MD [address] [place] [address], [address] [place] [address] Phone: tel: fax: [facility] [address] [facility], [address] [address] Phone: tel: fax: Referral ID Status Reason Start Date Expiration Date V isits Requested Visits Authorized [id number] Pending Review 10/14/2024 50 50 Scheduling Instructions Encounter Details Date Type Department Care Team (Late st Contact Info) Description 10/14/2024 Transcribe Orders [facility] [address] [place] [address] Frantz Alejandra MD [address] [facility] , [address] [place] [address] S/P total knee arthroplasty, left (Primary Dx) [...] Description 11/17/2024 2:45 PM CDT Physical Therapy [facility] at [facility] [address] [facility], [facility] [address] [place] [address] Frantz Alejandra MD [address] [facility] , [address] [place] [address] Sofya Galdamez, PT [place] Discharge Disposition: Discharged to home or Selfcare Scheduled Referrals Name Type Priority Associated Diagnoses Orde r Schedule PHYSICAL THERAPY REFERRAL Outpatient Referral Routine S/P total knee arthroplasty, left Expected: 10/14/2024, Expires: 10/14/2025 documented as of this encounter Visit Diagnoses Diagnosis S/P total knee arthroplasty, left- Primary documented in this encounter Care Teams Dragger Out Relationship Specialty Start Date End Date Sherrie Martell, MOBILE SECURITY ARCHITECT, INDEPENDENT VIDEO PRODUCER 2 [facility] [address] [place] [address] PCP - General Advanced Practice Nurse 06/02/24 Saurav Varma MD [address] [place] [address] Consulting Physician Neurology 12/26/23 Wero Encarnacion PAC [address] [place] [address] Physician Receptionist Secretary Physician Receptionist Secretary 07/31/24 documented as of this encounter
--- OUTSIDE RECORDS SUMMARY | 2024-11-15 01:24 | XMS_ITS | Continuity of Care Document ---
Author Organization [facility] Address [address] [place] [address] [place] [address] Phone Care Team Providers Care Classified Advertising Supervisor Name Role Phone Deven Cain MD Unavailable [...] VISIT, EST OFFICE/OUTPATIENT VISIT, EST OFFICE/OUTPATIENT VISIT, [facility] Advance Directives Directive Yes / No Effective Date File Name No Information Encounters Encounter Description Practice Location Reason(s) For Visit Diagnoses Date Provider Providers Copied on Encounter OFFICE/OUTPA TIENT VISIT, [facility], [address] [place], [place], [id number], [place] tel:[phone] [facility] HTN (chief complaint) abdominal pain (chief complaint) anxiety (chief complaint) Dietary surveillance and counselingHypertens ion, UnspecifiedAbdomina l PainGeneralized anxiety disorderGERD 4 Ant Carvalho. [address], [place], [place], [id number] , [place]. tel:[phone] Referring Provider: Deven Cain, [address], [place], [place], [id number]. tel:[phone] [facility], [address], [place], [place], [address], [place] tel:[phone] [facility] No Information 4 Ant Carvalho. [address], [place], [place], [address] , [place]. tel:[phone] OFFICE/OUTPA TIENT VISIT, [facility], [address], [place], [place], [address], [place] tel:[phone] [facility] anxiety (chief complaint) hand pain (chief complaint) HTN (chief complaint) GERD (chief complaint) Dietary surveillance and counselingHypertens ion, UnspecifiedGenerali zed anxiety disorderPain in joint involving handGERD 4 Ant Carvalho. [address], [place], [place], [address] , [place]. tel:[phone] Referring Provider: Deven Cain, [address], [place], [place], [address]. tel:[phone] OFFICE/OUTPA TIENT VISIT, [facility], [address] [place], [place], [address], [place] tel:[phone] [facility] cough (chief complaint) anxiety (chief complaint) borderline DM (chief complaint) Dietary surveillance and counselingBronchiti s, AcuteAsthmaGenerali zed anxiety disorderMetabolic Syndrome [address] Ant Carvalho. [address], [address], [address] , . tel:[phone] Referring Provider: Deven Cain [address], [place], [address]. tel:[phone] OFFICE/OUTPA TIENT VISIT, [facility], [place], [address], [address], [place] [phone] [facility] sinus drainage (chief complaint) migrane headache (chief complaint) anxiety (chief complaint) pain (chief complaint) Dietary surveillance and counselingAsthmaHea dacheAcute upper respiratory infections of other multiple sitesPain in joint involving hand 4 Ant Carvalho. [address], [facility] [place], [address] , . tel:[phone] Family History Family Member Type Diagnosis Age [...] Information Instructions Date Instruction Additional Infor brayan Dietary counseling Related to Di etary surveillance [...] Mental Status Date Cognitive Assessment Orientation - [place] ed to time, place, person, situation.
--- NOTE | 2024-11-15 02:06 | ED.FALL ---
HPI - Fall General Chief Complaint: Fall Stated Complaint: knee replacement and fell in shower Time Seen by Provider: 11/15/24 01:02 History of Present Illness HPI Narrative: Patient is a 54-year-old female who presents the emergency department this evening status post left knee injury. Patient states that she has had her left knee replaced 3 weeks ago and today while she was in the shower the chair that she was sitting and broke and she fell down to the ground. Patient states that her knee bent underneath her. Complains of mild pain to her right knee but otherwise denies any additional injuries or concerns. Patient admits that she has been ambulatory since the incident although it does cause her some pain. Related Data Home Medications ?Medication ?Instructions ?Recorded ?Confirmed ?Last Taken ?Type albuterol sulfate 90 mcg/actuation 2 puff inhalation Q4H PRN 09/27/21 03/17/24 Unknown History aerosol inhaler Shortness Of Breath Or Wheezing amlodipine 10 mg tablet 10 mg PO DAILY 09/27/21 03/17/24 Unknown History atorvastatin 20 mg tablet 20 mg PO DAILY 09/27/21 03/17/24 Unknown History chlorthalidone 25 mg tablet 25 mg PO DAILY 09/27/21 03/17/24 Unknown History clonazepam 2 mg tablet 2 mg PO HS PRN Sleep 09/27/21 03/17/24 Unknown History fluticasone 250 mcg-salmeterol 50 1 inh inhalation BID 09/27/21 03/17/24 Unknown History mcg/dose blistr powdr for inhalation (Wixela Inhub) fluticasone propionate 50 2 spray intranasal DAILY 09/27/21 03/17/24 Unknown History mcg/actuation nasal spray,suspension lisinopril 2.5 mg tablet 2.5 mg PO DAILY 09/27/21 03/17/24 Unknown History montelukast 10 mg tablet 10 mg PO HS 09/27/21 03/17/24 Unknown History potassium chloride 20 mEq 20 meq PO DAILY 09/27/21 03/17/24 Unknown History tablet,extended release(part/cryst) sertraline 25 mg tablet 25 mg PO DAILY 03/06/23 03/17/24 Unknown History celecoxib 100 mg capsule mg PO 03/17/24 03/17/24 Unknown History cetirizine 10 mg tablet mg PO 03/17/24 03/17/24 Unknown History cyclobenzaprine 10 mg tablet mg PO 03/17/24 03/17/24 Unknown History gabapentin 300 mg capsule mg PO 03/17/24 03/17/24 Unknown History hydroxyzine HCl 25 mg tablet mg PO 03/17/24 03/17/24 Unknown History losartan 100 mg tablet mg PO 03/17/24 03/17/24 Unknown History metoclopramide HCl 10 mg tablet mg PO 03/17/24 03/17/24 Unknown History ondansetron 4 mg disintegrating mg PO 03/17/24 03/17/24 Unknown History tablet pantoprazole 40 mg tablet,delayed mg PO 03/17/24 03/17/24 Unknown History release tramadol 50 mg tablet mg PO 03/17/24 03/17/24 Unknown History Allergies Allergy/AdvReac Type Severity Reaction Status Date / Time Sulfa (Sulfonamide Allergy Unknown rash Verified 06/09/24 13:59 Antibiotics) Review of Systems Review of Systems: All systems are reviewed and are negative unless stated otherwise in the HPI. 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) Seasonal allergies GERD (gastroesophageal reflux disease) Anxiety Diabetes Hypertension Asthma Surgical History Surgical History H/O tubal ligation (~1999) History of orthopedic surgery (02/14/18) tumor removed from right foot History of hysteroscopy (06/18/14) NOVASURE ABLATION, HSCOPE, D&C - benign History of orthopedic surgery (04/26/15) Torn meniscus repair, right knee Hx of ovarian cystectomy (~2001) History of repair of right rotator cuff (~2007) Hx of arthroscopy of left knee H/O arthroscopy of right knee (~1987) S/P bilateral foot surgery (11/27/99) H/O: hysterectomy (08/05/15) Robotic assisted Hysterectomy, BSO - uterine fibroids, failed endometrial ablation, ovarian cyst - benign Hx of cholecystectomy (~2001) Family History Family History Mother Diabetes mellitus Acute myocardial infarction Hypertension Grandparent Diabetes mellitus maternal grandfather Acute myocardial infarction maternal grandfather Hypertension maternal grandfather Social History Social History Smoking status: Never smoker Alcohol intake: never Substance use: never Substance use type: does not use Lack of Transportation: No Lack of Food: Sometimes True Current Housing: Decline to Answer Concerned About Future Housing: Decline to Answer Difficulty Paying Gas/Electric Bills: No Difficulty Paying for Meds: YES Currently Unemployed: No Education: Associate Degree Difficulty w/ Childcare or Family Care: YES Living arrangements: with family Additional living arrangements comments: / lives with father 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 HEENT: PERRL, no rhinorrhea, no post nasal drip, oropharynx clear. Neck: Trachea midline, no JVD, no lymphadenopathy. Cardiovascular: Regular rate and rhythm, no murmurs, rubs or gallops, no peripheral edema. Respiratory: Clear to auscultation bilaterally, no tachypnea, no wheezing, no rhonchi, no rubs, no respiratory distress. Abdomen: Soft, nontender, nondistended, no rebound, no guarding, no peritoneal signs. Musculoskeletal: No joint swelling or deformity, normal muscle tone, intact full range of motion at the left knee joint, incisions site appears to be well healed, no surrounding erythema or any evidence of infection. Skin: No rashes or petechia, no signs of infection. Psychiatric: Alert and oriented, normal behavior and judgment for situation. Neurological: Alert and oriented to person, place, and time. Follows all commands. No focal deficits, speech is clear and fluent. Course Vital Signs Vital signs: Vital Signs Temperature 97.7 F 11/15/24 00:09 Pulse Rate 74 11/15/24 00:09 Respiratory Rate 16 11/15/24 00:09 Blood Pressure 136/67 11/15/24 00:09 Pulse Oximetry 100 11/15/24 00:09 Oxygen Delivery Room Air 11/15/24 00:09 Temperature 97.7 F 11/15/24 00:09 Pulse Rate 74 11/15/24 00:09 Respiratory Rate 16 11/15/24 00:09 Blood Pressure 136/67 11/15/24 00:09 Pulse Oximetry 100 11/15/24 00:09 Oxygen Delivery Room Air 11/15/24 00:09 MDM - Fall MDM Narrative Medical decision making narrative: The patient was evaluated by myself in the emergency department. History is obtained from patient who is an independent historian and physical exam was performed. External medical records were reviewed at this time. Imaging studies obtained included left knee x-ray which was independently interpreted by me revealing changes of the left knee arthroplasty, no evidence of complication, soft tissue swelling, which is pending final radiology interpretation. Differential diagnosis considerations include knee effusion, fracture, dislocation, musculoskeletal strain. Comorbidities impacting this visit include recent left knee replacement. I have evaluated and discussed social determinants of health with the patient that could potentially impact subsequent diagnosis and treatment plans. On repeat assessment of the patient, reevaluation revealed that the patient is doing well and is in no acute distress. Patient symptoms have remained stable since she arrived to our emergency department. Repeat vital signs were all reviewed and noted to be stable. Differential diagnosis and treatment plan were discussed with the patient at bedside. Patient agrees with discussion and after shared medical decision making agrees with discharge. All questions were answered to the patient's satisfaction. Patient will follow up with her PCP in 3-5 days. Patient was provided with strict return precautions and instructed to return to the emergency department if any new or worsening symptoms develop. The patient was discharged in stable condition. Discharge Plan Discharge Clinical Impression: Knee sprain Patient Disposition: Home Condition: Improved Instructions: Antibiotic Form, Knee Sprain (DC) Additional Instructions: Please follow-up with your orthopedic surgeon within the next 3-5 days. Return to the emergency department if any new or worsening symptoms develop. Patient Language: Somali Prescriptions: No Action atorvastatin 20 mg tablet 20 mg PO DAILY amlodipine 10 mg tablet 10 mg PO DAILY fluticasone propion-salmeterol [Wixela Inhub] 250-50 mcg/dose blister with device 1 inh INHALATION BID fluticasone propionate 50 mcg/actuation spray,suspension 2 spray INTRANASAL DAILY montelukast 10 mg tablet 10 mg PO HS lisinopril 2.5 mg tablet 2.5 mg PO DAILY albuterol sulfate 90 mcg/actuation HFA aerosol inhaler 2 puff INHALATION Q4H PRN (Reason: Shortness Of Breath Or Wheezing) potassium chloride 20 mEq tablet,ER particles/crystals 20 meq PO DAILY chlorthalidone 25 mg tablet 25 mg PO DAILY clonazepam 2 mg tablet 2 mg PO HS PRN (Reason: Sleep) ondansetron 4 mg tablet,disintegrating PO losartan 100 mg tablet PO hydroxyzine HCl 25 mg tablet PO metoclopramide HCl 10 mg tablet PO pantoprazole 40 mg tablet,delayed release (DR/EC) PO cyclobenzaprine 10 mg tablet PO cetirizine 10 mg tablet PO gabapentin 300 mg capsule PO tramadol 50 mg tablet PO celecoxib 100 mg capsule PO sertraline 25 mg tablet 25 mg PO DAILY fluconazole 150 mg tablet 150 mg PO Q72H Qty: 2 0RF Follow-up/Referrals: UNKNOWN,DOCTOR [Primary Care Provider] - 3 Days Time of Disposition: 02:09
== END 2024-11-15 02:26 | disposition home or self-care (01) ==
PROVIDERS: Emergency Provider Emergency Medicine
DX: S83.92XA Sprain of unspecified site of left knee, initial encounter (principal); E11.9 Type 2 diabetes mellitus without complications; K21.9 Gastro-esophageal reflux disease without esophagitis; J45.909 Unspecified asthma, uncomplicated; F41.9 Anxiety disorder, unspecified; Z96.652 Presence of left artificial knee joint; Z90.710 Acquired absence of both cervix and uterus; Z90.722 Acquired absence of ovaries, bilateral; Z90.79 Acquired absence of other genital organ(s); Z79.899 Other long term (current) drug therapy; W07.XXXA Fall from chair, initial encounter
CPT/HCPCS: 73562; 99283

== ENCOUNTER 2025-03-20 13:28 | Emergency (ER) | payer OTHER, SELFPAY ==
--- NOTE | ~2025-03-20 | XR_ITS ---
CHEST RADIOGRAPH, PA AND LATERAL CLINICAL HISTORY: cough/covid+ history pneumonia . COMPARISON: 09/27/2021 TECHNIQUE: PA and lateral views of the chest. FINDINGS The cardiomediastinal silhouette is unremarkable. The lungs are clear. IMPRESSION: No focal infiltrate or effusion. Reviewed, dictated and finalized at location A.
--- OUTSIDE RECORDS SUMMARY | 2025-03-20 13:31 | XMS_ITS | Encounter Summary ---
Author Organization [facility] Address [address] [place] [address] Phone Care Team Providers Care Urogynecology Physician Name Role Phone Saurav Varma MD Unavailable [phone] Sherrie Martell APRN, CNP Primary Care Provi merline Wero Encarnacion PAC Unavailable [phone] Reason for Referral * PT/OT/ST (Routine) - Open Specialty Diagnoses / Procedures Referred By Haleigh t Referred To Contact Physical Therapy Diagnoses S/P total knee arthroplasty, left Frantz Alejandra MD [address] [place] [address], [address] [place] [address] Phone: tel: fax: [facility] [address] [facility], [address] [place] [address] Phone: tel: fax: Referral ID Status Reason Start Date Expiration Date Visits Re quested Visits Authorized [id number] Open 10/14/2024 50 50 Scheduling Instructions Encounter Details Date Type Department Care Team (Late st Contact Info) Description 10/14/2024 Transcribe Orders [facility] [address] [place] [address] Frantz Alejandra MD [address] [place] [address], [address] [place] [address] S/P total knee arthroplasty, left (Primary Dx) [...] Care Team (Late st Contact Info) Description 03/26/2025 10:15 AM CDT Physical Therapy [facility] [address], [address] [place] [id number] Renae Hankins, MANAGER IT SECURITY, TIME CLOCK MECHANIC [address] [place] [address] Sofya Galdamez, PT [place] Discharge Disposition: Discharged to home or Selfcare 04/02/2025 10:45 AM CDT Physical Therapy [facility] [address] [place] [address] Danelle Peterson, PT [place] Discharge Disposition: Discharged to home or Selfcare 04/09/2025 10:45 AM CDT Physical Therapy [facility] [address] [place] [id number] Danelle Peterson, PT [place] 04/16/2025 10:45 AM CDT Physical Therapy [facility] [address] [place] [address] Danelle Peterson, PT [place] 04/23/2025 11:00 AM CDT Physical Therapy [facility] [address] [place] [address] Sofya Galdamez, PT [place] 04/30/2025 11:00 AM CDT Physical Therapy [facility] [address] [place] [address] Sofya Galdamez, PT [place] Scheduled Referrals Name Type Priority Associated Diagnoses Orde r Schedule PHYSICAL THERAPY REFERRAL Outpatient Referral Routine S/P total knee arthroplasty, left Expected: 10/14/2024, Expires: 10/14/2025 documented as of this encounter Visit Diagnoses Diagnosis S/P total knee arthroplasty, left- Primary documented in this encounter Care Teams Urogynecology Physician Relationship Specialty Start Date End Date Sherrie Martell, MANAGER IT SECURITY, ALTITUDE CHAMBER TECHNICIAN [address] [facility] [address] [place] [address] PCP - General Advanced Practice Nurse 06/02/24 Saurav Varma MD [address] [place] [address] Consulting Physician Neurology 12/26/23 Wero Encarnacion PAC [address] [place] [address] [address] [place] [address] Physician Pizza Delivery Driver Physician Pizza Delivery Driver 07/31/24 documented as of this encounter
--- OUTSIDE RECORDS SUMMARY | 2025-03-20 13:31 | XMS_ITS | Encounter Summary ---
Author Organization [facility] Address [address] [place] [address] Care Team Providers Care Casting Wheel Operator Name Role Phone Ar Talbot MD Unavailable [phone] Tavo Juan MD Unavailable Sherrie Martell LEGAL AIDE Primary Care Provider Josseline Pitts NP Unavailable [phone] Shaquille Campos MD Unavailable Nakul Gutierrez Unavailable Don Sinha LEGAL AIDE Unavailable [phone] Saurav Varma MD Unavailable [phone] Reason for Visit * Reason Onset Date Comments Covid-19 Questions 03/20/2025 Encounter Details Date Type Department Care Team (Late st Contact Info) Description 03/20/2025 Nurse Triage [facility] Primary Care at [address] [place] [address] Sherrie Martell, DILIP [address] [place] [address] [address] [place] [address] Social History Tobacco Use Types Packs/Day Years Used Date Smoking Tobacco: Never Smokeless Tobacco: Never Alcohol Use Standard Drinks/Week Comments No 0 (1 standard drink = 0.6 oz pur e alcohol) AUDIT-C Answer Date Recorded Q1: How often do you have a drink containing alcohol? Never 02/09/2025 Q2: How many drinks containi ng alcohol do you have on a typical day when you are drinking? Patient does not drink Q3: How often do you have si x or more drinks on one occasion? Never 02/09/2025 Overall Financial Resource Strain (CARDIA) Answe r Date Recorded How hard is it for you to pa y for the very basics like food, housing, medical care, and heating? Somewhat hard 10/20/2021 PHQ-2 Answer Date Recorded PHQ-2 Total Score (If total score is 3 or more points, staff should administer the PHQ-9) 5 01/14/2025 Hunger Vital Sign Answer Date Recorded Within [...] place to sleep or slept in a detention (including now)? No 10/20/2021 Personal Safety Answer Date Recorded Have you ever been in or are you currently in a harmful physical or emotional relationship or is someone making you feel afraid or unsafe? 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 She has had symptoms for 2 weeks,. She has been on abx twice for same symptoms. She reports productive cough, headache, neck pain. Disposition Discuss With PCP and Callback by Nurse Within 1 Hour Disposition per guideline: Care Advice/education/call back instruction given: pt chooses to go to local Reason for Disposition HIGH RISK patient (e.g., weak immune system, age > 64 years, obesity with BMI of 30 or higher, , chronic lung disease) and COVID symptoms (e.g., cough, fever) (Exceptions: Already seen by doctor or LEGAL AIDE/PA and no new or worsening symptoms.) Protocols Used COVID-19 - Diagnosed or Hgthcygfo-Hytod-VM * Telephone Encounter - Татьяна Larkin RN - 03/20/2025 12:26 PM CDT Regarding: Fever, chills, vomiting, Body aches, Stopped up and runny nose, cough, headache ----- Message from [employer] Mir sent at 03/20/2025 12:13 PM CDT ----- Symptom Based Call Chief Complaint(s): Fever, chills, vomiting, Body aches, Stopped up and runny nose, cough, headache Duration: Two weeks What type of symptom(s) is the patient experiencing? Non-Emergent. Is this a new or reoccurring symptom(s)? New What have you tried to help your symptom(s)? Was treated for sinus only tested positive today for Covid Why was appointment not scheduled? Requesting advice from clinical hospitality team member. Additional Comments: tested positive for Covid after nausea and vomiting started. Requesting medication Does message need to be routed? Yes-Action Needed documented in this encounter Plan of Treatment Not on file documented as of this encounter Visit Diagnoses Not on filedocumented in this encounter Care Teams Casting Wheel Operator Relationship Specialty Start Date End Date Sherrie Martell NP [address] [facility] [address] [place] [address] PCP - General Family Medicine 12/08/22 [place] [id number] [facility] [address] [place] [address] Consulting Physician Pulmonary Disease 10/25/21 [place] [id number] [facility] [address] [place] [address] Consulting Physician Psychiatry 10/25/21 Josseline Pitts, DILIP [address] [facility] [address] [place] [address] Nurse Practitioner Endocrinology Diabetes & Metabolism 03/20/24 Shaquille Campos MD [address] [facility] [address] [place] [address] Consulting Physician Pulmonary Disease 03/20/24 Nakul Gutierrez PA [address] [facility] [address] [place] [address] Physician Nondestructive Tester Orthopedic Surgery 06/18/24 Don Sinha NP [address] [facility] [address] [place] [address] Nurse Practitioner Gastroenterology 06/18/24 Saurav Varma MD [address] [facility] [address] [place] [address] Referring Physician Neurology 06/18/24 documented as of this encounter
--- OUTSIDE RECORDS SUMMARY | 2025-03-20 13:31 | XMS_ITS | Encounter Summary ---
Author Organization [facility] Healthcare Address [address] [place] [address] Care Team Providers Care Color Blender Name Role Phone Ar Talbot MD Unavailable Tavo Juan MD Unavailable [phone] Sherrie Martell NP Primary Care Provider Josseline Pitts NP Unavailable [phone] Shaquille Campos MD Unavailable Nakul Gutierrez Unavailable Don Sinha AGRICULTURAL PILOT Unavailable [phone] Saurav Varma MD Unavailable Reason for Visit * Reason Onset Date Comments Symptom Based Call 03/10/2025 Encounter Details Date Type Department Care Team (Late st Contact Info) Description 03/10/2025 Telephone [facility] Primary Care at [address] [place] [address] Sherrie Martell, DILIP [address] [place] [address] [address] [place] [address] Symptom Based Call Social History Tobacco Use Types Packs/Day Years [...] place to sleep or slept in a fdc (including now)? No 10/20/2021 Personal Safety Answer Date Recorded Have you ever been in or are you currently in a harmful physical or emotional relationship or is someone making you feel afraid or unsafe? 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 Non-Emergent. Is this a new or reoccurring symptom(s)? New What have you tried to help your symptom(s)? valentino Mendoza Why was appointment not scheduled? Patient seeking care without an appointment; appointment was offered by . Additional Comments: Patient has an appt with pcp tomorrow but would like to know if pcp will prescribe some zofran. [facility] [place] message need to be routed? Yes-Action Needed documented in this encounter Plan of Treatment Not on file documented as of this encounter Visit Diagnoses Not on filedocumented in this encounter Additional Health Concerns Infection Onset Date Last Indicated Resolved Time COVID: Suspected 03/10/2025 03/10/2025 03/10/2025 1:36 PM CDT documented as of this encounter Care Teams Color Blender Relationship Specialty Start Date End Date Sherrie Martell NP [address] [place] [address] [address] [place] [address] PCP - General Family Medicine 12/08/22 [place] [id number] [address] [address] Consulting Physician Pulmonary Disease 10/25/21 [place] [address] [facility] [address] [place] [address] Consulting Physician Psychiatry 10/25/21 Josseline Pitts NP [address] [place] [address] [address] [place] [address] Nurse Practitioner Endocrinology Diabetes & Metabolism 03/20/24 Shaquille Campos MD [address] [facility] [address] [place] [address] Consulting Physician Pulmonary Disease 03/20/24 Naklu Gutierrez PA [address] [facility] [address] [place] [address] Physician Crop Ranch Hand Orthopedic Surgery 06/18/24 Don Sinha NP [address] [facility] [address] [place] [address] Nurse Practitioner Gastroenterology 06/18/24 Saurav Varma MD [address] [facility] [address] [place] [address] Referring Physician Neurology 06/18/24 documented as of this encounter
--- OUTSIDE RECORDS SUMMARY | 2025-03-20 13:31 | XMS_ITS | Clinical Summary ---
Author Organization [facility] Healthcare Address [address] [place] [address] Care Team Providers [employer] Name Role Phone Ar Talbot MD Unavailable [phone] Tavo Juan MD Unavailable Sherrie Martell UNIT SUPPORT REPRESENTATIVE Primary Care Provider Josseline Pitts NP Unavailable [phone] Shaquille Campos MD Unavailable Nakul Gutierrez Unavailable [phone] Don Sinha UNIT SUPPORT REPRESENTATIVE Unavailable [phone] Saurav Varma MD Unavailable [phone] Allergies Active Allergy Reactions Criticality Noted Date [...] total) by mouth daily as needed (Constipation). 018 Active ipratropium-albut Jasiel (DUO-NEB) 0.5-2.5 mg/3 mL nebulizer solution Take 3 mL by nebulization every 6 (six) hours As needed for wheezing 90 mL 1 022 Active Advair Diskus 250-50 mcg/dose diskus inhaler INHALE 1 DOSE BY MOUTH TWICE DAILY RINSE MOUTH WITH WATER AFTER USING. DO NOT SWALLOW 60 each 3 023 Active fluticasone propionate (FLONASE) 50 mcg/actuation nasal spray Administer 2 sprays into each nostril daily 1 each 11 023 Active cetirizine (ZyrTEC) 10 mg tabletIndications :Seasonal Allergic Rhinitis Take 1 tablet (10 mg total) by mouth daily 90 tablet 3 023 Active montelukast (SINGULAIR) 10 mg tablet Take 1 tablet by mouth nightly 90 tablet 3 024 Active losartan (COZAAR) 100 mg tablet Take 1 tablet by mouth once daily 90 tablet 3 024 Active celecoxib (CeleBREX) 100 mg capsule Take 2 capsules (200 mg total) by mouth 2 (two) times a day 024 Active atorvastatin (LIPITOR) 40 mg tablet Take 0.5 tablets (20 mg total) by mouth daily 90 tablet 3 024 Active gabapentin (NEURONTIN) 300 mg capsule Take 1 capsule (300 mg total) by mouth 2 (two) times a day 024 Active sertraline (ZOLOFT) 100 mg tabletIndications :Generalized anxiety disorder,Moderate episode of recurrent major depressive disorder (HCC) Take 1 tablet (100 mg total) by mouth daily 90 tablet 3 024 Active amLODIPine (NORVASC) 10 mg tablet Take 1 tablet (10 mg total) by mouth daily 90 tablet 3 024 Active hydrOXYzine (ATARAX) 25 mg tabletIndications :Generalized anxiety disorder Take 1 tablet by mouth twice daily as needed for anxiety 180 tablet 3 024 Active albuterol HFA (PROVENTIL HFA,VENTOLIN HFA,PROAIR HFA) 90 mcg/actuation inhalerIndication s:Acute cough Inhale 2 puffs every 6 (six) hours as needed for wheezing for up to 7 days 1 each 025 Active al & mag hydroxide with simethicone-diphe nhydramine-lidoca ine (MAGIC MOUTHWASH) suspension 1-1-1 Swish and swallow 20 mL every 4 (four) hours as needed (for nausea/vomiting ) 100 mL 025 Active naloxone (NARCAN) 4 mg/actuation spray,non-aerosol Administer 1 spray into affected nostril(s) as needed for opioid reversal or respiratory depression Call 911. Administer a single spray in one nostril. Repeat every 3 minutes as needed if no or minimal response. 1 each 025 Active famotidine (PEPCID) 40 mg tablet Take 1 tablet (40 mg total) by mouth nightly 90 tablet 3 025 Active tiZANidine (ZANAFLEX) 2 mg tablet Take 2 tablets (4 mg total) by mouth every 6 (six) hours as needed for muscle spasms 025 Active clonazePAM (KlonoPIN) 2 mg tabletIndications :Generalized anxiety disorder TAKE 1/2 (ONE-HALF) TABLET BY MOUTH ONCE DAILY IN THE MORNING AND 1 TABLET ONCE DAILY AT BEDTIME NEEDED 45 tablet 025 Active oxyCODONE-acetami nophen (PERCOCET) 5-325 mg per tabletIndications :Pain Take 1 tablet by mouth every 6 (six) hours as needed for pain 28 tablet 025 Active lidocaine (LIDODERM) 5 % Place 1 patch on the skin daily for 12 hours Remove & discard patch within 12 hours or as directed by MD. 30 patch 025 Active diclofenac sodium (VOLTAREN) 1 % gel Apply 4 g topically 4 (four) times a day 100 g 025 Active ondansetron ODT (ZOFRAN-ODT) 4 mg disintegrating tablet DISSOLVE 1 TABLET IN MOUTH EVERY 6 HOURS NEEDED FOR 4 DAYS 025 Active tirzepatide (Mounjaro) 2.5 mg/0.5 mL pen injector injectionIndicati ons:type 2 diabetes mellitus Inject 0.5 mL (2.5 mg total) under the skin once a week Does not tolerate higher dose. E11.65 2 mL 11 025 Active omeprazole (PriLOSEC) 20 mg capsule Take 1 capsule (20 mg total) by mouth daily 90 capsule 4 025 2025 Active zinc gluconate 50 mg tablet Take 1 tablet (50 mg total) by mouth daily 2024 Discontinued(T herapy completed) potassium chloride ER 20 mEq CR tablet Take 1 tablet (20 mEq total) by mouth every other day 2024 Discontinued(T herapy completed) hydroCHLOROthiazi de (HYDRODIURIL) 25 mg tablet Take 1 tablet (25 mg total) by mouth 2 (two) times a day 2024 Discontinued(T herapy completed) tirzepatide (Mounjaro) 2.5 mg/0.5 mL pen injector injectionIndicati ons:type 2 diabetes mellitus Inject 0.5 mL (2.5 mg total) under the skin every 7 days E11.65- off mounjaro due to surgery. Needs to start over on low dose. 2 mL 025 2024 Discontinued ondansetron (ZOFRAN) 4 mg tabletIndications :Prevention of Post-Operative Nausea and Vomiting Take 1 tablet (4 mg total) by mouth every 6 (six) hours as needed for nausea or vomiting 30 tablet 1 025 2024 Discontinued(P atient Reported) pantoprazole DR (PROTONIX) 40 mg EC tabletIndications :Gastroesophageal reflux disease without esophagitis Take 1 tablet (40 mg total) by mouth daily 90 tablet 3 025 2024 Discontinued(T herapy completed) Mounjaro 2.5 mg/0.5 mL pen injector injection INJECT 0.5 ML (2.5 MG TOTAL) UNDER THE SKIN EVERY 7 DAYS 4 mL 025 2024 Discontinued(R eorder) amoxicillin-clavu lanate (AUGMENTIN) 875-125 mg per tabletIndications :Acute frontal sinusitis, recurrence not specified Take 1 tablet by mouth 2 (two) times a day for 5 days 10 tablet 025 2024 Active Problems Problem Noted Date Diagnosed Date S/P total knee replacement, left 10/24/2024 S/P total knee arthroplasty, left 10/23/2024 Vitamin D deficiency 10/15/2024 Assessment & Plan (10/15/2024 12:08 PM CDT): -chronic, unknown, no data to review at this time to make an evaluation -Discussed/ordered labs -continue on vitamin-D 50169 units weekly Post-traumatic osteoarthritis of left knee [...] Podiatry Assessment & Plan (09/15/2024 12:23 PM BRUSH PAINTER): -acute, not at goal- recent fall -Patient [...] 07/02/2024 Assessment & Plan (07/02/2024 8:49 AM BRUSH PAINTER): -Acute, not at goal -Start on acetaminophen ER 650 mg every 8 hours as needed for pain -Continue celecoxib 100 mg twice daily -Right elbow x-ray ordered today -Follow up in 1 month or sooner as needed Fall 07/02/2024 Assessment & Plan (09/15/2024 12:23 PM BRUSH PAINTER): -not at goal- recent fall with right [...] needed Assessment & Plan (07/02/2024 8:50 AM BRUSH PAINTER): -Patient reports 4 falls in the last month related to her right knee osteoarthritis -Patient's BMI needs to be at or below 40 in ordered to have right knee surgery -Increase to Mounjaro 7.5 mg weekly to assist in weight loss -Follow up in 1 month or sooner as needed Primary osteoarthritis of right knee 07/02/2024 Assessment & Plan (07/02/2024 8:50 AM BRUSH PAINTER): -chronic, not at/near goal -Patient reports 4 [...] 09/14/2023 Assessment & Plan (09/14/2023 4:22 PM BRUSH PAINTER): RUQ pain radiating to flank for the [...] meals Repeat CT A/P with contrast Nausea 09/14/2023 Assessment & Plan (01/14/2025 3:15 PM CDT): -chronic, not at goal -Discussed/ordered labs -continue on Zofran 4 mg every 8 hours as needed -continue follow up with GI Assessment & Plan (01/02/2024 9:54 AM CDT): -chronic, stable -Discussed/ordered labs -continue on Reglan 10 mg 3 times daily as needed and Zofran 4 mg every 8 hours as needed -continue follow up with GI Assessment & Plan (09/14/2023 4:17 PM BRUSH PAINTER): Could be from gastroparesis, patient is a [...] GI Assessment & Plan (09/14/2023 4:13 PM BRUSH PAINTER): Noted on CT Chest/A/P 06/2023 with haziness [...] Encouraged to go 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 Has been taking [...] Nasal saline spray (Simply saline, [employer], [place], [place]) 2 second sprays or 2 squeezes into [...] counselor Assessment & Plan (09/12/2023 8:57 AM BRUSH PAINTER): -chronic, stable -continue on sertraline 100 mg [...] Please start taking probiotic 20-50billion CFU daily [facility]. This will help maintain the good bacteria [...] system in place for the probiotic. Class 1 obesity with serious comorbidity and body mass index (BMI) of 34.0 to 34.9 in adult 12/08/2020 Assessment & Plan (01/14/2025 3:15 PM CDT): -chronic, improving, but not at goal goal BMI less than or equal to 40 Healthy, high-protein, lower carbohydrate, lower fat lifestyle and exercise for 150min/week recommended Recommend tracking everything you put in your mouth on an delfin like [employer] -Patient did not tolerate Mounjaro 7.5 mg weekly. -Patient is holding off on starting Mounjaro until her nausea improves Assessment & Plan (10/15/2024 12:08 PM CDT): -chronic, improving, but not at goal goal BMI less than or equal to 40 Healthy, high-protein, lower carbohydrate, lower fat lifestyle and exercise for 150min/week recommended Recommend tracking everything you put in your mouth on an delfin like [employer] -Patient did not tolerate Mounjaro 7.5 mg weekly. -Start back on Mounjaro 2.5 mg weekly for 4 weeks, then increase to Mounjaro 5 mg weekly for maintenance dose Assessment & Plan (09/15/2024 12:21 PM BRUSH PAINTER): -chronic, improving, but not at goal goal BMI less than or equal to 40 Healthy, high-protein, lower carbohydrate, lower fat lifestyle and exercise for 150min/week recommended Recommend tracking everything you put in your mouth on an delfin like [employer] -Patient did not tolerate Mounjaro 7.5 mg weekly. Patient has been off his medication for at least 4 weeks -Start back on Mounjaro 2.5 mg weekly for 4 weeks, then increase to Mounjaro 5 mg weekly for maintenance dose -Follow up in 1 month or sooner as needed Assessment & Plan (08/12/2024 2:10 PM BRUSH PAINTER): This is a chronic condition which continues [...] sessions. Assessment & Plan (08/08/2024 11:09 AM BRUSH PAINTER): -chronic, improving, but not at goal goal BMI less than or equal to 40 Healthy, high-protein, lower carbohydrate, lower fat lifestyle and exercise for 150min/week recommended Recommend tracking everything you put in your mouth on an delfin like [employer] -Patient did not tolerate Mounjaro 7.5 mg [...] for 30 grams with breakfast) -may try [facility] delfin to track food intake -Follow up in 1 month or sooner as needed Assessment & Plan (07/02/2024 8:46 AM BRUSH PAINTER): -chronic, not at/near goal goal BMI <30 Healthy, high-protein, lower carbohydrate, lower fat lifestyle and exercise for 150min/week recommended Recommend tracking everything you put in your mouth on an delfin like [employer] -Increase to Mounjaro 7.5 mg weekly -Follow [...] cup. Assessment & Plan (06/18/2024 3:16 PM BRUSH PAINTER): Wt Readings from Last 3 Encounters: 06/18/24 [...] in your mouth on an delfin like [employer] -patient will be starting [employer] soon with [...] in your mouth on an delfin like [employer] Hand Measurements: A fist or cupped hand [...] that there might be a program in [facility] which she could complete quicker. She also wants to check with her insurance. Assessment & Plan (09/12/2023 8:54 AM BRUSH PAINTER): -chronic, not at/near goal goal BMI <30 Healthy, high-protein, lower carbohydrate, lower fat lifestyle and exercise for 150min/week recommended Recommend tracking everything you put in your mouth on an delfin like [employer] Hand Measurements: A fist or cupped hand [...] cup. Assessment & Plan (08/21/2023 5:14 PM BRUSH PAINTER): This is a chronic condition which continues 14 lb weight gain since last office visit She wasOn Evelyn but did not tolerate it due to [...] in your mouth on an delfin like [employer] Hand Measurements: A fist or cupped hand [...] in your mouth on an delfin like [employer] Hand Measurements: A fist or cupped hand [...] provided. Assessment & Plan (07/09/2022 6:22 PM BRUSH PAINTER): BMI Follow-up includes: exercise counseling. Assessment & Plan (05/22/2022 1:36 PM CDT): BMI Follow-up includes: exercise counseling. Assessment & Plan (03/02/2022 4:45 PM CDT): HPI: Condition is not at/near goal goal BMI <30 A&P: Healthy, high-protein, lower carbohydrate, lower fat lifestyle and exercise for 150min/week recommended Recommend tracking everything you put in your mouth on an delfin like [employer] Lower carb substitutions: [employer] carries a zero [...] in much longer they will become mushy [place] and/or coconut flour instead of regular flour [...] pork rinds For yogurt, try [employer] gabonese yogurt Use Pinterest for recipe ideas. Type [...] in your mouth on an delfin like [employer] or [employer] carries a zero net carb bread [...] in much longer they will become mushy [place] and/or coconut flour instead of regular flour [...] pork rinds For yogurt, try [employer] gabonese yogurt Use Pinterest for recipe ideas. Type in low carb... Assessment & Plan (10/31/2021 12:34 PM CDT): HPI: Condition is not at/near goal goal BMI <30 On steroids A&P: Healthy, high-protein, lower carbohydrate, lower fat lifestyle and exercise for 150min/week recommended Substitutions: Recommend tracking everything you put in your mouth on an delfin like [employer] or [employer] carries a zero net carb bread [...] in much longer they will become mushy [place] and/or coconut flour instead of regular flour [...] pork rinds For yogurt, try [employer] gabonese yogurt Use [employer] for recipe ideas. Type in low carb... Assessment & Plan (05/27/2021 12:57 PM CDT): HPI: Condition is not at/near goal goal BMI <30 A&P: Healthy, high-protein, lower carbohydrate, lower fat lifestyle and exercise for 150min/week recommended Substitutions: Recommend tracking everything you put in your mouth on an delfin like [employer] or [employer] carries a zero net carb bread [...] in much longer they will become mushy [place] and/or coconut flour instead of regular flour [...] pork rinds For yogurt, try [employer] gabonese yogurt Use Pinterest for recipe ideas. Type [...] nightly due to back and leg pain Hyperlipidemia due to type 2 diabetes mellitus 1 09/03/2017 Assessment & Plan (10/15/2024 12:06 PM CDT): -chronic, stable -Discussed/ordered labs -continue on atorvastatin 40 mg nightly Assessment & Plan (09/15/2024 12:22 PM BRUSH PAINTER): -chronic, stable -Discussed/ordered labs -continue on atorvastatin 40 mg nightly Assessment & Plan (08/12/2024 2:09 PM BRUSH PAINTER): This is a chronic condition which is [...] prescribed. Assessment & Plan (09/12/2023 8:57 AM BRUSH PAINTER): -chronic, stable -Discussed/ordered labs -continue on atorvastatin 40 mg nightly Assessment & Plan (08/21/2023 5:13 PM BRUSH PAINTER): This is a chronic condition which is [...] are stable, reviewed previous lipid levels in [facility]. Pharmacotherapy as ordered. Order for lipid panel was given today to be obtained. Pt voiced understanding of lab drawn and continuation of current medication regimen. Assessment & Plan (07/09/2022 6:20 PM BRUSH PAINTER): Lipid abnormalities are stable, reviewed previous lipid levels in [facility]. Pharmacotherapy as ordered. Order for lipid [...] are stable, reviewed previous lipid levels in [facility]. Pharmacotherapy as ordered. Order for lipid panel was given today to be obtained. Pt voiced understanding of lab drawn and continuation of current medication regimen. Assessment & Plan (05/13/2020 2:09 PM CDT): Lipid abnormalities are stable, reviewed previous lipid levels in [facility]. Pharmacotherapy as ordered. Order for lipid panel was given today to be obtained. Pt voiced understanding of lab drawn and continuation of current medication regimen. Assessment & Plan (02/18/2019 7:41 PM CDT): Due for repeat labs. Continue atorvastatin 10 mg daily Assessment & Plan (07/03/2018 10:21 AM BRUSH PAINTER): Lipid abnormalities are improving with treatment. Pharmacotherapy as ordered. Lipids will be reassessed in 6 months. Hypokalemia 02/27/2018 Assessment & Plan (01/02/2024 9:55 AM CDT): -chronic, unknown, no data to review at this time to make an evaluation -Discussed/ordered labs -continue on potassium chloride ER 20 mEq daily Chronic pain of left knee 03/01/2015 Assessment & Plan (01/14/2025 3:15 PM CDT): -chronic, not at/near goal -recent left knee replacement -Patient received a steroid injection with ortho today and we will be starting physical therapy again soon -Continue follow up with ortho Assessment & Plan (05/15/2023 3:04 PM CDT): [...] having pain - will refer to orthopedics. Vertigo 10/01/2014 Overview (11/02/2016): Vertigo Assessment & Plan (01/02/2024 9:53 AM CDT): -chronic, stable -Discussed/ordered labs -continue on meclizine 12.5 mg three times daily as needed Assessment & Plan (12/14/2022 2:51 PM CDT): Chronic vertigo-worsening Encouraged to follow up with quality assurance monitor final for updated hearing screening and to discuss [...] or bologna; no MSG as found in colombian food; no more than 1/2 banana a [...] bone loss and vit B12 deficiency with rodent exterminator use of PPI with pt, would like to remain on medication at this time Assessment & Plan (09/14/2023 4:09 PM BRUSH PAINTER): Takes daily pantoprazole 40 mg with good control of reflux and heartburn EGD 07/2022 with reflux changes without intestinal metaplasia Plan Continue pantoprazole 40 mg daily, take 30 minutes before breakfast Continue antireflux lifestyle modifications Assessment & Plan (09/12/2023 8:55 AM BRUSH PAINTER): -chronic, stable -continue follow up with GI [...] bone loss and vit B12 deficiency with rodent exterminator use of PPI with pt, would like [...] bone loss and vit B12 deficiency with [facility] use of PPI with pt, would like [...] bone loss and vit B12 deficiency 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 She has to schedule follow-up with jose [...] medication. Assessment & Plan (08/20/2017 9:53 AM BRUSH PAINTER): Discussed options including increasing prozac vs. trial [...] needed Assessment & Plan (09/12/2023 8:54 AM BRUSH PAINTER): -chronic, stable -Discussed/ordered labs -continue on Advair [...] pulmonology Assessment & Plan (08/12/2021 3:27 PM BRUSH PAINTER): Continue breath treatments Prednisone 40 mg for [...] basis. Assessment & Plan (07/04/2018 4:12 PM BRUSH PAINTER): Asthma is improving with treatment. The patient [...] diet Assessment & Plan (09/15/2024 12:22 PM BRUSH PAINTER): -chronic, stable -Discussed/ordered labs -continue on amlodipine 10 mg daily and losartan 100 mg daily -recommend healthy, low-salt diet Assessment & Plan (08/12/2024 2:08 PM BRUSH PAINTER): This is a chronic condition which is at goal. Goal is less than 140/90 Continue amlodipine, losartan Encouraged to monitor weight and B/P at home. Assessment & Plan (06/18/2024 3:17 PM BRUSH PAINTER): Blood Pressure Management BP Readings from Last [...] prescribed. Assessment & Plan (09/12/2023 8:57 AM BRUSH PAINTER): -chronic, stable -Discussed/ordered labs -continue on amlodipine [...] months. Assessment & Plan (08/20/2017 8:13 AM BRUSH PAINTER): Not on any antihypertensives. Will continue to [...] dose Assessment & Plan (09/15/2024 12:22 PM BRUSH PAINTER): -chronic, stable - A1c is still, however [...] needed Assessment & Plan (08/12/2024 2:08 PM BRUSH PAINTER): This is a chronic condition which is [...] losartan Assessment & Plan (08/08/2024 11:07 AM BRUSH PAINTER): -chronic, stable - A1c is still, however [...] needed Assessment & Plan (07/02/2024 8:46 AM BRUSH PAINTER): -chronic, stable - A1c is still, however [...] of the bariatric surgery centers in the [facility] for her to call and review [...] losartan Assessment & Plan (09/12/2023 8:58 AM BRUSH PAINTER): -chronic, stable -Discussed/ordered labs -continue on aspirin 81 mg daily, atorvastatin 40 mg daily, losartan 100 mg daily -continue seeing Josseline Pitts endocrinology Lab Results Component Value Date HGBA1C 6.9 08/21/2023 Assessment & Plan (08/21/2023 5:12 PM BRUSH PAINTER): This is a chronic condition which is [...] eye exam. last dilated eye exam was [facility] Monofilament foot exam completed. protective senses [...] No history of macrovascular disease - [place] Assessment & Plan (02/28/2022 7:25 PM CDT): [...] No history of macrovascular disease - [place]. Assessment & Plan (11/17/2021 3:58 PM CDT): [...] No history of macrovascular disease - [place]. Assessment & Plan (10/31/2021 9:52 AM CDT): [...] No history of macrovascular disease - [place]. Assessment & Plan (05/27/2021 3:14 PM CDT): [...] Please start taking probiotic 20-50billion CFU daily [facility]. This will help maintain the good bacteria [...] Problem Noted Date Diagnosed Date Resolved Date Preoperative clearance 10/15/202401/14 Assessment & Plan (10/15/2024 12:05 PM CDT): [...] the Celebrex 1 week prior to surgery Need for influenza vaccination 05/04/2023 09/07/2023 Assessment [...] 07/09/202203/2024 Assessment & Plan (07/09/2022 6:22 PM BRUSH PAINTER): -Recommended: Healthy diet. Avoiding junk food/fast food. -30 minutes of exercise most days of the week. Increase to 45 minutes for weight loss. Immunizations: Up-to-date increase physical activity, continue present plan, call if any problems Follow-up in 6 months. Belching 03/22/2022 11/10/2022 Overview (07/10/2022): Added automatically from request for surgery [id number] Flatulence 03/22/2022 11/10/2022 Overview (07/10/2022): Added automatically from request for surgery [id number] Periumbilical pain 03/22/2022 Overview (07/10/2022): Added automatically from request for surgery [id number] Nausea without vomiting 03/22/2022 0410/2022 Overview (07/10/2022): Added automatically from request for surgery [id number] Belching 03/21/2022 04/08/2022 Flatulence 03/21/2022 04/08/2022 Periumbilical [...] She went to see Dr. Talbot at [facility] but in [place] they dont take her insurance. We will also reach out to pulmonology here on campus Dr. Beth horowitz can see pt 01/03/2022. Pt missed appointment with cardiology today as she thought appointment was at [facility] office, but it was at [facility]. Pt has reschedule appointment next with [...] in sooner with Dr. Roy (pulmonology) in [place], [place] Exacerbation of asthma 10/19/202110/31 Long COVID 08/12/2021 09/12/2023 Assessment & Plan (04/08/2022 2:21 PM CDT): She is transferring care back to [facility] as her PCP is leaving this practice. [...] She went to see Dr. Talbot at [facility] but in [place] they dont take her insurance. We will also reach out to pulmonology here on campus Dr. Beth horowitz can see pt 01/03/2022. Pt missed appointment with cardiology today as she thought appointment was at [facility] office, but it was at [facility]. Pt has reschedule appointment next with [...] in sooner with Dr. Roy (pulmonology) in [place], [place] Assessment & Plan (08/12/2021 3:28 PM BRUSH PAINTER): Continue breath treatments Prednisone 40 mg for [...] concerns Assessment & Plan (08/04/2019 3:02 PM BRUSH PAINTER): Will treat with augmentin, cheritussin, prednisone. Continue [...] We have stressed that she calls her nursing clerk today so that they can work [...] voiced understanding. Will also refer to Cardiology Upper respiratory tract infection 01/01/2019 01/14/2025 Assessment & Plan (08/08/2024 11:11 AM BRUSH PAINTER): -Acute, not at goal -Rapid strep negative in office today. Swab sent for culture. -Start on guaifenesin-codeine 100-10 mg/5 mL 5-10 mL 3 times daily as needed for cough. [place] appropriate. Advised to avoid taking her clonazepam while taking this cough syrup. Patient acknowledges understanding. -Follow up if not improving Laryngopharyngeal reflux (LPR) 12/12/2018 05/13/2020 Assessment & Plan (12/15/2018 10:30 AM CDT): Restart Nasal saline, continue Flonase daily Continue Singulair and Zyrtec Increase Zantac (ranitidine) to 300 mg daily at bedtime Continue to work with [employer] for Benign Positional Vertigo Referred otalgia of [...] daily at bedtime Continue to work with [employer] for Benign Positional Vertigo Assessment & Plan [...] greens, fat-free milk, cottage cheese, nuts like [id number], protein bars with 10-15 g of protein [...] better Assessment & Plan (10/03/2018 10:30 AM BRUSH PAINTER): Due to length of cough and hx [...] assistance. Assessment & Plan (07/03/2018 10:38 AM BRUSH PAINTER): Currently unemployed. No income. Has custody of [...] 02/17/2019 Assessment & Plan (08/15/2017 3:51 PM BRUSH PAINTER): Labs as ordered Pain of right thumb 06/29/2017 08/20/19 18 Assessment & Plan (06/29/2017 12:00 PM BRUSH PAINTER): I recommend we proceed with x-ray imaging. Patient is in agreement. Further direction pending these results. She was given tramadol p.r.n. pain as she notes she had a few left over from prior surgery and this has been effective. Viral URI with cough 06/29/2017 018 Assessment & Plan (06/29/2017 12:11 PM BRUSH PAINTER): Rapid influenza negative for influenza a and [...] 08/15/2017 Assessment & Plan (06/29/2017 12:16 PM BRUSH PAINTER): After obtaining patient's consent annual influenza vaccine was provided in office today. Hand dermatitis 06/12/2017 04/03/2018 Assessment & Plan (06/12/2017 2:54 PM BRUSH PAINTER): Refill provided on topical Lotrisone and Bactroban. She will continue as previously recommended by Dermatology. With any change in, worsening, or non improvement in condition patient was encouraged to return to etl tester for follow-up. Pain of hand 06/14/2016 04/03/2018 Panic attack 05/01/2014 05/13/2020 Overview (11/02/2016): Panic attack Assessment & Plan (05/08/2019 5:42 PM CDT): Continue clonazepam 1mg bid prn Assessment & Plan (08/20/2017 9:51 AM BRUSH PAINTER): Continue clonazepam twice daily. Allergic rhinitis 05/01/2014 [...] Encounters Date Type Department Care Team Description 03/20/2025 Nurse Triage [facility] Primary Care at [address] [phone] Sherrie Martell NP 03/10/2025 1:00 PM CDT Office Visit [facility] Residency Clinic at [address] [phone] Jeremiah Spears MD Acute frontal sinusitis, recurrence not specified (Primary Dx) 03/10/2025 Nurse Triage [facility] Primary Care at [address] [phone] Sherrie Martell NP 03/10/2025 Telephone [facility] Primary Care at [address] [phone] Sherrie Martell NP Symptom Based Call 03/09/2025 9:10 AM CDT - 03/09/2025 11:59 PM CDT Hospital Encounter [facility] Outpatient Lab - Outpatient Center at [address] [address] Type 2 diabetes mellitus without complication, without long-term current use of insulin (HCC) Discharge Disposition: Discharge to home or self care 03/09/2025 9:00 AM CDT Office Visit [facility] Diabetes Endocrine Care at [address] [place] [phone] Josseline Pitts NP Type 2 diabetes mellitus without complication, without long-term current use of insulin (HCC) (Primary Dx); Hypertension associated with type 2 diabetes mellitus (HCC); Hyperlipidemia due to type 2 diabetes mellitus (HCC); Class 1 obesity due to excess calories with serious comorbidity and body mass index (BMI) of 34.0 to 34.9 in adult 02/18/2025 Telephone [facility] Diabetes Endocrine Care at [address] [place] [phone] Josseline Pitts, DILIP 02/13/2025 4:00 PM CDT Therapy [facility] [place] [address] Kali Pineda, PT S/P TKR (total knee replacement), left (Primary Dx) 02/09/2025 1:30 PM CDT Office Visit [facility] Orthopedic and Sports Medicine [address] [place] [phone] Nakul Gutierrez PA Aftercare following left knee joint replacement surgery (Primary Dx); S/P total knee arthroplasty, left; Pes anserinus bursitis of left knee 02/06/2025 1:45 PM CDT Therapy [facility] [place] [address] Carleen Chambers, CHIEF CREW SCHEDULER S/P TKR (total knee replacement), left (Primary Dx) 02/03/2025 4:00 PM CDT Therapy [facility] Physical Therapy [place] [address] Carleen Chambers, CHIEF CREW SCHEDULER S/P TKR (total knee replacement), left (Primary Dx) 01/23/2025 1:00 PM CDT Therapy [facility] Physical Therapy Mar[address] Elena [place] [address] Carleen Chambers, CHIEF CREW SCHEDULER S/P TKR (total knee replacement), left (Primary Dx) 01/21/2025 Orders Only [facility] Orthopedic and Sports Medicine [address] [place] [phone] Nakul Gutierrez PA 01/20/2025 Telephone [facility] Orthopedics and Sports Medicine [address] [place] [address] [address] [place] [address] Nakul Gutierrez PA 01/16/2025 Telephone [facility] Gastroenterology at [address] [place] [phone] Don Sinha NP 01/14/2025 2:00 PM CDT Office Visit [facility] Primary Care at [address] [place] [phone] Sherrie Martell NP Non-recurrent acute suppurative otitis media of left ear without spontaneous rupture of tympanic membrane (Primary Dx); Nausea; Chronic pain of left knee; Class 1 obesity with serious comorbidity and body mass index (BMI) of 34.0 to 34.9 in adult, unspecified obesity type 01/14/2025 10:45 AM CDT Office Visit [facility] Orthopedic and Sports Medicine [address] [place] [phone] Nakul Gutierrez PA Aftercare following left knee joint replacement surgery (Primary Dx); S/P total knee arthroplasty, left; Pes anserinus bursitis of left knee 12/31/2024 2:30 PM CDT Therapy [facility] Physical [place] [address] Carleen Chambers, CHIEF CREW SCHEDULER S/P TKR (total knee replacement), left (Primary Dx) 12/29/2024 1:00 PM CDT Therapy [facility] Physical [place] [address] Carleen Chambers, CHIEF CREW SCHEDULER S/P TKR (total knee replacement), left (Primary Dx) 12/26/2024 1:45 PM CDT Therapy [facility] Physical [place] [address] Carleen Chambers, CHIEF CREW SCHEDULER S/P TKR (total knee replacement), left (Primary Dx) 12/26/2024 Telephone [facility] Diabetes Endocrine Care at [place] [phone] [facility] [address] [place] [address] Josseline Pitts, DILIP 12/24/2024 5:45 PM CDT Therapy [facility] Physical Therapy - [place] [address] [place] [address] Carleen Chambers, CHIEF CREW SCHEDULER S/P TKR (total knee replacement), left (Primary Dx) from Last 3 Months Immunizations Immunization Administration [...] Asthma Mother Coronary artery disease Mother Mirza nary artery disease; AAW 05/01/2014 - [place] age 57 Heart disease Mother Heart disease; [...] place to sleep or slept in a longterm (including now)? No 10/20/2021 Personal Safety Answer Date Recorded Have you ever been in or are you currently in a harmful physical or emotional relationship or is someone making you feel afraid or unsafe? Denies 10/23/2024 Comments No Sex and Gender Information Value Date Recorded Sex Assigned at Not on file Legal Sex Female 12:37 AM BRUSH PAINTER Gender Identity Not on file Sexual Orientation Not on file Obstetrics History Para Term AB IAB SAB Ectopic Multiple Livin g Live Births 3 1 1 Date Outcome GA Total Labor Labor/2nd/3rd Weight Sex Type Anes PTL Mely A1 A5 Name Clin Term Last Filed Vital Signs Vital Sign Reading Time Taken Comments Blood Pressure 135/81 03/10/2025 1:11 PM CDT Pulse 70 03/10/2025 1:11 PM CDT Temperature 37.4 C (99.4 F) 03/10/2025 1:11 PM CDT Respiratory Rate 18 03/10/2025 1:11 PM CDT Oxygen Saturation 96% 03/10/2025 1:11 PM CDT Inhaled Oxygen Concentration - - Weight 104.2 kg (229 lb 11.2 oz) 03/10/2025 1:11 PM CDT Height 175.3 cm (5' 9.02) 03/10/2025 1:11 PM CD T Body Mass Index 33.91 03/10/2025 1:11 PM CDT Plan of Treatment Health Maintenance Due Date Last Done Comments Covid-19 Vaccine (2023-08 5 season) 2024 10/12/2021, 01/07/2021, 01/07/2021, Additional history exists Influenza Vaccine (#1) 2025 , 05/04/2023, 05/22/2022, Additional history exists Foot Exam 08/12/2025 08/12/2024, 08/0 07/2023, 11/21/2023, Additional history exists Breast Cancer Screening-Mammogram 08/29/2025 08/29/2024, 07/20/2023, 06/21/2022, Additional history exists Regular Well Visit/Exam 18-64 09/08/2025, 09/07/2023, 07/05/2022 Hemoglobin A1C 09/09/2025 03/09/2025, 03/2 07/2024, 08/12/2024, Additional history exists Lipid Panel 10/02/2025 10/02/2024, 2 09/2023, 11/10/2022, Additional history exists eGFR 10/17/2025 10/17/2024, 03/0 12/2024, 07/07/2024, Additional history exists Depression Screening 01/14/2026 01/14/2025, 10/08/2024, 09/08/2024, Additional history exists Albumin Creatinine Ratio, Urine 03/09/2026 03/09/2025, 09/21/2023, 11/10/2022, Additional history exists Dilated Eye Exam 03/09/2027 03/09/2025, 01/2022, 11/03/2021 DTaP/Tdap/Td Vaccine (2 - Td or Tdap) [...] 07/04/2021, 09/19/2018 Hepatitis B Screening Completed 12/31/2023 Medical Devices Implanted Type Area [employer] Device Identifier Shelf Expiration Date Model / Serial / Lot [employer] Attune Cruciate Retain Cementless Knee Left 5 Component Femoral [id number] - [id number] Implanted:Qty: 1 on 10/23/2024 by Frantz Alejandra MD at [facility] Left: Knee [employer] [id number] 04/28/2034 [id number] / / [id number] [employer] Insert Tibial Knee Fixed Lm Posterior Stabilized Attune 5mm Size 5 Polyethylene [id number] - [id number] Implanted:Qty: 1 on 10/23/2024 by Frantz Alejandra MD at [facility] Left: Knee [employer] [id number] 04/28/2032 [id number] / / [id number] [employer] Attune Fb Tib Base Sz 5 Por [id number] - [id number] Implanted:Qty: 1 on 10/23/2024 by Frantz Alejandra MD at [facility] Left: Knee [employer] [id number] 08/29/2032 [id number] / / [id number] Procedures Procedure Name Priority Date/Time Associated Diagnosis Comments POCT RESPIRATORY SYNCYTIAL VIRUS Routine 03/10/2025 1:15 PM CDT Acute frontal sinusitis, recurrence not specified POC INFLUENZA A/B, COVID-19 ANTIGEN Routine 03/10/2025 1:15 PM CDT Acute frontal sinusitis, recurrence not specified ALBUMIN CREATININE RATIO, URINE Routine 03/09/2025 11:47 AM CDT Type 2 diabetes mellitus without complication, without long-term current use of insulin (HCC) POCT HEMOGLOBIN A1C Routine 03/09/2025 9 :15 AM CDT Type 2 diabetes mellitus without complication, without long-term current use of insulin (HCC) POCT GLUCOSE Routine 03/09/2025 9:13 AM CDT Type 2 diabetes mellitus without complication, without long-term current use of insulin (HCC) RETINAVUE SCANNER - OU - BOTH EYES Routine 03/09/2025 Type 2 diabetes mellitus without complication, without long-term current use of insulin (HCC) NM ARTHROCENTESIS ASPIR&/INJ MAJOR JT/BURSA W/O US Routine 01/14/2025 10:45 AM CDT Pes anserinus bursitis of left knee EGFR Routine 10/17/2024 3:47 PM CDT Pre-op testing LIPID PANEL Routine 10/02/2024 9:15 AM BRUSH PAINTER Annual physical exam Hypertension associated with type 2 diabetes mellitus (HCC) Type 2 diabetes mellitus without complication, without long-term current use of insulin (HCC) Hyperlipidemia due to type 2 diabetes mellitus (HCC) Class 3 severe obesity due to excess calories with serious comorbidity and body mass index (BMI) of 40.0 to 44.9 in adult (HCC) Screening for thyroid disorder SCREENING MAMMOGRAM BILATERAL W BIJAN Schedule Routine, Read Routine (OP Routine) 08/29/2024 1:04 PM BRUSH PAINTER Screening mammogram for breast cancer HEPATITIS PANEL, ACUTE Routine 2023 9:05 AM CDT COLONOSCOPY 08/16/2022 10:26 AM BRUSH PAINTER from Last 3 Months or Most Recently Relevant to Health Maintenance Results * POC Influenza A/B, COVID-19 antigen (03/10/2025 1:15 PM CDT) Influenza A Ag, POC Negative Negative [facility] Influenza B Ag, POC Negative Negative [facility] COVID-19 Ag POC Presumptive Negative Presumptive Negative, Invalid [facility] Nasal 03/10/2025 1:15 PM CDT Jeremiah Spears MD POINT OF CARE TEST ORDERABLES Fi nal Result [facility] [address] [place] [phone], [facility] * POCT respiratory syncytial virus (03/10/2025 1:15 PM CDT) Pathologist [facility] RSV Rapid Ag Negative Negative, Invalid Nasal 03/10/2025 1:15 PM CDT Jeremiah Spears MD POINT OF CARE TEST ORDERABLES Fi nal Result * (ABNORMAL) Albumin Creatinine Ratio, Urine (03/09/2025 11:47 AM CDT) Pathologist [facility] Albumin Ur 74.6 mg/L Comment: Interpretive Data No reference range established. Current interpretive data was last revised 2018. Testing performed by: [address] [address] Creatinine Ur 161.8 mg/dL [facility] Comment: Interpretive Data No reference range established. Current interpretive data was last revised 2018. Testing performed by: [facility], [address] [place] [address]., [address] Albumin Creatinine Ratio, Ur 46(H) 1 - 29 mg/g [facility] Comment:Testing performed by : [address] [address] Urine 03/09/2025 11:4 7 AM CDT 03/09/2025 6:31 PM CDT Josseline Pitts UNIT SUPPORT REPRESENTATIVE LAB URINE ORDERABLES Final Resu lt [facility] [address] [place] [address] * POCT hemoglobin A1c (03/09/2025 9:15 AM CDT) Hemoglobin A1C, POC 5.6 4.0 - 5.6 % Blood 03/09/2025 9:15 AM CDT Josseline Pitts UNIT SUPPORT REPRESENTATIVE POINT OF CARE TEST ORDERABLES F inal Result * POCT glucose (03/09/2025 9:13 AM CDT) Glucose Blood, POC 117 Normal Fasting 70 - 100, Random <200 mg/dL Blood 03/09/2025 9:13 AM CDT Josseline Pitts NP POINT OF CARE TEST ORDERABLES F inal Result * RetinaVue Scanner - OU - Both Eyes (03/09/2025) Anatomical Region Laterality Modality Head Fundus Photograp hy 03/09/2025 us Josseline Pitts UNIT SUPPORT REPRESENTATIVE OPHTH PHOTOGRAPHY Edited Result - Final * NM ARTHROCENTESIS ASPIR&/INJ MAJOR JT/BURSA W/O US (01/14/2025 10:45 AM CDT) Narrative Nakul Gutierrez PA - 01/14/2025 10:45 AM CDT Nakul Gutierrez PA 01/14/2025 11:26 AM Large Joint (Hip, Knee, Shoulder) Injection: L anserine bursa Performed by: Nakul Gutierrez PA Authorized by: Nakul Gutierrez PA Large Joint Injection/Aspiration: Consent Given by: Patient Timeout: prior to procedure the correct patient, procedure, and site was verified Verbal consent obtained: Yes Supporting Documentation: Indications: Pain Procedure Details: Location: Knee Site: L anserine bursa Prep: patient was prepped and draped in usual sterile fashion Needle Size: 22 G Approach: Medial Ultrasound guided: No Fluroscopic guidance: No Medications Left Large Joint Injection: 80 mg methylPREDNISolone acetate 80 mg/mL; 1 mL lidocaine 20 mg/mL (2 %) Patient tolerance: Patient tolerated the procedure well with no immediate complications us Nakul PRUITT IN CLINIC/BEDSIDE ORDERABLE S Final Result * eGFR (10/17/2024 3:47 PM CDT) eGFR [...] BLOOD ORDERABLES Final R esult [facility] [place] 1 [facility] Department [place] [address] * Lipid panel (10/02/2024 9:15 AM BRUSH PAINTER) Cholesterol 184 30 - 199 mg/dL Comment: [...] on 2018. Triglycerides 77 <=149 mg/dL [facility]) Comment: Interpretive Data Ages [...] 2018. LDL, calculated 124 <=129 mg/dL [facility]) Comment: Interpretive Data Ages < or = 19 years Acceptable: <110 mg/dL Borderline high: 110-129 mg/dL High: >or= 130 mg/dL Ages > or = 20 years Optimal: <100 mg/dL Near optimal: 100-129 mg/dL Borderline high: 130-159 mg/dL High: >160 mg/dL Calculated using the Cason LDL-C estimating equation. This equation was implemented on 2024. Prior to this date LDL-C was estimated using the Friedewald equation. Literature References: 1. Expert Panel on Integrated Guidelines for Cardiovascular Health and Risk Reduction in Children and Adolescents. Pediatrics 2011;128:S213 2. NCEP Expert Panel. Circulation 2004;110:227 3. Yoav M et al. SHELBY Cardiol. 2019November 27;5(5):540-548. doi: 10.1001/jamacardio.2020.0013 Current Interpretive Data was last revised on 2024. Non-HDL Cholesterol 138 mg/dL [facility] Comment: Interpretive Data Ages < or = [...] last revised on 2018. Chol/HDL ratio 4 ANTHONY [facility] ([place]) Blood 10/02/2024 9:15 AM BRUSH PAINTER 10/02/2024 10:38 AM BRUSH PAINTER Sherrie Martell NP LAB BLOOD ORDERABLES Final R esult [facility] 1 [facility] Department [place] [address] * Screening Mammogram Bilateral W Bijan (08/29/2024 1:04 PM BRUSH PAINTER) Anatomical Region Laterality Modality Breast Bilateral Mammography 08/29/2024 5:10 PM BRUSH PAINTER Impressions 08/29/2024 5:10 PM BRUSH PAINTER No evidence of malignancy in either breast. FINAL ASSESSMENT: BI-RADS Category 1: Negative. RECOMMENDATION: Recommend return for annual screening mammogram in 12 months. Electronically signed by: Michelle Quigley M.D. Narrative 08/29/2024 5:10 PM BRUSH PAINTER EXAMINATION: BILATERAL SCREENING MAMMOGRAM COMPARISON: Multiple prior mammograms dating back to 07/01/2015, most recent from 07/20/2023. TECHNIQUE: Full-field 2D and digital breast tomosynthesis (DBT) images were obtained. CAD was utilized. BREAST PARENCHYMAL COMPOSITION: The breasts are almost entirely fatty. FINDINGS: There is no suspicious mass, calcification, or distortion in either breast. Sherrie Martell NP IMG MAMMO PROCEDURES Final R esult * Hepatitis panel, acute Blood (2023 9:05 AM CDT) Hep A IgM Nonreactive Nonreactive Comment: Interpretive Data: If Hep A IgM Ab is reported as Equivocal, a new sample should be drawn in two weeks for testing. Current interpretive data was last revised on 19. Testing performed by: [address] [address] Hep B core IgM Nonreactive Nonreactive C [facility] ([place]) Comment: Interpretive Data If HepB Core IgM Ab is reported as Equivocal, a new sample should be drawn in two weeks for testing. Current interpretive data was last revised on 19. Testing performed by: [facility], [address] [place] [address]., [address] Hep C Ab Nonreactive Nonreactive [facility] ([place]) Comment: Interpretive Data Nonreactive: Antibodies to [...] last revised on 2019. Testing performed by: [facility], [address] [place] [address]., [address] HepBsAg Nonreactive Nonreactive [facility] ([place]) Comment:Testing performed by : [address] [address] Blood 2023 9:05 AM CDT 2023 3:11 PM CDT Narrative [facility]) - 2023 3:55 PM CDT fax results to 2023 08:18:31 CDT us Mark Trujillo MD LAB MICROBIOLOGY - GENERAL ORDERABLES Final Result [facility]) 1 [facility] Department [place] [address] * COLONOSCOPY (08/16/2022 10:26 AM BRUSH PAINTER) Anatomical Region Laterality Modality Other Narrative Procedure Note Billy Nolan MD - 08/16/2022 10:26 AM CST [facility] Patient Name: Nafisa Warner Procedure Date: 08/16/2022 10:26 AM Date of : 1970 Admit Type: Outpatient Age: 52 Gender: Female Attending MD: Billy Nolan M.D. Room: [facility] 1 Note Status: Finalized Patient [...] under direct vision. The Pediatric Colonoscope [id number] was introducedthrough the anus and advanced to [...] 10:26 AM Procedure Code(s): --- Professional --- 31517, Colonoscopy, flexible; diagnostic, including collection of specimen(s) by brushing or washing, when performed (separateprocedure) Diagnosis Code(s): --- Professional --- Z12.11, Encounter for screening for malignant neoplasm of colon K64.8, Other hemorrhoids CPT copyright 2020 [employer]. All rights reserved. The codes documented in this report are preliminary and upon mathematics professor reviewmay be revised to meet current compliance requirements. Recognized by the [place] [employer] for promoting quality in endoscopy Billy Nolan MD ENDOSCOPY PROCEDURES Final Result from Last 3 Months or Most Recently Relevant to Health Maintenance Insurance [facility] [employer] HMO [facility] WORKERS COMPENSATION [facility] Member Subscriber Plan / Payer (Ef fective 2024-Present) Name:Nafisa Warner Relation to Subscriber:Employee Name:[employer] Address: [address] [place] [address] Payer ID:[id number] Group ID:Not on file Type:WORKERS COMPENSATION Address: [address] [facility] Advance Directives For more information, please contact: [phone] * Full Code (Latest Code Status on [...] 10:19 AM 08/16/2022 10:19 AM Care Teams [employer] Relationship Specialty Start Date End Date Sherrie Martell NP [address] [place] [address] PCP - General Family Medicine 12/08/22 [place] [address] [address] Consulting Physician Pulmonary Disease 10/25/21 [place] [address] [place] [address] Consulting Physician Psychiatry 10/25/21 Josseline Pitts NP [address] [place] [address] [address] [place] [address] Nurse Practitioner Endocrinology Diabetes & Metabolism 03/20/24 Shaquille Campos MD [address] [place] [address] [address] [place] [address] Consulting Physician Pulmonary Disease 03/20/24 Nakul Gutierrez PA [address] [place] [address] [address] [place] [address] Physician Billiard Table Repairer Orthopedic Surgery 06/18/24 Don Sinha NP [address] [place] [address] [address] Nurse Practitioner Gastroenterology 06/18/24 Saurav Varma MD [address] [address] Referring Physician Neurology 06/18/24
--- OUTSIDE RECORDS SUMMARY | 2025-03-20 13:31 | XMS_ITS | Clinical Summary ---
Author Organization [facility] Address [address] [address] Phone Care Team Providers Care Project/Production Manager Imaging Name Role Phone Saurav Varma MD Unavailable [phone] Sherrie Martell APRN, SCANNER SUPERVISOR Primary Care Provi merline Wero Encarnacion PAC Unavailable [phone] Allergies Active Allergy Reactions Criticality Noted Date Comments Sulfa Antibiotics Rash 12/28/2023 Medications atorvastatin (LIPITOR) 40 MG Tablet Take 40 mg by mouth daily. rx [id number] take 1/2 tab by mouth daily Active cetirizine (ZyrTEC) 10 MG Tablet Take 10 mg by mouth daily. Active clonazePAM (KlonoPIN) 2 MG Tablet Take 2 mg by mouth 2 times daily. Active fluticasone (FLONASE) 50 MCG/ACT Suspension 1 [place] by Nasal route daily. Use in each [...] daily. 180 Capsule 3 12/28/19 24 Active cyclobenzaprine (FLEXERIL) 10 MG Tablet Take 1 Tablet by mouth 3 times daily as needed for Muscle spasms. 70 Tablet 3 12/28/19 24 Active Additional Information Patient not taking.Reported on 08/19/2024 Metoclopramide HCl (REGLAN PO) Take by mouth. not taking Active AMLODIPINE BESYLATE PO Take 10 mg by mouth daily. rx [id number] Active HYDROXYZINE HCL PO Take 25 mg by mouth 2 times daily. rx [id number] Active ALBUTEROL IN take 2 Puffs by inhalation every 6 hours as needed for Other (wheezing). rx [id number] Active sertraline (ZOLOFT) 100 MG Tablet Take 100 mg by mouth daily. 03/14/20 24 Active Mounjaro 2.5 MG/0.5ML Solution Pen-injector 2.5 mg by Subcutaneous route. 02/28/20 24 Active potassium chloride SA (KLORCON M) 20 MEQ Tablet Controlled Release Take 20 mEq by mouth daily. Active tiZANidine (ZANAFLEX) 4 MG TabletIndicatio ns:Musculoskele jama Pain [The details of the medication are not available because there are pending changes by a home health clinician.] 15 Tablet 06/15/20 24 Active Additional Information Patient taking differently:4 mg Oral EVERY 6 HOURS PRN, Muscle spasms, 2 mgrx [id number], Indications: Musculoskeletal Pain, Reported on 10/29/2024 gabapentin (NEURONTIN) 300 MG Capsule TAKE 1 CAPSULE BY MOUTH THREE TIMES DAILY 90 Capsule 07/04/20 24 Active traMADol (ULTRAM) 50 MG TabletIndicatio ns:Chronic bilateral low back pain with bilateral sciatica Take 1 Tablet by mouth 2 times daily as needed for Moderate or more severe pain. 21 Tablet 07/11/20 24 Active Additional Information Patient not taking.Reported on 08/19/2024 oxyCODONE-aceta minophen (PERCOCET) 5-325 MG Tablet Take 2 Tablets by mouth every 4 hours as needed for Moderate or more severe pain. rx [id number] Active Vitamin D, Cholecalciferol , 50 MCG (2000 UT) Capsule Take 1 Capsule by mouth daily. [id number] Active senna (SENOKOT) 8.6 MG Tablet Take 2 Tablets by mouth daily. [id number] Active famotidine (PEPCID) 40 MG Tablet Take 40 mg by mouth every evening. rx [id number] Active PANTOPRAZOLE SODIUM PO Take 40 mg by mouth daily. rx [id number] Active ferrous sulfate 325 (65 Fe) MG Tablet Take 325 mg by mouth daily. rx [id number] Active Active Problems No known active problems Encounters Date Type Department Care Team Description 02/12/2025 Telephone [facility] Neurology [facility] [address] [place] [address] Renae Hankins APRN, CARE PROGRAM DIRECTOR 12/31/2024 [facility] [place] [address] Saurav Varma MD from Last 3 Months Family History Medical [...] 2:18 PM CDT Height 160 cm (5' 3) 10/29/2024 2:18 PM CDT Body Mass Index 41.27 10/29/2024 2:18 PM CDT Plan of Treatment Upcoming Encounters Date Type Department Care Team (Late st Contact Info) Description 03/26/2025 10:15 AM CDT [facility] [address] [place] [address] Renae Hankins, HAND EXPANSION ENVELOPE MAKER, CARE PROGRAM DIRECTOR [address] [place] [address] Sofya Galdamez, PT [place] Discharge Disposition: Discharged to home or Selfcare 04/02/2025 10:45 AM CDT [facility] [address] [place] [address] Danelle Peterson, PT [place] Discharge Disposition: Discharged to home or Selfcare 04/09/2025 10:45 AM CDT [facility] [address] [place] [address] Danelle Peterson, PT [place] 04/16/2025 10:45 AM CDT [facility] [address] [place] [address] Danelle Peterson, PT [place] 04/23/2025 11:00 AM CDT [facility] [address] [place] [address] Sofya Galdamez, PT [place] 04/30/2025 11:00 AM CDT [facility] [address] [place] [address] Sofya Galdamez, PT [place] Health Maintenance Due Date Last Done Comments Hepatitis C Virus (HCV) Screening 1969 Hepatitis B Immunization (1 of 3 - 19+ 3-dose series) 1988 Cologuard 2014 Immunochemical Fecal Occult Blood 2014 SARS-COV-2 Immunization ( season) 2024 10/12/2021, 01/07/2021, 12/17/2020 Influenza Immunization (#1) 2025 11, 05/04/2023, 05/22/2022, Additional history exists Mammogram 08/29/2025 08/29/2024, 06/30, 06/21/2022, Additional history exists Colonoscopy 08/16/2032 08/16/2022 Colorectal Cancer Screening 08/16/2032 Respiratory Syncytial Virus (RSV) Immunization (Adult) (1 - 1-dose 75+ series) 2044 DTaP/Tdap/Td Immunization Discontinued 2021, 05/19/2016, 07/30/2010 Pneumococcal Immunization (50+ years) Completed 11/04/2021, 08/06/2015, 07/30/2010 Pneumococcal Immunization Combined Discontinued 11/04/2021, 08/06/2015, 07/30/2010 TdaP Immunization Completed 11/04/2021 Zoster Immunization Completed 01/09/2022, Human Papillomavirus (HPV) Immunization Aged Out No longer eligible based on patient's age to complete this topic Meningococcal Immunization (ACWY) Aged Out No longer eligible based on patient's age to complete this topic Rotavirus Immunization Aged Out No lo nger eligible based on patient's age to complete this topic Insurance MEDICAID [employer] Advance Directives * Full Code (Latest Code Status on File) Date Activated Date Inactivated Comments 11/10/2024 3:54 PM Care Teams Project/Production Manager Imaging Relationship Specialty Start Date End Date Sherrie Martell, HAND EXPANSION ENVELOPE MAKER, SCANNER SUPERVISOR [address] [facility] [address] [facility] [address] [id number] PCP - General Advanced Practice Nurse 06/02/24 Saurav Varma MD [address] [place] [address] Consulting Physician Neurology 12/26/23 Wero Encarnacion, PAC [address] [facility] [address] [facility] [place] [id number] Physician Raw Material Handler Physician Raw Material Handler 07/31/24
[2025-03-20 13:32] VITALS: BP 173/78; PULSE 86; RESP 16; TEMP 37.4; O2SAT 98
--- NOTE | 2025-03-20 13:57 | ED.URI ---
HPI - URI/Sore Throat General Chief Complaint: Upper Respiratory Infection Stated Complaint: Fever,Runny Nose, Body Aches,Headache Time Seen by Provider: 03/20/25 13:35 Source: patient Mode of arrival: ambulatory Limitations: no limitations History of Present Illness HPI Narrative: Nafisa is a 54-year-old female patient presenting to the clinic today with complaints of fever, runny nose, nausea, cough, body aches, headache, and mild shortness of breath. She reports her symptoms initially started on March 04. Seen her PCP and she has been on antibiotics for a URI. States that she feels as though she is getting worse so she tested herself for COVID yesterday and was positive. She contacted her PCP and they directed her to come in to the urgent care for further evaluation as she had COVID pneumonia in the past and had wear home O2. Related Data Home Medications ?Medication ?Instructions ?Recorded ?Confirmed ?Last Taken ?Type albuterol sulfate 90 mcg/actuation 2 puff inhalation Q4H PRN 09/27/21 03/17/24 Unknown History aerosol inhaler Shortness Of Breath Or Wheezing amlodipine 10 mg tablet 10 mg PO DAILY 09/27/21 03/17/24 Unknown History atorvastatin 20 mg tablet 20 mg PO DAILY 09/27/21 03/17/24 Unknown History chlorthalidone 25 mg tablet 25 mg PO DAILY 09/27/21 03/17/24 Unknown History clonazepam 2 mg tablet 2 mg PO HS PRN Sleep 09/27/21 03/17/24 Unknown History fluticasone 250 mcg-salmeterol 50 1 inh inhalation BID 09/27/21 03/17/24 Unknown History mcg/dose blistr powdr for inhalation (Wixela Inhub) fluticasone propionate 50 2 spray intranasal DAILY 09/27/21 03/17/24 Unknown History mcg/actuation nasal spray,suspension lisinopril 2.5 mg tablet 2.5 mg PO DAILY 09/27/21 03/17/24 Unknown History montelukast 10 mg tablet 10 mg PO HS 09/27/21 03/17/24 Unknown History potassium chloride 20 mEq 20 meq PO DAILY 09/27/21 03/17/24 Unknown History tablet,extended release(part/cryst) sertraline 25 mg tablet 25 mg PO DAILY 03/06/23 03/17/24 Unknown History celecoxib 100 mg capsule mg PO 03/17/24 03/17/24 Unknown History cetirizine 10 mg tablet mg PO 03/17/24 03/17/24 Unknown History gabapentin 300 mg capsule mg PO 03/17/24 03/17/24 Unknown History hydroxyzine HCl 25 mg tablet mg PO 03/17/24 03/17/24 Unknown History losartan 100 mg tablet mg PO 03/17/24 03/17/24 Unknown History metoclopramide HCl 10 mg tablet mg PO 03/17/24 03/17/24 Unknown History pantoprazole 40 mg tablet,delayed mg PO 03/17/24 03/17/24 Unknown History release tramadol 50 mg tablet mg PO 03/17/24 03/17/24 Unknown History amoxicillin 875 mg-potassium tablet 03/20/25 Unknown History clavulanate 125 mg tablet famotidine 40 mg tablet mg 03/20/25 Unknown History hydrocodone 5 mg-acetaminophen 325 tablet 03/20/25 Unknown History mg tablet lidocaine 5 % topical patch patch 03/20/25 Unknown History Allergies Allergy/AdvReac Type Severity Reaction Status Date / Time Sulfa (Sulfonamide Allergy Unknown rash Verified 06/09/24 13:59 Antibiotics) Review of Systems Review of Systems: Pertinent positives per HPI. Patient denies any rash, headache, visual changes, dizziness, chest pain, palpitations, vomiting, diarrhea, constipation, abdominal pain, or any urinary issues. 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) Seasonal allergies GERD (gastroesophageal reflux disease) Anxiety Diabetes Hypertension Asthma Surgical History Surgical History H/O tubal ligation (~1999) History of orthopedic surgery (02/14/18) tumor removed from right foot History of hysteroscopy (06/18/14) NOVASURE ABLATION, HSCOPE, D&C - benign History of orthopedic surgery (04/26/15) Torn meniscus repair, right knee Hx of ovarian cystectomy (~2001) History of repair of right rotator cuff (~2007) Hx of arthroscopy of left knee H/O arthroscopy of right knee (~1987) S/P bilateral foot surgery (11/27/99) H/O: hysterectomy (08/05/15) Robotic assisted Hysterectomy, BSO - uterine fibroids, failed endometrial ablation, ovarian cyst - benign Hx of cholecystectomy (~2001) Family History Family History Mother Diabetes mellitus Acute myocardial infarction Hypertension Grandparent Diabetes mellitus maternal grandfather Acute myocardial infarction maternal grandfather Hypertension maternal grandfather Social History Social History Smoking status: Never smoker Alcohol intake: never Substance use: never Substance use type: does not use Lack of Transportation: No Lack of Food: Sometimes True Current Housing: Decline to Answer Concerned About Future Housing: Decline to Answer Difficulty Paying Gas/Electric Bills: No Difficulty Paying for Meds: YES Currently Unemployed: No Education: Associate Degree Difficulty w/ Childcare or Family Care: YES Living arrangements: with family Additional living arrangements comments: / lives with father 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 There is no relevant family history pertinent to the patient complaint. Exam Narrative: General: Well-developed, morbidly obese, in no apparent distress Head: Normocephalic, atraumatic Eyes: Pupils equally round and reactive to light bilaterally, EOM intact, sclera and conjunctive clear, no discharge, lids normal Ears: TMs intact and congested, ear canals clear, no drainage, grossly hearing normal. Nose: Nares patent, clear nasal discharge, no inflammation, no sinus tenderness. Mouth: Oral pharynx red without lesions or masses, good dentition, MMM. Postnasal drip Neck: Supple, trachea midline, no enlargement of anterior or posterior cervical nodes, no thyroid masses or goiter palpable. Cardio: Regular rate and rhythm, s1 and s2 normal, no murmur appreciated. Resp: Diminished in the bases otherwise clear, no rhonchi, rales, wheezing or rubs Course Course Emergency Course: Portions of this record may have been created with voice recognition software. Level of Care: Express Care Visit Vital Signs Vital signs: Vital Signs Temperature 37.4 C 03/20/25 13:32 Pulse Rate 86 03/20/25 13:32 Respiratory Rate 16 03/20/25 13:32 Blood Pressure 173/78 H 03/20/25 13:32 Pulse Oximetry 98 03/20/25 13:32 Oxygen Delivery Room Air 03/20/25 13:32 Temperature 37.4 C 03/20/25 13:32 Pulse Rate 86 03/20/25 13:32 Respiratory Rate 16 03/20/25 13:32 Blood Pressure 173/78 H 03/20/25 13:32 Pulse Oximetry 98 03/20/25 13:32 Oxygen Delivery Room Air 03/20/25 13:32 Vital signs reviewed MDM - URI/Sore Throat MDM Narrative Medical decision making narrative: At the time of visit patient is resting comfortably on the exam table. Patient appears to be nontoxic. Complaints of fever, runny nose, cough, nausea, body aches, headache, and mild shortness of breath. She reports her symptoms initially started on March 04. Seen her PCP and she has been on antibiotics for a URI. States that she feels as though she is getting worse so she tested herself for COVID yesterday and was positive. She contacted her PCP and they directed her to come in to the urgent care for further evaluation as she had COVID pneumonia in the past and had wear home O2. On exam patient has clear nasal drainage with nasal congestion, bilateral ear congestion, red oropharynx with postnasal drip, diminished lung sounds in the bases otherwise clear. Chest x-ray was ordered. Patient reports that she needs a COVID test done here for her work. COVID testing was ordered. Labs: COVID testing was performed positive in the clinic today. Diagnostics: Chest x-ray was performed and was negative for any sign acute cardiopulmonary process. Plan: Patient has COVID. Patient is requesting cough medicine and nausea medicine. Prescription for Tessalon Perles and Zofran was sent to the pharmacy. Supportive measures were discussed with the patient and they voiced understanding discharge instructions and agrees to treatment plan. Return precautions reviewed Differential Diagnosis Differential diagnosis: Likely upper respiratory infection, otitis media, sinusitis, viral infection, bronchitis, influenza, pharyngitis and other (COVID) Lab Data Labs: Lab Results 03/20/25 Range/Units 14:08 POC SARS CoV-2 Ag Positive (Negative) Discharge Plan Discharge Clinical Impression: COVID-19 Patient Disposition: Home Condition: Stable Instructions: Antibiotic Form, How to Recover from COVID-19 at Home (ED) Additional Instructions: COVID testing is positive in the clinic today. Chest x-rays negative for any acute cardiopulmonary process May take Coricidin HBP for cold/flu symptoms Increase fluids and stay well hydrated May take Tylenol or motrin as directed on bottle for pain/fever May use Flonase 1 spray in each nare daily May take OTC antihistamines such as Zyrtec or Claritin daily as directed on bottle May apply Vicks vapor rub to chest to open sinuses Sinus rinses for congestion Cepacol spray, cough drops, throat lozenges, warm tea with honey/lemon, gargle salt water to soothe throat BRAT diet for diarrhea Clear liquids x 24 hours then advance as tolerated for nausea/vomiting Go to the ED if you develop a worsening in your condition- high fever not controlled by Tylenol or Motrin, dehydration, weakness, lethargy, shortness of breath, or chest pain. Follow up with your PCP in 3-5 days if symptoms persist. Patient Language: Occitan Prescriptions: New benzonatate 200 mg capsule 200 mg PO TID PRN (Reason: cough) 7 Days Qty: 21 0RF ondansetron 8 mg tablet,disintegrating 8 mg PO Q8H PRN (Reason: nausea and vomiting) 3 Days Qty: 10 0RF No Action atorvastatin 20 mg tablet 20 mg PO DAILY amlodipine 10 mg tablet 10 mg PO DAILY fluticasone propion-salmeterol [Wixela Inhub] 250-50 mcg/dose blister with device 1 inh INHALATION BID fluticasone propionate 50 mcg/actuation spray,suspension 2 spray INTRANASAL DAILY montelukast 10 mg tablet 10 mg PO HS lisinopril 2.5 mg tablet 2.5 mg PO DAILY albuterol sulfate 90 mcg/actuation HFA aerosol inhaler 2 puff INHALATION Q4H PRN (Reason: Shortness Of Breath Or Wheezing) potassium chloride 20 mEq tablet,ER particles/crystals 20 meq PO DAILY chlorthalidone 25 mg tablet 25 mg PO DAILY clonazepam 2 mg tablet 2 mg PO HS PRN (Reason: Sleep) hydrocodone-acetaminophen 5-325 mg tablet famotidine 40 mg tablet lidocaine 5 % adhesive patch,medicated amoxicillin-pot clavulanate 875-125 mg tablet losartan 100 mg tablet PO hydroxyzine HCl 25 mg tablet PO metoclopramide HCl 10 mg tablet PO pantoprazole 40 mg tablet,delayed release (DR/EC) PO cetirizine 10 mg tablet PO gabapentin 300 mg capsule PO tramadol 50 mg tablet PO celecoxib 100 mg capsule PO sertraline 25 mg tablet 25 mg PO DAILY fluconazole 150 mg tablet 150 mg PO Q72H Qty: 2 0RF Follow-up/Referrals: PHYSICIAN NOT ON STAFF,NONSTAFF [Primary Care Provider] Stand Alone Forms: Work/School Release IP Time of Disposition: 14:10 Quality NIHSS Nursing Documentation ED NIHSS nursing documentation: reviewed/agree
[2025-03-20 14:10] LABS: EDCOVIDSCREEN Positive (Negative)
== END 2025-03-20 14:15 | disposition home or self-care (01) ==
PROVIDERS: Emergency Provider Nurse Practitioner Family
DX: U07.1 COVID-19 (principal); E11.9 Type 2 diabetes mellitus without complications; I10 Essential (primary) hypertension; J45.909 Unspecified asthma, uncomplicated; K21.9 Gastro-esophageal reflux disease without esophagitis; F41.9 Anxiety disorder, unspecified
CPT/HCPCS: 71046; 87426; 99213; G0463

== ENCOUNTER 2025-05-15 15:25 | Emergency (ER) | payer OTHER, SELFPAY ==
--- OUTSIDE RECORDS SUMMARY | 2025-05-15 15:27 | XMS_ITS | Clinical Summary ---
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 03/07/20 18 Active ipratropium-albute roL (DUO-NEB) 0.5-2.5 mg/3 mL nebulizer solution Take [...] daily 1 each 11 05/04/20 23 Active montelukast (SINGULAIR) 10 mg tablet Take 1 tablet by mouth nightly 90 tablet 3 11/09/19 24 Active amLODIPine (NORVASC) 10 mg tablet Take 1 tablet (10 mg total) by mouth daily 90 tablet 3 05/21/20 24 Active hydrOXYzine (ATARAX) 25 mg tabletIndications: Generalized anxiety disorder Take 1 tablet by mouth twice daily as needed for anxiety 180 tablet 3 07/09/20 24 Active albuterol HFA (PROVENTIL HFA,VENTOLIN HFA,PROAIR HFA) 90 mcg/actuation inhalerIndications :Acute cough Inhale 2 puffs every 6 (six) hours as needed for wheezing for up to 7 days 1 each 08/01/19 25 Active naloxone (NARCAN) 4 mg/actuation spray,non-aerosol Administer 1 spray into affected nostril(s) as needed for opioid reversal or respiratory depression Call 911. Administer a single spray in one nostril. Repeat every 3 minutes as needed if no or minimal response. 1 each 10/26/19 25 Active famotidine (PEPCID) 40 mg tablet Take 1 tablet (40 mg total) by mouth nightly 90 tablet 3 12/25/19 25 Active tiZANidine (ZANAFLEX) 2 mg tablet Take 2 tablets (4 mg total) by mouth every 6 (six) hours as needed for muscle spasms 01/15/20 25 Active diclofenac sodium (VOLTAREN) 1 % gel Apply 4 g topically 4 (four) times a day 100 g 02/10/20 25 Active omeprazole (PriLOSEC) 20 mg capsule Take 1 capsule (20 mg total) by mouth daily 90 capsule 4 03/09/20 25 026 Active atorvastatin (LIPITOR) 40 mg tabletIndications: Hyperlipidemia due to type 2 diabetes mellitus (HCC) Take 1/2 (one-half) tablet by mouth once daily 45 tablet 3 04/01/20 25 Active clonazePAM (KlonoPIN) 2 mg tabletIndications: Generalized anxiety disorder TAKE 1/2 (ONE-HALF) TABLET BY MOUTH ONCE DAILY IN THE MORNING AND 1 TAB ONCE DAILY AT BEDTIME NEEDED 45 tablet 04/01/20 25 Active losartan (COZAAR) 100 mg tabletIndications: Hypertension associated with type 2 diabetes mellitus (HCC) Take 1 tablet (100 mg total) by mouth daily 90 tablet 3 04/03/20 25 Active loratadine (CLARITIN) 10 mg tabletIndications: Seasonal allergic rhinitis due to pollen Take 1 tablet (10 mg total) by mouth daily 90 tablet 3 04/03/20 25 Active SUMAtriptan (IMITREX) 50 mg tabletIndications: Migraine Take 1 tablet (50 mg total) by mouth once as needed for migraine May repeat after 2 hours. 27 tablet 1 04/13/20 25 026 Active blood-glucose meter kitIndications:Typ e 2 diabetes mellitus without complication, without long-term current use of insulin ([facility]) Use 3 times daily as directed 1 kit 04/17/20 25 Active lancets miscIndications:Ty pe 2 diabetes mellitus without complication, without long-term current use of insulin ([facility]) Use 3 times daily as directed 100 each 3 04/17/20 25 Active blood glucose diagnostic stripIndications:t ype 2 diabetes mellitus Please three times daily as directed 100 each 3 04/17/20 25 Active ondansetron ODT (ZOFRAN-ODT) 8 mg disintegrating tabletIndications: Nausea Take 1 tablet (8 mg total) by mouth every 8 (eight) hours as needed for nausea or vomiting 30 tablet 04/17/20 25 Active prochlorperazine (COMPAZINE) 5 mg tabletIndications: Nausea Take 1 tablet (5 mg total) by mouth every 8 (eight) hours as needed for nausea If not relieved by zofran 30 tablet 1 04/17/20 25 Active sertraline (ZOLOFT) 100 mg tabletIndications: Generalized anxiety disorder,Moderate episode of recurrent major depressive disorder (HCC) Take 1.5 tablets (150 mg total) by mouth daily 135 tablet 04/17/20 25 Active al & mag hydroxide with simethicone-diphen hydramine-lidocain e (MAGIC MOUTHWASH) suspension 3-1-6Swbutbbdflr:G astroesophageal reflux disease without esophagitis Swish and spit 15 mL every 4 (four) hours as needed (pain) 240 mL 1 04/17/20 25 Active ibuprofen (ADVIL,MOTRIN) 600 mg tabletIndications: Atypical migraine Take 1 tablet (600 mg total) by mouth 2 (two) times a day as needed for pain (pain) 90 tablet 1 04/17/20 25 Active lidocaine (LIDODERM) 5 %Indications:Chron ic pain of left knee Place 1 patch on the skin daily for 12 hours Remove & discard patch within 12 hours or as directed by MD. 30 patch 04/17/20 25 Active sertraline (ZOLOFT) 100 mg tabletIndications: Generalized anxiety disorder,Moderate episode of recurrent major depressive disorder (HCC) Take 1 tablet (100 mg total) by mouth daily 90 tablet 3 03/14/20 24 025 Discontin ued(Reord er) lidocaine (LIDODERM) 5 % Place 1 patch on the skin daily for 12 hours Remove & discard patch within 12 hours or as directed by MD. 30 patch 03/23/20 25 025 Discontin ued(Reord er) guaiFENesin-codein e (GUAITUSS AC) liquid 100-10 mg/5 mLIndications:Coug h Take 5 mL by mouth nightly as needed for cough 118 mL 04/03/20 25 025 Discontin ued(Thera py completed ) ondansetron ODT (ZOFRAN-ODT) 4 mg disintegrating tabletIndications: Nausea Take 1 tablet (4 mg total) by mouth every 8 (eight) hours as needed for nausea or vomiting 20 tablet 2 04/13/20 25 025 Discontin ued(Reord er) Active Problems Problem Noted Date Diagnosed Date S/P total knee replacement, left 10/24/2024 S/P total knee arthroplasty, left 10/23/2024 Vitamin D deficiency 10/15/2024 Assessment & Plan (10/15/2024 12:08 PM CDT): -chronic, unknown, no data to review at this time to make an evaluation -Discussed/ordered labs -continue on vitamin-D 39536 units weekly Post-traumatic osteoarthritis of left knee [...] Podiatry Assessment & Plan (09/15/2024 12:23 PM PROGRAM SUPPORT SPECIALIST): -acute, not at goal- recent fall -Patient [...] 07/02/2024 Assessment & Plan (07/02/2024 8:49 AM PROGRAM SUPPORT SPECIALIST): -Acute, not at goal -Start on acetaminophen ER 650 mg every 8 hours as needed for pain -Continue celecoxib 100 mg twice daily -Right elbow x-ray ordered today -Follow up in 1 month or sooner as needed Fall 07/02/2024 Assessment & Plan (09/15/2024 12:23 PM PROGRAM SUPPORT SPECIALIST): -not at goal- recent fall with right [...] needed Assessment & Plan (07/02/2024 8:50 AM PROGRAM SUPPORT SPECIALIST): -Patient reports 4 falls in the last month related to her right knee osteoarthritis -Patient's BMI needs to be at or below 40 in ordered to have right knee surgery -Increase to Mounjaro 7.5 mg weekly to assist in weight loss -Follow up in 1 month or sooner as needed Primary osteoarthritis of right knee 07/02/2024 Assessment & Plan (07/02/2024 8:50 AM PROGRAM SUPPORT SPECIALIST): -chronic, not at/near goal -Patient reports 4 [...] 09/14/2023 Assessment & Plan (09/14/2023 4:22 PM PROGRAM SUPPORT SPECIALIST): RUQ pain radiating to flank for the [...] with contrast Nausea 09/14/2023 Assessment & Plan (04/22/2025 12:37 PM CDT): -chronic, not at goal -Discussed/ordered labs -Increase to Zofran 8 mg every 8 hours as needed -Start on Compazine 5 mg every 8 hours as needed for nausea not resolved by Zofran -Referral sent to GI Orders: ondansetron ODT (ZOFRAN-ODT) 8 mg disintegrating tablet; Take 1 tablet (8 mg total) by mouth every 8 (eight) hours as needed for nausea or vomiting prochlorperazine (COMPAZINE) 5 mg tablet; Take 1 tablet (5 mg total) by mouth every 8 (eight) hours as needed for nausea If not relieved by zofran Assessment & Plan (01/14/2025 3:15 PM CDT): [...] GI Assessment & Plan (09/14/2023 4:17 PM PROGRAM SUPPORT SPECIALIST): Could be from gastroparesis, patient is a [...] GI Assessment & Plan (09/14/2023 4:13 PM PROGRAM SUPPORT SPECIALIST): Noted on CT Chest/A/P 06/2023 with haziness [...] Encouraged to go to her pharmacy and picker / packer her current Rx for cyclobenzaprine 5 mg tid prn and to start taking to help with TMD possibly related to shoulder tension and teeth grinding Irritable bowel syndrome wit h both constipation and diarrhea 03/21/2022 Assessment & Plan (04/22/2025 12:37 PM CDT): -chronic, not at goal -Discussed/ordered labs -continue on MiraLax daily as needed for constipation -Referral sent to GI Orders: Ambulatory referral to Gastroenterology; Future Assessment & Plan (04/06/2025 10:10 AM CDT): -chronic, not at goal -Discussed/ordered labs -continue on MiraLax daily as needed for constipation -Recommend follow up with GI Assessment & Plan (01/02/2024 9:55 AM CDT): -chronic, stable -Discussed/ordered labs -continue on MiraLax daily as needed -continue follow up with GI Assessment & Plan (09/14/2023 4:11 PM PROGRAM SUPPORT SPECIALIST): Currently having more constipation. Has been taking [...] due to pollen 021 Assessment & Plan (04/06/2025 10:10 AM CDT): -Chronic, not at goal -Start on loratadine 10 mg daily -Continue on Flonase 2 sprays per nostril daily -Recommend follow up with ENT Orders: loratadine (CLARITIN) 10 mg tablet; Take 1 tablet (10 mg total) by mouth daily Assessment & Plan (05/04/2023 11:43 AM CDT): [...] Nasal saline spray (Simply saline, [employer], [place], [place]) 2 second sprays or 2 squeezes into [...] depressive d isorder 05/27/2021 Assessment & Plan (04/22/2025 12:37 PM CDT): -chronic, stable - anxiety is not at goal -Increase to sertraline 100 mg 1.5 tablets daily -continue on clonazepam 2 mg 1/2 tablet in the morning and 1 tablet at bedtime as needed and hydroxyzine 25 mg twice daily as needed for anxiety. Advised patient that if she is needing further as needed medications for anxiety, such as a controlled substance, she will need to see a psychiatrist -Follow up in 6 weeks or sooner as needed Patient reiterated no suicidal thoughts at this time; take medication as directed; contact 911 and go to the ER if becomes suicidal; discussed side effects of medication with patient; encouraged healthy diet and exericise; encouraged patient to see a counselor Orders: sertraline (ZOLOFT) 100 mg tablet; Take 1.5 tablets (150 mg total) by mouth daily Assessment & Plan (03/14/2024 2:40 PM CDT): [...] counselor Assessment & Plan (09/12/2023 8:57 AM PROGRAM SUPPORT SPECIALIST): -chronic, stable -continue on sertraline 100 mg [...] Please start taking probiotic 20-50billion CFU daily halfway. This will help maintain the good bacteria [...] comorbidity and body mass index (BMI) of 33.0 to 33.9 in adult 12/08/2020 Assessment & Plan (04/22/2025 12:37 PM CDT): -chronic, not at/near goal goal BMI <30 Healthy, high-protein, lower carbohydrate, lower fat lifestyle and exercise for 150min/week recommended Recommend tracking everything you put in your mouth on an delfin like cronometer -Patient was unable to tolerate Mounjaro or Ozempic Hand Measurements: A fist or cupped hand [...] an actual measuring cup. Assessment & Plan (04/06/2025 10:10 AM CDT): -chronic, not at/near goal goal BMI <30 Healthy, high-protein, lower carbohydrate, lower fat lifestyle and exercise for 150min/week recommended Recommend tracking everything you put in your mouth on an delfin like cronometer -Patient has stopped taking Mounjaro 2.5 mg weekly due to increase in diarrhea. Recommend follow up with GI Hand Measurements: A fist or cupped hand [...] an actual measuring cup. Assessment & Plan (01/14/2025 3:15 PM CDT): -chronic, improving, but not at goal goal BMI less than or equal to 40 Healthy, high-protein, lower carbohydrate, lower fat lifestyle and exercise for 150min/week recommended Recommend tracking everything you put in your mouth on an delfin like [employer] -Patient did not tolerate Mounjaro 7.5 mg [...] in your mouth on an delfin like [employer] -Patient did not tolerate Mounjaro 7.5 mg weekly. -Start back on Mounjaro 2.5 mg weekly for 4 weeks, then increase to Mounjaro 5 mg weekly for maintenance dose Assessment & Plan (09/15/2024 12:21 PM PROGRAM SUPPORT SPECIALIST): -chronic, improving, but not at goal goal BMI less than or equal to 40 Healthy, high-protein, lower carbohydrate, lower fat lifestyle and exercise for 150min/week recommended Recommend tracking everything you put in your mouth on an delfin like [employer] -Patient did not tolerate Mounjaro 7.5 mg weekly. Patient has been off his medication for at least 4 weeks -Start back on Mounjaro 2.5 mg weekly for 4 weeks, then increase to Mounjaro 5 mg weekly for maintenance dose -Follow up in 1 month or sooner as needed Assessment & Plan (08/12/2024 2:10 PM PROGRAM SUPPORT SPECIALIST): This is a chronic condition which continues [...] sessions. Assessment & Plan (08/08/2024 11:09 AM PROGRAM SUPPORT SPECIALIST): -chronic, improving, but not at goal goal BMI less than or equal to 40 Healthy, high-protein, lower carbohydrate, lower fat lifestyle and exercise for 150min/week recommended Recommend tracking everything you put in your mouth on an delfin like [employer] -Patient did not tolerate Mounjaro 7.5 mg [...] for 30 grams with breakfast) -may try Zulama delfin to track food intake -Follow up in 1 month or sooner as needed Assessment & Plan (07/02/2024 8:46 AM PROGRAM SUPPORT SPECIALIST): -chronic, not at/near goal goal BMI <30 Healthy, high-protein, lower carbohydrate, lower fat lifestyle and exercise for 150min/week recommended Recommend tracking everything you put in your mouth on an delfin like [employer] -Increase to Mounjaro 7.5 mg weekly -Follow [...] cup. Assessment & Plan (06/18/2024 3:16 PM PROGRAM SUPPORT SPECIALIST): Wt Readings from Last 3 Encounters: 06/18/24 [...] in your mouth on an delfin like [employer] -patient will be starting Moimani macario with endocrinology -continue seeing Dr. Viera Hand [...] in your mouth on an delfin like [employer] Hand Measurements: A fist or cupped hand [...] that there might be a program in [facility] which she could complete quicker. She also wants to check with her insurance. Assessment & Plan (09/12/2023 8:54 AM PROGRAM SUPPORT SPECIALIST): -chronic, not at/near goal goal BMI <30 Healthy, high-protein, lower carbohydrate, lower fat lifestyle and exercise for 150min/week recommended Recommend tracking everything you put in your mouth on an delfin like [employer] Hand Measurements: A fist or cupped hand [...] cup. Assessment & Plan (08/21/2023 5:14 PM PROGRAM SUPPORT SPECIALIST): This is a chronic condition which continues 14 lb weight gain since last office visit She wasBraeden Rivas but did not tolerate it due to [...] in your mouth on an delfin like [employer] Hand Measurements: A fist or cupped hand [...] in your mouth on an delfin like [employer] Hand Measurements: A fist or cupped hand [...] provided. Assessment & Plan (07/09/2022 6:22 PM PROGRAM SUPPORT SPECIALIST): BMI Follow-up includes: exercise counseling. Assessment & Plan (05/22/2022 1:36 PM CDT): BMI Follow-up includes: exercise counseling. Assessment & Plan (03/02/2022 4:45 PM CDT): HPI: Condition is not at/near goal goal BMI <30 A&P: Healthy, high-protein, lower carbohydrate, lower fat lifestyle and exercise for 150min/week recommended Recommend tracking everything you put in your mouth on an delfin like PageFair Lower carb substitutions: Ever carries a zero net carb bread If [...] in much longer they will become mushy [place] and/or coconut flour instead of regular flour [...] pork rinds For yogurt, try Two Good [place] yogurt Use David for recipe ideas. Type in low carb... [...] in your mouth on an delfin like Page[employer] or [employer] carries a zero net carb [...] in much longer they will become mushy [place] and/or coconut flour instead of regular flour [...] pork rinds For yogurt, try Two Good [place] yogurt Use Pinterest for recipe ideas. Type in low carb... Assessment & Plan (10/31/2021 12:34 PM CDT): HPI: Condition is not at/near goal goal BMI <30 On steroids A&P: Healthy, high-protein, lower carbohydrate, lower fat lifestyle and exercise for 150min/week recommended Substitutions: Recommend tracking everything you put in your mouth on an delfin like [employer] or [employer] carries a zero net carb bread If [...] in much longer they will become mushy [place] and/or coconut flour instead of regular flour For pizza dough, try fathead pizza dough recipe online. To get a crispy crust, bake on one side for 8-12 min, then flip over and bake on the other side for 8-12 min, then put toppings on and bake until the cheese on top of pizza melts mela recipe online For ice cream, try the brand Enlightened To replace coffee creamer and make it low carb, use heavy creamer with sugar free Torani sweetener For chips, try Whisps or pork rinds For yogurt, try Two Good [place] yogurt Use Pinterest for recipe ideas. Type in low carb... Assessment & Plan (05/27/2021 12:57 PM CDT): HPI: Condition is not at/near goal goal BMI <30 A&P: Healthy, high-protein, lower carbohydrate, lower fat lifestyle and exercise for 150min/week recommended Substitutions: Recommend tracking everything you put in your mouth on an delfin like PageFair or [employer] carries a zero net carb [...] in much longer they will become mushy [place] and/or coconut flour instead of regular flour [...] pork rinds For yogurt, try Two Good [place] yogurt Use Pinterest for recipe ideas. Type [...] nightly Assessment & Plan (09/15/2024 12:22 PM PROGRAM SUPPORT SPECIALIST): -chronic, stable -Discussed/ordered labs -continue on atorvastatin 40 mg nightly Assessment & Plan (08/12/2024 2:09 PM PROGRAM SUPPORT SPECIALIST): This is a chronic condition which is [...] prescribed. Assessment & Plan (09/12/2023 8:57 AM PROGRAM SUPPORT SPECIALIST): -chronic, stable -Discussed/ordered labs -continue on atorvastatin 40 mg nightly Assessment & Plan (08/21/2023 5:13 PM PROGRAM SUPPORT SPECIALIST): This is a chronic condition which is [...] are stable, reviewed previous lipid levels in [facility]. Pharmacotherapy as ordered. Order for lipid panel was given today to be obtained. Pt voiced understanding of lab drawn and continuation of current medication regimen. Assessment & Plan (07/09/2022 6:20 PM PROGRAM SUPPORT SPECIALIST): Lipid abnormalities are stable, reviewed previous lipid levels in [facility]. Pharmacotherapy as ordered. Order for [...] are stable, reviewed previous lipid levels in [facility]. Pharmacotherapy as ordered. Order for lipid panel was given today to be obtained. Pt voiced understanding of lab drawn and continuation of current medication regimen. Assessment & Plan (05/13/2020 2:09 PM CDT): Lipid abnormalities are stable, reviewed previous lipid levels in [facility]. Pharmacotherapy as ordered. Order for lipid panel was given today to be obtained. Pt voiced understanding of lab drawn and continuation of current medication regimen. Assessment & Plan (02/18/2019 7:41 PM CDT): Due for repeat labs. Continue atorvastatin 10 mg daily Assessment & Plan (07/03/2018 10:21 AM PROGRAM SUPPORT SPECIALIST): Lipid abnormalities are improving with treatment. Pharmacotherapy as ordered. Lipids will be reassessed in 6 months. Hypokalemia 02/27/2018 Assessment & Plan (01/02/2024 9:55 AM CDT): -chronic, unknown, no data to review at this time to make an evaluation -Discussed/ordered labs -continue on potassium chloride ER 20 mEq daily Chronic pain of left knee 03/01/2015 Assessment & Plan (04/22/2025 12:37 PM CDT): -chronic, improving, but not at goal -recent left knee replacement -Continue working with physical therapy -Continue follow up with ortho -Start on ibuprofen 600 mg twice daily as needed for pain. Advised to avoid taking with other NSAIDs Orders: lidocaine (LIDODERM) 5 %; Place 1 patch on the skin daily for 12 hours Remove & discard patch within 12 hours or as directed by . Assessment & Plan (01/14/2025 3:15 PM CDT): [...] Chronic vertigo-worsening Encouraged to follow up with small package and bundle sorter clerk for updated hearing screening and to discuss [...] or bologna; no MSG as found in malay food; no more than 1/2 banana a [...] Gastroesophageal reflux disease 05/01/2014 Assessment & Plan (04/22/2025 12:37 PM CDT): -chronic, stable -Referral sent to GI Continue on current meds pantoprazole DR 40 mg daily, encouraged healthy diet and exercise Avoid trigger foods including: carbonated beverages, caffeine, spicy, fried foods, tomatoes, cucumbers, mint, and acidic fruits/juices like orange/lemon/grapefruit. Avoid eating/drinking anything for at least 2 hours before bed. Sleep with bed propped. 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, would like to remain on medication at this time Assessment & Plan (09/14/2023 4:09 PM PROGRAM SUPPORT SPECIALIST): Takes daily pantoprazole 40 mg with good control of reflux and heartburn EGD 07/2022 with reflux changes without intestinal metaplasia Plan Continue pantoprazole 40 mg daily, take 30 minutes before breakfast Continue antireflux lifestyle modifications Assessment & Plan (09/12/2023 8:55 AM PROGRAM SUPPORT SPECIALIST): -chronic, stable -continue follow up with GI [...] bone loss and vit B12 deficiency 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 Advised patient that if she is needing further as needed medications for anxiety, such as a controlled substance, she will need to see a psychiatrist -Follow up in 6 weeks or sooner as needed Patient reiterated no suicidal thoughts at this time; take medication as directed; contact 911 and go to the ER if becomes suicidal; discussed side effects of medication with patient; encouraged healthy diet and exericise; encouraged patient to see a counselor Orders: sertraline (ZOLOFT) 100 mg tablet; Take 1.5 tablets (150 mg total) by mouth daily Assessment & Plan (10/15/2024 12:06 PM CDT): [...] counselor Assessment & Plan (09/12/2023 8:57 AM PROGRAM SUPPORT SPECIALIST): -chronic, stable -continue on sertraline 100 mg [...] medication. Assessment & Plan (08/20/2017 9:53 AM PROGRAM SUPPORT SPECIALIST): Discussed options including increasing prozac vs. trial [...] needed Assessment & Plan (09/12/2023 8:54 AM PROGRAM SUPPORT SPECIALIST): -chronic, stable -Discussed/ordered labs -continue on Advair [...] pulmonology Assessment & Plan (08/12/2021 3:27 PM PROGRAM SUPPORT SPECIALIST): Continue breath treatments Prednisone 40 mg for [...] basis. Assessment & Plan (07/04/2018 4:12 PM PROGRAM SUPPORT SPECIALIST): Asthma is improving with treatment. The patient [...] diabetes janice litus 12/13/2013 Assessment & Plan (04/22/2025 12:37 PM CDT): -chronic, improving, but not at goal- blood pressure elevated in office today -Discussed/ordered labs -continue on amlodipine 10 mg daily and losartan 100 mg daily -recommend healthy, low-salt diet -Advised patient check blood pressure at home and let me know if it remains elevated above 140/90 -Follow up in 6 weeks or sooner as needed Assessment & Plan (04/06/2025 10:10 AM CDT): -chronic, not at/near goal- blood pressure elevated in office today -Discussed/ordered labs -continue on amlodipine 10 mg daily and losartan 100 mg daily -Advised patient to avoid taking OTC medications with D or DM as this can elevate blood pressure -recommend healthy, low-salt diet -Follow up as scheduled or sooner as needed Orders: losartan (COZAAR) 100 mg tablet; Take 1 tablet (100 mg total) by mouth daily Assessment & Plan (10/15/2024 12:06 PM CDT): -chronic, stable -Discussed/ordered labs -continue on amlodipine 10 mg daily and losartan 100 mg daily -recommend healthy, low-salt diet Assessment & Plan (09/15/2024 12:22 PM PROGRAM SUPPORT SPECIALIST): -chronic, stable -Discussed/ordered labs -continue on amlodipine 10 mg daily and losartan 100 mg daily -recommend healthy, low-salt diet Assessment & Plan (08/12/2024 2:08 PM PROGRAM SUPPORT SPECIALIST): This is a chronic condition which is at goal. Goal is less than 140/90 Continue amlodipine, losartan Encouraged to monitor weight and B/P at home. Assessment & Plan (06/18/2024 3:17 PM PROGRAM SUPPORT SPECIALIST): Blood Pressure Management BP Readings from Last [...] prescribed. Assessment & Plan (09/12/2023 8:57 AM PROGRAM SUPPORT SPECIALIST): -chronic, stable -Discussed/ordered labs -continue on amlodipine [...] months. Assessment & Plan (08/20/2017 8:13 AM PROGRAM SUPPORT SPECIALIST): Not on any antihypertensives. Will continue to monitor blood pressure for changes. Type 2 diabetes mellitus wit hout complication, without long-term current use of insulin Assessment & Plan (04/22/2025 12:37 PM CDT): -chronic, stable -Discussed/ordered labs -Patient did not tolerate Mounjaro or Ozempic -Follow up with endocrinology Orders: blood-glucose meter kit; Use 3 times daily as directed lancets misc; Use 3 times daily as directed blood glucose diagnostic strip; Please three times daily as directed Assessment & Plan (04/06/2025 10:10 AM CDT): -chronic, stable -Patient did not tolerate Mounjaro 7.5 mg weekly. -Patient has stopped taking Mounjaro 2.5 mg weekly given increase in diarrhea. Recommend follow up with GI -Follow up with an endocrinology as scheduled Assessment & Plan (10/15/2024 12:07 PM CDT): -chronic, stable - A1c is still, however weight is not at goal -Patient did not tolerate Mounjaro 7.5 mg weekly. -Start back on Mounjaro 2.5 mg weekly for 4 weeks, then increase to Mounjaro 5 mg weekly for maintenance dose Assessment & Plan (09/15/2024 12:22 PM PROGRAM SUPPORT SPECIALIST): -chronic, stable - A1c is still, however [...] needed Assessment & Plan (08/12/2024 2:08 PM PROGRAM SUPPORT SPECIALIST): This is a chronic condition which is [...] losartan Assessment & Plan (08/08/2024 11:07 AM PROGRAM SUPPORT SPECIALIST): -chronic, stable - A1c is still, however [...] needed Assessment & Plan (07/02/2024 8:46 AM PROGRAM SUPPORT SPECIALIST): -chronic, stable - A1c is still, however [...] of the bariatric surgery centers in the [place] area for her to call and review [...] losartan Assessment & Plan (09/12/2023 8:58 AM PROGRAM SUPPORT SPECIALIST): -chronic, stable -Discussed/ordered labs -continue on aspirin 81 mg daily, atorvastatin 40 mg daily, losartan 100 mg daily -continue seeing Josseline Pitts endocrinology Lab Results Component Value Date HGBA1C 6.9 08/21/2023 Assessment & Plan (08/21/2023 5:12 PM PROGRAM SUPPORT SPECIALIST): This is a chronic condition which is [...] eye exam. last dilated eye exam was [facility] Monofilament foot exam completed. protective senses [...] No history of macrovascular disease - CVA, CA. Assessment & Plan (02/28/2022 7:25 PM CDT): [...] No history of macrovascular disease - CVA, CA. Assessment & Plan (11/17/2021 3:58 PM CDT): [...] No history of macrovascular disease - CVA, CA. Assessment & Plan (10/31/2021 9:52 AM CDT): [...] No history of macrovascular disease - CVA, CA. Assessment & Plan (05/27/2021 3:14 PM CDT): [...] Please start taking probiotic 20-50billion CFU daily halfway. This will help maintain the good bacteria [...] 07/09/202203/2024 Assessment & Plan (07/09/2022 6:22 PM PROGRAM SUPPORT SPECIALIST): -Recommended: Healthy diet. Avoiding junk food/fast food. -30 minutes of exercise most days of the week. Increase to 45 minutes for weight loss. Immunizations: Up-to-date increase physical activity, continue present plan, call if any problems Follow-up in 6 months. Belching 03/22/2022 11/10/2022 Overview (07/10/2022): Added automatically from request for surgery [id number] Flatulence 03/22/2022 11/10/2022 Overview (07/10/2022): Added automatically from request for surgery [id number] Periumbilical pain 03/22/2022 Overview (07/10/2022): Added automatically from request for surgery [id number] Nausea without vomiting 03/22/202210/28 Overview (07/10/2022): Added automatically from request for surgery [id number] Belching 03/21/2022 04/08/2022 Flatulence 03/21/2022 04/08/2022 Periumbilical [...] She went to see Dr. Talbot at [facility] but in [place] they dont take her insurance. We will also reach out to pulmonology here on campus Dr. Beth horowitz can see pt 01/03/2022. Pt missed appointment with cardiology today as she [facility], but it was at [facility]. Pt has reschedule appointment next with with [...] in sooner with Dr. Roy (pulmonology) in [place], [place] Exacerbation of asthma 10/19/202110/31 Long COVID [...] She went to see Dr. Talbot at [facility] but in [place] they dont take her insurance. We will also reach out to pulmonology here on campus Dr. Beth horowitz can see pt 01/03/2022. Pt missed appointment with cardiology today as she thought appointment was [facility], but it was at [facility]. Pt has reschedule appointment next with with [...] in sooner with Dr. Roy (pulmonology) in [place], [place] Assessment & Plan (08/12/2021 3:28 PM PROGRAM SUPPORT SPECIALIST): Continue breath treatments Prednisone 40 mg for [...] concerns Assessment & Plan (08/04/2019 3:02 PM PROGRAM SUPPORT SPECIALIST): Will treat with augmentin, cheritussin, prednisone. Continue [...] We have stressed that she calls her boarder machine today so that they can work thisUp. [...] 01/14/2025 Assessment & Plan (08/08/2024 11:11 AM PROGRAM SUPPORT SPECIALIST): -Acute, not at goal -Rapid strep negative [...] daily at bedtime Continue to work with [facility] for Benign Positional Vertigo Referred otalgia of [...] daily at bedtime Continue to work with [facility] for Benign Positional Vertigo Assessment & Plan [...] greens, fat-free milk, cottage cheese, nuts like [id number], protein bars with 10-15 g of protein [...] better Assessment & Plan (10/03/2018 10:30 AM PROGRAM SUPPORT SPECIALIST): Due to length of cough and hx [...] assistance. Assessment & Plan (07/03/2018 10:38 AM PROGRAM SUPPORT SPECIALIST): Currently unemployed. No income. Has custody of [...] 02/17/2019 Assessment & Plan (08/15/2017 3:51 PM PROGRAM SUPPORT SPECIALIST): Labs as ordered Pain of right thumb 06/29/2017 08/20/19 18 Assessment & Plan (06/29/2017 12:00 PM PROGRAM SUPPORT SPECIALIST): I recommend we proceed with x-ray imaging. Patient is in agreement. Further direction pending these results. She was given tramadol p.r.n. pain as she notes she had a few left over from prior surgery and this has been effective. Viral URI with cough 06/29/2017 018 Assessment & Plan (06/29/2017 12:11 PM PROGRAM SUPPORT SPECIALIST): Rapid influenza negative for influenza a and [...] 08/15/2017 Assessment & Plan (06/29/2017 12:16 PM PROGRAM SUPPORT SPECIALIST): After obtaining patient's consent annual influenza vaccine was provided in office today. Hand dermatitis 06/12/2017 04/03/2018 Assessment & Plan (06/12/2017 2:54 PM PROGRAM SUPPORT SPECIALIST): Refill provided on topical Lotrisone and Bactroban. She will continue as previously recommended by Dermatology. With any change in, worsening, or non improvement in condition patient was encouraged to return to team lead for follow-up. Pain of hand 06/14/2016 04/03/2018 Panic attack 05/01/2014 05/13/2020 Overview (11/02/2016): Panic attack Assessment & Plan (05/08/2019 5:42 PM CDT): Continue clonazepam 1mg bid prn Assessment & Plan (08/20/2017 9:51 AM PROGRAM SUPPORT SPECIALIST): Continue clonazepam twice daily. Allergic rhinitis 05/01/2014 [...] Encounters Date Type Department Care Team Description 04/28/2025 11:50 AM CDT Lab [address] Acute pain of left knee; History of left knee replacement 04/28/2025 Results Follow-Up [facility] [address] [place] [phone] Carmen Gaspar PA CRP (acute phase), Erythrocyte sedimentation rate 04/28/2025 Orders Only [facility] [address] [place] [address] [place] [phone] Frantz Alejandra MD 04/28/2025 Telephone [facility] [address] [place] [address] [address], [place] [phone] Frantz Alejandra MD 2025 Orders Only [facility] Primary Care at [address] [phone] Sherrie Martell NP Hypertension associated with type 2 diabetes mellitus (HCC) (Primary Dx) 04/17/2025 2:30 PM CDT Office Visit [facility] Primary Care at [address] [phone] Sherrie Martell NP Transient visual loss of right eye (Primary Dx); Atypical migraine; Irritable bowel syndrome with both constipation and diarrhea; Hypertension associated with type 2 diabetes mellitus (HCC); Type 2 diabetes mellitus without complication, without long-term current use of insulin (HCC); Nausea; Generalized anxiety disorder; Moderate episode of recurrent major depressive disorder (HCC); Gastroesophageal reflux disease without esophagitis; Chronic pain of left knee; Class 1 obesity with serious comorbidity and body mass index (BMI) of 33.0 to 33.9 in adult, unspecified obesity type 04/15/2025 2:20 PM CDT Lab [address] Hypertension associated with type 2 diabetes mellitus (HCC); Hyperlipidemia due to type 2 diabetes mellitus (HCC); Class 1 obesity with serious comorbidity and body mass index (BMI) of 34.0 to 34.9 in adult, unspecified obesity type; Type 2 diabetes mellitus without complication, without long-term current use of insulin (HCC); Vitamin D deficiency; Screening for thyroid disorder 04/13/2025 Orders Only [facility] Primary Care at [address] [phone] Sherrie Martell NP Hypertension associated with type 2 diabetes mellitus (HCC) (Primary Dx); Hyperlipidemia due to type 2 diabetes mellitus (HCC); Class 1 obesity with serious comorbidity and body mass index (BMI) of 34.0 to 34.9 in adult, unspecified obesity type; Type 2 diabetes mellitus without complication, without long-term current use of insulin (HCC); Vitamin D deficiency; Screening for thyroid disorder 04/13/2025 Orders Only [facility] Primary Care at [address] [phone] Sherrie Martell NP Nausea (Primary Dx); Other migraine without status migrainosus, not intractable 04/13/2025 Nurse Triage [facility] Primary Care at [address] [phone] Sherrie Martell NP 04/03/2025 1:00 PM CDT Office Visit [facility] Primary Care at [address] [phone] Sherrie Martell NP Upper respiratory tract infection, unspecified type (Primary Dx); COVID-19; Hypertension associated with type 2 diabetes mellitus (HCC); Seasonal allergic rhinitis due to pollen; Irritable bowel syndrome with both constipation and diarrhea; Type 2 diabetes mellitus without complication, without long-term current use of insulin (HCC); Class 1 obesity with serious comorbidity and body mass index (BMI) of 34.0 to 34.9 in adult, unspecified obesity type 03/20/2025 Telephone [facility] Primary Care at [address] [phone] Sherrie Martell NP Appointment Request 03/20/2025 Nurse Triage [facility] Primary Care at [address] [phone] Sherrie Martell NP 03/10/2025 1:00 PM CDT Office Visit [facility] at [address] [phone] Jeremiah Spears MD Acute frontal sinusitis, recurrence not specified (Primary Dx) 03/10/2025 Nurse Triage [facility] Primary Care at [address] [phone] Sherrie Martell NP 03/10/2025 Telephone [facility] Primary Care at [address] [phone] Sherrie Martell NP Symptom Based Call 03/09/2025 9:10 AM CDT - 03/09/2025 11:59 PM CDT Hospital Encounter [facility] Outpatient Lab - Outpatient Center at [address] [address] Type 2 diabetes mellitus without complication, without long-term current use of insulin (HCC) Discharge Disposition: Discharge to home or self care 03/09/2025 9:00 AM CDT Office Visit [facility]ocrine Care at [address] [place] [phone] Josseline Pitts, DILIP Type 2 diabetes mellitus without complication, without long-term current use of insulin (HCC) (Primary Dx); Hypertension associated with type 2 diabetes mellitus (HCC); Hyperlipidemia due to type 2 diabetes mellitus (HCC); Class 1 obesity due to excess calories with serious comorbidity and body mass index (BMI) of 34.0 to 34.9 in adult 02/18/2025 Telephone [facility] at [address] [place] [phone] Josseline Pitts NP 02/13/2025 4:00 PM CDT Therapy [facility] - [place] [address] [place] [address] Kali Pineda, PT S/P TKR (total knee [...] History Surgery Date Site/Laterality Comments KNEE ARTHROSCOPY 1988, 2015 Arthroscopy knee; right knee 2015, x3 [...] Mirza nary artery disease; AAW 05/01/2014 - [place] age 56 Heart disease Mother Heart disease; [...] drink = 0.6 oz pur e alcohol) Overall Financial Resource Strain (CARDIA) Answe r Date Recorded How hard is it for you to pa y for the very basics like food, housing, medical care, and heating? Somewhat hard 10/20/2021 PHQ-2 Answer Date Recorded PHQ-2 Total Score (If total score is 3 or more points, staff should administer the PHQ-9) 0 04/17/2025 Hunger Vital Sign Answer Date Recorded Within [...] in a fdc (including now)? No 10/20/2021 AUDIT-C Answer Date Recorded Q1: How often do you have a drink containing alcohol? Never 04/03/2025 Q2: How many drinks containi ng alcohol do you have on a typical day when you are drinking? Patient does not drink Q3: How often do you have si x or more drinks on one occasion? Never 04/03/2025 Personal Safety Answer Date Recorded Have you ever been in or are you currently in a harmful physical or emotional relationship or is someone making you feel afraid or unsafe? Denies 10/23/2024 Comments No Sex and Gender Information Value Date Recorded Sex Assigned at Not on file Legal Sex Female 12:37 AM PROGRAM SUPPORT SPECIALIST Gender Identity Not on file Sexual Orientation Not on file Obstetrics History Para Term AB IAB SAB Ectopic Multiple Livin g Live Births 3 1 1 Date Outcome GA Total Labor Labor/2nd/3rd Weight Sex Type Anes PTL Mely A1 A5 Name Clin Term Last Filed Vital Signs Vital Sign Reading Time Taken Comments Blood Pressure 145/86 04/17/2025 2:30 PM CDT Pulse 91 04/17/2025 2:30 PM CDT Temperature 36.8 C (98.2 F) 04/03/2025 1:09 PM CDT Respiratory Rate 16 04/17/2025 2:30 PM CDT Oxygen Saturation 97% 04/17/2025 2:30 PM CDT Inhaled Oxygen Concentration - - Weight 104.3 kg (230 lb) 04/17/2025 2:30 PM CDT Height 175.3 cm (5' 9.02) 04/17/2025 2:30 PM CD T Body Mass Index 33.95 04/17/2025 2:30 PM CDT Plan of Treatment Health Maintenance Due Date Last Done Comments Covid-19 Vaccine (2024-2 6 season) 2025 10/12/2021, 01/07/2021, 01/07/2021, Additional history exists Influenza Vaccine (#1) 2025 , 05/04/2023, 05/22/2022, Additional history exists Foot Exam 08/12/2025 08/12/2024, 0807/2023, 11/21/2023, Additional history exists Breast Cancer Screening-Mammogram 08/29/2025 08/29/2024, 07/20/2023, 06/21/2022, Additional history exists Regular Well Visit/Exam 18-64 09/08/2025, 09/07/2023, 07/05/2022 Hemoglobin A1C 10/13/2025 04/15/2025, 0807/2024, 10/17/2024, Additional history exists Albumin Creatinine Ratio, Urine 03/09/2026 03/09/2025, 09/21/2023, 11/10/2022, Additional history exists Lipid Panel 04/15/2026 04/15/2025, 03/0 12/2024, 09/21/2023, Additional history exists eGFR 04/15/2026 04/15/2025, 09/28, 10/02/2024, Additional history exists Depression Screening 04/17/2026 04/17/2025, 04/03/2025, 01/14/2025, Additional history exists Dilated Eye Exam 03/09/2027 [...] Completed 12/31/2023 Medical Devices Implanted Type Area Wash Box Operator Device Identifier Shelf Expiration Date Model / Serial / Lot [employer] Attune Cruciate Retain Cementless Knee Left 5 Component Femoral [id number] - [id number] Implanted:Qty: 1 on 10/23/2024 by Frantz Alejandra MD at [facility] Left: Knee [employer] [id number] 04/28/2034 [id number] / / [id number] [employer] Insert Tibial Knee Fixed Lm Posterior Stabilized Attune 5mm Size 5 Polyethylene [id number] - [id number] Implanted:Qty: 1 on 10/23/2024 by Frantz Alejandra MD at [facility] Left: Knee [employer] [id number] 04/28/2032 [id number] / / [id number] [employer] Attune Fb Tib Base Sz 5 Por [id number] - [id number] Implanted:Qty: 1 on 10/23/2024 by Frantz Alejandra MD at [facility] Left: Knee [employer] [id number] 08/29/2032 [id number] / / [id number] Procedures Procedure Name Priority Date/Time Associated Diagnosis Comments ERYTHROCYTE SEDIMENTATION RATE Routine 04/28/2025 11:46 AM CDT Acute pain of left knee History of left knee replacement CRP (ACUTE PHASE) Routine 04/28/2025 11: 46 AM CDT Acute pain of left knee History of left knee replacement EGFR Routine 04/15/2025 2:20 PM CDT Hypertension associated with type 2 diabetes mellitus (HCC) Hyperlipidemia due to type 2 diabetes mellitus (HCC) Class 1 obesity with serious comorbidity and body mass index (BMI) of 34.0 to 34.9 in adult, unspecified obesity type Type 2 diabetes mellitus without complication, without long-term current use of insulin (HCC) Vitamin D deficiency Screening for thyroid disorder DIFFERENTIAL AUTO Routine 04/15/2025 2:2 0 PM CDT Hypertension associated with type 2 diabetes mellitus (HCC) Hyperlipidemia due to type 2 diabetes mellitus (HCC) Class 1 obesity with serious comorbidity and body mass index (BMI) of 34.0 to 34.9 in adult, unspecified obesity type Type 2 diabetes mellitus without complication, without long-term current use of insulin (HCC) Vitamin D deficiency Screening for thyroid disorder CBC WITH AUTO DIFFERENTIAL Routine 04/15/2025 2:20 PM CDT Hypertension associated with type 2 diabetes mellitus (HCC) Hyperlipidemia due to type 2 diabetes mellitus (HCC) Class 1 obesity with serious comorbidity and body mass index (BMI) of 34.0 to 34.9 in adult, unspecified obesity type Type 2 diabetes mellitus without complication, without long-term current use of insulin (HCC) Vitamin D deficiency Screening for thyroid disorder COMPREHENSIVE METABOLIC PANEL Routine 04/15/2025 2:20 PM CDT Hypertension associated with type 2 diabetes mellitus (HCC) Hyperlipidemia due to type 2 diabetes mellitus (HCC) Class 1 obesity with serious comorbidity and body mass index (BMI) of 34.0 to 34.9 in adult, unspecified obesity type Type 2 diabetes mellitus without complication, without long-term current use of insulin (HCC) Vitamin D deficiency Screening for thyroid disorder THYROID FUNCTION CASCADE Routine 04/15/2025 2:20 PM CDT Hypertension associated with type 2 diabetes mellitus (HCC) Hyperlipidemia due to type 2 diabetes mellitus (HCC) Class 1 obesity with serious comorbidity and body mass index (BMI) of 34.0 to 34.9 in adult, unspecified obesity type Type 2 diabetes mellitus without complication, without long-term current use of insulin (HCC) Vitamin D deficiency Screening for thyroid disorder LIPID PANEL Routine 04/15/2025 2:20 PM CDT Hypertension associated with type 2 diabetes mellitus (HCC) Hyperlipidemia due to type 2 diabetes mellitus (HCC) Class 1 obesity with serious comorbidity and body mass index (BMI) of 34.0 to 34.9 in adult, unspecified obesity type Type 2 diabetes mellitus without complication, without long-term current use of insulin (HCC) Vitamin D deficiency Screening for thyroid disorder VITAMIN D 25 HYDROXY Routine 04/15/2025 2:20 PM CDT Hypertension associated with type 2 diabetes mellitus (HCC) Hyperlipidemia due to type 2 diabetes mellitus (HCC) Class 1 obesity with serious comorbidity and body mass index (BMI) of 34.0 to 34.9 in adult, unspecified obesity type Type 2 diabetes mellitus without complication, without long-term current use of insulin (HCC) Vitamin D deficiency Screening for thyroid disorder HEMOGLOBIN A1C Routine 04/15/2025 2:20 PM CDT Hypertension associated with type 2 diabetes mellitus (HCC) Hyperlipidemia due to type 2 diabetes mellitus (HCC) Class 1 obesity with serious comorbidity and body mass index (BMI) of 34.0 to 34.9 in adult, unspecified obesity type Type 2 diabetes mellitus without complication, without long-term current use of insulin (HCC) Vitamin D deficiency Screening for thyroid disorder POCT RESPIRATORY SYNCYTIAL VIRUS Routine 03/10/2025 1:15 [...] without long-term current use of insulin (HCC) SCREENING MAMMOGRAM BILATERAL W BIJAN Schedule Routine, Read Routine (OP Routine) 08/29/2024 1:04 PM PROGRAM SUPPORT SPECIALIST Screening mammogram for breast cancer HEPATITIS PANEL, ACUTE Routine 2023 9:05 AM CDT COLONOSCOPY 08/16/2022 10:26 AM PROGRAM SUPPORT SPECIALIST from Last 3 Months or Most Recently Relevant to Health Maintenance Results * Erythrocyte sedimentation rate (04/28/2025 11:46 AM CDT) Erythrocyte sedimentation rate 21 1 - 30 mm/hr Blood 04/28/2025 11:4 6 AM CDT 04/28/2025 1:16 PM CDT us Carmen PRUITT LAB BLOOD ORDERABLES Fi nal Result [facility] Department [place] [address] * CRP (acute phase) (04/28/2025 11:46 AM CDT) CRP 4.8 <=10.0 mg/L [facility]) Blood 04/28/2025 11:4 6 AM CDT 04/28/2025 1:16 PM CDT us Carmen PRUITT LAB BLOOD ORDERABLES Fi nal Result Performing Organization Address City/[facility]/ZIP Co de Phone Number [facility] ([place] [address] [place] [address] * eGFR (04/15/2025 2:20 PM CDT) eGFR 77 >=60 mL/min/1. 73 m2 Comment: Interpretive Data [...] interpretive data was last reviewed 2021. Blood 04/15/2025 2:20 PM CDT 04/15/2025 3:28 PM CDT us Sherrie Martell NP LAB BLOOD ORDERABLES Final R esult [facility] ([place]) [facility] [place] [address] * Differential, auto (04/15/2025 2:20 PM CDT) Neutrophil abs 4.44 1.50 - 6.50 K/cumm Imm gran abs 0.02 0.00 - 0.10 K/cumm [facility] ([place]) Lymphocyte abs 2.72 0.80 - 3.30 K/cumm [facility] ([place]) Monocyte abs 0.59 0.20 - 0.80 K/cumm [facility] ([place]) Eosinophil abs 0.24 0.00 - 0.50 K/cumm [facility] ([place]) Basophil abs 0.04 0.00 - 0.10 K/cumm [facility] ([place]) Neutrophil pct 55.2 % [facility] ([place] Comment: Interpretive Data Percent cell count reference [...] was last revised on 2017. Lymphocyte pct 33.8 % [facility] ([place] Comment: Interpretive Data Percent cell count reference ranges are not reported, since discordance with absolute values may lead to misinterpretation of CBC data. Current Interpretive Data was last revised on 2017. Monocyte pct 7.3 % [facility] ([place]) Comment: Interpretive Data Percent cell count reference ranges are not reported, since discordance with absolute values may lead to misinterpretation of CBC data. Current Interpretive Data was last revised on 2017. Eosinophil pct 3.0 % [facility] ([place] Comment: Interpretive Data Percent cell count reference ranges are not reported, since discordance with absolute values may lead to misinterpretation of CBC data. Current Interpretive Data was last revised on 2017. Basophil pct 0.5 % [facility] ([place]) Comment: Interpretive Data Percent cell count reference ranges are not reported, since discordance with absolute values may lead to misinterpretation of CBC data. Current Interpretive Data was last revised on 2017. Blood 04/15/2025 2:20 PM CDT 04/15/2025 3:28 PM CDT [facility] LAB BLOOD ORDERABLES Final R esult DAVID JOHNS (J[place]QU[place]) [address] [facility] [place] [place] [address] * Thyroid Function Camas (04/15/2025 2:20 PM CDT) Pathologist [facility] TSH 1.32 0.30 - 4.20 mcIUnit/mL [facility] ([place]QUELNIE) Blood 04/15/2025 2:20 PM CDT 04/15/2025 3:28 PM CDT [facility] LAB BLOOD ORDERABLES Final R esult Performing Organization Address City/[facility]/ZIP Co de Phone Number DAVID JOHNS (JACQUELINE) [address] [facility] [employer] [place] [address] * (ABNORMAL) CBC with auto differential (04/15/2025 2:20 PM CDT) WBC 8.05 3.80 - 9.90 K/cumm Hgb 13.5 11.9 - 15.5 g/dL [facility] ([place] Hct 40.9 35.6 - 45.5 % [facility] ([place]) Plt 280 150 - 400 K/cumm [facility] ([place]) MPV 9.8 9.1 - 12.3 fL [facility] ([place]) RBC 4.48 3.90 - 5.20 M/cumm [facility] ([place]) MCV 91.3 81.3 - 96.4 fL [facility] ([place]) MCH 30.1 27.1 - 33.3 pg [facility] ([place]) MCHC 33.0 32.3 - 35.7 g/dL [facility] ([place]) RDW CV 14.6 11.1 - 14.9 % [facility] ([place]) RDW SD 48.6(H) 35.7 - 48.1 fL [facility] ([place]) NRBC abs 0.00 0.00 - 0.01 K/cumm [facility] ([place]) Blood 04/15/2025 2:20 PM CDT 04/15/2025 3:28 PM CDT [facility] LAB BLOOD ORDERABLES Final R esult [facility] ([place]) 1 [place] [address] * (ABNORMAL) Vitamin D 25 hydroxy (04/15/2025 2:20 PM CDT) Vitamin D 25-OH 25(L) 30 - 80 ng/mL [facility] ([place]) Blood 04/15/2025 2:20 PM CDT 04/15/2025 3:28 PM CDT [facility] LAB BLOOD ORDERABLES Final R [facility] ([place]) 1 [place] [address] * (ABNORMAL) Hemoglobin A1c (04/15/2025 2:20 PM CDT) Hgb A1C 5.9(H) 4.0 - 5.6 % [facility] ([place]) Estimated Average Glucose 123 mg/dL [facility] ([place]) Comment: The ADA recommends reporting an estimated Average Glucose (eAG) with all Hemoglobin A1c results using the equation derived from a study of 507 normal and diabetic adults. Minority populations were underrepresented and children were not included. (Diabetes Care 31:7331-5519, 2008). The eAG is not equivalent to a fasting glucose. Testing performed by: [facility], [facility], [place], [address] Blood 04/15/2025 2:20 PM CDT 04/15/2025 3:28 PM CDT us Sherrie Martell NP LAB BLOOD ORDERABLES Final R esult DAVID JOHNS ([place]) 1 [facility] [place] [address] * Lipid panel (04/15/2025 2:20 PM CDT) Cholesterol 181 30 - 199 mg/dL DAVID JOHNS (JACQUELINE) Comment: Interpretive Data [...] Data was last revised on 2018. Triglycerides 91 <=149 mg/dL DAVID JOHNS ([place]QUEL[place]) Comment: Interpretive Data [...] Data was last revised on 2018. HDL 62 >=40 mg/dL DAVID Luke (J[place]QUELINE) Comment: Interpretive [...] was last revised on 2018. LDL, calculated 102 <=129 mg/dL DAVID JOHNS ([place]) Comment: Interpretive [...] Interpretive Data was last revised on 2024. Testing performed by: [place], [address] Non-HDL Cholesterol 119 mg/dL DAVID JOHNS (JACQUELINE) Comment: Interpretive Data [...] Interpretive Data was last revised on 2018. Testing performed by: [place], [address] Chol/HDL ratio 3 ANTHONY JOHNS ([place]) Comment:Testing performed by : [place], [address] Blood 04/15/2025 2:20 PM CDT 04/15/2025 3:28 PM CDT Sherrie Martell NP LAB BLOOD ORDERABLES Final R esult [facility] ([place]) 1 [facility] Department [place] [address] * Comprehensive metabolic panel (04/15/2025 2:20 PM CDT) Sodium 141 135 - 145 mmol/L [facility] ([place]) Potassium, pl 3.3 3.3 - 4.9 mmol/L [facility] ([place]) Chloride 104 97 - 110 mmol/L [facility] ([place]) CO2 26 22 - 32 mmol/L [facility] ([place]) Anion gap 11 2 - 15 mmol/L [facility] ([place]) BUN 9 6 - 25 mg/dL [facility] ([place]) Creatinine 0.89 0.60 - 1.10 mg/dL [facility] ([place]) Glucose 114 70 - 199 mg/dL [facility] ([place]) [...] interpretive data was last revised 2022. Calcium 9.5 8.5 - 10.3 mg/dL [facility] ([place]) Bilirubin, total 0.5 0.1 - 1.2 mg/dL [facility] ([place]) Protein, pl 6.9 6.5 - 8.5 g/dL [facility] ([place]) Albumin 4.0 3.5 - 5.0 g/dL [facility] ([place]) Alk phos 80 40 - 130 Units/L [facility] ([place]) ALT 25 7 - 45 Units/L [facility] ([place]) AST 18 10 - 45 Units/L [facility] ([place]) Blood 04/15/2025 2:20 PM CDT 04/15/2025 3:28 PM CDT Sherrie Martell LAB BLOOD ORDERABLES Final R esult DAVID JOHNS ([place]) 1 [facility] [place] [address] * POC Influenza A/B, COVID-19 antigen (03/10/2025 1:15 PM CDT) Pathologist [facility] Influenza A Ag, POC Negative Negative [facility] Influenza B Ag, POC Negative Negative [facility] COVID-19 Ag POC Presumptive Negative Presumptive Negative, Invalid [facility] Nasal 03/10/2025 1:15 PM CDT Jeremiah Spears MD POINT OF CARE TEST ORDERABLES Fi nal Result Performing Organization Address [facility] Co de Phone Number [facility] [address] [phone] * POCT respiratory syncytial virus (03/10/2025 1:15 PM CDT) Pathologist [facility] RSV Rapid Ag Negative Negative, Invalid Nasal 03/10/2025 1:15 PM CDT Jeremiah Spears MD POINT OF CARE TEST ORDERABLES Fi nal Result * (ABNORMAL) Albumin Creatinine Ratio, Urine (03/09/2025 11:47 AM CDT) Pathologist [facility] Albumin Ur 74.6 mg/L Comment: Interpretive Data No reference range established. Current interpretive data was last revised 2018. Testing performed by: [facility], [address] [place] [address], [place]., [address] Creatinine Ur 161.8 mg/dL DAVID Comment: Interpretive Data No reference range established. Current interpretive data was last revised 2018. Testing performed by: [facility], [address] [place] [address]., [address] Albumin Creatinine Ratio, Ur 46(H) 1 - 29 mg/g DAVID LOCKWOOD Comment:Testing performed by : [facility], [address] [place] [address]., [address] Urine 03/09/2025 11:4 7 AM CDT 03/09/2025 6:31 PM CDT us Josseline Pitts NP LAB URINE ORDERABLES Final Resu lt DAVID [address] [facility] Department [place] [address] * POCT hemoglobin A1c (03/09/2025 9:15 AM CDT) Hemoglobin A1C, POC 5.6 4.0 - 5.6 % Blood 03/09/2025 9:15 AM CDT us Josseline Pitts NP POINT OF CARE TEST ORDERABLES F inal Result * POCT glucose (03/09/2025 9:13 AM CDT) Glucose Blood, POC 117 Normal Fasting 70 - 100, Random <200 mg/dL Blood 03/09/2025 9:13 AM CDT us Josseline Pitts NP POINT OF CARE TEST ORDERABLES F inal Result * RetinaVue Scanner - OU - Both Eyes (03/09/2025) Anatomical Region Laterality Modality Head Fundus Photograp hy 03/09/2025 us Josseline Pitts NP OPHTH PHOTOGRAPHY Edited Result - Final * Screening Mammogram Bilateral W Bijan (08/29/2024 1:04 PM PROGRAM SUPPORT SPECIALIST) Anatomical Region Laterality Modality Breast Bilateral Mammography 08/29/2024 5:10 PM PROGRAM SUPPORT SPECIALIST Impressions 08/29/2024 5:10 PM PROGRAM SUPPORT SPECIALIST No evidence of malignancy in either breast. FINAL ASSESSMENT: BI-RADS Category 1: Negative. RECOMMENDATION: Recommend return for annual screening mammogram in 12 months. Electronically signed by: Michelle Quigley M.D. Narrative 08/29/2024 5:10 PM PROGRAM SUPPORT SPECIALIST EXAMINATION: BILATERAL SCREENING MAMMOGRAM COMPARISON: Multiple prior [...] last revised on 19. Testing performed by: [facility], [address] [place] [address]., [address] Hep B core IgM Nonreactive Nonreactive Sharona JOHNS (JACQUELINE) Comment: Interpretive Data If HepB Core IgM Ab is reported as Equivocal, a new sample should be drawn in two weeks for testing. Current interpretive data was last revised on 19. Testing performed by: [facility], [address] [place] [address], [place]., [address] Hep C Ab Nonreactive Nonreactive DAVID JOHNS [...] last revised on 2019. Testing performed by: [facility], [address] [place] [address]., [address] HepBsAg Nonreactive Nonreactive DAVID JOHNS (JACQUELINE) Comment:Testing performed by : [facility], [address] [place] [address]., [address] Blood 2023 9:05 AM CDT 2023 3:11 PM CDT Narrative DAVID JOHNS (JACQUELINE) - 2023 3:55 PM CDT fax results to 2023 08:18:31 CDT us Mark Trujillo MD LAB MICROBIOLOGY - GENERAL ORDERABLES Final Result DAVID JOHNS ([place]QU[place]) 1 [facility] Department [place] [address] * COLONOSCOPY (08/16/2022 10:26 AM PROGRAM SUPPORT SPECIALIST) Anatomical Region Laterality Modality Other Narrative Procedure Note Billy Nolan MD - 08/16/2022 10:26 AM CST [facility] Patient Name: Nafisa Warner Procedure Date: 08/16/2022 10:26 AM Date of : 1970 Admit Type: Outpatient Age: 52 Gender: Female Attending MD: Billy Nolan M.D. Room: [facility] 1 Note Status: Finalized [...] under direct vision. The Pediatric Colonoscope [id number]-H190L [id number] was introducedthrough the anus and advanced to [...] 10:26 AM Procedure Code(s): --- Professional --- 12126, Colonoscopy, flexible; diagnostic, including collection of specimen(s) by brushing or washing, when performed (separateprocedure) Diagnosis Code(s): --- Professional --- Z12.11, Encounter for screening for malignant neoplasm of colon K64.8, Other hemorrhoids CPT copyright 2020 [employer]. All rights reserved. The codes documented in this report are preliminary and upon web development director reviewmay be revised to meet current compliance requirements. Recognized by the [employer] for promoting quality in endoscopy Billy Nolan MD ENDOSCOPY PROCEDURES Final Result from Last 3 Months or Most Recently Relevant to Health Maintenance Insurance [facility] HMO IDVA [facility] WORKERS COMPENSATION [facility] Advance Directives For more information, please contact: [phone] * Full Code (Latest Code Status on [...] 10:19 AM 08/16/2022 10:19 AM Care Teams Turpentine Farmer Relationship Specialty Start Date End Date Sherrie Martell NP [address] [place] [address] [address] [place] [address] PCP - General Family Medicine 12/08/22 [place] [id number] [address] Consulting Physician Pulmonary Disease 10/25/21 [place] [address] [facility] [address] VA[address] [place] [address] Consulting Physician Psychiatry 10/25/21 Josseline Pitts NP [address] [place] [address] DR VA[address] [place], [place] [address] [address] Nurse Practitioner Endocrinology Diabetes & Metabolism 03/20/24 Shaquille Campos MD [address] [facility] [address] [place] [address] Consulting Physician Pulmonary Disease 03/20/24 Nakul Gutierrez PA [address] [facility] [address] [place] [address] Physician Portal Administrator Orthopedic Surgery 06/18/24 Don Sinha NP [address] [facility] [address] [place] [address] Nurse Practitioner Gastroenterology 06/18/24 Saurav Varma MD 1 [facility] 3 [place] [address] Referring Physician Neurology 06/18/24
--- OUTSIDE RECORDS SUMMARY | 2025-05-15 15:28 | XMS_ITS | Encounter Summary ---
Author Organization [facility] Address [address] [place] [address] Phone Care Team Providers Care Supervisor Lead Burning Name Role Phone Saurav Varma MD Unavailable [phone] Sherrie Martell APRN, CNP Primary Care Provi merline Wero Encarnacion PAC Unavailable [phone] Reason for Referral * PT/OT/ST (Routine) - Open Specialty Diagnoses / Procedures Referred By Haleigh t Referred To Contact Physical Therapy Diagnoses S/P total knee arthroplasty, left Frantz Alejandra MD [address] [place] [address], [address] [place] [address] Phone: tel: fax: [facility] [address] [facility], [address] [place] [address] Phone: tel: fax: Referral ID Status Reason Start Date Expiration Date Visits Re quested Visits Authorized [id number] Open 10/14/2024 50 50 Scheduling Instructions Encounter Details Date Type Department Care Team (Late st Contact Info) Description 10/14/2024 Transcribe Orders [facility] [address] [place] [address] Frantz Alejandra MD [address] [place] [address], [address] [place] [address] S/P total knee arthroplasty, left (Primary Dx) [...] Care Team (Late st Contact Info) Description 05/27/2025 12:30 PM CDT [facility] [address] [facility], [place] [address] [address] Sofya Galdamez, [place] Discharge Disposition: Discharged to home or Selfcare 06/02/2025 9:30 AM APPAREL DESIGNER Physical Therapy [facility] [address], [address] [place] [address] Renae Hankins, OIL FIELD TECHNICIAN, DELINQUENT NOTICE MACHINE OPERATOR [address] [place] [address] Sofya Galdamez, [place] Discharge Disposition: Discharged to home or Selfcare 06/09/2025 9:30 AM APPAREL DESIGNER Physical Therapy [facility] [address], [address] [address] [place] [address] Renae Hankins, OIL FIELD TECHNICIAN, DELINQUENT NOTICE MACHINE OPERATOR [address] [place] [address] Sofya Galdamez, PT [place] 06/16/2025 9:30 AM APPAREL DESIGNER Physical Therapy [facility] [address] [facility], [address] [place] [address] Renae Hankins, OIL FIELD TECHNICIAN, DELINQUENT NOTICE MACHINE OPERATOR [address] [place] [address] Sofya Galdamez, PT [place] 06/23/2025 9:30 AM APPAREL DESIGNER [facility] [address], [address] [place] [address] Renae Hankins, OIL FIELD TECHNICIAN, DELINQUENT NOTICE MACHINE OPERATOR [address] [place] [address] Sofya Galdamez, PT [place] Scheduled Referrals Name Type Priority Associated Diagnoses Orde r Schedule PHYSICAL THERAPY REFERRAL Outpatient Referral Routine S/P total knee arthroplasty, left Expected: 10/14/2024, Expires: 10/14/2025 documented as of this encounter Visit Diagnoses Diagnosis S/P total knee arthroplasty, left- Primary documented in this encounter Care Teams Supervisor Lead Burning Relationship Specialty Start Date End Date Sherrie Martell APRN, COMPOSITE BOND WORKER [address] [facility] [address] [place] [address] PCP - General Advanced Practice Nurse 06/02/24 Saurav Varma MD [address] [place] [address] Consulting Physician Neurology 12/26/23 Wero Encarnacion PAC [address] [facility] [address] [place] [address] Physician Tooth Cutter Pinion Physician Tooth Cutter Pinion 07/31/24 documented as of this encounter
--- OUTSIDE RECORDS SUMMARY | 2025-05-15 15:28 | XMS_ITS | Encounter Summary ---
Author Organization [facility] Address [address] [place] [address] Care Team Providers Care It Support Specialist Name Role Phone Ar Talbot MD Unavailable [phone] Tavo Juan MD Unavailable Sherrie Martell NP Primary Care Provider Josseline Pitts NP Unavailable [phone] Shaquille Campos MD Unavailable Nakul Gutierrez Unavailable [phone] Don Sinha MULTI PURPOSE MACHINE OPERATOR Unavailable [phone] Saurav Varma MD Unavailable Reason for Visit * Reason Onset Date Comments Headache 04/13/2025 Encounter Details Date Type Department Care Team (Late st Contact Info) Description 04/13/2025 Nurse Triage [facility] Primary Care at [address] [place] [address] Sherrie Martell, DILIP [address] [place] [address] [address] [place] [address] Social History Tobacco Use Types [...] on file 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 Patient verbalized understanding and had no further questions. Does message need to be routed? No * Telephone Encounter - Chas Rodrigues MA - 04/13/2025 2:35 PM CDT lmom * Telephone Encounter - Jyoti Chapman RN - 04/13/2025 1:08 PM CDT Reason for Conversation Headache Background ED visit Sunday, day 3 of headache, felt nauseated and double and then loss of vision. Ordered CTscan but had long wait for CT scan to be read so pt left. History of migraines. Given IV fluids andmigraine medication and was feeling better so pt left AMA. Headache located back of neck and front of head, more exertion feels worsening of pain. Light sensitivity. Has had some drainage from eyes, yellow in color and red eyes. Has neck stiffness and back pain as well. Is nauseated. Denies fever, one sided weakness or numbness, vision disturbance today, vomiting. Pt still has phlegm in chest andsome coughing since COVID infection 02/2025. Has slight dizziness when sitting up. Was advised from ED that blood sugar was elevated some. Rates headache now 4-5/10. Taking tylenol. Pt requesting another round of prednisone, migraine medication, zofran. Pt has appt Sunday in office, pt states was tohave labs done before this appt and has not had these orders placed thus far. Pt prefers to not come to office before Sunday, wants to keep that appt with PCP, RN tasking for advice. Care advice given and to call if worsens. Disposition See Today or Tomorrow in Office Reason for Disposition MODERATE headache (e.g., interferes with normal activities) present > 24 hours and unexplained Protocols Used Vgkeanad-Ddhyk-HV * Telephone Encounter - Jyoti Chapman RN - 04/13/2025 1:07 PM CDT Regarding: dizziness and feeling of neck tightening, headache ----- Message from María Carreno sent at 04/13/2025 1:04 PM CDT ----- Symptom Based Call Chief Complaint(s): dizziness and feeling of neck tightening, headache Duration: today What type of symptom(s) is the patient experiencing? Red Flag. Is the patient concerned they are experiencing a medical emergency requiring an ambulance? No Additional Comments: Recently went to [facility] ER on Sunday (day 3 of 5 day headache) could not see out of right eye. Says they told her that her labs look like she's on blood thinner but patient statesthat she isn't . Stopped taking mounjaro, gabapentin, celebrex because didn't like how many medications she was on. Still feeling headachy and nauseous, little back pain. Going to resume taking the pepcid today . Hydroxyzine makes her feel drugged up so taking half of the 25 mg dose. Had covid at end of February. Does message need to be routed? Yes-Action Needed documented in this encounter Plan of Treatment Not on file documented as of this encounter Visit Diagnoses Not on filedocumented in this encounter Care Teams It Support Specialist Relationship Specialty Start Date End Date Sherrie Martell NP [address] [facility] [address] [place] [address] PCP - General Family Medicine 12/08/22 [place] [address] [facility] [address] [place] [address] Consulting Physician Pulmonary Disease 3/29/22 [place] [address] [facility] [address] [place] [address] Consulting Physician Psychiatry 10/25/21 Josseline Pitts, DILIP [address] [facility] [address] [place] [address] Nurse Practitioner Endocrinology Diabetes & Metabolism 03/20/24 Shaquille Campos MD [address] [facility] [address] [place] [address] Consulting Physician Pulmonary Disease 03/20/24 Nakul Gutierrez PA [address] [facility] [address] [place] [address] Physician Net Applications Developer Orthopedic Surgery 06/18/24 Don Sinha NP [address] [facility] [address] [place] [address] Nurse Practitioner Gastroenterology 06/18/24 Saurav Varma MD 1 [facility] 3 [place] [address] Referring Physician Neurology 06/18/24 documented as of this encounter
--- OUTSIDE RECORDS SUMMARY | 2025-05-15 15:28 | XMS_ITS | Clinical Summary ---
Author Organization [facility] Address [address] [address] Phone Care Team Providers Care Workers Compensation Analyst Name Role Phone Saurav Varma MD Unavailable [phone] Sherrie Martell APRN, HOOK PULLER Primary Care Provi merline Wero Encarnacion PAC Unavailable [phone] Allergies Active Allergy Reactions Criticality Noted Date Comments Metoclopramide Other (see Comments) 04/01/2025 Sulfa Antibiotics Rash 12/28/2023 Medications atorvastatin (LIPITOR) 40 MG Tablet Take 40 mg by mouth daily. rx [id number] take 1/2 tab by mouth daily Active cetirizine (ZyrTEC) 10 MG Tablet Take 10 mg by mouth daily. Active clonazePAM (KlonoPIN) 2 MG Tablet Take 2 mg by mouth 2 times daily. Active fluticasone (FLONASE) 50 MCG/ACT Suspension 1 [place] by Nasal route daily. Use in each [...] daily. 180 Capsule 3 12/28/19 24 Active Additional Information Patient not taking.Reported on 04/01/2025 cyclobenzaprine (FLEXERIL) 10 MG Tablet Take 1 Tablet by mouth 3 times daily as needed for Muscle spasms. 70 Tablet 3 12/28/19 24 Active Additional Information Patient not taking.Reported on 08/19/2024 Metoclopramide HCl (REGLAN PO) Take by mouth. not taking Active AMLODIPINE BESYLATE PO Take 10 mg by mouth daily. rx [id number] Active HYDROXYZINE HCL PO Take 25 mg by mouth 2 times daily. rx [id number] Active ALBUTEROL IN take 2 Puffs by inhalation every 6 hours as needed for Other (wheezing). rx [id number] Active sertraline (ZOLOFT) 100 MG Tablet Take 100 mg by mouth daily. 03/14/20 Active Mounjaro 2.5 MG/0.5ML Solution Pen-injector 2.5 mg by Subcutaneous route. 02/28/20 24 Active potassium chloride SA (KLORCON M) 20 MEQ Tablet Controlled Release Take 20 mEq by mouth daily. Active tiZANidine (ZANAFLEX) 4 MG TabletIndicatio ns:Musculoskele jama Pain Take 1 Tablet by mouth every 6 hours as needed for Muscle spasms. Indications: Musculoskeletal Pain 15 Tablet 06/15/20 24 Active gabapentin (NEURONTIN) 300 MG Capsule TAKE 1 CAPSULE BY MOUTH THREE TIMES DAILY 90 Capsule 07/04/20 24 Active Additional Information Patient not taking.Reported on 04/01/2025 traMADol (ULTRAM) 50 MG TabletIndicatio ns:Chronic bilateral [...] for Moderate or more severe pain. rx [id number] Active Vitamin D, Cholecalciferol , 50 MCG (2000 UT) Capsule Take 1 Capsule by mouth daily. [id number] Active senna (SENOKOT) 8.6 MG Tablet Take 2 Tablets by mouth daily. [id number] Active famotidine (PEPCID) 40 MG Tablet Take 40 mg by mouth every evening. rx [id number] Active PANTOPRAZOLE SODIUM PO Take 40 mg by mouth daily. rx [id number] Active ferrous sulfate 325 (65 Fe) MG Tablet Take 325 mg by mouth daily. rx [id number] Active omeprazole (PriLOSEC) 20 MG CAPSULE DELAYED RELEASE Take 20 mg by mouth daily. 03/09/20 25 026 Active lidocaine (LIDODERM) 5 % Patch 1 Patch by Transdermal route. 03/23/20 25 Active ipratropium-alb uterol (DUO-NEB) 0.5-2.5 (3) MG/3ML Solution take 3 mL by inhalation. 05/22/20 22 Active Active Problems No known active problems Encounters Date Type Department Care Team Description 05/07/2025 11:00 AM CDT Physical Therapy [facility] at [facility] [address], [address] [place] [address] Renae Hankins, THERMITE WELDER, RACKING MACHINE OPERATOR Sofya Galdamez M, PT Back pain at L4-L5 level (Primary Dx); Impaired functional mobility and activity tolerance; Bilateral low back pain with bilateral sciatica, unspecified chronicity; Degeneration of intervertebral disc of lumbar region, unspecified whether pain present Discharge Disposition: Discharged to home or Selfcare 05/07/2025 Travel 04/30/2025 11:00 AM CDT Physical Therapy [facility] at [facility] [address], [address] [place] [address] Sherrie Martell, THERMITE WELDER, HOOK PULLER Sofya Galdamez M, PT Back pain at L4-L5 level (Primary Dx); Impaired functional mobility and activity tolerance; Bilateral low back pain with bilateral sciatica, unspecified chronicity Discharge Disposition: Discharged to home or Selfcare 04/30/2025 Travel 04/23/2025 11:00 AM CDT Physical Therapy [facility] at [facility] [address], [address] [place] [address] Sherrie Martell, THERMITE WELDER, HOOK PULLER Sofya Galdamez M, PT Back pain at L4-L5 level (Primary Dx); Impaired functional mobility and activity tolerance; Bilateral low back pain with bilateral sciatica, unspecified chronicity Discharge Disposition: Discharged to home or Selfcare 04/21/2025 11:00 AM CDT Physical Therapy [facility] at [facility] [address], [address] [place] [address] Sherrie Martell, THERMITE WELDER, HOOK PULLER Peterson, Danelle M, PT Back pain at L4-L5 level (Primary Dx); Impaired functional mobility and activity tolerance Discharge Disposition: Discharged to home or Selfcare 04/21/2025 Travel 04/21/2025 Telephone [facility] at [facility] [address], [place] [address] [address] Danelle Peterson M, PT Appointment 04/16/2025 10:45 AM CDT Physical Therapy [facility] Re[facility] at [facility] [address], [place] [address] [place] [address] Sherrie Martell, THERMITE WELDER, HOOK PULLER Peterson, Danelle M, PT Back pain at L4-L5 level (Primary Dx); Impaired functional mobility and activity tolerance Discharge Disposition: Discharged to home or Selfcare 04/16/2025 Travel 04/11/2025 4:53 PM CDT - 04/11/2025 7:11 PM CDT Emergency [facility] [address] [place] [address] Farshad Rojas MD Khan, Abbey Corbett MD Atypical migraine Discharge Disposition: Left Against Medical Advice 04/11/2025 Travel 04/03/2025 Plan of Care Documentation [facility] at [facility] [address], [address] [place] [address] 04/02/2025 10:45 AM CDT Physical Therapy [facility] at [facility] [address], [address] [place] [phone] Sherrie Martell, THERMITE WELDER, HOOK PULLER Danelle Peterson M, PT Back pain at L4-L5 level (Primary Dx); Impaired functional mobility and activity tolerance Discharge Disposition: Discharged to home or Selfcare 04/01/2025 11:55 AM CDT Urgent Care Visit [facility] [address] [place] [phone] Erendira Singh APRN, [place] Respiratory infection (Primary Dx); Sore throat Discharge Disposition: Discharged to home or Selfcare 04/01/2025 Travel 02/12/2025 [facility]phone [facility] [place] [phone] Renae Hankins APRN, RACKING MACHINE OPERATOR from Last 3 Months Family History Medical [...] Sign Reading Time Taken Comments Blood Pressure 150/68 04/11/2025 6:45 PM CDT Pulse 73 04/11/2025 6:45 PM CDT Temperature 37.5 C (99.5 F) 04/11/2025 5:05 PM CDT Respiratory Rate 14 04/11/2025 7:00 PM CDT Oxygen Saturation 92% 04/11/2025 6:45 PM CDT Inhaled Oxygen Concentration - - Weight 103 kg (227 lb) 04/11/2025 5:05 PM CDT Height 160 cm (5' 3) 04/11/2025 5:05 PM CDT Body Mass Index 40.21 04/11/2025 5:05 PM CDT Plan of Treatment Upcoming Encounters Date Type Department Care Team (Late st Contact Info) Description 05/27/2025 12:30 PM CDT Physical Therapy [facility] Rehab at [address], [place] [address] [place] [address] Sofya Galdamez, PT [place] Discharge Disposition: Discharged to home or Selfcare 06/02/2025 9:30 AM CONCRETE FINISHING MACHINE OPERATOR Physical Therapy [facility] at [address], [place] [address] [place] [address] Renae Hankins, THERMITE WELDER, RACKING MACHINE OPERATOR [address] [place] [address] Sofya Galdamez, PT [place] Discharge Disposition: Discharged to home or Selfcare 06/09/2025 9:30 AM CONCRETE FINISHING MACHINE OPERATOR Physical Therapy [facility] at [address], [place] [address] [place] [address] Renae Hankins, THERMITE WELDER, RACKING MACHINE OPERATOR [address] [place] [address] Sofya Galdamez, PT [place] 06/16/2025 9:30 AM CONCRETE FINISHING MACHINE OPERATOR Physical Therapy [facility] at [address], [place] [address] [address] Renae Hankins, THERMITE WELDER, RACKING MACHINE OPERATOR [address] [place] [address] Sofya Galdamez, PT [place] 06/23/2025 9:30 AM CONCRETE FINISHING MACHINE OPERATOR Physical Therapy [facility] at [address], [address] [place] [address] Renae Hankins, THERMITE WELDER, RACKING MACHINE OPERATOR [address] [place] [address] Sofya Galdamez, PT [place] Health Maintenance Due Date Last Done Comments Hepatitis C Virus (HCV) Screening 1969 Hepatitis B Immunization (1 of 3 - 19+ 3-dose series) 1988 Cologuard 2014 Immunochemical Fecal Occult Blood 2014 Influenza Immunization (#1) 03/30/202505/31, 05/04/2023, 05/22/2022, Additional history exists SARS-COV-2 Immunization ( season) 2025 10/12/2021, 01/07/2021, 12/17/2020 Mammogram 08/29/2025 08/29/2024, 06/30, 06/21/2022, Additional history [...] on patient's age to complete this topic Procedures Procedure Name Priority Date/Time Associated Diagnosis Comments URINALYSIS REFLEX IF INDICATED BY ABNORMAL RESULTS STAT 04/11/2025 6:[address] HEAD OR BRAIN WO CONTRAST Stat with Interpretation 04/11/2025 5:42 PM CDT CBC WITH AUTO DIFFERENTIAL STAT 04/11/2025 5:20 PM CDT MAGNESIUM (MG) STAT 04/11/2025 5:20 PM CDT APTT (PTT) STAT 04/11/2025 5:20 PM CDT PROTIME (PT) (PROTHROMBIN TIME) STAT 04/11/2025 5:20 PM CDT CMP (COMPREHENSIVE METABOLIC PANEL) STAT 04/11/2025 5:20 PM CDT COMPLETE BLOOD COUNT (CBC) WITH DIFF STAT 04/11/2025 5:[address] - HEAD/NECK 04/11/2025 12:00 AM CDT from Last 3 Months Results * Urinalysis w/ Reflex (04/11/2025 6:15 PM CDT) SPECIFIC GRAVITY 1.010 1.003 - 1.030 04/11/2025 6:57 PM CDT [facility] URINE PH 6.0 5.0 - 9.0 04/11/2025 6:57 PM CDT [facility] WBC ESTERASE Negative Negative 04/11/2025 6:57 PM CDT [facility] NITRITE Negative Negative 04/11/2025 6:57 PM CDT [facility] PROTEIN, RANDOM URINE Negative Negative 04/11/2025 6:57 PM CDT [facility] URINE GLUCOSE, QUAL Negative Negative 04/11/2025 6:57 PM CDT [facility] URINE KETONES Negative Negative 04/11/2025 6:57 PM CDT [facility] UROBILINOGEN Normal Normal mg/dL 04/11/2025 6:57 PM CDT [facility] URINE BLOOD Negative Negative connie/ul 04/11/2025 6:57 PM CDT [facility] URINALYSIS COLOR Yellow 04/11/20 6:57 PM CDT [facility] URINALYSIS CLARITY Clear 04/11/2025 6:57 PM CDT [facility] Urine URINE SPECIMEN OBTAINED BY CLEAN CATCH PROCEDURE / Unknown Non-Phlebotomy Collection / Unknown 04/11/2025 6:15 PM CDT 04/11/2025 6:45 PM CDT us Farshad Rojas MD URINE ORDERABLES Final Re sult [facility] [address] [place] [address] * CT HEAD OR BRAIN WO CONTRAST (04/11/2025 5:42 PM CDT) Anatomical Region Laterality Modality Head N/A Computed Tomogra phy 04/11/2025 5:42 PM CDT Impressions 04/12/2025 8:25 AM CDT IMPRESSION: No acute intracranial abnormality demonstrated. Narrative 04/12/2025 8:25 AM CDT DICTATING PHYSICIAN: Wolfgang Mensah M.D. EXAM: CT HEAD OR BRAIN WO CONTRAST, 04/11/2025 5:42 PM TECHNIQUE: Unenhanced CT of the head with reformatted images in multiple planes. Radiation dose reduction techniques were used. DLP = 1176.2 mGy-cm COMPARISON: None. HISTORY: Headache, new or worsening (Age >= 50y), Frontal headache starting yesterday radiating posteriorly with light sensitivity starting this moring. H/o HTN, migraines FINDINGS: No acute intracranial hemorrhage, midline shift, hydrocephalus, or acute infarct. Sulci and ventricles are age-appropriate. No cerebral density abnormality. The deep nuclei are unremarkable. The brainstem and cerebellum are unremarkable. No abnormal density in the intracranial large vessels. No fluid or debris in the middle ears or mastoid air cells. The calvarium and skull base are intact. The visualized paranasal sinuses are clear. Orbits are unremarkable. Extracranial soft tissues are unremarkable. Partially empty sella noted. Procedure Note Wolfgang Mensah MD - 04/12/2025 DICTATING PHYSICIAN: Wolfgang Mensah M.D. EXAM: CT HEAD OR BRAIN WO CONTRAST, 04/11/2025 5:42 PM TECHNIQUE: Unenhanced CT of the head with reformatted images in multipleplanes. Radiation dose reduction techniques were used. DLP = 1176.2mGy-cm COMPARISON: None. HISTORY: Headache, new or worsening (Age >= 50y), Frontal headachestarting yesterday radiating posteriorly with light sensitivity startingthis moring. H/o HTN, migraines FINDINGS: No acute intracranial hemorrhage, midline shift, hydrocephalus,or acute infarct. Sulci and ventricles are age-appropriate. No cerebraldensity abnormality. The deep nuclei are unremarkable. The brainstem andcerebellum are unremarkable. No abnormal density in the intracraniallarge vessels. No fluid or debris in the middle ears or mastoid air cells.The calvarium and skull base are intact. The visualized paranasalsinuses are clear. Orbits are unremarkable. Extracranial soft tissuesare unremarkable. Partially empty sella noted. IMPRESSION: No acute intracranial abnormality demonstrated. us Farshad Rojas MD IMG CT ORDERABLES Final R esult * (ABNORMAL) CBC with Auto Differential (04/11/2025 5:20 PM CDT) WBC 11.10 4.00 - 12.00 10(3)/mcL 04/11/2025 6:00 PM CDT [facility] RBC 4.35 3.80 - 5.30 10(6)/mcL 04/11/2025 6:00 PM CDT [facility] HEMOGLOBIN (HGB) 13.3 12.0 - 15.8 g/dL 04/11/2025 6:00 PM CDT [facility] HEMATOCRIT (HCT) 39.8 36.0 - 47.0 % 04/11/2025 6:00 PM CDT [facility] MCV 91.5 82.0 - 96.0 fL 04/11/2025 6:00 PM CDT [facility] MCH 30.6 26.0 - 34.0 pg 04/11/2025 6:00 PM CDT [facility] MCHC 33.4 31.0 - 36.0 g/dL 04/11/2025 6:00 PM CDT [facility] PLATELET COUNT 326 140 - 440 10(3)/mcL 04/11/2025 6:00 PM CDT [facility] RDW 14.2 11.8 - 15.5 % 04/11/2025 6:00 PM CDT [facility] MPV 9.8 9.7 - 12.4 fL 04/11/2025 6:00 PM CDT [facility] NEUTROPHILS 82.4(H) 47.0 - 73.0 % 04/11/2025 6:00 PM CDT [facility] LYMPHOCYTES 12.5(L) 18.0 - 42.0 % 04/11/2025 6:00 PM CDT [facility] MONOCYTES 4.0 4.0 - 12.0 % 04/11/2025 6:00 PM CDT [facility] EOSINOPHILS 0.2 0.0 - 5.0 % 04/11/2025 6:00 PM CDT [facility] BASOPHILS 0.4 0.0 - 1.0 % 04/11/2025 6:00 PM CDT [facility] IMMATURE GRANULOCYTE 0.5(H) 0.0 - 0.4 % 04/11/2025 6:00 PM CDT [facility] Comment:Immature Granulocyte s includes Metamyelocytes, Myelocytes, and Promyelocytes. ABSOLUTE NEUTROPHILS 9.15(H) 1.60 - 7.70 10(3)/mcL 04/11/2025 6:00 PM CDT [facility] ABSOLUTE LYMPHOCYTES 1.39 1.30 - 3.20 10(3)/mcL 04/11/2025 6:00 PM CDT [facility] ABSOLUTE MONOCYTES 0.44 0.20 - 1.00 10(3)/mcL 04/11/2025 6:00 PM CDT [facility] ABSOLUTE EOSINOPHIL 0.02 0.00 - 0.40 10(3)/mcL 04/11/2025 6:00 PM CDT [facility] ABSOLUTE BASOPHILS 0.04 0.00 - 0.10 10(3)/mcL 04/11/2025 6:00 PM CDT [facility] ABSOLUTE IMMATURE GRANULOCYTE 0.06(H) 0.00 - 0.03 10 (3) mcL. 04/11/2025 6:00 PM CDT [facility] NRBC PER 100 WBC 0 04/11/20 6:00 PM CDT [facility] Blood Venipuncture / Unknown 04/11/2025 5:20 PM CDT 04/11/2025 5:57 PM CDT us Farshad Rojas MD HEMATOLOGY ORDERABLES Fin al Result Performing Organization Address [facility] Co de Phone Number [facility] [address] [place] [address] * (ABNORMAL) APTT (PTT) (04/11/2025 5:20 PM CDT) PTT 22(L) 24 - 36 sec 04/11/2025 6:16 PM CDT [facility] Blood Venipuncture / Unknown 04/11/2025 5:20 PM CDT 04/11/2025 5:57 PM CDT Narrative [facility] - 04/11/2025 6:16 PM CDT Therapeutic range for unfractionated heparin at 0.3-0.7 U/mL is an aPTT value in the range of 71-100 seconds. Critical value for the PTT test is >= 122 seconds. us Farshad Rojas MD HEMATOLOGY ORDERABLES Fin al Result Performing Organization Address City/[facility]/ZIP Co de Phone Number [facility] [address] [place] [address] * PT/INR (04/11/2025 5:20 PM CDT) PROTIME-PATIENT 12.0 11.6 - 14.8 sec 04/11/2025 6:16 PM CDT [facility] INR 0.9 0.9 - 1.2 04/11/2025 6:16 PM CDT [facility] Comment: Therapeutic Ranges INR = 2.0-3.0: Venous thromb, atrial fib, pul embolism, tissue heart valve, ami. INR = 2.5-3.5: Mechanical heart valve Critical value for INR is >/= 4.5 Blood Venipuncture / Unknown 04/11/2025 5:20 PM CDT 04/11/2025 5:57 PM CDT Farshad Rojas MD HEMATOLOGY ORDERABLES Fin al Result Performing Organization Address [facility] Co de Phone Number [facility] [address] [place] [address] * Magnesium (04/11/2025 5:20 PM CDT) [facility] MAGNESIUM 2.1 1.6 - 2.6 mg/dL 04/11/2025 6:19 PM CDT [facility] Blood Venipuncture / Unknown 04/11/2025 5:20 PM CDT 04/11/2025 5:57 PM CDT Farshad Rojas MD CHEMISTRY ORDERABLES Lesa l Result Performing Organization Address City/[facility]/ZIP Co de Phone Number [facility] [address] [place] [address] * (ABNORMAL) CMP (04/11/2025 5:20 PM CDT) [facility] SODIUM 140 136 - 145 mmol/L 04/11/2025 6:19 PM CDT [facility] POTASSIUM 3.5 3.5 - 5.1 mmol/L 04/11/2025 6:19 PM CDT [facility] CHLORIDE 105 98 - 107 mmol/L 04/11/2025 6:19 PM CDT [facility] CO2, VENOUS 24 22 - 30 mmol/L 04/11/2025 6:19 PM CDT [facility] ANION GAP 14.5 <18.0 mmol/L 04/11/2025 6:19 PM CDT [facility] GLUCOSE 142(H) 70 - 99 mg/dL 04/11/2025 6:19 PM CDT [facility] BUN 15 10 - 20 mg/dL 04/11/2025 6:19 PM CDT [facility] CREATININE, BLOOD 0.95 0.60 - 1.00 mg/dL 04/11/2025 6:19 PM CDT [facility] BUN/CREATININE RATIO 16 12 - 20 ratio 04/11/2025 6:19 PM CDT [facility] TOTAL PROTEIN 7.2 6.0 - 8.0 g/dL 04/11/2025 6:19 PM CDT [facility] ALBUMIN 4.1 3.5 - 5.0 g/dL 04/11/2025 6:19 PM CDT [facility] A/G RATIO 1.3 1.0 - 2.2 04/11/2025 6:19 PM CDT [facility] CALCIUM 9.0 8.7 - 10.5 mg/dL 04/11/2025 6:19 PM CDT [facility] T BILI 0.3 0.2 - 1.2 mg/dL 04/11/2025 6:19 PM CDT [facility] SGOT (AST) 16 <43 U/L 04/11/2025 6:19 PM CDT [facility] SGPT (ALT) 22 <56 U/L 04/11/2025 6:19 PM CDT [facility] ALKALINE PHOSPHATASE 81 40 - 150 U/L 04/11/2025 6:19 PM CDT [facility] GFR, ESTIMATED >60 >=60 04/11/2025 6:19 PM CDT [facility] Comment: Creatinine Clearance is the preferred criteria for selecting drug dose adjustments in renally impaired patients. The GFR is provided as additional pertinent clinical information. GFR is reported in mL/min/1.73 sq m. Calculation based on the 2020 Chronic Kidney Disease Epidemiology Collaboration (CKD-EPI) equation refit without adjustment for race. GFR, EST. >60 >=60 025 6:19 PM CDT [facility] Comment: Creatinine Clearance is the preferred criteria for selecting drug dose adjustments in renally impaired patients. The GFR is provided as additional pertinent clinical information. GFR is reported in mL/min/1.73 sq m. Calculation based on the 2009 Chronic Kidney Disease Epidemiology Collaboration (CKD-EPI). GFR, EST. NONAFRICAN >60 >=60 04/11/2025 6:19 PM CDT [facility] Comment: Creatinine Clearance is the preferred criteria for selecting drug dose adjustments in renally impaired patients. The GFR is provided as additional pertinent clinical information. GFR is reported in mL/min/1.73 sq m. Calculation based on the 2009 Chronic Kidney Disease Epidemiology Collaboration (CKD-EPI). Blood Venipuncture / Unknown 04/11/2025 5:20 PM CDT 04/11/2025 5:57 PM CDT us Farshad Rojas MD CHEMISTRY ORDERABLES Lesa l Result Performing Organization Address City/[facility]/ZIP Co de Phone Number [facility] [address] [place] [address] * CT - HEAD/NECK (04/11/2025 12:00 AM CDT) 04/11/2025 us Provider Scan IMG CT ORDERABLES Final Result Performing Organization Address City/[facility]/ZIP Co de Phone Number SCAN from Last 3 Months Insurance MEDICAID [employer] Advance Directives * Full Code (Latest Code Status on File) Date Activated Date Inactivated Comments 11/10/2024 3:54 PM Care Teams Workers Compensation Analyst Relationship Specialty Start Date End Date Sherrie Martell, THERMITE WELDER, HOOK PULLER [address] [facility] [place], [place] [address], [place] [address] PCP - General Advanced Practice Nurse 06/02/24 Saurav Varma MD [address] [place] [address] Consulting Physician Neurology 12/26/23 Wero Encarnacion, PAC [address] [place] [address] [address] [place], [place] [address], [place] [address] Physician Production Expediter Physician Production Expediter 07/31/24
[2025-05-15 15:55] VITALS: BP 140/110; PULSE 66; RESP 18; TEMP 37.3; O2SAT 97
[2025-05-15 16:00] LABS: EDSTREPNEGPOS1 Negative (Negative)
--- NOTE | 2025-05-15 16:08 | ED.URI ---
HPI - URI/Sore Throat General Chief Complaint: Upper Respiratory Infection Stated Complaint: Sore Throat/Left Ear Pain Time Seen by Provider: 05/15/25 15:46 Source: patient and RN notes reviewed Mode of arrival: ambulatory Limitations: no limitations History of Present Illness HPI Narrative: 55-year-old female patient presents today with a 4 day history of sore throat, left ear pain, fever with a T-max of 101.6?. She has also had a few episodes of vomiting with persistent nausea. Last vomiting episode was the day before yesterday. She also has some occasional shortness of breath related her asthma. Currently rates her pain 7/10. She has tried Chloraseptic spray, Delsym, ibuprofen, and Zofran with varying relief. She also uses albuterol inhaler and nebulizer treatments with some improvement. She was seen here at [facility] approximately 2 months ago for COVID-19. She last had a fever yesterday. Related Data Home Medications ?Medication ?Instructions ?Recorded ?Confirmed ?Last Taken ?Type albuterol sulfate 90 mcg/actuation 2 puff inhalation Q4H PRN 09/27/21 03/17/24 Unknown History aerosol inhaler Shortness Of Breath Or Wheezing amlodipine 10 mg tablet 10 mg PO DAILY 09/27/21 03/17/24 Unknown History atorvastatin 20 mg tablet 20 mg PO DAILY 09/27/21 03/17/24 Unknown History chlorthalidone 25 mg tablet 25 mg PO DAILY 09/27/21 03/17/24 Unknown History clonazepam 2 mg tablet 2 mg PO HS PRN Sleep 09/27/21 03/17/24 Unknown History fluticasone 250 mcg-salmeterol 50 1 inh inhalation BID 09/27/21 03/17/24 Unknown History mcg/dose blistr powdr for inhalation (Wixela Inhub) fluticasone propionate 50 2 spray intranasal DAILY 09/27/21 03/17/24 Unknown History mcg/actuation nasal spray,suspension lisinopril 2.5 mg tablet 2.5 mg PO DAILY 09/27/21 03/17/24 Unknown History montelukast 10 mg tablet 10 mg PO HS 09/27/21 03/17/24 Unknown History potassium chloride 20 mEq 20 meq PO DAILY 09/27/21 03/17/24 Unknown History tablet,extended release(part/cryst) sertraline 25 mg tablet 25 mg PO DAILY 03/06/23 03/17/24 Unknown History celecoxib 100 mg capsule mg PO 03/17/24 03/17/24 Unknown History cetirizine 10 mg tablet mg PO 03/17/24 03/17/24 Unknown History gabapentin 300 mg capsule mg PO 03/17/24 03/17/24 Unknown History hydroxyzine HCl 25 mg tablet mg PO 03/17/24 03/17/24 Unknown History losartan 100 mg tablet mg PO 03/17/24 03/17/24 Unknown History metoclopramide HCl 10 mg tablet mg PO 03/17/24 03/17/24 Unknown History pantoprazole 40 mg tablet,delayed mg PO 03/17/24 03/17/24 Unknown History release tramadol 50 mg tablet mg PO 03/17/24 03/17/24 Unknown History amoxicillin 875 mg-potassium tablet 03/20/25 Unknown History clavulanate 125 mg tablet famotidine 40 mg tablet mg 03/20/25 Unknown History hydrocodone 5 mg-acetaminophen 325 tablet 03/20/25 Unknown History mg tablet lidocaine 5 % topical patch patch 03/20/25 Unknown History Allergies Allergy/AdvReac Type Severity Reaction Status Date / Time Sulfa (Sulfonamide Allergy Unknown rash Verified 05/15/25 15:54 Antibiotics) [facility] Past Medical History Medical History Encounter for screening examination for sexually transmitted disease 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 Screening mammogram, encounter for Migraines 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) Seasonal allergies GERD (gastroesophageal reflux disease) Anxiety Diabetes Hypertension Asthma Surgical History Surgical History H/O tubal ligation (~1999) History of orthopedic surgery (02/14/18) tumor removed from right foot History of hysteroscopy (06/18/14) NOVASURE ABLATION, HSCOPE, D&C - benign History of orthopedic surgery (04/26/15) Torn meniscus repair, right knee Hx of ovarian cystectomy (~2001) History of repair of right rotator cuff (~2007) Hx of arthroscopy of left knee H/O arthroscopy of right knee (~1987) S/P bilateral foot surgery (11/27/99) H/O: hysterectomy (08/05/15) Robotic assisted Hysterectomy, BSO - uterine fibroids, failed endometrial ablation, ovarian cyst - benign Hx of cholecystectomy (~2001) Family History Family History Mother Diabetes mellitus Acute myocardial infarction Hypertension Grandparent Diabetes mellitus maternal grandfather Acute myocardial infarction maternal grandfather Hypertension maternal grandfather Social History Social History Smoking status: Never smoker Alcohol intake: never Substance use: never Substance use type: does not use Lack of Transportation: No Lack of Food: Sometimes True Current Housing: Decline to Answer Concerned About Future Housing: Decline to Answer Difficulty Paying Gas/Electric Bills: No Difficulty Paying for Meds: YES Currently Unemployed: No Education: Associate Degree Difficulty w/ Childcare or Family Care: YES Living arrangements: with family Additional living arrangements comments: / lives with father 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 Please see nursing chart for further information. There is no relevant family history pertinent to the presenting complaint Exam Narrative: GENERAL: Mildly ill-appearing, well-nourished, and in no acute distress. HEAD: Normocephalic, atraumatic. EYES: EOMI. No redness or drainage. Conjunctivae normal. ENT: Mucous membranes pink and moist. Nares congested. No rhinorrhea. TMs normal bilaterally. Throat mildly erythematous without edema or exudate. Uvula midline. NECK: Normal AROM. Supple. No lymphadenopathy. CHEST: No respiratory distress. Clear to auscultation. HEART: Regular rate and rhythm. No murmur appreciated. EXTREMITIES: Normal range of motion. No edema. SKIN: Warm, dry, no rash. Capillary refill normal. Normal skin turgor. NEURO: No focal deficits. Alert and oriented x3. Gait steady. PSYCH: Normal affect. No signs of depression or anxiety. Course Course Level of Care: [facility] Care Visit Vital Signs Vital signs: Vital Signs Temperature 99.1 F 05/15/25 15:55 Pulse Rate 66 05/15/25 15:55 Respiratory Rate 18 05/15/25 15:55 Blood Pressure 140/110 H 05/15/25 15:55 Pulse Oximetry 97 05/15/25 15:55 Oxygen Delivery Room Air 05/15/25 15:55 Temperature 99.1 F 05/15/25 15:55 Pulse Rate 66 05/15/25 15:55 Respiratory Rate 18 05/15/25 15:55 Blood Pressure 140/110 H 05/15/25 15:55 Pulse Oximetry 97 05/15/25 15:55 Oxygen Delivery Room Air 05/15/25 15:55 Reviewed MDM - URI/Sore Throat MDM Narrative Medical decision making narrative: 55-year-old female patient presents today with a 4 day history of sore throat, left ear pain, fever with a T-max of 101.6?. She has also had a few episodes of vomiting with persistent nausea. Last vomiting episode was the day before yesterday. She also has some occasional shortness of breath related her asthma. Currently rates her pain 7/10. She has tried Chloraseptic spray, Delsym, ibuprofen, and Zofran with varying relief. She also uses albuterol inhaler and nebulizer treatments with some improvement. She was seen here at [facility] approximately 2 months ago for COVID-19. She last had a fever yesterday. Upon exam, patient has some mild nasal congestion, mildly erythematous throat without edema or exudate. Rapid strep negative. Culture pending. Symptoms likely viral in etiology. Discussed [id number] medication use and duration of illness. She will be prescribed some prednisone to help with her cough, occasional shortness of breath related to her asthma. Anticipatory guidance given. Lab Data Attestation: I reviewed the patient's lab results. Labs: Lab Results 05/15/25 Range/Units 15:55 POC Grp A Strep Screen Negative (Negative) Critical Care Time Critical Care Time Critical Care Time: No Discharge Plan Discharge Clinical Impression: Upper respiratory infection Qualifiers: URI type: unspecified URI Qualified Code(s): J06.9 - Acute upper respiratory infection, unspecified Asthma exacerbation Qualifiers: Asthma severity: unspecified severity Asthma persistence: unspecified Qualified Code(s): J45.901 - Unspecified asthma with (acute) exacerbation Patient Disposition: Home Condition: Stable Instructions: Upper Respiratory Infection (DC) Additional Instructions: Your rapid strep swab was negative today at [facility]. You will be notified in a few days if the culture comes back positive for strep, and appropriate antibiotics will be called in for you at that time. Your symptoms are likely due to a viral illness, which is not treated with antibiotics. Viral symptoms can be present for up to 7-10 days. Take Tylenol or ibuprofen for fever or pain. Take the prednisone as directed for your cough and shortness of breath. Continue your nebulizer/rescue inhaler as prescribed. Rest and stay hydrated. Follow up with your PCP in 7 days if symptoms are not improving. Go to the ER immediately if you have any difficulty breathing or swallowing. Patient Language: Bel[place]an Prescriptions: New prednisone 20 mg tablet 40 mg PO DAILY 5 Days Qty: 10 0RF No Action atorvastatin 20 mg tablet 20 mg PO DAILY amlodipine 10 mg tablet 10 mg PO DAILY fluticasone propion-salmeterol [Wixela Inhub] 250-50 mcg/dose blister with device 1 inh INHALATION BID fluticasone propionate 50 mcg/actuation spray,suspension 2 spray INTRANASAL DAILY montelukast 10 mg tablet 10 mg PO HS lisinopril 2.5 mg tablet 2.5 mg PO DAILY albuterol sulfate 90 mcg/actuation HFA aerosol inhaler 2 puff INHALATION Q4H PRN (Reason: Shortness Of Breath Or Wheezing) potassium chloride 20 mEq tablet,ER particles/crystals 20 meq PO DAILY chlorthalidone 25 mg tablet 25 mg PO DAILY clonazepam 2 mg tablet 2 mg PO HS PRN (Reason: Sleep) hydrocodone-acetaminophen 5-325 mg tablet famotidine 40 mg tablet lidocaine 5 % adhesive patch,medicated amoxicillin-pot clavulanate 875-125 mg tablet benzonatate 200 mg capsule 200 mg PO TID PRN (Reason: cough) 7 Days Qty: 21 0RF ondansetron 8 mg tablet,disintegrating 8 mg PO Q8H PRN (Reason: nausea and vomiting) 3 Days Qty: 10 0RF losartan 100 mg tablet PO hydroxyzine HCl 25 mg tablet PO metoclopramide HCl 10 mg tablet PO pantoprazole 40 mg tablet,delayed release (DR/EC) PO cetirizine 10 mg tablet PO gabapentin 300 mg capsule PO tramadol 50 mg tablet PO celecoxib 100 mg capsule PO sertraline 25 mg tablet 25 mg PO DAILY fluconazole 150 mg tablet 150 mg PO Q72H Qty: 2 0RF Follow-up/Referrals: PHYSICIAN NOT ON STAFF,NONSTAFF [Primary Care Provider] Stand Alone Forms: Work/School Release IP Time of Disposition: 16:14
[2025-05-15 16:16] VITALS: BP 148/76
== END 2025-05-15 16:23 | disposition home or self-care (01) ==
PROVIDERS: Emergency Provider Nurse Practitioner
DX: J06.9 Acute upper respiratory infection, unspecified (principal); J45.901 Unspecified asthma with (acute) exacerbation; E11.9 Type 2 diabetes mellitus without complications; I10 Essential (primary) hypertension; K21.9 Gastro-esophageal reflux disease without esophagitis; Z86.16 Personal history of COVID-19
CPT/HCPCS: 87081; 87880; 99213; G0463